=== PATIENT | female | born 1930 | race Caucasian/White ===

== ENCOUNTER → 2018-11-21 | Outpatient (CLI) | payer MEDICARE, OTHER ==
[~2018-11-21] MED LIST: ACET-1882; ALKA; BETA2500; CALC300T34; CYAN100025; IRON45TA6; LIPA1CAP9; MULT-754; OMEG-14; RANI150T35; SIMV40TA3
--- NOTE | 2018-11-21 09:40 | CONS ---
Date/Time of Note Date/Time of Note DATE: 11/21/18 TIME: 09:33 Assessment/Plan Assessment/Plan Hospital Course 88-year-old female presenting with greater than 1 year right knee pain. She does have a history of a right patella fracture that underwent open reduction internal fixation with tension band K wires. However on her history as well as exam and radiographs the majority of her pain and pathology is in the medial compartment. I do not believe the hardware is causing the majority of her symptoms. Therefore removal of hardware would not significantly improve her symptoms. I am recommending at this time since she is failed conservative treatment with analgesics, walker, activity modifications that she think about a total knee replacement. She does want to move forward with surgical options as the pain is too great and she is not able to have a quality of life she wishes. I discussed with her that she does have increased risk of infection given the previous surgery and hardware as well as during surgery the patella fracture may not be completely healed and in that case total knee arthroplasty would not be completed. Given her history of bladder cancer as well as thin body habitus and poor diet I would like her to obtain additional labs before I decide to proceed with surgery. The patient is to obtain CBC with differential ESR CRP Vitamin D 25-hydroxy Total protein Albumin Those labs will be reviewed. If the labs are normal we can proceed with scheduling for surgery. Otherwise she will need to be optimized prior to procedure and surgery. On follow-up benefits and risks will be reviewed and full length scanogram films will be obtained for preop planning. Consultation Date/Type/Reason Admit Date/Time Date of Consultation: Nov 21, 2018 Type of Consult Right knee pain Hx of Present Illness Is a 88-year-old female with multiple medical problems with a chief complaint of right knee pain. The pain began approximately year and a half ago. She sustained a right patella fracture which was subsequently fixed by Dr. Moyer in 2017. The patients pain is in the medial aspect of the right knee denies any significant anterior knee pain or irritation from the hardware. Pain is not radiating to the lower leg. The pain is rated as a 10/10 and is sharp and throbbing. Patient denies complaints of numbness or tingling. The pain is exacerbated by climbing stairs and ambulation. Pain is not relieved by acetaminophen. Patient uses a walker at baseline. History of severe scoliosis as well. Duration: 1.5 years Injury: Right patella fracture Walking tolerance: Less than 1 block Limp: Yes Support: Walker Swelling: Yes Crepitation: Yes Instability: No Stairs: Does not use Physical Therapy: None recently Injections: No NSAIDs: Contraindicated Prior surgery: Tension band right patella fracture Back pain: Yes, scoliosis Hip pain: Occasional right hip pain Risk of AVN : Yes Patient denies fever, chills, shortness of breath, chest pain, nausea/vomiting, constipation, diarrhea. Past Medical History Aortic valve stenosis Peripheral neuropathy GERD History of blood transfusion Hearing loss Macular degeneration Bladder [id number] Osteoporosis Scoliosis Allergies: Coded Allergies: Latex (Verified Allergy, Severe, 04/22/10) Ibuprofen (Verified Allergy, Mild, 07/21/10) Past Surgical History Bilateral total hip arthroplasties by Dr. Brito in [address] Moyer 2016 Hysterectomy Appendectomy Right shoulder surgery Laminectomy Cataract surgery Family History Significant Family History: no pertinent family hx Social History Alcohol Use: none Smoking Status: Former smoker Drug Use: none Exam/Review of Systems Vital Signs Vitals Weight: 100 pounds Height: 5 foot Temperature: 97.9 Heart Rate: 61 Blood Pressure: 148/65 Respiratory Rate: 14 Exam General: Alert, oriented x3. No Acute Distress. Heart: Regular rate and rhythm. Lungs: No respiratory distress. No accessory muscle use. Musculoskeletal: Right Knee This is a well developed thin female who is alert, oriented times three and in no apparent distress. Skin is intact over the right knee as well as the lower extremity with no abras ions, lacerations, or ulcerations. Well-healed anterior midline incision. Tension band and K wire hardware is palpable but is nontender to palpation. Observation of the patient's gait reveals an antalgic gait with Varus thrust. Frontal plane alignment is varus. There is pain on palpation of medial joint line. The patient demonstrates minimal grinding anteriorly with ROM. Range of motion: 5 extension to approximately 130 degrees of flexion. Collateral ligament testing reveals no instability with varus or valgus stress at 0 and 30 degrees of flexion. Negative Clary's and negative posterior drawer. Neurovascularly intact with 5/5 EHL/tibialis anterior/gastroc. Sensation decreased but grossly intact to light touch in a sural, saphenous, deep peroneal, superficial peroneal, medial and lateral plantar nerve distribution. Palpable, symmetric dorsalis pedis and posterior tibial pulses in both lower extremities. Imaging Imaging The patient received a standard set of films today that were personally reviewed. Imaging included a standing bilateral knee AP, PA flexion, merchant views and a dedicated lateral of the affected knee: There is varus alignment of the knee. Postsurgical changes with tension band with K wires of a patella fracture. The fracture is healed. The hardware is intact. There is complete loss of joint space medial compartment(s) and mild degenerative changes in the patellofemoral joint. 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 There is osteophyte formation. There is subchondral sclerosis. There are subchondral cysts. Degenerative changes are most severe in the medial compartment(s) PHYLICIA ULLOA MD Nov 21, 2018 09:40
--- NOTE | 2018-11-21 15:10 | RADRPT ---
PROCEDURE: XR Knees. CLINICAL INDICATION: Bilateral knee pain. TECHNIQUE: Total of eight views. Weightbearing frontal, oblique, and lateral views of the both kne es. Patellar views of both knees. COMPARISON: No prior study is available for comparison. FINDINGS: On the right side, there is a yjiaqu-iy-bvvup wire and 2 vertical pins transfixing a healed transvers e fracture of the patella with satisfactory alignment. There is no other fracture and there is no dis location. On the right side, there are degenerative changes with medial joint compartment narrowing, subarticular sclerosis, mild deformity. There is a right knee joint effusion. There is no fracture or dislocation. There is no lytic or blastic lesion. On the left side, there are mild degenerative changes with small osteophytes noted. There is no fract ure or dislocation. There is no lytic or blastic lesion. 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 Vascular calcifications are present consistent with atheroscler osis. Soft tissues are otherwise normal. IMPRESSION: 1. Old healed fracture of the right patella with hardware noted. 2. Severe degenerative changes of the right knee. 3. Mild degenerative changes of the left knee. RPTAT: QQ .Zac Guzman MD, Date Time Electronically viewed and signed by .Zac Guzman MD, on 11/21/2018 15:10 .R/
== END | disposition home or self-care (01) ==
LOC: HKI 09:19
PROVIDERS: ATTEND Orthopaedic Surgery Adult Reconstructive Orthopaedic Surgery
DX: M25.561 Pain in right knee (principal); I35.0 Nonrheumatic aortic (valve) stenosis; G62.9 Polyneuropathy, unspecified; K21.9 Gastro-esophageal reflux disease without esophagitis; M81.0 Age-related osteoporosis without current pathological fracture; Z85.51 Personal history of malignant neoplasm of bladder; Z90.710 Acquired absence of both cervix and uterus; Z96.643 Presence of artificial hip joint, bilateral; Z87.891 Personal history of nicotine dependence
CPT/HCPCS: 73564; G0463

== ENCOUNTER → 2019-01-13 | Outpatient (CLI) | payer MEDICARE, OTHER ==
--- NOTE | 2019-01-14 09:39 | RADRPT ---
PROCEDURE: Limited x-ray of both lower extremities. CLINICAL INDICATION: Bilateral leg pain. TECHNIQUE: Single frontal view of both lower extremities was obtained from the hips to the lower ca lves. COMPARISON: None. FINDINGS: Surgical clips are present in the pelvis bilaterally. There are bilateral total hip arthroplasties. T here is a right patella open reduction and internal fixation with 2 vertical wires and a cqiwxd-dj-et ght wire. There are degenerative changes of both knee joints. IMPRESSION: 1. Bilateral lower extremity radiographs as described above. RPTAT: QQ .Zac Guzman MD, MD Date Time Electronically viewed and signed by .Zac Guzman MD, on 01/14/2019 09:39 .R/
--- NOTE | 2019-01-14 18:10 | CONS ---
Consult Date/Type/Reason Admit Date/Time Initial Consult Date Date/Time of Note DATE: 01/14/19 TIME: 17:40 Subjective Barbara Angeles is here today with osteoarthritis of the right knee. The patient has been having problems for the last several years. The patient rates the pain 10/10. She has history of open reduction internal fixation of the patella fracture couple years ago. The patient has failed conservative therapy. At last visit high risk patient labs were ordered and all were within acceptable limits. The patient is here for a preoperative visit. Objective Exam General: Alert, oriented x3. No Acute Distress. Heart: Regular rate and rhythm. Lungs: No respiratory distress. No accessory muscle use. Musculoskeletal: Right Knee This is a well developed thin female who is alert, oriented times three and in no apparent distress. Skin is intact over the right knee as well as the lower extremity with no abrasions, lacerations, or ulcerations. Well-healed anterior midline incision. Tension band and K wire hardware is palpable but is nontender to palpation. Observation of the patient's gait reveals an antalgic gait with Varus thrust. Frontal plane alignment is varus. There is pain on palpation of medial joint line. The patient demonstrates minimal grinding anteriorly with ROM. Range of motion: 5 extension to approximately 130 degrees of flexion. Collateral ligament testing reveals no instability with varus or valgus stress at 0 and 30 degrees of flexion. Negative Clary's and negative posterior drawer. Neurovascularly intact with 5/5 EHL/tibialis anterior/gastroc. Sensation decreased but grossly intact to light touch in a sural, saphenous, deep peroneal, superficial peroneal, medial and lateral plantar nerve distribution. Palpable, symmetric dorsalis pedis and posterior tibial pulses in both lower extremities. Results/Medications Home Meds Reported Medications Iron,Carbonyl (Feosol) 45 Mg Tablet 07/21/10 Multivitamins W-Minerals/Lut (Centrum Silver Tablet) 1 Tab Tablet 07/21/10 Beta-Carotene (Beta Carotene) 25,000 Unit Capsule 07/21/10 Cyanocobalamin (Vitamin B-12) 1,000 Mcg Lozenge 07/21/10 Calcium Carbonate (Tums EX) 1 Tab.chew Tab.chew 07/21/10 Fish Oil/[place]-3 Fatty Acids (Fish Oil 1,200 Mg Softgel) 1 Cap Capsule 07/21/10 Aspirin ([place]) 1 Tab Tabef 07/21/10 Acetaminophen (Arthritis Pain Relief) 650 Mg Tablet.sa 07/21/10 Ranitidine Hcl* (Zantac*) 150 Mg Capsule 07/21/10 Amylase/Lipase/Protease (Pancrease Mt 10 Capsule Ec) 1 Cap.ec Capsule. 07/21/10 Simvastatin (Simvastatin) 40 Mg Tablet 07/21/10 Assessment/Plan Hospital Course (Demo Recall) The patient has AVN of the medial femoral condyle and osteoarthritis and of the right knee involving primarily the medial compartment(s) with previous k-wire and tension band ORIF of the patella. The patient has failed conservative treatment. Medical Clearance pending ----- A lengthy discussion ensued, where the patient was told that if and when the symptoms are intolerable, elective total knee replacement should be considered. The operative procedure was explained using diagrams and or three-dimensional models. Discussion wa held specifically about regarding removal of hardware. s if during removal of hardware the fracture is found not to be healed a total knee arthroplasty would not be performed and the fracture would be further stabilized. If the patella fracture is healed but there is not sufficient bone stock to resurface the patella, the patella will be left unresurfaced. The rehabilitation, the potential risks, benefits and alternatives were discussed at length. Specific risks discussed included but were not limited to excessive blood loss and the need for transfusion and therefore the risk of transmissible disease or transfusion reaction, deep infection and the potential need for repetitive debridements, implant removal, long-term antibiotic therapy, possibly requiring deep venous access, extensor mechanism complications, including subluxation or dislocation, disruption of the quadriceps or patellar tendon, fracture of the patella or avulsion of the tibial tuberosity, femoral, tibial or fibular fracture and the need for further surgery for fixation, neurovascular injury with temporary or permanent numbness, tingling, weakness or paralysis, arterial injury requiring surgery including possible amputation, deep venous thrombosis, pulmonary embolism and , persistent pain, weakness, or limp, late aseptic loosening and the need for revision, polyethylene wear-induced osteolysis and related problems, post-operative stiffness requiring closed manipulation, and finally, a wide variety of unanticipated medical problems. The opportunity to ask questions and address any concerns was provided. The patient would like to proceed with scheduling. Face to Face Evaluation for Home Health Care: This is to certify that after date of planned surgery patient will be in need of intermittent nursing home care, physical therapy and/or occupational therapy as patient will be home bound. This patient is under my care and I have authorized the services on this plan of care and will periodically review the plan. Plan: removal of hardware and Right TKA VTE risk stratification: Average VTE prophylaxis: ASA 81 mg twice daily times 6 weeks Diabetes management: No Pain control: Standard Telemetry: Will be determined after surgery MRSA: Pending PHYLICIA ULLOA MD Jan 14, 2019 17:55
== END | disposition home or self-care (01) ==
LOC: HKI 13:36
PROVIDERS: ATTEND Orthopaedic Surgery Adult Reconstructive Orthopaedic Surgery
DX: M17.11 Unilateral primary osteoarthritis, right knee (principal); Z79.82 Long term (current) use of aspirin
CPT/HCPCS: 77073; G0463

== ENCOUNTER 2019-01-21 05:28 | Inpatient (IN) | payer MEDICARE, OTHER ==
[2019-01-17 10:42] VITALS: BMI 19.4
[2019-01-21] VITALS (41 sets, daily range): BP systolic 65–178; BP diastolic 36–73; PULSE 57–136; RESP 9–25; Ht 152.4 cm; Wt 40.5 kg
[~2019-01-21] VITALS: Ht 152.4 cm; Wt 40.5 kg
[2019-01-21] MEDS ORDERED: CEFAZOLIN 2 GM/50 ML (PMX) 50 ML IVPB ONE (06:00)
[2019-01-21] MEDS ORDERED: LACTATED RINGER'S 1,000 ML IV* SCH (06:00)
[2019-01-21] MEDS ORDERED: DEXAMETHASONE 4 MG/ML 1 ML INJ IV ONE (06:00)
[2019-01-21] MEDS ORDERED: LANSOPRAZOLE 30 MG CAP PO ONE (06:00)
[2019-01-21] MEDS ORDERED: ONDANSETRON 4 MG INJ IV ONE (06:00)
[2019-01-21] MEDS ORDERED: ACETAMINOPHEN 1000MG/100ML IV 100 ML IVPB ONE (06:00)
[2019-01-21] MEDS ORDERED: DESFLURANE 15 MIN ONE (07:00)
[2019-01-21] MEDS ORDERED: SIMV40TA3 PO (07:20)
[2019-01-21] MEDS ORDERED: TRANEXAMIC ACID 1GM/100ML(PMX) 200 ML ONE (07:21)
[2019-01-21] MEDS ORDERED: VIT1TABL33 PO (07:21)
[2019-01-21] MEDS ORDERED: ACET-2047 PO (07:22)
[2019-01-21] MEDS ORDERED: ASPI81TA52 PO (07:22)
[2019-01-21] MEDS ORDERED: BETA2500 PO (07:23)
[2019-01-21] MEDS ORDERED: GLUC-134 PO (07:23)
--- NOTE | 2019-01-21 07:29 | HPN ---
Date/Time of Note Date/Time of Note DATE: 01/21/19 TIME: 07:28 Interval H&P Admission Note Pt. seen H&P reviewed: No system changes Patient denies fever, chills, shortness of breath, chest pain, nausea/vomiting, constipation, diarrhea. 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 MUSCULOSKELETAL: Right lower extremity: Skin intact. Well healed midline incision Sensation decreased to light touch in a sural, saphenous, deep peroneal, superficial peroneal, medial and lateral plantar nerve distribution. Motor is intact, patient able to dorsiflex and plantarflex ankle and extend and flex great toe. Dorsalis Pedis pulse +2, Brisk capillary refill. Compartments are soft. Calves non-tender to palpation bilaterally. PHYLICIA ULLOA MD Jan 21, 2019 07:29
[2019-01-21] MEDS ORDERED: ROPIVACAINE 0.2% 60 ML, CLONIDINE 100 MCG, EPINEPHrine 0.3 MG, SOD CHLORIDE 0.9% 50 ML INJ SCH ×4 (07:30)
--- NOTE | 2019-01-21 07:39 | PREAC ---
Date/Time of Note Date/Time of Note DATE: 01/21/19 TIME: 07:38 Anesthesia Eval and Record Evaluation Time Pre-Procedure Interview DATE: 01/21/19 TIME: 07:38 Age 88 Sex female NPO: 8 hrs Preoperative diagnosis right knee osteoarthritis Planned procedure right knee replacement Past Medical History Past Medical History: Includes Cardio: Dyslipidemia, Other (moderate aortic stenosis ) Musculoskeletal: Osteoarthritis Surgery & Anesthesia Issues No known issue Meds Anticoagulation: No Beta Meenu within 24 hr: No Reason Beta Meenu not given: Pt. not on B-Meenu Reported Medications Beta-Carotene (Beta Carotene) 25,000 Unit Capsule, 55290 UNIT PO DAILY, CAP 01/21/19 Glucosamine Hcl/Chondr Lewis A Na (OSTEO BI-FLEX CAPLET) 1 Each Tablet, 1 EACH PO BID, TAB 01/21/19 Aspirin (Low Dose Aspirin) 81 Mg Tablet.dr, 81 MG PO DAILY, #30 TAB 01/21/19 Acetaminophen* (Acetaminophen*) 650 Mg Tablet, 650 MG PO TID PRN for PAIN AND OR ELEVATED TEMP, #30 TAB 01/21/19 Vit A/Vit C/Vit E/Zinc/Copper (PRESERVISION AREDS TABLET) 1 Each Tablet, 2 EACH PO DAILY, TAB 01/21/19 Simvastatin (Simvastatin) 40 Mg Tablet, 40 MG PO QHS, #30 TAB 01/21/19 Discontinued Reported Medications Iron,Carbonyl (Feosol) 45 Mg Tablet 07/21/10 Multivitamins W-Minerals/Lut (Centrum Silver Tablet) 1 Tab Tablet 07/21/10 Beta-Carotene (Beta Carotene) 25,000 Unit Capsule 07/21/10 Cyanocobalamin (Vitamin B-12) 1,000 Mcg Lozenge 07/21/10 Calcium Carbonate (Tums EX) 1 Tab.chew Tab.chew 07/21/10 Fish Oil/[place]-3 Fatty Acids (Fish Oil 1,200 Mg Softgel) 1 Cap Capsule 07/21/10 Aspirin ([place]) 1 Tab Tabef 07/21/10 Acetaminophen (Arthritis Pain Relief) 650 Mg Tablet.sa 07/21/10 Ranitidine Hcl* (Zantac*) 150 Mg Capsule 07/21/10 Amylase/Lipase/Protease (Pancrease Mt 10 Capsule Ec) 1 Cap.ec Capsule. 07/21/10 Simvastatin (Simvastatin) 40 Mg Tablet 07/21/10 Current Medications Lactated Ringer's 1,000 ml @ 125 mls/hr Q8H IV* ; Start 01/21/19 at 06:00; Stop 01/21/19 at 13:59 Ropivacaine/ Clonidine/ Epinephrine/ Sodium Chloride INTRA-OP INJ ; Start 01/21/19 at 07:30; Stop 01/21/19 at 12:30 Miscellaneous Information (*Order Clarification Bulletin) MEDICATION REQUIRES CLARIFICATI... Q8H XX ; Start 01/21/19 at 06:00; Stop 01/21/19 at 19:00 Meds reviewed: Yes Allergies Coded Allergies: latex (Verified Allergy, Severe, 01/21/19) ibuprofen (Verified Allergy, Mild, 01/21/19) Allergies Reviewed: Yes Labs/Studies Labs Reviewed: Reviewed by anesthesiologist Blood Bank Test 01/21/19 06:20 Antibody Screen NEGATIVE Blood Type O POSITIVE test: N/A Pre-procedure Exam Last vitals Vital Signs Date Temp Pulse Resp B/P (MAP) Pulse Ox O2 O2 Flow FiO2 Time Delivery Rate 01/21/19 98.5 57 18 161/70 95 Room Air 07:09 (100) Airway: Adequate mouth opening, Adequate thyromental dist Mallampati: Mallampati IV Teeth: Normal Lung: Normal Heart: Normal ASA Physical Status ASA physical status: 4 Emergency: None Pre-operative Attestations Prior to commencing anesthesia and surgery, the patient was re-evaluated, there was verification of: *The patient's identity *The results of appropriate recent lab work and preoperative vital signs *The above evaluation not changing prior to induction *Anesthetic plan, risk benefits, alternative and complications discussed with patient/family; questions answered; patient/family understands, accepts and wishes to proceed. BRENDEN LEON DO Jan 21, 2019 07:39
[2019-01-21] MEDS ORDERED: ROCURONIUM 50 MG INJ ONE ×2 (07:47→09:31)
[2019-01-21] MEDS ORDERED: MIDAZOLAM 1 MG/ML 2 ML INJ ONE (07:47)
[2019-01-21] MEDS ORDERED: LIDOCAINE 1% (MDV) 20 ML INJ ONE (07:47)
[2019-01-21] MEDS ORDERED: ETOMIDATE 20 MG INJ ONE (07:47)
[2019-01-21] MEDS ORDERED: PHENYLephrine (100 MCG/ML) 5ML SYG ONE ×3 (07:59→12:41)
[2019-01-21] MEDS ORDERED: VASOPRESSIN 20 UNITS INJ ONE (07:59)
[2019-01-21] MEDS ORDERED: CEFAZOLIN 1 GM INJ ONE (08:13)
[2019-01-21] MEDS ORDERED: DEXAMETHASONE 4 MG/ML 5 ML INJ ONE (08:34)
[2019-01-21] MEDS ORDERED: ONDANSETRON 4 MG INJ ONE ×2 (08:34→17:54)
[2019-01-21] MEDS ORDERED: VITA100022 PO (08:40)
[2019-01-21] MEDS ORDERED: OMEG-158 PO (08:40)
[2019-01-21] MEDS ORDERED: FER325 PO (08:41)
[2019-01-21] MEDS ORDERED: ASCO500C7 PO (08:41)
[2019-01-21] MEDS ORDERED: CHOL100062 PO (08:42)
[2019-01-21] MEDS ORDERED: ESOM40CA PO (08:42)
[2019-01-21] MEDS ORDERED: FOLI1TAB5 PO (08:43)
[2019-01-21] MEDS ORDERED: COMBIG5 LEFT EYE (08:45)
[2019-01-21] MEDS ORDERED: PROP10DR2 BOTH EYES (08:45)
[2019-01-21] MEDS ORDERED: FENTAnyl 50 MCG/ML VIAL ONE ×2 (08:47→09:06)
[2019-01-21] MEDS ORDERED: hydrALAzine 20 MG INJ ONE (09:05)
[2019-01-21] MEDS ORDERED: POLYMYXIN/BACITRACIN 1L IRRIG IRR ONE (09:07)
[2019-01-21] MEDS ORDERED: ROPIVACAINE 0.2% 20 ML VIAL ONE (11:47)
[2019-01-21] MEDS ORDERED: SUGAMMADEX SODIUM 200 MG/2 ML VIAL IV ONE (11:58)
[2019-01-21] MEDS ORDERED: BISACODYL 10 MG SUPP PR PRN (12:00)
[2019-01-21] MEDS ORDERED: MAGNESIUM HYDROXIDE 30ML CUP PO PRN (12:00)
[2019-01-21] MEDS ORDERED: DIPHENHYDRAMINE 50 MG INJ IV PRN (12:00)
[2019-01-21] MEDS ORDERED: BETHANECHOL 25 MG TAB PO PRN (12:00)
[2019-01-21] MEDS ORDERED: HYDROmorphONE 1 MG/ML SYG IV PRN (12:00)
[2019-01-21] MEDS ORDERED: NA PHOSPHATE/BIPHOS 133 ML ENEMA PR PRN (12:00)
[2019-01-21] MEDS ORDERED: SENNA/DOCUSATE NA (8.6MG/50MG) TAB PO PRN (12:00)
[2019-01-21] MEDS ORDERED: NALOXONE (0.4 MG/ML) INJ IV PRN (12:00)
[2019-01-21] MEDS ORDERED: oxyCODONE 5 MG TAB PO PRN (12:00)
[2019-01-21] MEDS ORDERED: NACL 0.9% 3 ML SYG IV SCH (12:00)
[2019-01-21] MEDS ORDERED: FLUMAZENIL 0.5 MG INJ ONE (12:23)
--- NOTE | 2019-01-21 12:28 | OPR ---
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 Postoperative Diagnosis As above Operation/Procedure Performed Removal of deep hardware Right total knee arthroplasty Use of intraoperative navigation Use of intraoperative x-ray Surgeon see signature line Portable Irrigation Operator Rayshawn STANLEYNA Anesthesia Type: general Tourniquet Time: 120 Estimated Blood Loss: 50 - 100 ml's Transfusion none Specimen none Grafts/Implants Explants: 2 stainless steel K wires Stainless steel cerclage wire IMPLANTS: Depuy Sigma Femur: size 2.5 PS Tibia: Size 2 Poly insert: size 2 PS, 8 mm thickness Patella: 32 mm Complications none Pt Condition Post Procedure: stable Disposition: PACU Procedure Description PREOP DIAGNOSIS: Right knee AVN ORIF patella fracture POSTOP DIAGNOSIS: Same. SURGICAL PROCEDURE: Removal of deep hardware Right total knee arthroplasty. Use of intraoperative navigation Use of intraoperative x-ray CPT CODE: 17825. [id number] INDICATIONS AND CONSENT: The patient is a 84 year-old woman, with an orthopaedic history consistent with progressively worsening knee pain. She sustained a patella fracture approximately 2 years ago. She underwent open reduction internal fixation by another surgeon. Follow counts per the patient this went well and she went on to healing. However she continued to have significant pain and dysfunction. On x-rays she was found to have healed and well reduced patella fracture with retained hardware using K wires and tension band technique. On x-rays also found that she had significant AVN of the medial femoral condyle with collapse. She also had moderate osteoarthritis in other areas of her knee. They have maximized nonoperative measures, which have included activity modification, medicines, intra-articular injections. On physical exam, they have varus alignment, no previous open surgical scars. They have ROM 0-100, no gross ligamentous instability. No significant venous stasis or edema. Distally neurovascular intact. They were offered a knee replacement with removal of hardware. A lengthy discussion ensued, where the patient was told that if and when the symptoms are intolerable, elective total knee replacement should be considered. The operative procedure was explained using diagrams and or three-dimensional models. The rehabilitation, the potential risks, benefits and alternatives were discussed at length. Specific risks discussed included but were not limited to excessive blood loss and the need for transfusion and therefore the risk of transmissible disease or transfusion reaction, deep infection and the potential need for repetitive debridements, inability to remove all hardware, patella fracture, implant removal, long-term antibiotic therapy, possibly requiring deep venous access, extensor mechanism complications, including subluxation or dislocation, disruption of the quadriceps or patellar tendon, fracture of the patella or avulsion of the tibial tuberosity, femoral, tibial or fibular fracture and the need for further surgery for fixation, neurovascular injury with temporary or permanent numbness, tingling, weakness or paralysis, arterial injury requiring surgery including possible amputation, deep venous thrombosis, pulmonary embolism and , persistent pain, weakness, or limp, late aseptic loosening and the need for revision, polyethylene wear-induced osteolysis and related problems, post-operative stiffness requiring closed manipulation, and finally, a wide variety of unanticipated medical problems. The opportunity to ask questions and address any concerns was provided. The patient elected to proceed with TKA. FINDINGS: Healed patella fracture with good articular reduction. There was a deep groove in the lateral femoral condyle ranging from anterior to posterior from the la teral K wire. There was diffuse and significant hemosiderin in all tissues and in articular cartilage. This was secondary to chronic arthrosis likely from hardware going into the femoral condyle. The patient's soft tissues were of poor quality and very tenuous. No signs of infection SURGERY IN DETAIL: Patient was taken into the Operating Room, placed supine on the operating table. Preoperatively, they were given weight-based dosing of Ancef and if MRSA positive vancomycin was given in addition. Tourniquet was placed to the right proximal thigh. Regional anesthesia was administered by Anesthesia Department. Right lower extremity was prepped and draped in sterile fashion. Surgical pause was performed, correctly identifying the patient's name, medical record number, diagnoses, surgical procedure, and laterality of procedure. The leg was elevated, exsanguinated with an Esmarch, tourniquet was inflated to 250 mmHg, remained inflated for 120 minutes, after which it was deflated. An anterior midline incision approximately 15-20 cm in length was made, centered over the patella ending just medial to the tibial tubercle. Skin and subcutaneous tissue sharply dissected down the Avani's fascia superiorly, which was incised in line with skin incision. The quadriceps tendon, medial patellar retinaculum, patellar tendon were visualized. 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 Planes were carefully dissected to perform full-thickness flaps. Of note the patient had almost no subcutaneous tissue. There are numerous nonabsorbable Ethibond sutures both along the medial and lateral retinaculum. These were removed. The stainless steel cerclage wire was buried and cutting into the dorsal surface of the patella. The 2 points of tensioning were found and the wire was unwound. A medial parapatellar arthrotomy was performed. The proximal medial tibia was subperiosteally exposed for a distance of 4 cm from joint line. The deep infrapatellar bursa was incised. At this time the patella was everted to remove the K wires as they were quite deep. It was noted at this time there was a deep groove extending the entire radius of the lateral femoral condyle from the lateral K wire. Both K wires were removed and the tension band cerclage wire was removed. The patella was everted and the knee was flexed, while protecting the insertion of patellar tendon. A 3/8-inch curved osteotome was used to enter the semimembranosus bursa at the level of the joint line medially. Medial meniscus was excised at the meniscal- synovial junction. The anterior cruciate ligament was excised. The posterior cruciate ligament was excised with electrocautery from the intercondylar region and a posterior retractor was placed, subluxating the tibia anterolateral to the femur. At this time the insertion of the patellar tendon was approximately 10% avulsed from its bony insertion. The remainder of the patellar tendon remained intact and undamaged. At this time it was decided that the patella would not be everted but only subluxated. A hernia was made anterolateral to the lateral meniscus and a right-angle retractor was placed over the anterolateral tibia. A lateral meniscectomy was performed. The inferior lateral geniculate artery was coagulated. The tibia was reduced under the femur. An intramedullary pin was placed for the OrthAlign device. The OrthAlign navigation unit and sensor were calibrated at the back table. The OrthAlign femoral cutting jig was then placed over the central pin, and secured with a medial and lateral pin. The OrthAlign navigation unit and OrthAlign sensor were then attached to the jig. The leg was maneuvered for appropriate capture and calibration. After this was performed, the navigation unit was adjusted for a 0 varus/valgus (neutral mechanical axis) and 2.0-2.5 degree posterior flexion cut. The cutting jig was locked in place. The navigation and sensor unit were then removed. The distal femoral cut was set at 10 mm for the osteotomy . This was then secured with two pins. A distal femoral osteotomy was performed. The OrthAlign femoral jig was then removed. A posterior retractor was placed and an anterolateral retractor was placed on the tibia, subluxating the tibia anterior to the femur. The OrthAlign tibial cutting jig was then applied to the tibia preliminarily with the strap. This was secured with two pins centered over the medial 1/3 of the tibial tubercle. The offset was established proximally at the ACL footprint. This was then matched distally. Registration was then performed, registering the lateral malleolus and the medial malleolus. After this was performed, the malleolar probe was then utilized to help set the appropriate varus/valgus as well as tibial slope. This was then locked into position. The navigation guide and sensor were then removed. The slotted tibial cutting jig was then applied and secured with two pins. A proximal tibia osteotomy was performed. The tibia was then brought to full extension and a 10 mm spacer block was inserted, and felt to be satisfactory extension gap. The knee was flexed again and the tibial alignment guide was then removed. With the knee flexed to 90 degrees a femoral sizing jig was placed on the distal femur and secured, the femur sized to a size 2.5. Due to preoperative varus deformity, this was then set on 3 degrees of empiric external rotation, using the posterior condyles. This was parallel to the epicondylar axis. A size 2.5 4-in-1 femoral cutting block was then secured to the femur with two lock pins and an anterior, posterior condylar cut were performed, followed by an anterior chamfer and a posterior chamfer cut. Cutting block was removed. A 10 mm spacer was then inserted at 90 degrees of flexion and this was symmetric with the extension gap. An intercondylar box osteotomy was performed using the box cutting guide. A trial tibial base plate, size 2 with a 10 cruciate sacrificing polyethylene, and a trial size 2.5 femur were then inserted and the knee was brought to full extension. Extension gap was slightly tight. It was then trialed with an 8 mm poly-and the knee was able to reach full extension and was stable in flexion as well. The patella was everted and the osteochondral junction was exposed. The patella measured 23 mm in thickness. A patellar osteotomy performed leaving 15 mm remnant patella. Three lug holes were drilled for the 32 mm diameter patellar button. The knee then underwent range of motion, soft tissue tension and patellar tracking, everything was symmetric balanced. The patella tracked centrally. The rotation of the tibial component was marked on the tibia. On the tibia, the modular base plate hole was created with the appropriate drills and punches at previously marked rotation. It was decided given the patient's poor bone quality space along the anterior aspect of the tibia a small 30 mm stem would be placed. The tibia was appropriately drilled. Exposed bony surfaces were thoroughly irrigated and dried. Periarticular injection administered. Cement with antibiotics was mixed at the back table. At the appropriate time and consistency cement was placed in the keel and onto the tibial plateau. Cement was finger pressurized. Cement was placed on the backside of the tibial component and along the keel. The tibial component was placed by hand into the keel and was then impacted and extruded cement removed. Cement was applied to exposed bone of the femur, as well as the posterior condylar portion prostheses, and the femoral component was inserted, extruded cement was then removed. The knee was brought to full extension. Cement was applied to the patella, as well as the patellar button, which was clamped into position. Extruded cement was removed. After the cement completely dried, the knee was flexed, the trial polyethylene was removed. Scored cement was removed. A tourniquet was deflated. Hemostasis was obtained. Pulse lavage was used to irrigate and remove any loose debris from posterior knee. A formal size 2, 8 mm polyethylene was inserted, confirmed seated and locked. The knee was reduced, hemostasis obtained. Copious amounts of irrigation was used with pulse lavage to remove and loose debris. The arthrotomy was closed with 1 PDS in a [id number], interrupted fashion, subcutaneous tissues irrigated, closed with 2-0 Vicryl in an inverted, interrupted fashion. The skin was closed with tatum. A sterile dressing was applied. Sponge, needle and instrument counts were correct at the end of the case. DISPOSITION: Patient transferred to PACU in stable condition. The patient will be weight bearing as tolerated on the operative extremity. PT will begin POD #0 if available. Postoperative AP and lateral of the operative knee will be ordered in PACU. Bilateral knee high SCDs will be worn while admitted. ASA 81mg BID will be given for DVT prophylaxis for 6 weeks. Pain will be controlled with medication. The patient will follow up in clinic in approximately 2 weeks. ESTIMATED BLOOD LOSS: 100 mL. CULTURES: None. PATHOLOGY: Bone. IMPLANTS: Depuy Sigma Femur: size 2.5 PS Tibia: Size 2 Poly insert: size 2 PS, 8 mm thickness Patella: 32 mm NAME OF SURGEONS AND ASSISTANTS: Surgeon: MD ARTEMIO Farmer JONATHAN MD Jan 21, 2019 12:21
[2019-01-21] MEDS ORDERED: DILTIAZEM 25 MG INJ ONE (12:29)
[2019-01-21] MEDS ORDERED: DILTIAZEM 25 MG INJ IV ONE (12:30)
[2019-01-21] MEDS ORDERED: PHENYLephrine 10 MG INJ ONE ×2 (12:39→12:49)
[2019-01-21] MEDS ORDERED: PHENYLephrine 20MG IN 250 ML 250 ML IV SCH ×2 (12:40→14:00)
[2019-01-21] MEDS ORDERED: DOCUSATE SODIUM 100 MG CAP PO ONE (13:00)
[2019-01-21] MEDS ORDERED: IODIXANOL LOCM 100 ML BTL ONE (13:11)
[2019-01-21] MEDS ORDERED: SOD CHLORIDE 0.9% 100 ML ONE (13:11)
--- NOTE | 2019-01-21 13:22 | OPPN ---
Date/Time of Note Date/Time of Note DATE: 01/21/19 TIME: 13:09 Event Note Called to PACU by overhead "Code Stroke" alert. Arrived at bedside to find a patient only responsive to painful stimulus, aphasic, and with apparent R hemiparesis. Pt had a history of aortic stenosis, by report from anesthesiologist. VS were BP 65/35, new onset Afib (by report), HR 135, and SaO2 100% on 4L NC. I was asked to assist, by attending anesthesiologist and attending surgeon, to stabilize the situation so that the patient could be safely transported to CT scan for Stroke protocol. Only R forearm 20g PIV and L radial [place] present. 60mcg/min neosyneprhine infusion started through new R IJ 16g USG central venous access obtained by myself. R IJ 16g 1.5" angiocath cannulation of R internal jugular vein. IVP phenylephrine until BP increased to at least 130systolic at which point I ordered 150mg of amiodarone to be given via slow IVP for attempts at afib w/ RVR conversion to SR or, at least, rate control. BP stable, and HR decreased to 90bpm, though still in AFib. Cardioversion discussed with the ICU commercial reporter autotransfusionist, and decision made against, considering the unknown embolic possibilities that might be the cause o f the acute CVA/possible CO presentations. Pt transported to CT with the original attending anesthesiologist and Stroke team, per protocol. Thank you for allowing me to assist in the care of this patient. Niki Valentin MD NIKI VALENTIN MD Jan 21, 2019 13:22
[2019-01-21] MEDS ORDERED: POLYMYXIN/BACITRACIN 1L IRRIG ONE (13:23)
--- NOTE | 2019-01-21 13:29 | CONS ---
Assessment/Plan Assessment/Plan Hospital Course 88 F c/ reported Hx of bladder Ca s/p chemo... and other comorbidities, who presents for elective L knee replacement. Post-operatively, while in PACU, she was noted to have new aphasia and right hemiplegia...for which neurology is consulted. She was at that time found to be in afib w/ RVR...the likely underlying stroke mechanism.. s/p code stroke...iv tpa was declined... Head CT is unrevealing. LDL 39 P: STAT CTA Head to evaluation for thrombus amenable to IR!!! asa/lipitor for secondary stroke prevention for now Permissive HTN to 220/110 for now Echo Lipids, a1c, LFTs, ESR, RPR MRI brain for further characterization when medically able PT/OT/ST when able Will follow Consultation Date/Type/Reason Admit Date/Time Jan 21, 2019 at 05:28 Type of Consult Neurology Reason for Consultation R hemiparesis; stroke Requesting Provider: CHRISTIANA IZQUIERDO Date/Time of Note DATE: 01/21/19 TIME: 13:23 Hx of Present Illness 88 yo F with hx of bladder CA s/p chemotherapy, , peripheral neuropathy, R knee replacement who presents to [facility] electively for a L knee replacement. The pt is currently unable to contribute a hx. A code stroke was called on 01/21/19 ~1245. The pt was noted to have aphasia with R hemiparesis. LKWT was ~ 0800. Determined not to be a candidate for tPA given her recent surgery. Subjective hx not possible: pt non-verbal Exam/Review of Systems Exam Vitals Vital Signs Date Temp Pulse Resp B/P (MAP) Pulse Ox O2 O2 Flow FiO2 Time Delivery Rate 01/21/19 99.9 12:18 01/21/19 57 18 161/70 95 Room Air 07:09 (100) Exam PE: Gen Appearance: No Apparent Distress HEENT: Normocephalic Cardiovascular: Regular rate Lungs: Clear bilaterally Abdomen: Soft Extremities: Dry NE: The patient was alert, though aphasic. Able to track. Unable to follow any commands. Cranial nerve examination was limited by mental status. Pupils were equal and reactive to light. There was no afferent pupillary defect. Funduscopic examination was limited. Face was grossly symmetric, w/ present corneal and cough reflexes. Tone was flaccid on the R. Muscle bulk was normal. I did not see fasciculations. The pt withdrew to noxious stimuli on the L. Coordination and gait testing was limited by mental status. Arm and leg reflexes were within normal limits and symmetric. Silva's sign was absent. Plantar responses were flexor. Results Result Diagram: 01/21/19 1254 Results 24hrs Laboratory Tests Test 01/21/19 12:54 White Blood Count 13.3 H Red Blood Count 3.39 L Hemoglobin 10.8 L Hematocrit 33.5 L Mean Corpuscular Volume 98.8 Mean Corpuscular Hemoglobin 31.9 Mean Corpuscular Hemoglobin Concent 32.2 Red Cell Distribution Width 12.6 Platelet Count 153 Mean Platelet Volume 11.4 H Immature Granulocytes % 0.800 H Neutrophils % 91.9 H Lymphocytes % 6.3 L Monocytes % 0.8 Eosinophils % 0.0 Basophils % 0.2 Nucleated Red Blood Cells % 0.0 Immature Granulocytes # 0.100 H Neutrophils # 12.2 H Lymphocytes # 0.8 Monocytes # 0.1 L Eosinophils # 0.0 Basophils # 0.0 Nucleated Red Blood Cells # 0.0 CBC Results Faxed/Phoned 1 *H Prothrombin Time 14.6 Prothrombin Time Ratio 1.1 INR International Normalized Ratio 1.13 Activated Partial Thromboplast Time 30.3 Medications Medication Current Medications Lactated Ringer's 1,000 ml @ 125 mls/hr Q8H IV* ; Start 01/21/19 at 06:00; Stop 01/21/19 at 13:59 Miscellaneous Information (*Order Clarification Bulletin) MEDICATION REQUIRES CLARIFICATI... Q8H XX ; Start 01/21/19 at 06:00; Stop 01/21/19 at 19:00 Ascorbic Acid (Vitamin C) 1,000 mg DAILY PO ; Start 01/22/19 at 09:00 Brimonidine/ Timolol (Combigan Oph) 1 drop BID LEFT EYE ; Start 01/21/19 at 21:00 Cholecalciferol (Vitamin D) 1,000 unit DAILY PO ; Start 01/22/19 at 09:00 Ferrous Sulfate (Ferrous Sulfate (Ec)) 325 mg DAILY PO ; Start 01/22/19 at 09:00 Pantoprazole (Protonix Tab) 40 mg DAILY@06 PO ; Start 01/22/19 at 06:00 Atorvastatin Calcium (Lipitor) 40 mg HS PO ; Start 01/21/19 at 21:00 Lactated Ringer's 1,000 ml @ 80 mls/hr [id number] IV ; Start 01/21/19 at 11:57 IV Flush (NS 3 ml) 3 ml PER PROTOCOL IV ; Start 01/21/19 at 12:00 Oxycodone HCl (Roxicodone) 15 mg Q4H PRN PO .PAIN; Start 01/21/19 at 12:00 Oxycodone HCl (Roxicodone) 10 mg Q4H PRN PO .PAIN; Start 01/21/19 at 12:00 Oxycodone HCl (Roxicodone) 5 mg Q4H PRN PO .PAIN; Start 01/21/19 at 12:00 Hydromorphone HCl (Dilaudid) 1 mg Q3H PRN IV .BREAKTHROUGH PAIN; Start 01/21/19 at 12:00 Acetaminophen (Tylenol Tab) 1,000 mg Q8 PO ; Start 01/22/19 at 14:00 Ondansetron HCl (Zofran Inj) 4 mg Q4H PRN IV NAUSEA/VOMITING; Start 01/22/19 at 12:00 Cefazolin Sodium/ Dextrose 50 ml @ 100 mls/hr Q8H IVPB ; Start 01/21/19 at 15:00; Stop 01/22/19 at 07:29 Gabapentin (Neurontin) 300 mg QHS PO ; Start 01/21/19 at 21:00 Dexamethasone (Decadron) 10 mg ONCE ONCE IV ; Start 01/22/19 at 07:00; Stop 01/22/19 at 07:01 Pantoprazole (Protonix Tab) 40 mg DAILY@06 PO ; Start 01/23/19 at 06:00 Docusate Sodium (Colace) 200 mg BID PO ; Start 01/22/19 at 09:00; Stop 01/25/19 at 08:59 Simethicone (Mylicon) 80 mg TID PRN PO .GAS; Start 01/21/19 at 12:00 Senna/Docusate Sodium (Senokot-S) 2 tab BID PRN PO .CONSTIPATION; Start 01/21/19 at 12:00 Magnesium Hydroxide (Milk Of Mag) 30 ml HS PRN PO .CONSTIPATION; Start 01/21/19 at 12:00 Bisacodyl (Dulcolax Supp) 10 mg DAILY PRN MN .CONSTIPATION; Start 01/21/19 at 12:00 Sodium Biphosphate/ Sodium Phosphate (Fleet Enema) 133 ml DAILY PRN [place] .CONSTIPATION; Start 01/21/19 at 12:00 Diphenhydramine HCl (Benadryl) 25 mg Q4H PRN IV .ITCHING; Start 01/21/19 at 12:00 Naloxone HCl (Narcan) 0.2 mg Q2M PRN IV .RESP RATE; Start 01/21/19 at 12:00 Bethanechol Chloride (Urecholine) 25 mg URINARY CATH D/C PRN PO UNABLE TO VOID; Start 01/21/19 at 12:00 Aspirin (Halfprin) 81 mg BID PO ; Start 01/22/19 at 09:00 Past Medical History reviewed Home Meds Reported Medications Brimonidine/Timolol* (Combigan*) 5 Ml Drops, 1 DROP LEFT EYE BID, BOTTLE 01/21/19 Propylene Glycol/Peg 400 (SYSTANE GEL EYE DROPS) 10 Ml Drops.gel, 1 DROP BOTH EYES QID, #1 BOTTLE 01/21/19 Folic Acid/Multivits-Min/Lut (Centrum Silver Chewable Tablet) 1 Each Tab.chew, 1 EACH PO DAILY, TAB.CHEW 01/21/19 Cholecalciferol* (Vitamin D3*) 1,000 Unit Tablet, 1000 UNIT PO DAILY, TAB 01/21/19 Esomeprazole Mag Trihydrate (Nexium) 40 Mg Capsule.dr, 40 MG PO DAILY, #30 CAP 01/21/19 Ascorbic Acid* (Vitamin C*) 500 Mg Capsule.sa, 1000 MG PO DAILY, CAP 01/21/19 Ferrous Sulfate* (Ferrous Sulfate*) 325 Mg Tabec, 325 MG PO DAILY, TAB 01/21/19 Elbe-3/Dha/Epa/Fish Oil (FISH OIL 1,000 MG SOFTGEL) 1 Each Capsule, 1 EACH PO DAILY, CAP 01/21/19 Vitamin E Acetate (Vitamin E) 1,000 Unit Capsule, 1000 UNIT PO DAILY, CAP 01/21/19 Beta-Carotene (Beta Carotene) 25,000 Unit Capsule, 80900 UNIT PO DAILY, CAP 01/21/19 Glucosamine Hcl/Chondr Lewis A Na (OSTEO BI-FLEX CAPLET) 1 Each Tablet, 1 EACH PO BID, TAB 01/21/19 Aspirin (Low Dose Aspirin) 81 Mg Tablet., 81 MG PO DAILY, #30 TAB 01/21/19 Acetaminophen* (Acetaminophen*) 650 Mg Tablet, 650 MG PO TID PRN for PAIN AND OR ELEVATED TEMP, #30 TAB 01/21/19 Vit A/Vit C/Vit E/Zinc/Copper (PRESERVISION AREDS TABLET) 1 Each Tablet, 2 EACH PO DAILY, TAB 01/21/19 Simvastatin (Simvastatin) 40 Mg Tablet, 40 MG PO QHS, #30 TAB 01/21/19 Discontinued Reported Medications Iron,Carbonyl (Feosol) 45 Mg Tablet 07/21/10 Multivitamins W-Minerals/Lut (Centrum Silver Tablet) 1 Tab Tablet 07/21/10 Beta-Carotene (Beta Carotene) 25,000 Unit Capsule 07/21/10 Cyanocobalamin (Vitamin B-12) 1,000 Mcg Lozenge 07/21/10 Calcium Carbonate (Tums EX) 1 Tab.chew Tab.chew 07/21/10 Fish Oil/Elbe-3 Fatty Acids (Fish Oil 1,200 Mg Softgel) 1 Cap Capsule 07/21/10 Aspirin ([place]) 1 Tab Tabef 07/21/10 Acetaminophen (Arthritis Pain Relief) 650 Mg Tablet. 07/21/10 Ranitidine Hcl* (Zantac*) 150 Mg Capsule 07/21/10 Amylase/Lipase/Protease (Pancrease Mt 10 Capsule Ec) 1 Cap.ec Capsule. 07/21/10 Simvastatin (Simvastatin) 40 Mg Tablet 07/21/10 Medications Current Medications Lactated Ringer's 1,000 ml @ 125 mls/hr Q8H IV* ; Start 01/21/19 at 06:00; Stop 01/21/19 at 13:59 Miscellaneous Information (*Order Clarification Bulletin) MEDICATION REQUIRES CLARIFICATI... Q8H XX ; Start 01/21/19 at 06:00; Stop 01/21/19 at 19:00 Ascorbic Acid (Vitamin C) 1,000 mg DAILY PO ; Start 01/22/19 at 09:00 Brimonidine/ Timolol (Combigan Oph) 1 drop BID LEFT EYE ; Start 01/21/19 at 21:00 Cholecalciferol (Vitamin D) 1,000 unit DAILY PO ; Start 01/22/19 at 09:00 Ferrous Sulfate (Ferrous Sulfate (Ec)) 325 mg DAILY PO ; Start 01/22/19 at 09:00 Pantoprazole (Protonix Tab) 40 mg DAILY@06 PO ; Start 01/22/19 at 06:00 Atorvastatin Calcium (Lipitor) 40 mg HS PO ; Start 01/21/19 at 21:00 Lactated Ringer's 1,000 ml @ 80 mls/hr [id number] IV ; Start 01/21/19 at 11:57 IV Flush (NS 3 ml) 3 ml PER PROTOCOL IV ; Start 01/21/19 at 12:00 Oxycodone HCl (Roxicodone) 15 mg Q4H PRN PO .PAIN; Start 01/21/19 at 12:00 Oxycodone HCl (Roxicodone) 10 mg Q4H PRN PO .PAIN; Start 01/21/19 at 12:00 Oxycodone HCl (Roxicodone) 5 mg Q4H PRN PO .PAIN; Start 01/21/19 at 12:00 Hydromorphone HCl (Dilaudid) 1 mg Q3H PRN IV .BREAKTHROUGH PAIN; Start 01/21/19 at 12:00 Acetaminophen (Tylenol Tab) 1,000 mg Q8 PO ; Start 01/22/19 at 14:00 Ondansetron HCl (Zofran Inj) 4 mg Q4H PRN IV NAUSEA/VOMITING; Start 01/22/19 at 12:00 Cefazolin Sodium/ Dextrose 50 ml @ 100 mls/hr Q8H IVPB ; Start 01/21/19 at 15:00; Stop 01/22/19 at 07:29 Gabapentin (Neurontin) 300 mg QHS PO ; Start 01/21/19 at 21:00 Dexamethasone (Decadron) 10 mg ONCE ONCE IV ; Start 01/22/19 at 07:00; Stop 01/22/19 at 07:01 Pantoprazole (Protonix Tab) 40 mg DAILY@06 PO ; Start 01/23/19 at 06:00 Docusate Sodium (Colace) 200 mg BID PO ; Start 01/22/19 at 09:00; Stop 01/25/19 at 08:59 Simethicone (Mylicon) 80 mg TID PRN PO .GAS; Start 01/21/19 at 12:00 Senna/Docusate Sodium (Senokot-S) 2 tab BID PRN PO .CONSTIPATION; Start 01/21/19 at 12:00 Magnesium Hydroxide (Milk Of Mag) 30 ml HS PRN PO .CONSTIPATION; Start 01/21/19 at 12:00 Bisacodyl (Dulcolax Supp) 10 mg DAILY PRN [place] .CONSTIPATION; Start 01/21/19 at 12:00 Sodium Biphosphate/ Sodium Phosphate (Fleet Enema) 133 ml DAILY PRN MN .CONSTIPATION; Start 01/21/19 at 12:00 Diphenhydramine HCl (Benadryl) 25 mg Q4H PRN IV .ITCHING; Start 01/21/19 at 12:00 Naloxone HCl (Narcan) 0.2 mg Q2M PRN IV .RESP RATE; Start 01/21/19 at 12:00 Bethanechol Chloride (Urecholine) 25 mg URINARY CATH D/C PRN PO UNABLE TO VOID; Start 01/21/19 at 12:00 Aspirin (Halfprin) 81 mg BID PO ; Start 01/22/19 at 09:00 Allergies: Coded Allergies: latex (Verified Allergy, Severe, 01/21/19) ibuprofen (Verified Allergy, Mild, 01/21/19) Past Surgical History reviewed Social History reviewed Smoking Status: Never smoker CAT MACIAS NP Jan 21, 2019 13:29 JAS CAMERON Jan 21, 2019 14:26
[2019-01-21] MEDS ORDERED: PHENYLephrine 40 MG in DEXTROSE 5% 246 ML IV SCH (14:00)
[2019-01-21] MEDS: [UNRECOGNIZED DRUG - REMARK] XX SCH (14:00)
--- NOTE | 2019-01-21 14:08 | STROKE ---
Date/Time of Note Date/Time of Note DATE: 01/21/19 TIME: 16:59 Patient Information General Patient location: inpatient Arrival Date 01/21/19 Onset Date: Jan 21, 2019 Onset Time: 08:30 Onset Type Went into surgery at 0830. Emerged from anesthesia with aphasia and right sided weakness Age 88 Gender female Weight 40.5 kg Vital Signs Vital Signs Vital Signs Date Temp Pulse Resp B/P (MAP) Pulse Ox O2 O2 Flow FiO2 Time Delivery Rate 01/21/19 84/50 (61) 100 13:02 01/21/19 100 18 13:00 01/21/19 99.9 12:18 01/21/19 Room Air 07:09 Patient History Current Medications Allergies: Coded Allergies: latex (Verified Allergy, Severe, 01/21/19) ibuprofen (Verified Allergy, Mild, 01/21/19) Labs Coagulation Labs: Coagulation Test 01/21/19 12:54 Activated Partial Thromboplast Time 30.3 Sec (23.0-35.0) History & Physical Patient History Notes Pt Hx Reviewed History of Present Illness Aphasic with right sided weakness after surgery. LKN 0830. No afib history, but went into afib post op. Now on pressor. 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 Aphasic with right sided weakness. Cannot get tPA because of surgery. Getting CTA/P to see if there is a clot amenable to catheter based therapy. If no thrombus identified. Next step will be MRI to look for stroke and then secondary prevention. [id number] Diagnostic Labs: [id number] Lipid Proile Hgb A1C CMP CBC w/Diff Coags Urinaysis [id number] Therapy: [id number] Physical Therapy Speech Therapy Occupational Therapy [id number] Misc. Recommendations: [id number] Bedside Swallow Evaluation Pnumatic Compression Devices Stroke Education TIAN GARIBAY MD Jan 21, 2019 14:08
[2019-01-21] MEDS: LACTATED RINGER'S 1,000 ML IV SCH (14:15)
--- NOTE | 2019-01-21 15:10 | CONS ---
Assessment/Plan Assessment/Plan Hospital Course (Demo Recall) Assessment and plan: 88-year-old female status post right total knee replacement, with subsequent A. fib with RVR, hypotension, and significant right-sided weakness all occurring after the surgical procedure earlier today. # Status post right total knee replacement: Again continue current orders as recommended by primary team including IV fluids, PT and OT. Follow-up further orthopedic surgery recommendations. # Right-sided weakness: Again head CT during code stroke was negative for any acute findings. By telemetry neurologist and neurology team evaluated the pt -Continue to monitor, consider neurochecks every 4 hours -Follow-up stat results of CTA head neck. If there are any further abnormalities regarding the carotid vessels or other, patient may need to be transferred to higher level of care facility for consideration of thrombectomy or other # Atrial fibrillation with RVR and hypotension: Again patient did receive amiodarone 150 mg x1 during the code stroke and rapid response. Heart rate is presently in the 110-120 range still A. fib. Patient also required pressor support Gary-Synephrine as she did become hypotensive during the code stroke and rapid response. Presently blood pressure is systolic greater than 100 on this pressor support. -Monitor heart rate for now, follow-up recommendations of cardiology team who is been consulted, continue pressors as needed. -Consider getting 2D echocardiogram -again patient apparently has a prior history of severe aortic stenosis #History bladder cancer: Status post chemo therapy in the past -Monitor for now We will continue to follow along with you. Consultation Date/Type/Reason Admit Date/Time Jan 21, 2019 at 05:28 Date/Time of Note DATE: 01/21/19 TIME: 14:59 Hx of Present Illness 88 female past medical history of severe aortic stenosis, bladder CA s/p chemotherapy, peripheral neuropathy, right knee arthritis and avascular n ecrosis, prior right knee patella fracture who was brought in for elective right total knee replacement for a diagnosis of Right knee AVN and previous ORIF patella fracture. Patient underwent the right total right knee replacement this AM. However, afterwards in recovery pt became hypotensive and went into A. fib with RVR. A rapid response and code stroke was called. The patient was not responding as she responded prior to surgery, not answering questions. Her right upper extremity was significantly weaker than before. Patient was stabilized in PACU by anesthesia, hospitalist, stroke team. Patient was sent to CT scan where initial head CT scan did not show any acute findings, presently is in intensive care unit. Neurology and cardiology teams have also been consulted and patient is presently awaiting stat CTA head neck for further evaluation. Full review of systems cannot be obtained at this time because of the patient's condition. Past Medical History Home Meds Reported Medications Brimonidine/Timolol* (Combigan*) 5 Ml Drops, 1 DROP LEFT EYE BID, BOTTLE 01/21/19 Propylene Glycol/Peg 400 (SYSTANE GEL EYE DROPS) 10 Ml Drops.gel, 1 DROP BOTH EYES QID, #1 BOTTLE 01/21/19 Folic Acid/Multivits-Min/Lut (Centrum Silver Chewable Tablet) 1 Each Tab.chew, 1 EACH PO DAILY, TAB.CHEW 01/21/19 Cholecalciferol* (Vitamin D3*) 1,000 Unit Tablet, 1000 UNIT PO DAILY, TAB 01/21/19 Esomeprazole Mag Trihydrate (Nexium) 40 Mg Capsule.dr, 40 MG PO DAILY, #30 CAP 01/21/19 Ascorbic Acid* (Vitamin C*) 500 Mg Capsule.sa, 1000 MG PO DAILY, CAP 01/21/19 Ferrous Sulfate* (Ferrous Sulfate*) 325 Mg Tabec, 325 MG PO DAILY, TAB 01/21/19 Kerman-3/Dha/Epa/Fish Oil (FISH OIL 1,000 MG SOFTGEL) 1 Each Capsule, 1 EACH PO DAILY, CAP 01/21/19 Vitamin E Acetate (Vitamin E) 1,000 Unit Capsule, 1000 UNIT PO DAILY, CAP 01/21/19 Beta-Carotene (Beta Carotene) 25,000 Unit Capsule, 63793 UNIT PO DAILY, CAP 01/21/19 Glucosamine Hcl/Chondr Lewis A Na (OSTEO BI-FLEX CAPLET) 1 Each Tablet, 1 EACH PO BID, TAB 01/21/19 Aspirin (Low Dose Aspirin) 81 Mg Tablet.dr, 81 MG PO DAILY, #30 TAB 01/21/19 Acetaminophen* (Acetaminophen*) 650 Mg Tablet, 650 MG PO TID PRN for PAIN AND OR ELEVATED TEMP, #30 TAB 01/21/19 Vit A/Vit C/Vit E/Zinc/Copper (PRESERVISION AREDS TABLET) 1 Each Tablet, 2 EACH PO DAILY, TAB 01/21/19 Simvastatin (Simvastatin) 40 Mg Tablet, 40 MG PO QHS, #30 TAB 01/21/19 Discontinued Reported Medications Iron,Carbonyl (Feosol) 45 Mg Tablet 07/21/10 Multivitamins W-Minerals/Lut (Centrum Silver Tablet) 1 Tab Tablet 07/21/10 Beta-Carotene (Beta Carotene) 25,000 Unit Capsule 07/21/10 Cyanocobalamin (Vitamin B-12) 1,000 Mcg Lozenge 07/21/10 Calcium Carbonate (Tums EX) 1 Tab.chew Tab.chew 07/21/10 Fish Oil/Kerman-3 Fatty Acids (Fish Oil 1,200 Mg Softgel) 1 Cap Capsule 07/21/10 Aspirin ([place]) 1 Tab Tabef 07/21/10 Acetaminophen (Arthritis Pain Relief) 650 Mg Tablet.sa 07/21/10 Ranitidine Hcl* (Zantac*) 150 Mg Capsule 07/21/10 Amylase/Lipase/Protease (Pancrease Mt 10 Capsule Ec) 1 Cap.ec Capsule. 07/21/10 Simvastatin (Simvastatin) 40 Mg Tablet 07/21/10 Medications Current Medications Miscellaneous Information (*Order Clarification Bulletin) MEDICATION REQUIRES CLARIFICATI... Q8H XX ; Start 01/21/19 at 06:00; Stop 01/21/19 at 19:00 Ascorbic Acid (Vitamin C) 1,000 mg DAILY PO ; Start 01/22/19 at 09:00 Brimonidine/ Timolol (Combigan Oph) 1 drop BID LEFT EYE ; Start 01/21/19 at 21:00 Cholecalciferol (Vitamin D) 1,000 unit DAILY PO ; Start 01/22/19 at 09:00 Ferrous Sulfate (Ferrous Sulfate (Ec)) 325 mg DAILY PO ; Start 01/22/19 at 09:00 Pantoprazole (Protonix Tab) 40 mg DAILY@06 PO ; Start 01/22/19 at 06:00 Atorvastatin Calcium (Lipitor) 40 mg HS PO ; Start 01/21/19 at 21:00 Lactated Ringer's 1,000 ml @ 80 mls/hr [id number] IV Last administered on 01/21/19at 14:15; Admin Dose 80 MLS/HR; Start 01/21/19 at 11:57 IV Flush (NS 3 ml) 3 ml PER PROTOCOL IV ; Start 01/21/19 at 12:00 Oxycodone HCl (Roxicodone) 15 mg Q4H PRN PO .PAIN; Start 01/21/19 at 12:00 Oxycodone HCl (Roxicodone) 10 mg Q4H PRN PO .PAIN; Start 01/21/19 at 12:00 Oxycodone HCl (Roxicodone) 5 mg Q4H PRN PO .PAIN; Start 01/21/19 at 12:00 Hydromorphone HCl (Dilaudid) 1 mg Q3H PRN IV .BREAKTHROUGH PAIN; Start 01/21/19 at 12:00 Acetaminophen (Tylenol Tab) 1,000 mg Q8 PO ; Start 01/22/19 at 14:00 Ondansetron HCl (Zofran Inj) 4 mg Q4H PRN IV NAUSEA/VOMITING; Start 01/22/19 at 12:00 Cefazolin Sodium/ Dextrose 50 ml @ 100 mls/hr Q8H IVPB ; Start 01/21/19 at 15:00; Stop 01/22/19 at 07:29 Gabapentin (Neurontin) 300 mg QHS PO ; Start 01/21/19 at 21:00 Dexamethasone (Decadron) 10 mg ONCE ONCE IV ; Start 01/22/19 at 07:00; Stop 01/22/19 at 07:01 Docusate Sodium (Colace) 200 mg BID PO ; Start 01/22/19 at 09:00; Stop 01/25/19 at 08:59 Simethicone (Mylicon) 80 mg TID PRN PO .GAS; Start 01/21/19 at 12:00 Senna/Docusate Sodium (Senokot-S) 2 tab BID PRN PO .CONSTIPATION; Start 01/21/19 at 12:00 Magnesium Hydroxide (Milk Of Mag) 30 ml HS PRN PO .CONSTIPATION; Start 01/21/19 at 12:00 Bisacodyl (Dulcolax Supp) 10 mg DAILY PRN [place] .CONSTIPATION; Start 01/21/19 at 12:00 Sodium Biphosphate/ Sodium Phosphate (Fleet Enema) 133 ml DAILY PRN [place] .CONSTIPATION; Start 01/21/19 at 12:00 Diphenhydramine HCl (Benadryl) 25 mg Q4H PRN IV .ITCHING; Start 01/21/19 at 12:00 Naloxone HCl (Narcan) 0.2 mg Q2M PRN IV .RESP RATE; Start 01/21/19 at 12:00 Bethanechol Chloride (Urecholine) 25 mg URINARY CATH D/C PRN PO UNABLE TO VOID; Start 01/21/19 at 12:00 Aspirin (Halfprin) 81 mg BID PO ; Start 01/22/19 at 09:00 Phenylephrine HCl 40 mg/Dextrose 250 ml @ 37.5 mls/hr TITRATE IV Last administered on 01/21/19at 14:19; Admin Dose 60 MLS/HR; Start 01/21/19 at 14:00 Allergies: Coded Allergies: latex (Verified Allergy, Severe, 01/21/19) ibuprofen (Verified Allergy, Mild, 01/21/19) Past Surgical History Past Surgical Hx: other (Patella fracture surgery) Family History Significant Family History: no pertinent family hx Social History Alcohol Use: none Smoking Status: Never smoker Drug Use: none Exam/Review of Systems Exam Vitals Vital Signs Date Temp Pulse Resp B/P (MAP) Pulse Ox O2 O2 Flow FiO2 Time Delivery Rate 01/21/19 136 19 140/53 99 14:45 (82) 01/21/19 Nasal 3.0 14:00 Cannula 01/21/19 98.7 13:45 Exam Gen Appearance: Lying in bed HEENT: Normocephalic NECK: supple Cardiovascular: Tachycardic, irregularly irregular Lungs: Clear to auscultation bilaterally Abdomen: No rebound or guarding, nontender, nondistended, soft Extremities: Decreased range of motion right lower extremity Neuro: alert, but aphasic. Able to track. Unable to follow any commands. Tone was flaccid on the R side.Cranial nerve examination was limited by mental status. Results Result Diagram: 01/21/19 1254 01/21/19 1254 Results 24hrs Laboratory Tests Test 01/21/19 12:54 White Blood Count 13.3 H Red Blood Count 3.39 L Hemoglobin 10.8 L Hematocrit 33.5 L Mean Corpuscular Volume 98.8 Mean Corpuscular Hemoglobin 31.9 Mean Corpuscular Hemoglobin Concent 32.2 Red Cell Distribution Width 12.6 Platelet Count 153 Mean Platelet Volume 11.4 H Immature Granulocytes % 0.800 H Neutrophils % 91.9 H Lymphocytes % 6.3 L Monocytes % 0.8 Eosinophils % 0.0 Basophils % 0.2 Nucleated Red Blood Cells % 0.0 Immature Granulocytes # 0.100 H Neutrophils # 12.2 H Lymphocytes # 0.8 Monocytes # 0.1 L Eosinophils # 0.0 Basophils # 0.0 Nucleated Red Blood Cells # 0.0 CBC Results Faxed/Phoned 1 *H Prothrombin Time 14.6 Prothrombin Time Ratio 1.1 INR International Normalized Ratio 1.13 Activated Partial Thromboplast Time 30.3 Sodium Level 140 Potassium Level 3.4 L Chloride Level 106 Carbon Dioxide Level 25 Anion Gap 9 Blood Urea Nitrogen 14 Creatinine 0.46 Est Glomerular Filtrat Rate mL/min Glucose Level 150 Hemoglobin A1c 5.4 Lactic Acid Level 2.1 *H Calcium Level 7.8 L Creatine Kinase 81 Creatine Kinase Index 3.5 Creatinine Kinase MB (Mass) 2.84 H Troponin I 0.027 Triglycerides Level 70 Cholesterol Level 95 L LDL Cholesterol, Calculated 39 HDL Cholesterol 42 Cholesterol/HDL Ratio 2.2 Medications Medication Current Medications Miscellaneous Information (*Order Clarification Bulletin) MEDICATION REQUIRES CLARIFICATI... Q8H XX ; Start 01/21/19 at 06:00; Stop 01/21/19 at 19:00 Ascorbic Acid (Vitamin C) 1,000 mg DAILY PO ; Start 01/22/19 at 09:00 Brimonidine/ Timolol (Combigan Oph) 1 drop BID LEFT EYE ; Start 01/21/19 at 21:00 Cholecalciferol (Vitamin D) 1,000 unit DAILY PO ; Start 01/22/19 at 09:00 Ferrous Sulfate (Ferrous Sulfate (Ec)) 325 mg DAILY PO ; Start 01/22/19 at 09:00 Pantoprazole (Protonix Tab) 40 mg DAILY@06 PO ; Start 01/22/19 at 06:00 Atorvastatin Calcium (Lipitor) 40 mg HS PO ; Start 01/21/19 at 21:00 Lactated Ringer's 1,000 ml @ 80 mls/hr [id number] IV Last administered on 01/21/19at 14:15; Admin Dose 80 MLS/HR; Start 01/21/19 at 11:57 IV Flush (NS 3 ml) 3 ml PER PROTOCOL IV ; Start 01/21/19 at 12:00 Oxycodone HCl (Roxicodone) 15 mg Q4H PRN PO .PAIN; Start 01/21/19 at 12:00 Oxycodone HCl (Roxicodone) 10 mg Q4H PRN PO .PAIN; Start 01/21/19 at 12:00 Oxycodone HCl (Roxicodone) 5 mg Q4H PRN PO .PAIN; Start 01/21/19 at 12:00 Hydromorphone HCl (Dilaudid) 1 mg Q3H PRN IV .BREAKTHROUGH PAIN; Start 01/21/19 at 12:00 Acetaminophen (Tylenol Tab) 1,000 mg Q8 PO ; Start 01/22/19 at 14:00 Ondansetron HCl (Zofran Inj) 4 mg Q4H PRN IV NAUSEA/VOMITING; Start 01/22/19 at 12:00 Cefazolin Sodium/ Dextrose 50 ml @ 100 mls/hr Q8H IVPB ; Start 01/21/19 at 15:00; Stop 01/22/19 at 07:29 Gabapentin (Neurontin) 300 mg QHS PO ; Start 01/21/19 at 21:00 Dexamethasone (Decadron) 10 mg ONCE ONCE IV ; Start 01/22/19 at 07:00; Stop 01/22/19 at 07:01 Docusate Sodium (Colace) 200 mg BID PO ; Start 01/22/19 at 09:00; Stop 01/25/19 at 08:59 Simethicone (Mylicon) 80 mg TID PRN PO .GAS; Start 01/21/19 at 12:00 Senna/Docusate Sodium (Senokot-S) 2 tab BID PRN PO .CONSTIPATION; Start 01/21/19 at 12:00 Magnesium Hydroxide (Milk Of Mag) 30 ml HS PRN PO .CONSTIPATION; Start 01/21/19 at 12:00 Bisacodyl (Dulcolax Supp) 10 mg DAILY PRN [place] .CONSTIPATION; Start 01/21/19 at 12:00 Sodium Biphosphate/ Sodium Phosphate (Fleet Enema) 133 ml DAILY PRN [place] .CONSTIPATION; Start 01/21/19 at 12:00 Diphenhydramine HCl (Benadryl) 25 mg Q4H PRN IV .ITCHING; Start 01/21/19 at 12:00 Naloxone HCl (Narcan) 0.2 mg Q2M PRN IV .RESP RATE; Start 01/21/19 at 12:00 Bethanechol Chloride (Urecholine) 25 mg URINARY CATH D/C PRN PO UNABLE TO VOID; Start 01/21/19 at 12:00 Aspirin (Halfprin) 81 mg BID PO ; Start 01/22/19 at 09:00 Phenylephrine HCl 40 mg/Dextrose 250 ml @ 37.5 mls/hr TITRATE IV Last administered on 01/21/19at 14:19; Admin Dose 60 MLS/HR; Start 01/21/19 at 14:00 CHRISTIANA IZQUIERDO Jan 21, 2019 15:10
[2019-01-21] MEDS ORDERED: CLOPIDOGREL 75 MG TAB PO ONE (17:00)
[2019-01-21] MEDS: CEFAZOLIN 2 GM/50 ML (PMX) 50 ML IVPB SCH (17:16)
[2019-01-21] MEDS: ONDANSETRON 4 MG INJ IV PRN (17:56)
--- NOTE | 2019-01-21 18:17 | CONS ---
Assessment/Plan Assessment/Plan Hospital Course (Demo Recall) 88 yo who had acute neurologic changes and rapid atrial fibrillation postoperatively. Physical exam consistent with aortic stenosis and recent echo report states moderate with valve area 1.2-1.3 cm2 and peak gradient 44 mmHg. Hospital echo not readable due to technical issues with the [employer] program crashing. Impression: Postop neuro changes, being evaluated by neurology and treated with dual antiplatelet therapy At least moderate aortic stenosis Postop atrial fibrillation, now in NSR Recommendations Will observe rhythm. Rather than dual antiplatelet therapy, would consider oral anticoagulation given presence of afib in the setting of neurologic changes Hold off on rate/rhythm medications for now and observe Will read echo once able to do so. Consultation Date/Type/Reason Admit Date/Time Jan 21, 2019 at 05:28 Date of Consultation: Jan 21, 2019 Type of Consult Cardiology Reason for Consultation atrial fibrillation Requesting Provider: CHRISTIANA IZQUIERDO Date/Time of Note DATE: 01/21/19 TIME: 18:00 Hx of Present Illness 88 yo who presented for elective knee replacement surgery. After surgery, patient noted to have aphasia and right sided weakness associated with rapid atrial fibrillation. She received amiodarone 150 mg iv push and then became hypotensive and started on neosynephrine. Blood pressure has improved and rhythm reverted to NSR. Patient is too somnolent to provide history at present, has c/o nausea. 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 Speech and weakness have resolved, neurology recommendations noted, and MRI performed and read is pending. Echo report accompanying h&p from 12/19/2018 states normal LV systolic function, normal left atrial size, moderate aortic stenosis with valve area 1.2-1.3 cm2 with peak and mean gradients of 44 and 25 mmHg. Subjective hx not possible: pt non-verbal Past Medical History Medical History: high cholesterol, other (mild-moderate aortic stenosis per H&P by Dr. Muñoz) Home Meds Reported Medications Brimonidine/Timolol* (Combigan*) 5 Ml Drops, 1 DROP LEFT EYE BID, BOTTLE 01/21/19 Propylene Glycol/Peg 400 (SYSTANE GEL EYE DROPS) 10 Ml Drops.gel, 1 DROP BOTH EYES QID, #1 BOTTLE 01/21/19 Folic Acid/Multivits-Min/Lut (Centrum Silver Chewable Tablet) 1 Each Tab.chew, 1 EACH PO DAILY, TAB.CHEW 01/21/19 Cholecalciferol* (Vitamin D3*) 1,000 Unit Tablet, 1000 UNIT PO DAILY, TAB 01/21/19 Esomeprazole Mag Trihydrate (Nexium) 40 Mg Capsule.dr, 40 MG PO DAILY, #30 CAP 01/21/19 Ascorbic Acid* (Vitamin C*) 500 Mg Capsule.sa, 1000 MG PO DAILY, CAP 01/21/19 Ferrous Sulfate* (Ferrous Sulfate*) 325 Mg Tabec, 325 MG PO DAILY, TAB 01/21/19 [place]-3/Dha/Epa/Fish Oil (FISH OIL 1,000 MG SOFTGEL) 1 Each Capsule, 1 EACH PO DAILY, CAP 01/21/19 Vitamin E Acetate (Vitamin E) 1,000 Unit Capsule, 1000 UNIT PO DAILY, CAP 01/21/19 Beta-Carotene (Beta Carotene) 25,000 Unit Capsule, 38422 UNIT PO DAILY, CAP 01/21/19 Glucosamine Hcl/Chondr Lewis A Na (OSTEO BI-FLEX CAPLET) 1 Each Tablet, 1 EACH PO BID, TAB 01/21/19 Aspirin (Low Dose Aspirin) 81 Mg Tablet.dr, 81 MG PO DAILY, #30 TAB 01/21/19 Acetaminophen* (Acetaminophen*) 650 Mg Tablet, 650 MG PO TID PRN for PAIN AND OR ELEVATED TEMP, #30 TAB 01/21/19 Vit A/Vit C/Vit E/Zinc/Copper (PRESERVISION AREDS TABLET) 1 Each Tablet, 2 EACH PO DAILY, TAB 01/21/19 Simvastatin (Simvastatin) 40 Mg Tablet, 40 MG PO QHS, #30 TAB 01/21/19 Discontinued Reported Medications Iron,Carbonyl (Feosol) 45 Mg Tablet 07/21/10 Multivitamins W-Minerals/Lut (Centrum Silver Tablet) 1 Tab Tablet 07/21/10 Beta-Carotene (Beta Carotene) 25,000 Unit Capsule 07/21/10 Cyanocobalamin (Vitamin B-12) 1,000 Mcg Lozenge 07/21/10 Calcium Carbonate (Tums EX) 1 Tab.chew Tab.chew 07/21/10 Fish Oil/[place]-3 Fatty Acids (Fish Oil 1,200 Mg Softgel) 1 Cap Capsule 07/21/10 Aspirin ([place]) 1 Tab Tabef 07/21/10 Acetaminophen (Arthritis Pain Relief) 650 Mg Tablet. 07/21/10 Ranitidine Hcl* (Zantac*) 150 Mg Capsule 07/21/10 Amylase/Lipase/Protease (Pancrease Mt 10 Capsule Ec) 1 Cap.ec Capsule. 07/21/10 Simvastatin (Simvastatin) 40 Mg Tablet 07/21/10 Medications Current Medications Miscellaneous Information (*Order Clarification Bulletin) MEDICATION REQUIRES CLARIFICATI... Q8H XX ; Start 01/21/19 at 06:00; Stop 01/21/19 at 19:00 Ascorbic Acid (Vitamin C) 1,000 mg DAILY PO ; Start 01/22/19 at 09:00 Brimonidine/ Timolol (Combigan Oph) 1 drop BID LEFT EYE ; Start 01/21/19 at 21:00 Cholecalciferol (Vitamin D) 1,000 unit DAILY PO ; Start 01/22/19 at 09:00 Ferrous Sulfate (Ferrous Sulfate (Ec)) 325 mg DAILY PO ; Start 01/22/19 at 09:00 Pantoprazole (Protonix Tab) 40 mg DAILY@06 PO ; Start 01/22/19 at 06:00 Atorvastatin Calcium (Lipitor) 40 mg HS PO ; Start 01/21/19 at 21:00 Lactated Ringer's 1,000 ml @ 80 mls/hr [id number] IV Last administered on 01/21/19at 14:15; Admin Dose 80 MLS/HR; Start 01/21/19 at 11:57 IV Flush (NS 3 ml) 3 ml PER PROTOCOL IV ; Start 01/21/19 at 12:00 Oxycodone HCl (Roxicodone) 15 mg Q4H PRN PO .PAIN; Start 01/21/19 at 12:00 Oxycodone HCl (Roxicodone) 10 mg Q4H PRN PO .PAIN; Start 01/21/19 at 12:00 Oxycodone HCl (Roxicodone) 5 mg Q4H PRN PO .PAIN; Start 01/21/19 at 12:00 Hydromorphone HCl (Dilaudid) 1 mg Q3H PRN IV .BREAKTHROUGH PAIN; Start 01/21/19 at 12:00 Acetaminophen (Tylenol Tab) 1,000 mg Q8 PO ; Start 01/22/19 at 14:00 Ondansetron HCl (Zofran Inj) 4 mg Q4H PRN IV NAUSEA/VOMITING Last administered on 01/21/19at 17:56; Admin Dose 4 MG; Start 01/22/19 at 12:00 Cefazolin Sodium/ Dextrose 50 ml @ 100 mls/hr Q8H IVPB Last administered on 01/21/19at 17:16; Admin Dose 100 MLS/HR; Start 01/21/19 at 15:00; Stop 01/22/19 at 07:29 Gabapentin (Neurontin) 300 mg QHS PO ; Start 01/21/19 at 21:00 Dexamethasone (Decadron) 10 mg ONCE ONCE IV ; Start 01/22/19 at 07:00; Stop 01/22/19 at 07:01 Docusate Sodium (Colace) 200 mg BID PO ; Start 01/22/19 at 09:00; Stop 01/25/19 at 08:59 Simethicone (Mylicon) 80 mg TID PRN PO .GAS; Start 01/21/19 at 12:00 Senna/Docusate Sodium (Senokot-S) 2 tab BID PRN PO .CONSTIPATION; Start 01/21/19 at 12:00 Magnesium Hydroxide (Milk Of Mag) 30 ml HS PRN PO .CONSTIPATION; Start 01/21/19 at 12:00 Bisacodyl (Dulcolax Supp) 10 mg DAILY PRN CO .CONSTIPATION; Start 01/21/19 at 12:00 Sodium Biphosphate/ Sodium Phosphate (Fleet Enema) 133 ml DAILY PRN CO .CONSTIPATION; Start 01/21/19 at 12:00 Diphenhydramine HCl (Benadryl) 25 mg Q4H PRN IV .ITCHING; Start 01/21/19 at 12:00 Naloxone HCl (Narcan) 0.2 mg Q2M PRN IV .RESP RATE; Start 01/21/19 at 12:00 Bethanechol Chloride (Urecholine) 25 mg URINARY CATH D/C PRN PO UNABLE TO VOID; Start 01/21/19 at 12:00 Aspirin (Halfprin) 81 mg BID PO ; Start 01/22/19 at 09:00 Phenylephrine HCl 40 mg/Dextrose 250 ml @ 37.5 mls/hr TITRATE IV Last administered on 01/21/19at 14:19; Admin Dose 60 MLS/HR; Start 01/21/19 at 14:00 Clopidogrel Bisulfate (plaVIX) 75 mg DAILY PO ; Start 01/22/19 at 09:00 Allergies: Coded Allergies: latex (Verified Allergy, Severe, 01/21/19) ibuprofen (Verified Allergy, Mild, 01/21/19) Past Surgical History Past Surgical Hx: other (Patella fracture surgery, hysterectomy, carpal tunnel, laminectomy, bilateral breast implants, hip replacements, breast pappiloma resection) Social History Alcohol Use: none Smoking Status: Never smoker Drug Use: none Exam/Review of Systems Vital Signs Vitals Vital Signs Date Temp Pulse Resp B/P (MAP) Pulse Ox O2 O2 Flow FiO2 Time Delivery Rate 01/21/19 78 119/36 95 16:15 (63) 01/21/19 98.1 9 Nasal 3.0 16:00 Cannula Exam Constitutional: well developed, other (somnolent but arousable) Psych: no complaints Head: normocephalic, atraumatic Eyes: nl conjunctiva, EOMI, nl lids ENMT: nl external ears & nose Neck: No jvd, No bruits Respiratory: clear to auscultation Cardiovascular: regular rate and rhythm, murmurs/extra sounds (3/6 systolic murmur at lsb radiating to carotids) Gastrointestinal: soft, nl liver, spleen, non-tender Musculoskeletal: nl extremities to inspection Extremities: normal pulses Skin: nl turgor Labs Result Diagram: 01/21/19 1254 01/21/19 1254 Results 24hrs Laboratory Tests Test 01/21/19 12:17 01/21/19 12:54 01/21/19 15:06 Urine Color STRAW Urine Clarity CLEAR Urine pH 7.0 Urine Specific Organ 1.010 Urine Ketones NEGATIVE Urine Nitrite NEGATIVE Urine Bilirubin NEGATIVE Urine Urobilinogen NEGATIVE Urine Leukocyte Esterase NEGATIVE Urine Hemoglobin NEGATIVE Urine Glucose NEGATIVE Urine Total Protein NEGATIVE White Blood Count 13.3 H Red Blood Count 3.39 L Hemoglobin 10.8 L Hematocrit 33.5 L Mean Corpuscular Volume 98.8 Mean Corpuscular Hemoglobin 31.9 Mean Corpuscular Hemoglobin Concent 32.2 Red Cell Distribution Width 12.6 Platelet Count 153 Mean Platelet Volume 11.4 H Immature Granulocytes % 0.800 H Neutrophils % 91.9 H Lymphocytes % 6.3 L Monocytes % 0.8 Eosinophils % 0.0 Basophils % 0.2 Nucleated Red Blood Cells % 0.0 Immature Granulocytes # 0.100 H Neutrophils # 12.2 H Lymphocytes # 0.8 Monocytes # 0.1 L Eosinophils # 0.0 Basophils # 0.0 Nucleated Red Blood Cells # 0.0 CBC Results Faxed/Phoned 1 *H Prothrombin Time 14.6 Prothrombin Time Ratio 1.1 INR International Normalized Ratio 1.13 Activated Partial Thromboplast Time 30.3 Sodium Level 140 Potassium Level 3.4 L Chloride Level 106 Carbon Dioxide Level 25 Anion Gap 9 Blood Urea Nitrogen 14 Creatinine 0.46 Est Glomerular Filtrat Rate mL/min Glucose Level 150 Hemoglobin A1c 5.4 Lactic Acid Level 2.1 *H Calcium Level 7.8 L Creatine Kinase 81 Creatine Kinase Index 3.5 Creatinine Kinase MB (Mass) 2.84 H Troponin I 0.027 Triglycerides Level 70 Cholesterol Level 95 L LDL Cholesterol, Calculated 39 HDL Cholesterol 42 Cholesterol/HDL Ratio 2.2 Erythrocyte Sedimentation Rate 10 Total Bilirubin 0.3 Direct Bilirubin 0.00 Indirect Bilirubin 0.3 Aspartate Amino Transf (AST/SGOT) 77 H Alanine Aminotransferase (ALT/SGPT) 60 Alkaline Phosphatase 41 L Total Protein 5.2 L Albumin 3.0 L Imaging Imaging pre-op echo 12/19/2018 shows nsr at 63 bpm, LVH by voltage. EKG after surgery today demonstrates afib at rate of 141 bpm, and ST depressions diffusely. At present telemetry demonstrates NSR. Medications Medications Current Medications Miscellaneous Information (*Order Clarification Bulletin) MEDICATION REQUIRES CLARIFICATI... Q8H XX ; Start 01/21/19 at 06:00; Stop 01/21/19 at 19:00 Ascorbic Acid (Vitamin C) 1,000 mg DAILY PO ; Start 01/22/19 at 09:00 Brimonidine/ Timolol (Combigan Oph) 1 drop BID LEFT EYE ; Start 01/21/19 at 21:00 Cholecalciferol (Vitamin D) 1,000 unit DAILY PO ; Start 01/22/19 at 09:00 Ferrous Sulfate (Ferrous Sulfate (Ec)) 325 mg DAILY PO ; Start 01/22/19 at 09:00 Pantoprazole (Protonix Tab) 40 mg DAILY@06 PO ; Start 01/22/19 at 06:00 Atorvastatin Calcium (Lipitor) 40 mg HS PO ; Start 01/21/19 at 21:00 Lactated Ringer's 1,000 ml @ 80 mls/hr [id number] IV Last administered on 01/21/19at 14:15; Admin Dose 80 MLS/HR; Start 01/21/19 at 11:57 IV Flush (NS 3 ml) 3 ml PER PROTOCOL IV ; Start 01/21/19 at 12:00 Oxycodone HCl (Roxicodone) 15 mg Q4H PRN PO .PAIN; Start 01/21/19 at 12:00 Oxycodone HCl (Roxicodone) 10 mg Q4H PRN PO .PAIN; Start 01/21/19 at 12:00 Oxycodone HCl (Roxicodone) 5 mg Q4H PRN PO .PAIN; Start 01/21/19 at 12:00 Hydromorphone HCl (Dilaudid) 1 mg Q3H PRN IV .BREAKTHROUGH PAIN; Start 01/21/19 at 12:00 Acetaminophen (Tylenol Tab) 1,000 mg Q8 PO ; Start 01/22/19 at 14:00 Ondansetron HCl (Zofran Inj) 4 mg Q4H PRN IV NAUSEA/VOMITING Last administered on 01/21/19at 17:56; Admin Dose 4 MG; Start 01/22/19 at 12:00 Cefazolin Sodium/ Dextrose 50 ml @ 100 mls/hr Q8H IVPB Last administered on 01/21/19at 17:16; Admin Dose 100 MLS/HR; Start 01/21/19 at 15:00; Stop 01/22/19 at 07:29 Gabapentin (Neurontin) 300 mg QHS PO ; Start 01/21/19 at 21:00 Dexamethasone (Decadron) 10 mg ONCE ONCE IV ; Start 01/22/19 at 07:00; Stop 01/22/19 at 07:01 Docusate Sodium (Colace) 200 mg BID PO ; Start 01/22/19 at 09:00; Stop 01/25/19 at 08:59 Simethicone (Mylicon) 80 mg TID PRN PO .GAS; Start 01/21/19 at 12:00 Senna/Docusate Sodium (Senokot-S) 2 tab BID PRN PO .CONSTIPATION; Start 01/21/19 at 12:00 Magnesium Hydroxide (Milk Of Mag) 30 ml HS PRN PO .CONSTIPATION; Start 01/21/19 at 12:00 Bisacodyl (Dulcolax Supp) 10 mg DAILY PRN CO .CONSTIPATION; Start 01/21/19 at 12:00 Sodium Biphosphate/ Sodium Phosphate (Fleet Enema) 133 ml DAILY PRN CO .CONSTIPATION; Start 01/21/19 at 12:00 Diphenhydramine HCl (Benadryl) 25 mg Q4H PRN IV .ITCHING; Start 01/21/19 at 12:00 Naloxone HCl (Narcan) 0.2 mg Q2M PRN IV .RESP RATE; Start 01/21/19 at 12:00 Bethanechol Chloride (Urecholine) 25 mg URINARY CATH D/C PRN PO UNABLE TO VOID; Start 01/21/19 at 12:00 Aspirin (Halfprin) 81 mg BID PO ; Start 01/22/19 at 09:00 Phenylephrine HCl 40 mg/Dextrose 250 ml @ 37.5 mls/hr TITRATE IV Last administered on 01/21/19at 14:19; Admin Dose 60 MLS/HR; Start 01/21/19 at 14:00 Clopidogrel Bisulfate (plaVIX) 75 mg DAILY PO ; Start 01/22/19 at 09:00 JAKOB KHAN Jan 21, 2019 18:12
--- NOTE | 2019-01-21 19:46 | RADRPT ---
Echocardiogram Report Patient Name: LIDIA PRINGLEPatient ID: [id number] : 1930 (88y 12m)Study Date: 01/21/2019 2:43:37 PM Gender: FAccession #: [id number] Tech: Boone Pugh [facility] Location: 109 Ref.Physician: CAT MACIAS Height(Cm): BSA: Weight(Kg): Quality: AdequateAccount #: Procedures: Echocardiographic Report: Transthoracic echocardiogram with complete 2D, M-Mode, and doppler examination. Indications: Acute Cerebrovascular Accident. Measurements: 2D/M Mode Doppler Measurement Value Normal Range Measurement Value Normal Range LVIDd 2D 3.0 [ 3.8 - 5.2 ] cm HOLDEN Vmax 1.3 [ 2.0 - 4.0 ] cm2 LVIDs 2D 1.7 [ 2.2 - 3.5 ] cm HOLDEN VTI 1.5 [ 2.0 - 4.0 ] cm2 LVPWd 2D 1.1 [ 0.6 - 0.9 ] cm AV Mean Horacio 2.0 [ 70.0 - 90.0 ] cm/sec IVSd 2D 1.1 [ 0.6 - 0.9 ] cm AV Mean PG 20.0 [ 2.0 - 4.0 ] mmHg IVS/LVPW 2D 1.0 ratio AV Peak Horacio 3.0 [ 100.0 - 170.0 ] cm/sec AoR Diam 2D 2.4 [ 2.3 - 3.1 ] cm AV Peak PG 35.0 [ 2.0 - 9.0 ] mmHg LA/Ao 2D 1 ratio AV VTI 45.5 cm LA Dimen 2D 2.9 [ 2.7 - 3.8 ] cm LVOT Peak Horacio 1.4 [ 70.0 - 110.0 ] cm/sec LVOT Area 2.8 cm2 LVOT Peak PG 7.0 [ 2.0 - 6.0 ] mmHg Lat E` Horacio 0.1 [ 10.0 - 15.0 ] cm/sec TR Peak Horacio 3.0 [ 100.0 - 280.0 ] cm/sec TR Peak PG 37.0 mmHg RVSP 40.0 [ 10.0 - 36.0 ] mmHg RA Pressure 3.0 mmHg Findings: Left Ventricle: Hyperdynamic left ventricular systolic function. Normal left ventricular cavity size. Mild concentric left ventricular hypertrophy. Ejection fraction is visually estimated at 70 %. Right Ventricle: Normal right ventricular size. Normal right ventricular systolic function. Left Atrium: The left atrium is normal in size. Right Atrium: The right atrium is normal in size. Mitral Valve: Mitral valve leaflets appear mildly thickened. Mild mitral annular calcification. Trace mitral regurgitation. Aortic Valve: Moderate aortic stenosis. Aortic valve Max velocity 3.34 m/sec. Max PG 45.00 mmHg. Mean PG 26.00 mmHg. Aortic valve area 1.40 cm2. Aortic cusps appear moderately calcified. Trace aortic valve regurgitation. Tricuspid Valve: Normal appearance of the tricuspid valve. Estimated peak PA systolic pressure 40 mmHg. There is moderate tricuspid regurgitation. Pulmonic Valve: Pulmonic valve not well visualized. Pericardium: Normal pericardium with no significant pericardial effusion. Aorta: Normal aortic root. IVC: Normal size and normal respiratory collapse consistent with normal right atrial pressure. Conclusions: Mild concentric left ventricular hypertrophy with hyperdynamic systolic function. Trace mitral regurgitation. Moderate calcific aortic stenosis. Moderate tricuspid regurgitation and mild pulmonary hypertension. Electronically Signed By: Abby Melendez 2019-01-21 19:46:13 PDT
[2019-01-21] MEDS ORDERED: ONDANSETRON 4 MG INJ IV STA (20:40)
[2019-01-21] MEDS: BRIMONIDINE 0.2%-TIMOLOL 0.5% 5ML OPH LEFT EYE SCH (20:47)
[2019-01-21] MEDS: GABAPENTIN 300 MG CAP PO SCH (20:50)
[2019-01-21] MEDS ORDERED: ATORVASTATIN 40 MG TAB PO SCH (21:00)
[2019-01-21] MEDS ORDERED: POTASSIUM CHLORIDE 50 ML IVPB ONE (21:00)
[2019-01-22] VITALS (34 sets, daily range): BP systolic 118–153; BP diastolic 42–70; PULSE 69–128; RESP 11–25
[2019-01-22] MEDS: CEFAZOLIN 2 GM/50 ML (PMX) 50 ML IVPB SCH ×2 (00:34→06:44)
[2019-01-22] MEDS: LACTATED RINGER'S 1,000 ML IV SCH ×2 (00:36→13:43)
[2019-01-22] MEDS: ONDANSETRON 4 MG INJ IV PRN ×2 (01:23→08:32)
[2019-01-22] MEDS: oxyCODONE 5 MG TAB PO PRN (03:56)
[2019-01-22] MEDS: PANTOPRAZOLE (EC) 40 MG TAB PO SCH (05:26)
[2019-01-22] MEDS ORDERED: DEXAMETHASONE 10 MG/ML 1 ML INJ IV ONE (07:00)
--- NOTE | 2019-01-22 08:04 | PN ---
Date/Time of Note Date/Time of Note DATE: 01/22/19 TIME: 07:56 Assessment/Plan Lines/Catheters IV Catheter Type (from Nrs): A Line Marti in Place (from Nrs): Yes Assessment/Plan Chief Complaint/Hosp Course POD#1 s/p primary right TKA. Patient has had much improvement since yesterday. Stroke workup including MRI of the brain was negative for any ischemic or hemorrhagic event. Cardiology has seen patient. Patient is now on Plavix and aspirin. Will defer decision to transfer patient out of the ICU to the medical and cardiology teams. -Reinforce dressing as necessary. Will change dressing postop day 2 or 3 -Post op H&H stable -PT/OT -Joints pain control protocol -DVT prophylaxis: SCD's, aspirin 81 mg twice daily. Plavix secondary to cardiac event -Weight bearing status: as tolerated -Post-op XR ordered -Abx: 24h vanc/ancef -Diet: ADAT -Marti: Continue for fluid management -Discharge planning consult -Consult for evaluation for acute rehab unit Subjective 24 Hr Interval Summary Patient was transferred to ICU postoperatively secondary to A. fib with RVR and concern for stroke. Stroke workup has so far been negative. Vasopressors have been discontinued since yesterday evening the patient has remained stable for ICU. No acute events overnight Pain is moderately controlled Exam/Review of Systems Vital Signs Vitals Vital Signs Date Temp Pulse Resp B/P (MAP) Pulse Ox O2 O2 Flow FiO2 Time Delivery Rate 01/22/19 72 15 134/58 100 Nasal 2.0 06:00 (83) Cannula 01/22/19 99.3 04:08 Intake and Output 01/21/19 01/21/19 01/22/19 1515:00 23:00 07:00 IntakeIntake Total 2257.5 ml 660 ml 610 ml OutputOutput Total 1400 ml 625 ml 375 ml BalanceBalance 857.5 ml 35 ml 235 ml Exam Free Text/Dictation General: A&Ox3. Follows all commands. Extremities: Moves all 4 extremities to baseline. Right lower extremity: Dressing: Saturated, but intact Sensation intact to light touch to baseline in a sural, saphenous, deep peroneal, superficial peroneal, medial and lateral plantar nerve distribution. Motor is intact, patient able to dorsiflex and plantarflex ankle and extend and flex great toe. Dorsalis Pedis pulse +2, Brisk capillary refill. Compartments are soft. Calves non-tender to palpation bilaterally. Results Result Diagram: 01/22/19 0441 01/22/19 0441 PHYLICIA ULLOA MD Jan 22, 2019 08:04
[2019-01-22] MEDS ORDERED: ONDANSETRON 4 MG INJ ONE (08:25)
[2019-01-22] MEDS: CLOPIDOGREL 75 MG TAB PO SCH (08:32)
[2019-01-22] MEDS: FERROUS SULFATE (EC) 325 MG TAB PO SCH (08:32)
[2019-01-22] MEDS: ACETAMINOPHEN 1000MG/100ML IV 100 ML IVPB SCH ×3 (08:32→23:28)
[2019-01-22] MEDS: ASPIRIN (EC) 81 MG TAB PO SCH ×2 (08:32→21:39)
[2019-01-22] MEDS: BRIMONIDINE 0.2%-TIMOLOL 0.5% 5ML OPH LEFT EYE SCH (08:33)
[2019-01-22] MEDS: CHOLECALCIFEROL 1,000 UNIT TAB PO SCH (08:51)
[2019-01-22] MEDS: DOCUSATE SODIUM 100 MG CAP PO SCH ×2 (08:51→21:37)
[2019-01-22] MEDS: ASCORBIC ACID 500 MG TAB PO SCH (08:51)
[2019-01-22] MEDS ORDERED: ASPIRIN (EC) 81 MG TAB PO SCH (09:00)
--- NOTE | 2019-01-22 09:35 | CONS ---
Assessment/Plan Assessment/Plan Hospital Course (Demo Recall) 88 yo who had acute neurologic changes and rapid atrial fibrillation postoperatively. Echo demonstrates moderate aortic stenosis. She has maintained NSR, and reports to me that she has frequent falls at home. Impression: Postop neuro changes, being evaluated by neurology and treated with dual antiplatelet therapy Moderate aortic stenosis Postop atrial fibrillation, now in NSR Recommendations As she is maintaining NSR, will hold off any rate/rhythm control medications No anticoagulation due to fall risk Replete potassium, and will add a mg level Asked her to follow up with me as an outpatient, and can consider outpatient zio patch to see if she has significant burden of rapid atrial fibrillation that may benefit from rate control medications Consultation Date/Type/Reason Admit Date/Time Jan 21, 2019 at 05:28 Initial Consult Date 01/21/19 Type of Consult Cardiology Requesting Provider: CHRISTIANA IZQUIERDO Date/Time of Note DATE: 01/22/19 TIME: 09:30 24 HR Interval Summary Free Text/Dictation This morning she is much more alert. She denies any chest pain, complains of pain in her hip. She does tell me that at home she does have frequent falls. Exam/Review of Systems Vital Signs Vitals Vital Signs Date Temp Pulse Resp B/P (MAP) Pulse Ox O2 O2 Flow FiO2 Time Delivery Rate 01/22/19 72 15 134/58 100 Nasal 2.0 06:00 (83) Cannula 01/22/19 99.3 04:08 Intake and Output 01/21/19 01/21/19 01/22/19 1515:00 23:00 07:00 IntakeIntake Total 2257.5 ml 660 ml 610 ml OutputOutput Total 1400 ml 625 ml 375 ml BalanceBalance 857.5 ml 35 ml 235 ml Exam Constitutional: alert, oriented, frail Psych: nl mood/affect Head: normocephalic, atraumatic Eyes: nl conjunctiva, EOMI, nl lids, nl sclera ENMT: nl external ears & nose, nl lips & teeth, nl nasal mucosa & septum Neck: supple; No jvd, No bruits Respiratory: clear to auscultation, normal air movement Cardiovascular: regular rate and rhythm, nl pulses, murmurs/extra sounds (3/6 systolic murmur at the left sternal border radiating to the neck) Gastrointestinal: soft, nl liver, spleen, non-tender Musculoskeletal: nl extremities to inspection Extremities: normal pulses; No edema Neurological: nl mental status, nl speech Skin: nl turgor; No rash or lesions Labs Result Diagram: 01/22/19 0441 01/22/19 0441 Results 24hrs Laboratory Tests Test 01/21/19 12:17 01/21/19 12:54 01/21/19 15:06 01/22/19 04:41 Urine Color STRAW Urine Clarity CLEAR Urine pH 7.0 Urine Specific 1.010 [place] Urine Ketones NEGATIVE Urine Nitrite NEGATIVE Urine Bilirubin NEGATIVE Urine Urobilinogen NEGATIVE Urine Leukocyte NEGATIVE Esterase Urine Hemoglobin NEGATIVE Urine Glucose NEGATIVE Urine Total NEGATIVE Protein White Blood Count 13.3 H 9.8 # Red Blood Count 3.39 L 2.56 #L Hemoglobin 10.8 L 8.3 #L Hematocrit 33.5 L 25.4 #L Mean Corpuscular 98.8 99.2 Volume Mean Corpuscular 31.9 32.4 Hemoglobin Mean Corpuscular 32.2 32.7 Hemoglobin Concent Red Cell 12.6 13.1 Distribution Width Platelet Count 153 114 #L Mean Platelet 11.4 H 11.7 H Volume Immature 0.800 H 0.500 H Granulocytes % Neutrophils % 91.9 H 78.8 H Lymphocytes % 6.3 L 9.0 L Monocytes % 0.8 11.6 H Eosinophils % 0.0 0.0 Basophils % 0.2 0.1 Nucleated Red 0.0 0.0 Blood Cells % Immature 0.100 H 0.050 H Granulocytes # Neutrophils # 12.2 H 7.8 H Lymphocytes # 0.8 0.9 Monocytes # 0.1 L 1.1 H Eosinophils # 0.0 0.0 Basophils # 0.0 0.0 Nucleated Red 0.0 0.0 Blood Cells # CBC Results 1 *H Faxed/Phoned Prothrombin Time 14.6 Prothrombin Time 1.1 Ratio INR International 1.13 Normalized Ratio Activated 30.[address] Time Sodium Level 140 141 Potassium Level 3.4 L 3.3 L Chloride Level 106 106 Carbon Dioxide 25 25 Level Anion Gap 9 10 Blood Urea 14 14 Nitrogen Creatinine 0.46 0.50 Est Glomerular Filtrat Rate mL/min Glucose Level 150 148 Hemoglobin A1c 5.4 Lactic Acid Level 2.1 *H Calcium Level 7.8 L 7.4 L Creatine Kinase 81 Creatine Kinase 3.5 Index Creatinine Kinase 2.84 H MB (Mass) Troponin I 0.027 Triglycerides 70 Level Cholesterol Level 95 L LDL Cholesterol, 39 Calculated HDL Cholesterol 42 Cholesterol/HDL 2.2 Ratio Erythrocyte 10 Sedimentation Rate Total Bilirubin 0.3 Direct Bilirubin 0.00 Indirect Bilirubin 0.3 Aspartate Amino 77 H Transf (AST/SGOT) Alanine 60 Aminotransferase ( ALT/SGPT) Alkaline 41 L Phosphatase Total Protein 5.2 L Albumin 3.0 L Test 01/22/19 05:03 Lab Scanned Report REFERENCE LAB Imaging Imaging Echo reviewed, she has moderate , valve area 1.4 cm2, consistent with the outpatient echo from 11/2018 Medications Medications Current Medications Ascorbic Acid (Vitamin C) 1,000 mg DAILY PO ; Start 01/22/19 at 09:00 Brimonidine/ Timolol (Combigan Oph) 1 drop BID LEFT EYE Last administered on 01/22/19at 08:33; Admin Dose 1 DROP; Start 01/21/19 at 21:00 Cholecalciferol (Vitamin D) 1,000 unit DAILY PO ; Start 01/22/19 at 09:00 Ferrous Sulfate (Ferrous Sulfate (Ec)) 325 mg DAILY PO Last administered on 01/22/19at 08:32; Admin Dose 325 MG; Start 01/22/19 at 09:00 Pantoprazole (Protonix Tab) 40 mg DAILY@06 PO ; Start 01/22/19 at 06:00 Atorvastatin Calcium (Lipitor) 40 mg HS PO ; Start 01/21/19 at 21:00 Lactated Ringer's 1,000 ml @ 80 mls/hr [id number] IV Last administered on 01/22/19at 00:36; Admin Dose 80 MLS/HR; Start 01/21/19 at 11:57 IV Flush (NS 3 ml) 3 ml PER PROTOCOL IV ; Start 01/21/19 at 12:00 Oxycodone HCl (Roxicodone) 15 mg Q4H PRN PO .PAIN; Start 01/21/19 at 12:00 Oxycodone HCl (Roxicodone) 10 mg Q4H PRN PO .PAIN; Start 01/21/19 at 12:00 Oxycodone HCl (Roxicodone) 5 mg Q4H PRN PO .PAIN Last administered on 01/22/19at 03:56; Admin Dose 5 MG; Start 01/21/19 at 12:00 Hydromorphone HCl (Dilaudid) 1 mg Q3H PRN IV .BREAKTHROUGH PAIN; Start 01/21/19 at 12:00 Ondansetron HCl (Zofran Inj) 4 mg Q4H PRN IV NAUSEA/VOMITING Last administered on 01/22/19at 08:32; Admin Dose 4 MG; Start 01/22/19 at 12:00 Gabapentin (Neurontin) 300 mg QHS PO ; Start 01/21/19 at 21:00 Docusate Sodium (Colace) 200 mg BID PO ; Start 01/22/19 at 09:00; Stop 01/25/19 at 08:59 Simethicone (Mylicon) 80 mg TID PRN PO .GAS; Start 01/21/19 at 12:00 Senna/Docusate Sodium (Senokot-S) 2 tab BID PRN PO .CONSTIPATION; Start 01/21/19 at 12:00 Magnesium Hydroxide (Milk Of Mag) 30 ml HS PRN PO .CONSTIPATION; Start 01/21/19 at 12:00 Bisacodyl (Dulcolax Supp) 10 mg DAILY PRN [place] .CONSTIPATION; Start 01/21/19 at 1 2:00 Sodium Biphosphate/ Sodium Phosphate (Fleet Enema) 133 ml DAILY PRN [place] .CONSTIPATION; Start 01/21/19 at 12:00 Diphenhydramine HCl (Benadryl) 25 mg Q4H PRN IV .ITCHING; Start 01/21/19 at 12:00 Naloxone HCl (Narcan) 0.2 mg Q2M PRN IV .RESP RATE; Start 01/21/19 at 12:00 Bethanechol Chloride (Urecholine) 25 mg URINARY CATH D/C PRN PO UNABLE TO VOID; Start 01/21/19 at 12:00 Aspirin (Halfprin) 81 mg BID PO Last administered on 01/22/19at 08:32; Admin Dose 81 MG; Start 01/22/19 at 09:00 Phenylephrine HCl 40 mg/Dextrose 250 ml @ 37.5 mls/hr TITRATE IV Last administered on 01/21/19at 14:19; Admin Dose 60 MLS/HR; Start 01/21/19 at 14:00 Clopidogrel Bisulfate (plaVIX) 75 mg DAILY PO Last administered on 01/22/19at 08:32; Admin Dose 75 MG; Start 01/22/19 at 09:00 Acetaminophen 100 ml @ 400 mls/hr Q6H IVPB Last administered on 01/22/19at 08:32; Admin Dose 400 MLS/HR; Start 01/22/19 at 07:30; Stop 01/23/19 at 07:29 JAKOB KHAN Jan 22, 2019 09:35
[2019-01-22] MEDS ORDERED: POTASSIUM CHLORIDE (SR) 20 MEQ TAB PO STA ×2 (09:36→16:31)
[2019-01-22] MEDS ORDERED: TRIMETHOBENZAMIDE 100 MG/ML VIAL IM PRN (10:30)
--- NOTE | 2019-01-22 10:34 | CONS ---
Consult Date/Type/Reason Admit Date/Time Jan 21, 2019 at 05:28 Initial Consult Date 01/21/19 Requesting Provider: CHRISTIANA IZQUIERDO Date/Time of Note DATE: 01/22/19 TIME: 10:21 Subjective Patient again had a negative stroke workup. Overall her right-sided weakness symptoms appear to have resolved now. Has been in normal sinus rhythm since yesterday. Seen by orthopedic surgery team and cardiology teams this morning. Seen by neurology team yesterday. Able to take her Plavix this morning after given Zofran to help control nausea symptoms. Waiting to be seen by speech ther apy team as well. Objective Vitals Vital Signs Date Temp Pulse Resp B/P (MAP) Pulse Ox O2 O2 Flow FiO2 Time Delivery Rate 01/22/19 77 08:00 01/22/19 15 134/58 100 Nasal 2.0 06:00 (83) Cannula 01/22/19 99.3 04:08 Intake and Output 01/21/19 01/21/19 01/22/19 1515:00 23:00 07:00 IntakeIntake Total 2257.5 ml 660 ml 610 ml OutputOutput Total 1400 ml 625 ml 375 ml BalanceBalance 857.5 ml 35 ml 235 ml Exam Gen Appearance: Lying in bed HEENT: Normocephalic NECK: supple Cardiovascular: Tachycardic, irregularly irregular Lungs: Clear to auscultation bilaterally Abdomen: No rebound or guarding, nontender, nondistended, soft Extremities: Decreased range of motion right lower extremity Neuro: More alert, no signs of focal deficits today 2D echo: Conclusions: Mild concentric left ventricular hypertrophy with hyperdynamic systolic function. Trace mitral regurgitation. Moderate calcific aortic stenosis. Moderate tricuspid regurgitation and mild pulmonary hypertension. Results/Medications Result Diagram: 01/22/1944001/22/19440 Results 24 hrs Laboratory Tests Test 01/21/19 12:17 01/21/19 12:54 01/21/19 15:06 01/22/19 04:41 Urine Color STRAW Urine Clarity CLEAR Urine pH 7.0 Urine Specific 1.010 [place] Urine Ketones NEGATIVE Urine Nitrite NEGATIVE Urine Bilirubin NEGATIVE Urine Urobilinogen NEGATIVE Urine Leukocyte NEGATIVE Esterase Urine Hemoglobin NEGATIVE Urine Glucose NEGATIVE Urine Total NEGATIVE Protein White Blood Count 13.3 H 9.8 # Red Blood Count 3.39 L 2.56 #L Hemoglobin 10.8 L 8.3 #L Hematocrit 33.5 L 25.4 #L Mean Corpuscular 98.8 99.2 Volume Mean Corpuscular 31.9 32.4 Hemoglobin Mean Corpuscular 32.2 32.7 Hemoglobin Concent Red Cell 12.6 13.1 Distribution Width Platelet Count 153 114 #L Mean Platelet 11.4 H 11.7 H Volume Immature 0.800 H 0.500 H Granulocytes % Neutrophils % 91.9 H 78.8 H Lymphocytes % 6.3 L 9.0 L Monocytes % 0.8 11.6 H Eosinophils % 0.0 0.0 Basophils % 0.2 0.1 Nucleated Red 0.0 0.0 Blood Cells % Immature 0.100 H 0.050 H Granulocytes # Neutrophils # 12.2 H 7.8 H Lymphocytes # 0.8 0.9 Monocytes # 0.1 L 1.1 H Eosinophils # 0.0 0.0 Basophils # 0.0 0.0 Nucleated Red 0.0 0.0 Blood Cells # CBC Results 1 *H Faxed/Phoned Prothrombin Time 14.6 Prothrombin Time 1.1 Ratio INR International 1.13 Normalized Ratio Activated 30.[address] Time Sodium Level 140 141 Potassium Level 3.4 L 3.3 L Chloride Level 106 106 Carbon Dioxide 25 25 Level Anion Gap 9 10 Blood Urea 14 14 Nitrogen Creatinine 0.46 0.50 Est Glomerular Filtrat Rate mL/min Glucose Level 150 148 Hemoglobin A1c 5.4 Lactic Acid Level 2.1 *H Calcium Level 7.8 L 7.4 L Creatine Kinase 81 Creatine Kinase 3.5 Index Creatinine Kinase 2.84 H MB (Mass) Troponin I 0.027 Triglycerides 70 Level Cholesterol Level 95 L LDL Cholesterol, 39 Calculated HDL Cholesterol 42 Cholesterol/HDL 2.2 Ratio Erythrocyte 10 Sedimentation Rate Total Bilirubin 0.3 Direct Bilirubin 0.00 Indirect Bilirubin 0.3 Aspartate Amino 77 H Transf (AST/SGOT) Alanine 60 Aminotransferase ( ALT/SGPT) Alkaline 41 L Phosphatase Total Protein 5.2 L Albumin 3.0 L Test 01/22/19 05:03 Lab Scanned Report REFERENCE LAB Home Meds Reported Medications Brimonidine/Timolol* (Combigan*) 5 Ml Drops, 1 DROP LEFT EYE BID, BOTTLE 01/21/19 Propylene Glycol/Peg 400 (SYSTANE GEL EYE DROPS) 10 Ml Drops.gel, 1 DROP BOTH EYES QID, #1 BOTTLE 01/21/19 Folic Acid/Multivits-Min/Lut (Centrum Silver Chewable Tablet) 1 Each Tab.chew, 1 EACH PO DAILY, TAB.CHEW 01/21/19 Cholecalciferol* (Vitamin D3*) 1,000 Unit Tablet, 1000 UNIT PO DAILY, TAB 01/21/19 Esomeprazole Mag Trihydrate (Nexium) 40 Mg Capsule.dr, 40 MG PO DAILY, #30 CAP 01/21/19 Ascorbic Acid* (Vitamin C*) 500 Mg Capsule.sa, 1000 MG PO DAILY, CAP 01/21/19 Ferrous Sulfate* (Ferrous Sulfate*) 325 Mg Tabec, 325 MG PO DAILY, TAB 01/21/19 [place]-3/Dha/Epa/Fish Oil (FISH OIL 1,000 MG SOFTGEL) 1 Each Capsule, 1 EACH PO DAILY, CAP 01/21/19 Vitamin E Acetate (Vitamin E) 1,000 Unit Capsule, 1000 UNIT PO DAILY, CAP 01/21/19 Beta-Carotene (Beta Carotene) 25,000 Unit Capsule, 93729 UNIT PO DAILY, CAP 01/21/19 Glucosamine Hcl/Chondr Lewis A Na (OSTEO BI-FLEX CAPLET) 1 Each Tablet, 1 EACH PO BID, TAB 01/21/19 Aspirin (Low Dose Aspirin) 81 Mg Tablet.dr, 81 MG PO DAILY, #30 TAB 01/21/19 Acetaminophen* (Acetaminophen*) 650 Mg Tablet, 650 MG PO TID PRN for PAIN AND OR ELEVATED TEMP, #30 TAB 01/21/19 Vit A/Vit C/Vit E/Zinc/Copper (PRESERVISION AREDS TABLET) 1 Each Tablet, 2 EACH PO DAILY, TAB 01/21/19 Simvastatin (Simvastatin) 40 Mg Tablet, 40 MG PO QHS, #30 TAB 01/21/19 Discontinued Reported Medications Iron,Carbonyl (Feosol) 45 Mg Tablet 07/21/10 Multivitamins W-Minerals/Lut (Centrum Silver Tablet) 1 Tab Tablet 07/21/10 Beta-Carotene (Beta Carotene) 25,000 Unit Capsule 07/21/10 Cyanocobalamin (Vitamin B-12) 1,000 Mcg Lozenge 07/21/10 Calcium Carbonate (Tums EX) 1 Tab.chew Tab.chew 07/21/10 Fish Oil/[place]-3 Fatty Acids (Fish Oil 1,200 Mg Softgel) 1 Cap Capsule 07/21/10 Aspirin ([place]) 1 Tab Tabef 07/21/10 Acetaminophen (Arthritis Pain Relief) 650 Mg Tablet.sa 07/21/10 Ranitidine Hcl* (Zantac*) 150 Mg Capsule 07/21/10 Amylase/Lipase/Protease (Pancrease Mt 10 Capsule Ec) 1 Cap.ec Capsule. 07/21/10 Simvastatin (Simvastatin) 40 Mg Tablet 07/21/10 Medications Current Medications Ascorbic Acid (Vitamin C) 1,000 mg DAILY PO ; Start 01/22/19 at 09:00 Brimonidine/ Timolol (Combigan Oph) 1 drop BID LEFT EYE Last administered on 01/22/19at 08:33; Admin Dose 1 DROP; Start 01/21/19 at 21:00 Cholecalciferol (Vitamin D) 1,000 unit DAILY PO ; Start 01/22/19 at 09:00 Ferrous Sulfate (Ferrous Sulfate (Ec)) 325 mg DAILY PO Last administered on at 08:32; Admin Dose 325 MG; Start 01/22/19 at 09:00 Pantoprazole (Protonix Tab) 40 mg DAILY@06 PO ; Start 01/22/19 at 06:00 Atorvastatin Calcium (Lipitor) 40 mg HS PO ; Start 01/21/19 at 21:00 Lactated Ringer's 1,000 ml @ 80 mls/hr [id number] IV Last administered on 01/22/19at 00:36; Admin Dose 80 MLS/HR; Start 01/21/19 at 11:57 IV Flush (NS 3 ml) 3 ml PER PROTOCOL IV ; Start 01/21/19 at 12:00 Oxycodone HCl (Roxicodone) 15 mg Q4H PRN PO .PAIN; Start 01/21/19 at 12:00 Oxycodone HCl (Roxicodone) 10 mg Q4H PRN PO .PAIN; Start 01/21/19 at 12:00 Oxycodone HCl (Roxicodone) 5 mg Q4H PRN PO .PAIN Last administered on 01/22/19at 03:56; Admin Dose 5 MG; Start 01/21/19 at 12:00 Hydromorphone HCl (Dilaudid) 1 mg Q3H PRN IV .BREAKTHROUGH PAIN; Start 01/21/19 at 12:00 Ondansetron HCl (Zofran Inj) 4 mg Q4H PRN IV NAUSEA/VOMITING Last administered on 01/22/19at 08:32; Admin Dose 4 MG; Start 01/22/19 at 12:00 Gabapentin (Neurontin) 300 mg QHS PO ; Start 01/21/19 at 21:00 Docusate Sodium (Colace) 200 mg BID PO ; Start 01/22/19 at 09:00; Stop 01/25/19 at 08:59 Simethicone (Mylicon) 80 mg TID PRN PO .GAS; Start 01/21/19 at 12:00 Senna/Docusate Sodium (Senokot-S) 2 tab BID PRN PO .CONSTIPATION; Start 01/21/19 at 12:00 Magnesium Hydroxide (Milk Of Mag) 30 ml HS PRN PO .CONSTIPATION; Start 01/21/19 at 12:00 Bisacodyl (Dulcolax Supp) 10 mg DAILY PRN [place] .CONSTIPATION; Start 01/21/19 at 12:00 Sodium Biphosphate/ Sodium Phosphate (Fleet Enema) 133 ml DAILY PRN [place] .CONSTIPATION; Start 01/21/19 at 12:00 Diphenhydramine HCl (Benadryl) 25 mg Q4H PRN IV .ITCHING; Start 01/21/19 at 12:00 Naloxone HCl (Narcan) 0.2 mg Q2M PRN IV .RESP RATE; Start 01/21/19 at 12:00 Bethanechol Chloride (Urecholine) 25 mg URINARY CATH D/C PRN PO UNABLE TO VOID; Start 01/21/19 at 12:00 Aspirin (Halfprin) 81 mg BID PO Last administered on 01/22/19at 08:32; Admin Dose 81 MG; Start 01/22/19 at 09:00 Phenylephrine HCl 40 mg/Dextrose 250 ml @ 37.5 mls/hr TITRATE IV Last administered on 01/21/19at 14:19; Admin Dose 60 MLS/HR; Start 01/21/19 at 14:00 Clopidogrel Bisulfate (plaVIX) 75 mg DAILY PO Last administered on 01/22/19at 08:32; Admin Dose 75 MG; Start 01/22/19 at 09:00 Acetaminophen 100 ml @ 400 mls/hr Q6H IVPB Last administered on 01/22/19at 08:32; Admin Dose 400 MLS/HR; Start 01/22/19 at 07:30; Stop 01/23/19 at 07:29 Assessment/Plan Hospital Course (Demo Recall) Assessment and plan: 88-year-old female status post right total knee replacement, with subsequent A. fib with RVR, hypotension, and significant right-sided weakness all occurring after the right TKR POD # 1. # Status post right total knee replacement: POD # 1. - Again continue current orders as recommended by primary team including diet, fluids, PT and OT. - Follow-up further orthopedic surgery postop recommendations. 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 Neurology and cardiology teams are on the case. - Continue to monitor, continue aspirin and Plavix as recommended by neurology team for the intracranial atherosclerotic disease - Follow further recommendations from neurology and cardiology teams. # Atrial fibrillation with RVR and hypotension: Both have resolved now- patient since yesterday evening has been in normal sinus rhythm. Again, yesterday during the rapid response and code stroke patient did receive amiodarone 150 mg x1 during the code stroke and rapid response with the A. fib and RVR at that time. Patient also required pressor support Gary-Synephrine as she did become hypotensive during the code stroke and rapid response, again this is off now. Blood pressure stable as well since yesterday. -Monitor heart rate for now, per cardiology team since the patient is presently maintaining NSR, they recommend to hold off any rate/rhythm control medications -Replete electrolytes -Per cardiology team no anticoagulation (ie: Eliquis, Xarelto, Coumadin) at this time due to fall risk (apparently the patient had been having frequent falls at home prior to admission) #History bladder cancer: Status post chemo therapy in the past -Monitor for now We will continue to follow along with you. Critical care time spent in patient care today equals 50 minutes. CHRISTIANA IZQUIERDO Jan 22, 2019 10:31
--- NOTE | 2019-01-22 11:38 | CONS ---
Assessment/Plan Assessment/Plan Hospital Course 88 F c/ reported Hx of bladder Ca s/p chemo... and other comorbidities, who presents for elective L knee replacement. Post-operatively, while in PACU, she was noted to have new aphasia and right hemiplegia...for which neurology is consulted. She was at that time found to be in afib w/ RVR... MRI brain was reassuringly without acute ischemia....which is compatible with a diagnosis of TIA.. Superimposed (provoked) seizure/post-ictal paralysis is additionally considered... CTA H/N is notable for intracranial athero. Echo is notable for hyperdynamic LV LDL 39, ESR 10, A1C nl, P: Add EEG to evaluate for epileptiform activity OK to defer AED Tx for now Ativan iv prn prolonged seizure or cluster Await RPR OK to continue asa/plavix combo for 3 months, w/ plavix monotherapy thereafter.. (LDL is at goal) PT/OT/ST as necessary Other medical management per primary Will follow clinically Consultation Date/Type/Reason Admit Date/Time Jan 21, 2019 at 05:28 Type of Consult Neurology Reason for Consultation R hemiparesis; stroke Requesting Provider: CHRISTIANA IZQUIERDO Date/Time of Note DATE: 01/22/19 TIME: 11:38 24 HR Interval Summary Free Text/Dictation Transferred to ICU following code stroke. Pt's sx reportedly have improved. Pt endorses nausea. Denies hx of stroke with R hemiparesis Exam Vital Signs Vitals Vital Signs Date Temp Pulse Resp B/P (MAP) Pulse Ox O2 O2 Flow FiO2 Time Delivery Rate 01/22/19 77 08:00 01/22/19 15 134/58 100 Nasal 2.0 06:00 (83) Cannula 01/22/19 99.3 04:08 Intake and Output 01/21/19 01/21/19 01/22/19 1515:00 23:00 07:00 IntakeIntake Total 2257.5 ml 660 ml 610 ml OutputOutput Total 1400 ml 625 ml 375 ml BalanceBalance 857.5 ml 35 ml 235 ml Exam PE: Gen Appearance: No Apparent Distress HEENT: Normocephalic Cardiovascular: Regular rate Lungs: Clear bilaterally Abdomen: Soft Extremities: Dry NE: The patient was alert and grossly oriented. Language was normal; without aphas ia. Fund of knowledge was adequate. Pupils were equal and reactive to light. There was no afferent pupillary defect. Visual zelaya were normal. Funduscopic examination was limited. Extra-ocular movements were full. Ptosis was absent. There was no nystagmus. Facial sensation was normal. Face was symmetric with normal strength. Hearing was intact. Palate movements were normal. Neck strength was normal. There was normal tongue bulk and speed of movement. Tone was normal. Muscle bulk was diminished. I did not see fasciculations. Arms and legs were mildly weak, though symmetric. Vibration sensation was normal. Temperature and pinprick sensation was normal. Rapid alternating movements were normal. There was no dysmetria. There was no intention tremor. Gait was deferred due to bedrest. Arm and leg reflexes were 2+ and symmetric. Silva's sign was absent. Plantar responses were flexor. CAT MACIAS NP Jan 22, 2019 11:38 JAS CAMERON Jan 22, 2019 13:47
[2019-01-22] MEDS ORDERED: ACETAMINOPHEN 500 MG TAB PO SCH (14:00)
[2019-01-22] MEDS ORDERED: LORAZEPAM 2 MG INJ IV PRN (14:00)
[2019-01-22] MEDS ORDERED: MAGNESIUM SULFATE 3 GM in DEXTROSE 5% 100 ML IVPB ONE (17:00)
[2019-01-22] MEDS: METOPROLOL 25 MG TAB PO SCH ×2 (18:01→21:40)
[2019-01-22] MEDS ORDERED: POTASSIUM CHLORIDE (SR) 20 MEQ TAB PO SCH (20:00)
[2019-01-22] MEDS: AMIODARONE 200 MG TAB PO SCH (21:39)
[2019-01-22] MEDS: GABAPENTIN 300 MG CAP PO SCH (21:40)
[2019-01-23] VITALS (13 sets, daily range): BP systolic 100–142; BP diastolic 57–70; PULSE 61–154; RESP 18–22
[2019-01-23] MEDS: LACTATED RINGER'S 1,000 ML IV SCH ×2 (00:59→16:37)
[2019-01-23] MEDS: BRIMONIDINE 0.2%-TIMOLOL 0.5% 5ML OPH LEFT EYE SCH ×3 (00:59→21:22)
[2019-01-23] MEDS: ACETAMINOPHEN 1000MG/100ML IV 100 ML IVPB SCH (02:53)
[2019-01-23] MEDS: PANTOPRAZOLE (EC) 40 MG TAB PO SCH (05:38)
[2019-01-23] MEDS: METOPROLOL 25 MG TAB PO SCH ×3 (05:39→21:23)
[2019-01-23] MEDS ORDERED: PANTOPRAZOLE (EC) 40 MG TAB PO SCH (06:00)
[2019-01-23] MEDS: oxyCODONE 5 MG TAB PO PRN (08:58)
[2019-01-23] MEDS: FERROUS SULFATE (EC) 325 MG TAB PO SCH (08:59)
[2019-01-23] MEDS: DOCUSATE SODIUM 100 MG CAP PO SCH ×2 (08:59→21:22)
[2019-01-23] MEDS: ASCORBIC ACID 500 MG TAB PO SCH (08:59)
[2019-01-23] MEDS: ASPIRIN (EC) 81 MG TAB PO SCH (08:59)
[2019-01-23] MEDS: AMIODARONE 200 MG TAB PO SCH ×2 (09:00→21:23)
[2019-01-23] MEDS: CLOPIDOGREL 75 MG TAB PO SCH (09:00)
[2019-01-23] MEDS: CHOLECALCIFEROL 1,000 UNIT TAB PO SCH (09:00)
--- NOTE | 2019-01-23 11:18 | CONS ---
Consult Date/Type/Reason Admit Date/Time Jan 21, 2019 at 05:28 Initial Consult Date 01/21/19 Requesting Provider: CHRISTIANA IZQUIERDO Date/Time of Note DATE: 01/23/19 TIME: 11:10 Objective Vitals Vital Signs Date Temp Pulse Resp B/P (MAP) Pulse Ox O2 O2 Flow FiO2 Time Delivery Rate 01/23/19 68 08:25 01/23/19 98.0 22 108/57 96 Room Air 08:01 (74) 01/23/19 2.0 08:00 Intake and Output 01/22/19 01/22/19 01/23/19 1515:00 23:00 07:00 IntakeIntake Total 200 ml 880 ml 400 ml OutputOutput Total 725 ml 225 ml 600 ml BalanceBalance -525 ml 655 ml -200 ml Exam Gen Appearance: Lying in bed HEENT: Normocephalic NECK: supple Cardiovascular: Tachycardic, irregularly irregular Lungs: Clear to auscultation bilaterally Abdomen: No rebound or guarding, nontender, nondistended, soft Extremities: Decreased range of motion right lower extremity Neuro: More alert, no signs of focal deficits today Results/Medications Result Diagram: 01/23/19 0523 01/23/19 0523 Results 24 hrs Laboratory Tests Test 01/22/19 16:42 01/22/19 23:00 01/23/19 02:00 01/23/19 05:23 Troponin I 0.693 *H 0.637 *H Urine Color YELLOW Urine Clarity CLEAR Urine pH 6.0 Urine Specific 1.016 [place] Urine Ketones TRACE A Urine Nitrite NEGATIVE Urine Bilirubin NEGATIVE Urine Urobilinogen NEGATIVE Urine Leukocyte NEGATIVE Esterase Urine Microscopic 29 H RBC Urine Microscopic 4 WBC Urine Mucus FEW A Urine Hemoglobin 2+ H Urine Glucose NEGATIVE Urine Total Protein NEGATIVE White Blood Count 6.8 # Red Blood Count 2.43 L Hemoglobin 7.7 L Hematocrit 24.1 L Mean Corpuscular 99.2 Volume Mean Corpuscular 31.7 Hemoglobin Mean Corpuscular 32.0 Hemoglobin Concent Red Cell 13.0 Distribution Width Platelet Count 97 L Mean Platelet Volume 12.0 H Immature 0.300 Granulocytes % Neutrophils % 71.5 Lymphocytes % 16.4 Monocytes % 11.4 H Eosinophils % 0.3 Basophils % 0.1 Nucleated Red Blood 0.0 Cells % Immature 0.020 Granulocytes # Neutrophils # 4.9 Lymphocytes # 1.1 Monocytes # 0.8 Eosinophils # 0.0 Basophils # 0.0 Nucleated Red Blood 0.0 Cells # Sodium Level 138 Potassium Level 4.6 Chloride Level 107 Carbon Dioxide Level 27 Anion Gap 4 L Blood Urea Nitrogen 13 Creatinine 0.48 Est Glomerular Filtrat Rate mL/min Glucose Level 113 Calcium Level 7.9 L Magnesium Level 2.6 #H Home Meds Reported Medications Brimonidine/Timolol* (Combigan*) 5 Ml Drops, 1 DROP LEFT EYE BID, BOTTLE 01/21/19 Propylene Glycol/Peg 400 (SYSTANE GEL EYE DROPS) 10 Ml Drops.gel, 1 DROP BOTH EYES QID, #1 BOTTLE 01/21/19 Folic Acid/Multivits-Min/Lut (Centrum Silver Chewable Tablet) 1 Each Tab.chew, 1 EACH PO DAILY, TAB.CHEW 01/21/19 Cholecalciferol* (Vitamin D3*) 1,000 Unit Tablet, 1000 UNIT PO DAILY, TAB 01/21/19 Esomeprazole Mag Trihydrate (Nexium) 40 Mg Capsule.dr, 40 MG PO DAILY, #30 CAP 01/21/19 Ascorbic Acid* (Vitamin C*) 500 Mg Capsule.sa, 1000 MG PO DAILY, CAP 01/21/19 Ferrous Sulfate* (Ferrous Sulfate*) 325 Mg Tabec, 325 MG PO DAILY, TAB 01/21/19 [place]-3/Dha/Epa/Fish Oil (FISH OIL 1,000 MG SOFTGEL) 1 Each Capsule, 1 EACH PO DAILY, CAP 01/21/19 Vitamin E Acetate (Vitamin E) 1,000 Unit Capsule, 1000 UNIT PO DAILY, CAP 01/21/19 Beta-Carotene (Beta Carotene) 25,000 Unit Capsule, 05497 UNIT PO DAILY, CAP 01/21/19 Glucosamine Hcl/Chondr Lewis A Na (OSTEO BI-FLEX CAPLET) 1 Each Tablet, 1 EACH PO BID, TAB 01/21/19 Aspirin (Low Dose Aspirin) 81 Mg Tablet.dr, 81 MG PO DAILY, #30 TAB 01/21/19 Acetaminophen* (Acetaminophen*) 650 Mg Tablet, 650 MG PO TID PRN for PAIN AND OR ELEVATED TEMP, #30 TAB 01/21/19 Vit A/Vit C/Vit E/Zinc/Copper (PRESERVISION AREDS TABLET) 1 Each Tablet, 2 EACH PO DAILY, TAB 01/21/19 Simvastatin (Simvastatin) 40 Mg Tablet, 40 MG PO QHS, #30 TAB 01/21/19 Discontinued Reported Medications Iron,Carbonyl (Feosol) 45 Mg Tablet 07/21/10 Multivitamins W-Minerals/Lut (Centrum Silver Tablet) 1 Tab Tablet 07/21/10 Beta-Carotene (Beta Carotene) 25,000 Unit Capsule 07/21/10 Cyanocobalamin (Vitamin B-12) 1,000 Mcg Lozenge 07/21/10 Calcium Carbonate (Tums EX) 1 Tab.chew Tab.chew 07/21/10 Fish Oil/[place]-3 Fatty Acids (Fish Oil 1,200 Mg Softgel) 1 Cap Capsule 07/21/10 Aspirin ([place]) 1 Tab Tabef 07/21/10 Acetaminophen (Arthritis Pain Relief) 650 Mg Tablet.sa 07/21/10 Ranitidine Hcl* (Zantac*) 150 Mg Capsule 07/21/10 Amylase/Lipase/Protease (Pancrease Mt 10 Capsule Ec) 1 Cap.ec Capsule. 07/21/10 Simvastatin (Simvastatin) 40 Mg Tablet 07/21/10 Medications Current Medications Ascorbic Acid (Vitamin C) 1,000 mg DAILY PO Last administered on 01/23/19 08:59; Admin Dose 1,000 MG; Start 01/22/19 at 09:00 Brimonidine/ Timolol (Combigan Oph) 1 drop BID LEFT EYE Last administered on 01/23/19 09:01; Admin Dose 1 DROP; Start 01/21/19 at 21:00 Cholecalciferol (Vitamin D) 1,000 unit DAILY PO Last administered on 01/23/19 09:00; Admin Dose 1,000 UNIT; Start 01/22/19 at 09:00 Ferrous Sulfate (Ferrous Sulfate (Ec)) 325 mg DAILY PO Last administered on 01/23/19 08:59; Admin Dose 325 MG; Start 01/22/19 at 09:00 Pantoprazole (Protonix Tab) 40 mg DAILY@06 PO Last administered on 01/23/19 05:38; Admin Dose 40 MG; Start 01/22/19 at 06:00 Lactated Ringer's 1,000 ml @ 80 mls/hr [id number] IV Last administered on 01/23/19 00:59; Admin Dose 80 MLS/HR; Start 01/21/19 at 11:57 IV Flush (NS 3 ml) 3 ml PER PROTOCOL IV ; Start 01/21/19 at 12:00 Oxycodone HCl (Roxicodone) 15 mg Q4H PRN PO .PAIN; Start 01/21/19 at 12:00 Oxycodone HCl (Roxicodone) 10 mg Q4H PRN PO .PAIN Last administered on 01/23/19 08:58; Admin Dose 10 MG; Start 01/21/19 at 12:00 Oxycodone HCl (Roxicodone) 5 mg Q4H PRN PO .PAIN Last administered on 01/22/19 03:56; Admin Dose 5 MG; Start 01/21/19 at 12:00 Hydromorphone HCl (Dilaudid) 1 mg Q3H PRN IV .BREAKTHROUGH PAIN Last administered on 01/22/19 13:44; Admin Dose 1 MG; Start 01/21/19 at 12:00 Ondansetron HCl (Zofran Inj) 4 mg Q4H PRN IV NAUSEA/VOMITING Last administered on 01/22/19 08:32; Admin Dose 4 MG; Start 01/22/19 at 12:00 Gabapentin (Neurontin) 300 mg QHS PO Last administered on 01/22/19at 21:40; Admin Dose 300 MG; Start 01/21/19 at 21:00 Docusate Sodium (Colace) 200 mg BID PO Last administered on 01/23/19 08:59; Admin Dose 200 MG; Start 01/22/19 at 09:00; Stop 01/25/19 at 08:59 Simethicone (Mylicon) 80 mg TID PRN PO .GAS; Start 01/21/19 at 12:00 Senna/Docusate Sodium (Senokot-S) 2 tab BID PRN PO .CONSTIPATION; Start 01/21/19 at 12:00 Magnesium Hydroxide (Milk Of Mag) 30 ml HS PRN PO .CONSTIPATION; Start 01/21/19 at 12:00 Bisacodyl (Dulcolax Supp) 10 mg DAILY PRN [place] .CONSTIPATION; Start 01/21/19 at 12:00 Sodium Biphosphate/ Sodium Phosphate (Fleet Enema) 133 ml DAILY PRN [place] .CONSTIPATION; Start 01/21/19 at 12:00 Diphenhydramine HCl (Benadryl) 25 mg Q4H PRN IV .ITCHING; Start 01/21/19 at 12:00 Naloxone HCl (Narcan) 0.2 mg Q2M PRN IV .RESP RATE; Start 01/21/19 at 12:00 Bethanechol Chloride (Urecholine) 25 mg URINARY CATH D/C PRN PO UNABLE TO VOID; Start 01/21/19 at 12:00 Aspirin (Halfprin) 81 mg BID PO Last administered on 01/23/19at 08:59; Admin Dose 81 MG; Start 01/22/19 at 09:00 Phenylephrine HCl 40 mg/Dextrose 250 ml @ 37.5 mls/hr TITRATE IV Last administered on 01/21/19at 14:19; Admin Dose 60 MLS/HR; Start 01/21/19 at 14:00 Clopidogrel Bisulfate (plaVIX) 75 mg DAILY PO Last administered on 01/23/19at 09:00; Admin Dose 75 MG; Start 01/22/19 at 09:00 Trimethobenzamide HCl (Tigan) 200 mg Q6H PRN IM NAUSEA AND/OR VOMITING Last administered on 01/22/19at 13:43; Admin Dose 200 MG; Start 01/22/19 at 10:30 Lorazepam (Ativan) 1 mg Q2H PRN IV seizure; Start 01/22/19 at 14:00 Metoprolol Tartrate (Lopressor) 25 mg Q8 PO Last administered on 01/23/19at 05:39; Admin Dose 25 MG; Start 01/22/19 at 17:00 Amiodarone HCl (Cordarone) 200 mg BID PO Last administered on 01/23/19at 09:00; Admin Dose 200 MG; Start 01/22/19 at 21:00 Assessment/Plan Hospital Course (Demo Recall) Assessment and plan: 88-year-old female status post right total knee replacement, with subsequent A. fib with RVR, hypotension, and significant right-sided weakness all occurring after the right TKR POD # 2. # Status post right total knee replacement: POD # 2. - Again continue current orders as recommended by primary team including diet, fluids, PT and OT. - Follow-up further orthopedic surgery postop recommendations. #Elevated troponins: Possible demand ischemia versus non-ST elevation NC. Patient denies chest pain. Cardiology team on the case -Continue to monitor heart rate and troponin levels for now -For now continue p.o. metoprolol p.o. 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 Neurology and cardiology teams are on the case. - Continue to monitor, continue aspirin and Plavix as recommended by neurology team for the intracranial atherosclerotic disease - Follow up further recommendations from neurology and cardiology teams. # Atrial fibrillation with RVR and hypotension: Both have resolved now - patient presently in normal sinus rhythm. Again, during the rapid response and code stroke patient did receive amiodarone 150 mg x1 during the code stroke and rapid response with the A. fib and RVR at that time. Patient also required pressor support Gary-Synephrine as she did become hypotensive during the code stroke and rapid response, again this is off now. Blood pressure stable. -Monitor heart rate for now, per cardiology team since the patient is presently maintaining NSR, they recommend to hold off any rate/rhythm control me dications -Replete electrolytes -Per cardiology team no anticoagulation (ie: Eliquis, Xarelto, Coumadin) at this time due to fall risk (apparently the patient had been having frequent falls at home prior to admission) #History bladder cancer: Status post chemo therapy in the past. -Monitor for now We will continue to follow along with you. CHRISTIANA IZQUIERDO Jan 23, 2019 11:18
[2019-01-23] MEDS ORDERED: SOD CHLORIDE 0.9% 250 ML IV* ONE (12:47)
--- NOTE | 2019-01-23 17:27 | CONS ---
Assessment/Plan Assessment/Plan Hospital Course (Demo Recall) Coverage for Dr. Melendez Status post knee surgery Paroxysmal atrial fibrillation with rapid ventricular rates, improved Preserved ejection fraction Aortic stenosis Acute blood loss anemia -Heart rate trend overall improved. On review of telemetry, patient with frequent PACs. Maintain potassium above 4.0 and magnesium above 2.0. -Troponins initially elevated but trending down. Likely secondary to rapid ventricular rates and mike-and postoperative period. She denies any symptoms of chest pain or shortness of breath. -Continue beta-nhan as heart rate and blood pressure permits -Patient with worsening anemia, plan for blood transfusion Consultation Date/Type/Reason Admit Date/Time Jan 21, 2019 at 05:28 Initial Consult Date 01/21/19 Type of Consult Cardiology Requesting Provider: CHRISTIANA IZQUIERDO Date/Time of Note DATE: 01/23/19 TIME: 17:22 24 HR Interval Summary Free Text/Dictation Denies chest pain, palpitations, shortness of breath. Asking for food Exam/Review of Systems Vital Signs Vitals Vital Signs Date Temp Pulse Resp B/P (MAP) Pulse Ox O2 O2 Flow FiO2 Time Delivery Rate 01/23/19 98.5 81 21 100/63 96 16:24 (75) 01/23/19 Room Air 12:30 01/23/19 2.0 08:00 Intake and Output 01/22/19 01/22/19 01/23/19 1414:59 22:59 06:59 IntakeIntake Total 200 ml 880 ml 400 ml OutputOutput Total 725 ml 225 ml 600 ml BalanceBalance -525 ml 655 ml -200 ml Exam Constitutional: alert, oriented, frail (No apparent distress) Head: normocephalic Respiratory: other (Coarse breath sounds bilaterally, no wheezing) Cardiovascular: regular rate and rhythm (Frequent irregularities) Gastrointestinal: soft, non-tender, bowel sounds Extremities: edema (Trace) Labs Result Diagram: 01/23/19 1133 01/23/19 0523 Results 24hrs Laboratory Tests Test 01/22/19 23:00 01/23/19 02:00 01/23/19 05:23 01/23/19 11:33 Troponin I 0.637 *H 0.420 *H Urine Color YELLOW Urine Clarity CLEAR Urine pH 6.0 Urine Specific 1.016 [place] Urine Ketones TRACE A Urine Nitrite NEGATIVE Urine Bilirubin NEGATIVE Urine Urobilinogen NEGATIVE Urine Leukocyte NEGATIVE Esterase Urine Microscopic 29 H RBC Urine Microscopic 4 WBC Urine Mucus FEW A Urine Hemoglobin 2+ H Urine Glucose NEGATIVE Urine Total Protein NEGATIVE White Blood Count 6.8 # Red Blood Count 2.43 L Hemoglobin 7.7 L 6.9 *L Hematocrit 24.1 L 21.5 L Mean Corpuscular 99.2 Volume Mean Corpuscular 31.7 Hemoglobin Mean Corpuscular 32.0 Hemoglobin Concent Red Cell 13.0 Distribution Width Platelet Count 97 L Mean Platelet Volume 12.0 H Immature 0.300 Granulocytes % Neutrophils % 71.5 Lymphocytes % 16.4 Monocytes % 11.4 H Eosinophils % 0.3 Basophils % 0.1 Nucleated Red Blood 0.0 Cells % Immature 0.020 Granulocytes # Neutrophils # 4.9 Lymphocytes # 1.1 Monocytes # 0.8 Eosinophils # 0.0 Basophils # 0.0 Nucleated Red Blood 0.0 Cells # Sodium Level 138 Potassium Level 4.6 Chloride Level 107 Carbon Dioxide Level 27 Anion Gap 4 L Blood Urea Nitrogen 13 Creatinine 0.48 Est Glomerular Filtrat Rate mL/min Glucose Level 113 Calcium Level 7.9 L Magnesium Level 2.6 #H Medications Medications Current Medications Ascorbic Acid (Vitamin C) 1,000 mg DAILY PO Last administered on 01/23/19 08:59; Admin Dose 1,000 MG; Start 01/22/19 at 09:00 Brimonidine/ Timolol (Combigan Oph) 1 drop BID LEFT EYE Last administered on 01/23/19 09:01; Admin Dose 1 DROP; Start 01/21/19 at 21:00 Cholecalciferol (Vitamin D) 1,000 unit DAILY PO Last administered on 01/23/19 09:00; Admin Dose 1,000 UNIT; Start 01/22/19 at 09:00 Ferrous Sulfate (Ferrous Sulfate (Ec)) 325 mg DAILY PO Last administered on 01/23/19 08:59; Admin Dose 325 MG; Start 01/22/19 at 09:00 Pantoprazole (Protonix Tab) 40 mg DAILY@06 PO Last administered on 01/23/19 05:38; Admin Dose 40 MG; Start 01/22/19 at 06:00 Lactated Ringer's 1,000 ml @ 75 mls/hr [id number] IV Last administered on 01/23/19 16:37; Admin Dose 75 MLS/HR; Start 01/21/19 at 11:57 IV Flush (NS 3 ml) 3 ml PER PROTOCOL IV ; Start 01/21/19 at 12:00 Oxycodone HCl (Roxicodone) 15 mg Q4H PRN PO .PAIN; Start 01/21/19 at 12:00 Oxycodone HCl (Roxicodone) 10 mg Q4H PRN PO .PAIN Last administered on 01/23/19 08:58; Admin Dose 10 MG; Start 01/21/19 at 12:00 Oxycodone HCl (Roxicodone) 5 mg Q4H PRN PO .PAIN Last administered on 01/22/19 03:56; Admin Dose 5 MG; Start 01/21/19 at 12:00 Hydromorphone HCl (Dilaudid) 1 mg Q3H PRN IV .BREAKTHROUGH PAIN Last administered on 01/22/19 13:44; Admin Dose 1 MG; Start 01/21/19 at 12:00 Ondansetron HCl (Zofran Inj) 4 mg Q4H PRN IV NAUSEA/VOMITING Last administered on 01/22/19 08:32; Admin Dose 4 MG; Start 01/22/19 at 12:00 Gabapentin (Neurontin) 300 mg QHS PO Last administered on 01/22/19 21:40; Admi n Dose 300 MG; Start 01/21/19 at 21:00 Docusate Sodium (Colace) 200 mg BID PO Last administered on 01/23/19 08:59; Admin Dose 200 MG; Start 01/22/19 at 09:00; Stop 01/25/19 at 08:59 Simethicone (Mylicon) 80 mg TID PRN PO .GAS; Start 01/21/19 at 12:00 Senna/Docusate Sodium (Senokot-S) 2 tab BID PRN PO .CONSTIPATION; Start 01/21/19 at 12:00 Magnesium Hydroxide (Milk Of Mag) 30 ml HS PRN PO .CONSTIPATION; Start 01/21/19 at 12:00 Bisacodyl (Dulcolax Supp) 10 mg DAILY PRN [place] .CONSTIPATION; Start 01/21/19 at 12:00 Sodium Biphosphate/ Sodium Phosphate (Fleet Enema) 133 ml DAILY PRN [place] .CONSTIP ATION; Start 01/21/19 at 12:00 Diphenhydramine HCl (Benadryl) 25 mg Q4H PRN IV .ITCHING; Start 01/21/19 at 12:00 Naloxone HCl (Narcan) 0.2 mg Q2M PRN IV .RESP RATE; Start 01/21/19 at 12:00 Bethanechol Chloride (Urecholine) 25 mg URINARY CATH D/C PRN PO UNABLE TO VOID; Start 01/21/19 at 12:00 Aspirin (Halfprin) 81 mg BID PO Last administered on 01/23/19 08:59; Admin Dose 81 MG; Start 01/22/19 at 09:00; Status Hold Phenylephrine HCl 40 mg/Dextrose 250 ml @ 37.5 mls/hr TITRATE IV Last adminis tered on 01/21/19 14:19; Admin Dose 60 MLS/HR; Start 01/21/19 at 14:00 Clopidogrel Bisulfate (plaVIX) 75 mg DAILY PO Last administered on 01/23/19 09:00; Admin Dose 75 MG; Start 01/22/19 at 09:00; Status Hold Trimethobenzamide HCl (Tigan) 200 mg Q6H PRN IM NAUSEA AND/OR VOMITING Last administered on 01/22/19 13:43; Admin Dose 200 MG; Start 01/22/19 at 10:30 Lorazepam (Ativan) 1 mg Q2H PRN IV seizure; Start 01/22/19 at 14:00 Metoprolol Tartrate (Lopressor) 25 mg Q8 PO Last administered on 01/23/19 16:36; Admin Dose 25 MG; Start 01/22/19 at 17:00 Amiodarone HCl (Cordarone) 200 mg BID PO Last administered on 01/23/19 09:00; Admin Dose 200 MG; Start 01/22/19 at 21:00 Chester Navas DO Jan 23, 2019 17:27
--- NOTE | 2019-01-23 17:35 | CONS ---
Assessment/Plan Assessment/Plan Hospital Course 88 F c/ reported Hx of bladder Ca s/p chemo... and other comorbidities, who presents for elective L knee replacement. Post-operatively, while in PACU, she was noted to have new aphasia and right hemiplegia...for which neurology is consulted. She was at that time found to be in afib w/ RVR... MRI brain was reassuringly without acute ischemia....which is compatible with a diagnosis of TIA.. Superimposed (provoked) seizure/post-ictal paralysis is additionally considered... CTA H/N is notable for intracranial athero. Echo is notable for hyperdynamic LV LDL 39, ESR 10, A1C nl, RPR neg P: Await EEG to evaluate for epileptiform activity OK to defer AED Tx for now Ativan iv prn prolonged seizure or cluster OK to continue asa/plavix combo for 3 months, w/ plavix monotherapy thereafter.. (LDL is at goal) PT/OT/ST as necessary Other medical management per primary Will follow clinically Consultation Date/Type/Reason Admit Date/Time Jan 21, 2019 at 05:28 Type of Consult Neurology Reason for Consultation R hemiparesis; stroke Requesting Provider: CHRISTIANA IZQUIERDO Date/Time of Note DATE: 01/23/19 TIME: 17:33 24 HR Interval Summary Free Text/Dictation Continues acute care. Exam Vital Signs Vitals Vital Signs Date Temp Pulse Resp B/P (MAP) Pulse Ox O2 O2 Flow FiO2 Time Delivery Rate 01/23/19 98.5 81 21 100/63 96 16:24 (75) 01/23/19 Room Air 12:30 01/23/19 2.0 08:00 Intake and Output 01/22/19 01/22/19 01/23/19 1515:00 23:00 07:00 IntakeIntake Total 200 ml 880 ml 400 ml OutputOutput Total 725 ml 225 ml 600 ml BalanceBalance -525 ml 655 ml -200 ml Exam PE: Gen Appearance: No Apparent Distress HEENT: Normocephalic Cardiovascular: Regular rate Lungs: Clear bilaterally Abdomen: Soft Extremities: Dry NE: The patient was alert and grossly oriented. Language was normal. Fund of knowledge was adequate. Pupils were equal and reactive to light. There was no afferent pupillary defect. Visual zelaya were normal. Funduscopic examination was limited. Extra-ocular movements were full. Ptosis was absent. There was no nystagmus. Facial sensation was normal. Face was symmetric with normal strength. Hearing was intact. Palate movements were normal. Neck strength was normal. There was normal tongue bulk and speed of movement. Tone was normal. Muscle bulk was diminished. I did not see fasciculations. Arms and legs were antigravity. Vibration sensation was normal. Temperature and pinprick sensation was normal. Rapid alternating movements were normal. There was no dysmetria. There was no intention tremor. Gait was deferred due to bedrest. Arm and leg reflexes were 2+ and symmetric. Silva's sign was absent. Plantar responses were flexor. CAT MACIAS NP Jan 23, 2019 17:35
--- NOTE | 2019-01-23 21:19 | PN ---
Date/Time of Note Date/Time of Note DATE: 01/23/19 TIME: 21:16 Assessment/Plan Lines/Catheters IV Catheter Type (from Nrsg): Central Line Marti in Place (from Nrsg): Yes Assessment/Plan Chief Complaint/Hosp Course POD#2 s/p primary right TKA. Patient feels she is at baseline in regards to her mentation. Her hemoglobin is significantly lower today. Secondary to aortic stenosis medicine team recommended transfusion. -Change dressing today -Post op H&H will continue to be monitored. -1 unit PRBC transfused -PT/OT -Joints pain control protocol -DVT prophylaxis: SCD's, aspirin 81 mg twice daily. Plavix secondary to cardiac event -Weight bearing status: as tolerated -Post-op XR ordered -Abx: 24h vanc/ancef -Diet: Regular -Marti: Continue for fluid management -Discharge planning consult -Consult for evaluation for acute rehab unit Subjective 24 Hr Interval Summary Patient doing well No acute events overnight Pain is moderately well controlled Exam/Review of Systems Vital Signs Vitals Vital Signs Date Temp Pulse Resp B/P (MAP) Pulse Ox O2 O2 Flow FiO2 Time Delivery Rate 01/23/19 99.2 80 18 142/65 90 20:00 (90) 01/23/19 Room Air 12:30 01/23/19 2.0 08:00 Intake and Output 01/22/19 01/22/19 01/23/19 1414:59 22:59 06:59 IntakeIntake Total 200 ml 880 ml 400 ml OutputOutput Total 725 ml 225 ml 600 ml BalanceBalance -525 ml 655 ml -200 ml Exam Free Text/Dictation Right lower extremity: Dressing: Saturated but dry, and intact, no erythema. Incision is clean, dry, intact. Sensation intact to light touch in a sural, saphenous, deep peroneal, superficial peroneal, medial and lateral plantar nerve distribution. Motor is intact, patient able to dorsiflex and plantarflex ankle and extend and flex great toe. Dorsalis Pedis pulse +2, Brisk capillary refill. Compartments are soft. Calves non-tender to palpation bilaterally. Results Result Diagram: 01/23/19 1133 01/23/19 0523 PHYLICIA ULLOA MD Jan 23, 2019 21:18
[2019-01-23] MEDS: GABAPENTIN 300 MG CAP PO SCH (21:22)
[2019-01-23] MEDS ORDERED: ACETAMINOPHEN 325 MG TAB PO PRN (22:30)
[2019-01-24] VITALS (10 sets, daily range): BP systolic 121–135; BP diastolic 57–70; PULSE 55–171; RESP 16–19
[2019-01-24] MEDS: LACTATED RINGER'S 1,000 ML IV SCH (03:21)
[2019-01-24] MEDS: PANTOPRAZOLE (EC) 40 MG TAB PO SCH (08:03)
[2019-01-24] MEDS ORDERED: DOXYCYCLINE 100 MG in SOD CHLORIDE 0.9% 250 ML IVPB SCH (09:00)
[2019-01-24] MEDS: FERROUS SULFATE (EC) 325 MG TAB PO SCH (09:14)
[2019-01-24] MEDS: CHOLECALCIFEROL 1,000 UNIT TAB PO SCH (09:15)
[2019-01-24] MEDS: BRIMONIDINE 0.2%-TIMOLOL 0.5% 5ML OPH LEFT EYE SCH ×2 (09:15→20:46)
[2019-01-24] MEDS: ASCORBIC ACID 500 MG TAB PO SCH (09:15)
[2019-01-24] MEDS: DOCUSATE SODIUM 100 MG CAP PO SCH ×2 (09:15→20:47)
[2019-01-24] MEDS: METOPROLOL 25 MG TAB PO SCH ×2 (09:15→20:48)
[2019-01-24] MEDS: AMIODARONE 200 MG TAB PO SCH ×2 (09:15→20:48)
--- NOTE | 2019-01-24 10:23 | CONS ---
Consult Date/Type/Reason Admit Date/Time Jan 21, 2019 at 05:28 Initial Consult Date 01/21/19 Requesting Provider: CHRISTIANA IZQUIERDO Date/Time of Note DATE: 01/24/19 TIME: 10:20 Subjective Patient had PRBC transfusion performed yesterday. Worked with PT earlier, complains of less weakness symptoms. Per telemetry monitoring, patient did appear to have a couple of episodes of A. fib with RVR lasting 1-2 minutes last night, but for the most part is been in normal sinus rhythm including now. Objective Vitals Vital Signs Date Temp Pulse Resp B/P (MAP) Pulse Ox O2 O2 Flow FiO2 Time Delivery Rate 01/24/19 98.6 79 19 133/70 97 08:12 (91) 01/23/19 Nasal 2.0 21:20 Cannula Intake and Output 01/23/19 01/23/19 01/24/19 1515:00 23:00 07:00 IntakeIntake Total 1620 ml 300 ml OutputOutput Total 300 ml BalanceBalance 1620 ml 0 ml Exam Gen Appearance: Lying in bed, no acute distress HEENT: Normocephalic NECK: supple Cardiovascular: S1 S2, presently RRR Lungs: Clear to auscultation bilaterally Abdomen: No rebound or guarding, nontender, nondistended, soft Extremities: Slightly decreased range of motion right lower extremity, no lower extremity edema bilaterally Neuro: More alert, no focal deficits Results/Medications Result Diagram: 01/24/19 0507 01/24/19 0507 Results 24 hrs Laboratory Tests Test 01/23/19 11:33 01/23/19 17:08 01/23/19 23:11 01/24/19 05:07 Hemoglobin 6.9 *L 9.2 #L 9.4 L Hematocrit 21.5 L 28.9 #L 28.8 L Troponin I 0.420 *H 0.401 *H 0.349 *H White Blood Count 8.5 # Red Blood Count 2.97 #L Mean Corpuscular 97.0 Volume Mean Corpuscular 31.6 Hemoglobin Mean Corpuscular 32.6 Hemoglobin Concen t Red Cell 13.8 Distribution Width Platelet Count 95 L Mean Platelet 12.0 H Volume Immature 0.700 H Granulocytes % Neutrophils % 77.1 H Lymphocytes % 12.7 L Monocytes % 8.6 Eosinophils % 0.8 Basophils % 0.1 Nucleated Red 0.0 Blood Cells % Immature 0.060 H Granulocytes # Neutrophils # 6.5 Lymphocytes # 1.1 Monocytes # 0.7 Eosinophils # 0.1 Basophils # 0.0 Nucleated Red 0.0 Blood Cells # Sodium Level 139 Potassium Level 4.3 Chloride Level 107 Carbon Dioxide 29 Level Anion Gap 3 L Blood Urea 11 Nitrogen Creatinine 0.52 Est Glomerular Filtrat Rate mL/min Glucose Level 116 Calcium Level 8.3 L Test 01/24/19 05:19 Lab Scanned BLOOD TRANSFUSIO Report N Home Meds Reported Medications Brimonidine/Timolol* (Combigan*) 5 Ml Drops, 1 DROP LEFT EYE BID, BOTTLE 01/21/19 Propylene Glycol/Peg 400 (SYSTANE GEL EYE DROPS) 10 Ml Drops.gel, 1 DROP BOTH EYES QID, #1 BOTTLE 01/21/19 Folic Acid/Multivits-Min/Lut (Centrum Silver Chewable Tablet) 1 Each Tab.chew, 1 EACH PO DAILY, TAB.CHEW 01/21/19 Cholecalciferol* (Vitamin D3*) 1,000 Unit Tablet, 1000 UNIT PO DAILY, TAB 01/21/19 Esomeprazole Mag Trihydrate (Nexium) 40 Mg Capsule.dr, 40 MG PO DAILY, #30 CAP 01/21/19 Ascorbic Acid* (Vitamin C*) 500 Mg Capsule.sa, 1000 MG PO DAILY, CAP 01/21/19 Ferrous Sulfate* (Ferrous Sulfate*) 325 Mg Tabec, 325 MG PO DAILY, TAB 01/21/19 [place]-3/Dha/Epa/Fish Oil (FISH OIL 1,000 MG SOFTGEL) 1 Each Capsule, 1 EACH PO DAILY, CAP 01/21/19 Vitamin E Acetate (Vitamin E) 1,000 Unit Capsule, 1000 UNIT PO DAILY, CAP 01/21/19 Beta-Carotene (Beta Carotene) 25,000 Unit Capsule, 54317 UNIT PO DAILY, CAP 01/21/19 Glucosamine Hcl/Chondr Lewis A Na (OSTEO BI-FLEX CAPLET) 1 Each Tablet, 1 EACH PO BID, TAB 01/21/19 Aspirin (Low Dose Aspirin) 81 Mg Tablet.dr, 81 MG PO DAILY, #30 TAB 01/21/19 Acetaminophen* (Acetaminophen*) 650 Mg Tablet, 650 MG PO TID PRN for PAIN AND OR ELEVATED TEMP, #30 TAB 01/21/19 Vit A/Vit C/Vit E/Zinc/Copper (PRESERVISION AREDS TABLET) 1 Each Tablet, 2 EACH PO DAILY, TAB 01/21/19 Simvastatin (Simvastatin) 40 Mg Tablet, 40 MG PO QHS, #30 TAB 01/21/19 Discontinued Reported Medications Iron,Carbonyl (Feosol) 45 Mg Tablet 07/21/10 Multivitamins W-Minerals/Lut (Centrum Silver Tablet) 1 Tab Tablet 07/21/10 Beta-Carotene (Beta Carotene) 25,000 Unit Capsule 07/21/10 Cyanocobalamin (Vitamin B-12) 1,000 Mcg Lozenge 07/21/10 Calcium Carbonate (Tums EX) 1 Tab.chew Tab.chew 07/21/10 Fish Oil/[place]-3 Fatty Acids (Fish Oil 1,200 Mg Softgel) 1 Cap Capsule 07/21/10 Aspirin ([place]) 1 Tab Tabef 07/21/10 Acetaminophen (Arthritis Pain Relief) 650 Mg Tablet.sa 07/21/10 Ranitidine Hcl* (Zantac*) 150 Mg Capsule 07/21/10 Amylase/Lipase/Protease (Pancrease Mt 10 Capsule Ec) 1 Cap.ec Capsule. 07/21/10 Simvastatin (Simvastatin) 40 Mg Tablet 07/21/10 Medications Current Medications Ascorbic Acid (Vitamin C) 1,000 mg DAILY PO Last administered on 01/24/19 09:15; Admin Dose 1,000 MG; Start 01/22/19 at 09:00 Brimonidine/ Timolol (Combigan Oph) 1 drop BID LEFT EYE Last administered on 01/24/19 09:15; Admin Dose 1 DROP; Start 01/21/19 at 21:00 Cholecalciferol (Vitamin D) 1,000 unit DAILY PO Last administered on 01/24/19 09:15; Admin Dose 1,000 UNIT; Start 01/22/19 at 09:00 Ferrous Sulfate (Ferrous Sulfate (Ec)) 325 mg DAILY PO Last administered on 01/24/19 09:14; Admin Dose 325 MG; Start 01/22/19 at 09:00 Pantoprazole (Protonix Tab) 40 mg DAILY@06 PO Last administered on 01/24/19 08:03; Admin Dose 40 MG; Start 01/22/19 at 06:00 Lactated Ringer's 1,000 ml @ 75 mls/hr [id number] IV Last administered on 01/23/19 16:37; Admin Dose 75 MLS/HR; Start 01/21/19 at 11:57 IV Flush (NS 3 ml) 3 ml PER PROTOCOL IV ; Start 01/21/19 at 12:00 Oxycodone HCl (Roxicodone) 15 mg Q4H PRN PO .PAIN; Start 01/21/19 at 12:00 Oxycodone HCl (Roxicodone) 10 mg Q4H PRN PO .PAIN Last administered on 01/23/19 08:58; Admin Dose 10 MG; Start 01/21/19 at 12:00 Oxycodone HCl (Roxicodone) 5 mg Q4H PRN PO .PAIN Last administered on 01/22/19 03:56; Admin Dose 5 MG; Start 01/21/19 at 12:00 Hydromorphone HCl (Dilaudid) 1 mg Q3H PRN IV .BREAKTHROUGH PAIN Last admi nistered on 01/22/19 13:44; Admin Dose 1 MG; Start 01/21/19 at 12:00 Ondansetron HCl (Zofran Inj) 4 mg Q4H PRN IV NAUSEA/VOMITING Last administered on 01/22/19 08:32; Admin Dose 4 MG; Start 01/22/19 at 12:00 Gabapentin (Neurontin) 300 mg QHS PO Last administered on 01/23/19 21:22; Admin Dose 300 MG; Start 01/21/19 at 21:00 Docusate Sodium (Colace) 200 mg BID PO Last administered on 01/24/19 09:15; Admin Dose 200 MG; Start 01/22/19 at 09:00; Stop 01/25/19 at 08:59 Simethicone (Mylicon) 80 mg TID PRN PO .GAS; Start 01/21/19 at 12:00 Senna/Docusate Sodium (Senokot-S) 2 tab BID PRN PO .CONSTIPATION; Start 01/21/19 at 12:00 Magnesium Hydroxide (Milk Of Mag) 30 ml HS PRN PO .CONSTIPATION; Start 01/21/19 at 12:00 Bisacodyl (Dulcolax Supp) 10 mg DAILY PRN [place] .CONSTIPATION; Start 01/21/19 at 12:00 Sodium Biphosphate/ Sodium Phosphate (Fleet Enema) 133 ml DAILY PRN [place] .CONSTIPATION; Start 01/21/19 at 12:00 Diphenhydramine HCl (Benadryl) 25 mg Q4H PRN IV .ITCHING; Start 01/21/19 at 1 2:00 Naloxone HCl (Narcan) 0.2 mg Q2M PRN IV .RESP RATE; Start 01/21/19 at 12:00 Bethanechol Chloride (Urecholine) 25 mg URINARY CATH D/C PRN PO UNABLE TO VOID; Start 01/21/19 at 12:00 Aspirin (Halfprin) 81 mg BID PO Last administered on 01/23/19at 08:59; Admin Dose 81 MG; Start 01/22/19 at 09:00; Status Hold Phenylephrine HCl 40 mg/Dextrose 250 ml @ 37.5 mls/hr TITRATE IV Last administered on 01/21/19at 14:19; Admin Dose 60 MLS/HR; Start 01/21/19 at 14:00 Clopidogrel Bisulfate (plaVIX) 75 mg DAILY PO Last administered on 01/23/19at 09:00; Admin Dose 75 MG; Start 01/22/19 at 09:00; Status Hold Trimethobenzamide HCl (Tigan) 200 mg Q6H PRN IM NAUSEA AND/OR VOMITING Last administered on 01/22/19at 13:43; Admin Dose 200 MG; Start 01/22/19 at 10:30 Lorazepam (Ativan) 1 mg Q2H PRN IV seizure; Start 01/22/19 at 14:00 Amiodarone HCl (Cordarone) 200 mg BID PO Last administered on 01/24/19at 09:15; Admin Dose 200 MG; Start 01/22/19 at 21:00 Metoprolol Tartrate (Lopressor) 25 mg BID PO Last administered on 01/24/19 09:15; Admin Dose 25 MG; Start 01/23/19 at 21:00 Acetaminophen (Tylenol Tab) 650 mg Q6H PRN PO MILD PAIN(1-3)OR ELEVATED TEMP Last administered on 01/23/19at 23:54; Admin Dose 650 MG; Start 01/23/19 at 22:30 Doxycycline Hyclate 100 mg/ Sodium Chloride 250 ml @ 250 mls/hr Q12 IVPB ; Start 01/24/19 at 09:00 Assessment/Plan Hospital Course (Demo Recall) Assessment and plan: 88-year-old female status post right total knee replacement, with subsequent A. fib with RVR, hypotension, and significant right-sided weakness all occurring after the right TKR POD # 3. # Status post right total knee replacement: POD # 3. - Again continue current orders as recommended by primary team including diet, fluids, PT and OT. - Follow-up further orthopedic surgery postop recommendations. # anemia-improved after PRBC transfusion, hemoglobin stable today. No signs of any upper or lower GI bleeding. No signs of any bleeding from the surgical s ite. Stool occult test ordered yesterday, but still pending -Monitor CBC, consider restarting aspirin and Plavix as this was held yesterday secondary to the anemia. -Follow-up results of occult test. #Elevated troponins: Trending now, per cardiology team likely secondary to rapid ventricular rates and mike-and postoperative period. Patient denies chest pain. 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 Neurology and cardiology teams are on the case. Possible TIA? - Continue to monitor, held aspirin and Plavix yesterday because of patient's anemia, consider restarting that today as patient not showing any signs of any upper or lower GI bleeding. As recommended by neurology team for the intracran ial atherosclerotic disease - Follow up further recommendations from neurology and cardiology teams. # Atrial fibrillation with RVR and hypotension: Both have resolved now -although again per monitoring patient appears to have 1-2 minutes of A. fib with RVR last night on 2 separate episodes, asymptomatic. Patient presently in normal sinus rhythm. Again, during the rapid response and code stroke patient did receive amiodarone 150 mg x1 during the code stroke and rapid response with the A. fib and RVR at that time. Patient also required pressor support Gary-Synephrine as she did become hypotensive during the code stroke and rapid response, again this is off now. Blood pressure stable. -Monitor heart rate for now, follow-up cardiology recommendations -Continue p.o. metoprolol and amiodarone as recommended by cardiology team for now, replete electrolytes as needed -Per cardiology team no anticoagulation (ie: Eliquis, Xarelto, Coumadin) at this time due to fall risk (apparently the patient had been having frequent falls at home prior to admission) #History bladder cancer: Status post chemo therapy in the past. -Monitor for now We will continue to follow along with you. CHRISTIANA IZQUIERDO Jan 24, 2019 10:23
[2019-01-24] MEDS: DOXYCYCLINE 100 MG in SOD CHLORIDE 0.9% 250 ML IVPB SCH ×2 (11:07→21:44)
--- NOTE | 2019-01-24 11:28 | CONS ---
Assessment/Plan Assessment/Plan Hospital Course (Demo Recall) Coverage for Dr. Melendez Status post knee surgery Paroxysmal atrial fibrillation with rapid ventricular rates, improved Preserved ejection fraction Aortic stenosis Acute blood loss anemia status post blood transfusion -Heart rate trend overall improved. On review of telemetry, brief atrial fibrillation last night, currently in sinus rhythm. -Maintain potassium above 4.0 and magnesium above 2.0. -Troponins initially elevated but trending down. Likely secondary to rapid ventricular rates and mike-and postoperative period. She denies any symptoms of chest pain or shortness of breath. -Continue beta-nhan as heart rate and blood pressure permits -If patient with recurrent episodes of atrial fibrillation, and if no contraindication, would consider initiation of anticoagulation Consultation Date/Type/Reason Admit Date/Time Jan 21, 2019 at 05:28 Initial Consult Date 01/21/19 Type of Consult Cardiology Requesting Provider: CHRISTIANA IZQUIERDO Date/Time of Note DATE: 01/24/19 TIME: 11:26 24 HR Interval Summary Free Text/Dictation Feeling better today. Denies palpitations, shortness of breath or chest pain Exam/Review of Systems Vital Signs Vitals Vital Signs Date Temp Pulse Resp B/P (MAP) Pulse Ox O2 O2 Flow FiO2 Time Delivery Rate 01/24/19 98.6 79 19 133/70 97 08:12 (91) 01/23/19 Nasal 2.0 21:20 Cannula Intake and Output 01/23/19 01/23/19 01/24/19 1515:00 23:00 07:00 IntakeIntake Total 1620 ml 300 ml OutputOutput Total 300 ml BalanceBalance 1620 ml 0 ml Exam Constitutional: alert, oriented (No apparent distress) Head: normocephalic Respiratory: other (Coarse breath sounds bilaterally, no wheezing) Cardiovascular: regular rate and rhythm (S1-S2 heard) Gastrointestinal: soft, non-tender, bowel sounds Extremities: edema Labs Result Diagram: 01/24/19 1011 01/24/19 0507 Results 24hrs Laboratory Tests Test 01/23/19 11:33 01/23/19 17:08 01/23/19 23:11 01/24/19 05:07 Hemoglobin 6.9 *L 9.2 #L 9.4 L Hematocrit 21.5 L 28.9 #L 28.8 L Troponin I 0.420 *H 0.401 *H 0.349 *H White Blood Count 8.5 # Red Blood Count 2.97 #L Mean Corpuscular 97.0 Volume Mean Corpuscular 31.6 Hemoglobin Mean Corpuscular 32.6 Hemoglobin Concen t Red Cell 13.8 Distribution Width Platelet Count 95 L Mean Platelet 12.0 H Volume Immature 0.700 H Granulocytes % Neutrophils % 77.1 H Lymphocytes % 12.7 L Monocytes % 8.6 Eosinophils % 0.8 Basophils % 0.1 Nucleated Red 0.0 Blood Cells % Immature 0.060 H Granulocytes # Neutrophils # 6.5 Lymphocytes # 1.1 Monocytes # 0.7 Eosinophils # 0.1 Basophils # 0.0 Nucleated Red 0.0 Blood Cells # Sodium Level 139 Potassium Level 4.3 Chloride Level 107 Carbon Dioxide 29 Level Anion Gap 3 L Blood Urea 11 Nitrogen Creatinine 0.52 Est Glomerular Filtrat Rate mL/min Glucose Level 116 Calcium Level 8.3 L Test 01/24/19 05:19 01/24/19 10:11 Lab Scanned BLOOD TRANSFUSIO Report N Hemoglobin 9.6 L Hematocrit 29.5 L Medications Medications Current Medications Ascorbic Acid (Vitamin C) 1,000 mg DAILY PO Last administered on 01/24/19 09:15; Admin Dose 1,000 MG; Start 01/22/19 at 09:00 Brimonidine/ Timolol (Combigan Oph) 1 drop BID LEFT EYE Last administered on 01/24/19 09:15; Admin Dose 1 DROP; Start 01/21/19 at 21:00 Cholecalciferol (Vitamin D) 1,000 unit DAILY PO Last administered on 01/24/19at 09:15; Admin Dose 1,000 UNIT; Start 01/22/19 at 09:00 Ferrous Sulfate (Ferrous Sulfate (Ec)) 325 mg DAILY PO Last administered on 01/24/19at 09:14; Admin Dose 325 MG; Start 01/22/19 at 09:00 Pantoprazole (Protonix Tab) 40 mg DAILY@06 PO Last administered on 01/24/19at 0 8:03; Admin Dose 40 MG; Start 01/22/19 at 06:00 IV Flush (NS 3 ml) 3 ml PER PROTOCOL IV ; Start 01/21/19 at 12:00 Oxycodone HCl (Roxicodone) 15 mg Q4H PRN PO .PAIN; Start 01/21/19 at 12:00 Oxycodone HCl (Roxicodone) 10 mg Q4H PRN PO .PAIN Last administered on 01/23/19 08:58; Admin Dose 10 MG; Start 01/21/19 at 12:00 Oxycodone HCl (Roxicodone) 5 mg Q4H PRN PO .PAIN Last administered on 01/22/19 03:56; Admin Dose 5 MG; Start 01/21/19 at 12:00 Hydromorphone HCl (Dilaudid) 1 mg Q3H PRN IV .BREAKTHROUGH PAIN Last administered on 01/22/19 13:44; Admin Dose 1 MG; Start 01/21/19 at 12:00 Ondansetron HCl (Zofran Inj) 4 mg Q4H PRN IV NAUSEA/VOMITING Last administered on 01/22/19 08:32; Admin Dose 4 MG; Start 01/22/19 at 12:00 Gabapentin (Neurontin) 300 mg QHS PO Last administered on 01/23/19 21:22; Admin Dose 300 MG; Start 01/21/19 at 21:00 Docusate Sodium (Colace) 200 mg BID PO Last administered on 01/24/19 09:15; Admin Dose 200 MG; Start 01/22/19 at 09:00; Stop 01/25/19 at 08:59 Simethicone (Mylicon) 80 mg TID PRN PO .GAS; Start 01/21/19 at 12:00 Senna/Docusate Sodium (Senokot-S) 2 tab BID PRN PO .CONSTIPATION; Start 01/21/19 at 12:00 Magnesium Hydroxide (Milk Of Mag) 30 ml HS PRN PO .CONSTIPATION; Start 01/21/19 at 12:00 Bisacodyl (Dulcolax Supp) 10 mg DAILY PRN [place] .CONSTIPATION; Start 01/21/19 at 12:00 Sodium Biphosphate/ Sodium Phosphate (Fleet Enema) 133 ml DAILY PRN [place] .CONSTIPATION; Start 01/21/19 at 12:00 Diphenhydramine HCl (Benadryl) 25 mg Q4H PRN IV .ITCHING; Start 01/21/19 at 12:00 Naloxone HCl (Narcan) 0.2 mg Q2M PRN IV .RESP RATE; Start 01/21/19 at 12:00 Bethanechol Chloride (Urecholine) 25 mg URINARY CATH D/C PRN PO UNABLE TO VOID; Start 01/21/19 at 12:00 Phenylephrine HCl 40 mg/Dextrose 250 ml @ 37.5 mls/hr TITRATE IV Last administered on 01/21/19at 14:19; Admin Dose 60 MLS/HR; Start 01/21/19 at 14:00 Trimethobenzamide HCl (Tigan) 200 mg Q6H PRN IM NAUSEA AND/OR VOMITING Last administered on 01/22/19at 13:43; Admin Dose 200 MG; Start 01/22/19 at 10:30 Lorazepam (Ativan) 1 mg Q2H PRN IV seizure; Start 01/22/19 at 14:00 Amiodarone HCl (Cordarone) 200 mg BID PO Last administered on 01/24/19at 09:15; Admin Dose 200 MG; Start 01/22/19 at 21:00 Metoprolol Tartrate (Lopressor) 25 mg BID PO Last administered on 01/24/19at 09:15; Admin Dose 25 MG; Start 01/23/19 at 21:00 Acetaminophen (Tylenol Tab) 650 mg Q6H PRN PO MILD PAIN(1-3)OR ELEVATED TEMP Last administered on 01/23/19at 23:54; Admin Dose 650 MG; Start 01/23/19 at 22:30 Doxycycline Hyclate 100 mg/ Sodium Chloride 250 ml @ 250 mls/hr Q12 IVPB ; Start 01/24/19 at 09:00 Aspirin (Halfprin) 81 mg BID PO ; Start 01/24/19 at 11:30 Clopidogrel Bisulfate (plaVIX) 75 mg DAILY PO ; Start 01/25/19 at 09:00 Chester Navas DO Jan 24, 2019 11:28
--- NOTE | 2019-01-24 12:04 | CONS ---
Assessment/Plan Assessment/Plan Hospital Course 88 F c/ reported Hx of bladder Ca s/p chemo... and other comorbidities, who presents for elective L knee replacement. Post-operatively, while in PACU, she was noted to have new aphasia and right hemiplegia...for which neurology is consulted. She was at that time found to be in afib w/ RVR... MRI brain was reassuringly without acute ischemia....which is compatible with a diagnosis of TIA.. Superimposed (provoked) seizure/post-ictal paralysis is additionally considered... CTA H/N is notable for intracranial athero. Echo is notable for hyperdynamic LV LDL 39, ESR 10, A1C nl, RPR neg P: Await EEG to evaluate for epileptiform activity OK to defer AED Tx for now Ativan iv prn prolonged seizure or cluster OK to continue asa/plavix combo for 3 months, w/ plavix monotherapy thereafter.. (LDL is at goal) PT/OT/ST as necessary Other medical management per primary Will follow clinically Consultation Date/Type/Reason Admit Date/Time Jan 21, 2019 at 05:28 Type of Consult Neurology Reason for Consultation R hemiparesis; stroke Requesting Provider: CHRISTIANA IZQUIERDO Date/Time of Note DATE: 01/24/19 TIME: 12:04 24 HR Interval Summary Free Text/Dictation Continues acute care. Exam Vital Signs Vitals Vital Signs Date Temp Pulse Resp B/P (MAP) Pulse Ox O2 O2 Flow FiO2 Time Delivery Rate 01/24/19 98.7 83 17 130/69 98 12:00 (89) 01/23/19 Nasal 2.0 21:20 Cannula Intake and Output 01/23/19 01/23/19 01/24/19 1515:00 23:00 07:00 IntakeIntake Total 1620 ml 300 ml OutputOutput Total 300 ml BalanceBalance 1620 ml 0 ml Exam PE: Gen Appearance: No Apparent Distress HEENT: Normocephalic Cardiovascular: Regular rate Lungs: Clear bilaterally Abdomen: Soft Extremities: Dry NE: The patient was alert and oriented. Language was normal. Fund of knowledge was adequate. Pupils were equal and reactive to light. There was no afferent pupillary defect. Visual zelaya were normal. Funduscopic examination was limited. Extra-ocular movements were full. Ptosis was absent. There was no nystagmus. Facial sensation was normal. Face was symmetric with normal strength. Hearing was intact. Palate movements were normal. Neck strength was normal. There was normal tongue bulk and speed of movement. Tone was normal. Muscle bulk was diminished. I did not see fasciculations. Arms and legs were antigravity, symmetrically. Vibration sensation was normal. Temperature and pinprick sensation was normal. Rapid alternating movements were normal. There was no dysmetria. There was no intention tremor. Gait was deferred due to bedrest. Arm and leg reflexes were 2+ and symmetric. Silva's sign was absent. Plantar responses were flexor. CAT MACIAS NP Jan 24, 2019 12:04 JAS CAMERON Jan 25, 2019 06:42
[2019-01-24] MEDS: ASPIRIN (EC) 81 MG TAB PO SCH ×2 (12:07→20:46)
[2019-01-24] MEDS: GABAPENTIN 300 MG CAP PO SCH (20:46)
[2019-01-25] VITALS (13 sets, daily range): BP systolic 141–173; BP diastolic 63–77; PULSE 39–88; RESP 16–18
[2019-01-25] MEDS: PANTOPRAZOLE (EC) 40 MG TAB PO SCH (06:27)
--- NOTE | 2019-01-25 06:50 | EEG ---
EEG NOTE Report Details DATE OF TEST: 01/22/19 HISTORY: The patient is a 88-year-old F who presents with transient R hemiparesis and aphasia. This EEG is requested to evaluate for an epileptic disorder. SEDATION: None. CONDITIONS OF RECORDING: This EEG was recorded digitally on the [employer] TNC machine, using the International 10-20 System of electrodes plus anterior temporals and [place]. STATES SAMPLED: Wakefulness and drowsiness. FINDINGS: During wakefulness, there is a 7 Hz posterior dominant rhythm, which attenuates normally with eye opening. There is a normal [id number] frequency-amplitude gradient. The remainder of the awake background is notable for admixed theta and delta activity. Photic stimulation does not elicit any definite driving responses or epileptiform discharges. Hyperventilation was not performed. The patient became drowsy but did not pass into sleep. No asymmetries, focal abnormalities or epileptiform discharges were seen. IMPRESSION: Abnormal electroencephalogram due to: mild diffuse slowing. COMMENT: The slowing of the background indicates mild, diffuse cortical dysfunction of nonspecific etiology. JAS CAMERON Jan 25, 2019 06:50
[2019-01-25] MEDS ORDERED: POTASSIUM CHLORIDE (SR) 20 MEQ TAB PO STA (08:22)
--- NOTE | 2019-01-25 08:39 | CONS ---
Assessment/Plan Assessment/Plan Hospital Course 88 F c/ reported Hx of bladder Ca s/p chemo... and other comorbidities, who presents for elective L knee replacement. Post-operatively, while in PACU, she was noted to have new aphasia and right hemiplegia...for which neurology is consulted. She was at that time found to be in afib w/ RVR... MRI brain was reassuringly without acute ischemia....which is compatible with a diagnosis of TIA.. Superimposed (provoked) seizure/post-ictal paralysis is less likely. EEG is without epileptiform activity. CTA H/N is notable for intracranial athero. Echo is notable for hyperdynamic LV LDL 39, ESR 10, A1C nl, RPR neg P: OK to continue asa/plavix combo for 3 months, w/ plavix monotherapy thereafter.. (LDL is at goal) PT/OT/ST as necessary Other medical management per primary Will follow clinically Consultation Date/Type/Reason Admit Date/Time Jan 21, 2019 at 05:28 Type of Consult Neurology Reason for Consultation R hemiparesis; stroke Requesting Provider: CHRISTIANA IZQUIERDO Date/Time of Note DATE: 01/25/19 TIME: 08:38 24 HR Interval Summary Free Text/Dictation Continues acute care. S/p EEG. Exam Vital Signs Vitals Vital Signs Date Temp Pulse Resp B/P (MAP) Pulse Ox O2 O2 Flow FiO2 Time Delivery Rate 01/25/19 88 08:16 01/25/19 97.7 16 163/68 90 07:54 (99) 01/23/19 Nasal 2.0 21:20 Cannula Intake and Output 01/24/19 01/24/19 01/25/19 1515:00 23:00 07:00 IntakeIntake Total 250 ml 800 ml 600 ml BalanceBalance 250 ml 800 ml 600 ml Exam PE: Gen Appearance: No Apparent Distress HEENT: Normocephalic Cardiovascular: Regular rate Lungs: Clear bilaterally Abdomen: Soft Extremities: Dry NE: The patient was alert and oriented. Language was normal. Fund of knowledge was adequate. Pupils were equal and reactive to light. There was no afferent pupillary defect. Visual zelaya were normal. Funduscopic examination was limited. Extra-ocular movements were full. Ptosis was absent. There was no nystagmus. Facial sensation was normal. Face was symmetric with normal strength. Hearing was intact. Palate movements were normal. Neck strength was normal. There was normal tongue bulk and speed of movement. Tone was normal. Muscle bulk was diminished. I did not see fasciculations. Arms and legs were antigravity, symmetrically. Vibration sensation was normal. Temperature and pinprick sensation was normal. Rapid alternating movements were normal. There was no dysmetria. There was no intention tremor. Gait was deferred due to bedrest. Arm and leg reflexes were 2+ and symmetric. Silva's sign was absent. Plantar responses were flexor. CAT MACIAS NP Jan 25, 2019 08:39
[2019-01-25] MEDS: ASPIRIN (EC) 81 MG TAB PO SCH (08:40)
[2019-01-25] MEDS: ASCORBIC ACID 500 MG TAB PO SCH (08:41)
[2019-01-25] MEDS: METOPROLOL 25 MG TAB PO SCH (08:42)
[2019-01-25] MEDS: CHOLECALCIFEROL 1,000 UNIT TAB PO SCH (08:42)
[2019-01-25] MEDS: FERROUS SULFATE (EC) 325 MG TAB PO SCH (08:42)
[2019-01-25] MEDS: BRIMONIDINE 0.2%-TIMOLOL 0.5% 5ML OPH LEFT EYE SCH ×2 (08:43→20:27)
[2019-01-25] MEDS: AMIODARONE 200 MG TAB PO SCH ×2 (08:43→20:27)
[2019-01-25] MEDS ORDERED: CLOPIDOGREL 75 MG TAB PO SCH (09:00)
[2019-01-25] MEDS: DOXYCYCLINE 100 MG in SOD CHLORIDE 0.9% 250 ML IVPB SCH ×2 (09:07→20:28)
[2019-01-25] MEDS: oxyCODONE 5 MG TAB PO PRN (12:40)
--- NOTE | 2019-01-25 12:42 | CONS ---
Consult Date/Type/Reason Admit Date/Time Jan 21, 2019 at 05:28 Initial Consult Date 01/21/19 Requesting Provider: CHRISTIANA IZQUIERDO Date/Time of Note DATE: 01/25/19 TIME: 12:37 Objective Vitals Vital Signs Date Temp Pulse Resp B/P (MAP) Pulse Ox O2 O2 Flow FiO2 Time Delivery Rate 01/25/19 69 12:03 01/25/19 98.6 16 146/63 95 11:20 (90) 01/23/19 Nasal 2.0 21:20 Cannula Intake and Output 01/24/19 01/24/19 01/25/19 1414:59 22:59 06:59 IntakeIntake Total 250 ml 800 ml 600 ml BalanceBalance 250 ml 800 ml 600 ml Exam Gen Appearance: Lying in bed, no acute distress HEENT: Normocephalic NECK: supple Cardiovascular: S1 S2, presently RRR Lungs: Clear to auscultation bilaterally Abdomen: No rebound or guarding, nontender, nondistended, soft Extremities: Slightly decreased range of motion right lower extremity, no lower extremity edema bilaterally Neuro: More alert, no focal deficits EEG : IMPRESSION: Abnormal electroencephalogram due to: mild diffuse slowing. COMMENT: The slowing of the background indicates mild, diffuse cortical dysfunction of nonspecific etiology. Results/Medications Result Diagram: 01/25/1952001/25/19520 Results 24 hrs Laboratory Tests Test 01/25/19 05:21 White Blood Count 8.5 Red Blood Count 2.89 L Hemoglobin 9.1 L Hematocrit 27.6 L Mean Corpuscular Volume 95.5 Mean Corpuscular Hemoglobin 31.5 Mean Corpuscular Hemoglobin Concent 33.0 Red Cell Distribution Width 13.3 Platelet Count 91 L Mean Platelet Volume 12.6 H Immature Granulocytes % 0.400 Neutrophils % 78.1 H Lymphocytes % 11.2 L Monocytes % 8.5 Eosinophils % 1.6 Basophils % 0.2 Nucleated Red Blood Cells % 0.0 Immature Granulocytes # 0.030 Neutrophils # 6.6 Lymphocytes # 1.0 Monocytes # 0.7 Eosinophils # 0.1 Basophils # 0.0 Nucleated Red Blood Cells # 0.0 Sodium Level 139 Potassium Level 3.2 L Chloride Level 104 Carbon Dioxide Level 30 Anion Gap 5 Blood Urea Nitrogen 10 Creatinine 0.37 L Est Glomerular Filtrat Rate mL/min Glucose Level 113 Calcium Level 8.1 L Home Meds Reported Medications Brimonidine/Timolol* (Combigan*) 5 Ml Drops, 1 DROP LEFT EYE BID, BOTTLE 01/21/19 Propylene Glycol/Peg 400 (SYSTANE GEL EYE DROPS) 10 Ml Drops.gel, 1 DROP BOTH EYES QID, #1 BOTTLE 01/21/19 Folic Acid/Multivits-Min/Lut (Centrum Silver Chewable Tablet) 1 Each Tab.chew, 1 EACH PO DAILY, TAB.CHEW 01/21/19 Cholecalciferol* (Vitamin D3*) 1,000 Unit Tablet, 1000 UNIT PO DAILY, TAB 01/21/19 Esomeprazole Mag Trihydrate (Nexium) 40 Mg Capsule.dr, 40 MG PO DAILY, #30 CAP 01/21/19 Ascorbic Acid* (Vitamin C*) 500 Mg Capsule.sa, 1000 MG PO DAILY, CAP 01/21/19 Ferrous Sulfate* (Ferrous Sulfate*) 325 Mg Tabec, 325 MG PO DAILY, TAB 01/21/19 [place]-3/Dha/Epa/Fish Oil (FISH OIL 1,000 MG SOFTGEL) 1 Each Capsule, 1 EACH PO DAILY, CAP 01/21/19 Vitamin E Acetate (Vitamin E) 1,000 Unit Capsule, 1000 UNIT PO DAILY, CAP 01/21/19 Beta-Carotene (Beta Carotene) 25,000 Unit Capsule, 97802 UNIT PO DAILY, CAP 01/21/19 Glucosamine Hcl/Chondr Lewis A Na (OSTEO BI-FLEX CAPLET) 1 Each Tablet, 1 EACH PO BID, TAB 01/21/19 Aspirin (Low Dose Aspirin) 81 Mg Tablet.dr, 81 MG PO DAILY, #30 TAB 01/21/19 Acetaminophen* (Acetaminophen*) 650 Mg Tablet, 650 MG PO TID PRN for PAIN AND OR ELEVATED TEMP, #30 TAB 01/21/19 Vit A/Vit C/Vit E/Zinc/Copper (PRESERVISION AREDS TABLET) 1 Each Tablet, 2 EACH PO DAILY, TAB 01/21/19 Simvastatin (Simvastatin) 40 Mg Tablet, 40 MG PO QHS, #30 TAB 01/21/19 Discontinued Reported Medications Iron,Carbonyl (Feosol) 45 Mg Tablet 07/21/10 Multivitamins W-Minerals/Lut (Centrum Silver Tablet) 1 Tab Tablet 07/21/10 Beta-Carotene (Beta Carotene) 25,000 Unit Capsule 9/23/10 Cyanocobalamin (Vitamin B-12) 1,000 Mcg Lozenge 07/21/10 Calcium Carbonate (Tums EX) 1 Tab.chew Tab.chew 07/21/10 Fish Oil/[place]-3 Fatty Acids (Fish Oil 1,200 Mg Softgel) 1 Cap Capsule 07/21/10 Aspirin ([place]) 1 Tab Tabef 07/21/10 Acetaminophen (Arthritis Pain Relief) 650 Mg Tablet.sa 07/21/10 Ranitidine Hcl* (Zantac*) 150 Mg Capsule 07/21/10 Amylase/Lipase/Protease (Pancrease Mt 10 Capsule Ec) 1 Cap.ec Capsule. 07/21/10 Simvastatin (Simvastatin) 40 Mg Tablet 07/21/10 Medications Current Medications Ascorbic Acid (Vitamin C) 1,000 mg DAILY PO Last administered on 01/25/19 08:41; Admin Dose 1,000 MG; Start 01/22/19 at 09:00 Brimonidine/ Timolol (Combigan Oph) 1 drop BID LEFT EYE Last administered on 08:43; Admin Dose 1 DROP; Start 01/21/19 at 21:00 Cholecalciferol (Vitamin D) 1,000 unit DAILY PO Last administered on 01/25/19 08:42; Admin Dose 1,000 UNIT; Start 01/22/19 at 09:00 Ferrous Sulfate (Ferrous Sulfate (Ec)) 325 mg DAILY PO Last administered on 01/25/19 08:42; Admin Dose 325 MG; Start 01/22/19 at 09:00 Pantoprazole (Protonix Tab) 40 mg DAILY@06 PO Last administered on 01/25/19 06:27; Admin Dose 40 MG; Start 01/22/19 at 06:00 IV Flush (NS 3 ml) 3 ml PER PROTOCOL IV ; Start 01/21/19 at 12:00 Oxycodone HCl (Roxicodone) 15 mg Q4H PRN PO .PAIN; Start 01/21/19 at 12:00 Oxycodone HCl (Roxicodone) 10 mg Q4H PRN PO .PAIN Last administered on 01/23/19 08:58; Admin Dose 10 MG; Start 01/21/19 at 12:00 Oxycodone HCl (Roxicodone) 5 mg Q4H PRN PO .PAIN Last administered on 01/22/19 03:56; Admin Dose 5 MG; Start 01/21/19 at 12:00 Hydromorphone HCl (Dilaudid) 1 mg Q3H PRN IV .BREAKTHROUGH PAIN Last administered on 01/22/19 13:44; Admin Dose 1 MG; Start 01/21/19 at 12:00 Ondansetron HCl (Zofran Inj) 4 mg Q4H PRN IV NAUSEA/VOMITING Last administered on 01/22/19 08:32; Admin Dose 4 MG; Start 01/22/19 at 12:00 Gabapentin (Neurontin) 300 mg QHS PO Last administered on 01/24/19 20:46; Admin Dose 300 MG; Start 01/21/19 at 21:00 Simethicone (Mylicon) 80 mg TID PRN PO .GAS; Start 01/21/19 at 12:00 Senna/Docusate Sodium (Senokot-S) 2 tab BID PRN PO .CONSTIPATION; Start 01/21/19 at 12:00 Magnesium Hydroxide (Milk Of Mag) 30 ml HS PRN PO .CONSTIPATION; Start 01/21/19 at 12:00 Bisacodyl (Dulcolax Supp) 10 mg DAILY PRN IN .CONSTIPATION; Start 01/21/19 at 12:00 Sodium Biphosphate/ Sodium Phosphate (Fleet Enema) 133 ml DAILY PRN IN .CONSTIPATION; Start 01/21/19 at 12:00 Diphenhydramine HCl (Benadryl) 25 mg Q4H PRN IV .ITCHING; Start 01/21/19 at 12:00 Naloxone HCl (Narcan) 0.2 mg Q2M PRN IV .RESP RATE; Start 01/21/19 at 12:00 Bethanechol Chloride (Urecholine) 25 mg URINARY CATH D/C PRN PO UNABLE TO VOID; Start 01/21/19 at 12:00 Phenylephrine HCl 40 mg/Dextrose 250 ml @ 37.5 mls/hr TITRATE IV Last administered on 01/21/19 14:19; Admin Dose 60 MLS/HR; Start 01/21/19 at 14:00 Trimethobenzamide HCl (Tigan) 200 mg Q6H PRN IM NAUSEA AND/OR VOMITING Last administered on 01/22/19 13:43; Admin Dose 200 MG; Start 01/22/19 at 10:30 Lorazepam (Ativan) 1 mg Q2H PRN IV seizure; Start 01/22/19 at 14:00 Amiodarone HCl (Cordarone) 200 mg BID PO Last administered on 01/25/19 08:43; Admin Dose 200 MG; Start 01/22/19 at 21:00 Metoprolol Tartrate (Lopressor) 25 mg BID PO Last administered on 01/25/19 08:42; Admin Dose 25 MG; Start 01/23/19 at 21:00 Acetaminophen (Tylenol Tab) 650 mg Q6H PRN PO MILD PAIN(1-3)OR ELEVATED TEMP Last administered on 01/23/19 23:54; Admin Dose 650 MG; Start 01/23/19 at 22:30 Doxycycline Hyclate 100 mg/ Sodium Chloride 250 ml @ 250 mls/hr Q12 IVPB Last administered on 01/25/19 09:07; Admin Dose 250 MLS/HR; Start 01/24/19 at 09:00; Stop 01/26/19 at 10:00 Aspirin (Halfprin) 81 mg BID PO Last administered on 01/25/19 08:40; Admin Dose 81 MG; Start 01/24/19 at 11:30 Clopidogrel Bisulfate (plaVIX) 75 mg DAILY PO Last administered on 01/25/19 08:42; Admin Dose 75 MG; Start 01/25/19 at 09:00 Assessment/Plan Hospital Course (Demo Recall) Assessment and plan: 88-year-old female status post right total knee replacement, with subsequent A. fib with RVR, hypotension, and significant right-sided weakness all occurring after the right TKR POD # 4. # Status post right total knee replacement: POD # 4. - Again continue current orders as recommended by primary team including diet, fluids, PT and OT. - Follow-up further orthopedic surgery postop recommendations. # anemia-improved after PRBC transfusion, hemoglobin stable today again. No signs of any upper or lower GI bleeding. No signs of any bleeding from the surgical site. Stool occult test ordered yesterday, but still pending -Monitor CBC, consider restarting aspirin and Plavix as this was held yesterday secondary to the anemia. -Follow-up results of occult test. #Elevated troponins: Trending now, per cardiology team likely secondary to rapid ventricular rates and mike-and postoperative period. Patient denies chest pain. 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 Neurology and cardiology teams are on the case. Possible TIA? - Continue to monitor, and for now aspirin Plavix for possible TIA and carotid atherosclerosis. - Follow up further recommendations from neurology and cardiology teams. # Atrial fibrillation with RVR and hypotension: -Hypotension resolved, the A. fib with RVR occurred again last night for approximately 30 minutes, but patient asymptomatic. Patient presently in normal sinus rhythm. Again, during the rapid response and code stroke patient did receive amiodarone 150 mg x1 during the code stroke and rapid response with the A. fib and RVR at that time. Patient also required pressor support Gary-Synephrine as she did become hypotensive during the code stroke and rapid response, again this has been off now for the last few days. Blood pressure stable. -Monitor heart rate for now, follow-up cardiology recommendations -Continue p.o. metoprolol and amiodarone as recommended by cardiology team for now, replete electrolytes as needed -Per cardiology team, patient continues to have A. fib with RVR, and if no contraindication, would consider initiation of anticoagulation #History bladder cancer: Status post chemo therapy in the past. -Monitor for now We will continue to follow along with you. CHRISTIANA IZQUIERDO Jan 25, 2019 12:42
--- NOTE | 2019-01-25 13:07 | PN ---
Date/Time of Note Date/Time of Note DATE: 01/25/19 TIME: 13:04 Assessment/Plan Lines/Catheters IV Catheter Type (from Nrsg): Central Line Marti in Place (from Nrsg): No Assessment/Plan Chief Complaint/Hosp Course POD#4 s/p primary right TKA. Patient feels she is at baseline in regards to her mentation. Secondary to continued episodes of A. fib with RVR medicine is going to reevaluate along with cardiology neurology appropriate anticoagulation. Risk first benefits will need to be weighed given her recent surgery as well. On chest x-ray she was also found to have a lower lobe infiltrate which is currently being treated with a 3-day course of antibiotics. -Change dressing tomorrow -Post op H&H will continue to be monitored. Stable -PT/OT -Joints pain control protocol -DVT prophylaxis: SCD's, aspirin 81 mg twice daily. Plavix secondary to cardiac event -Weight bearing status: as tolerated -Diet: Regular -Discharge planning consult -Consult for evaluation for acute rehab unit. If she is not accepted to acute rehab she will likely need a SNF. Subjective 24 Hr Interval Summary Patient doing well Patient went into A. fib with RVR for 30 minutes last night. No other acute events Pain is moderately controlled. She has declined all pain medication except for Tylenol. Exam/Review of Systems Vital Signs Vitals Vital Signs Date Temp Pulse Resp B/P (MAP) Pulse Ox O2 O2 Flow FiO2 Time Delivery Rate 01/25/19 69 12:03 01/25/19 98.6 16 146/63 95 11:20 (90) 01/23/19 Nasal 2.0 21:20 Cannula Intake and Output 01/24/19 01/24/19 01/25/19 1515:00 23:00 07:00 IntakeIntake Total 250 ml 800 ml 600 ml BalanceBalance 250 ml 800 ml 600 ml Exam Free Text/Dictation Right lower extremity: Dressing: Shadowing, dry, and intact, no erythema 3+ effusion Sensation intact to light touch in a sural, saphenous, deep peroneal, superficial peroneal, medial and lateral plantar nerve distribution. Motor is intact, patient able to dorsiflex and plantarflex ankle and extend and flex great toe. Dorsalis Pedis pulse +2, Brisk capillary refill. Compartments are soft. Calves non-tender to palpation bilaterally. Results Result Diagram: 01/25/19 0521 01/25/19 0521 PHYLICIA ULLOA MD Jan 25, 2019 13:07
--- NOTE | 2019-01-25 17:03 | CONS ---
Consult Date/Type/Reason Admit Date/Time Jan 21, 2019 at 05:28 Initial Consult Date 01/21/19 Requesting Provider: CHRISTIANA IZQUIERDO Date/Time of Note DATE: 01/25/19 TIME: 16:50 Subjective Cardiology follow-up progress note Subjective: Case discussed with staff and telemetry was reviewed. Patient had another episode of atrial fibrillation rapid ventricular response last night. She denies any palpitation to me denies any chest pain to me. Discussed with Dr. Ospina He denies any bleeding to me Objective: General: Thin female in no acute distress HEENT: NC/AT. pupils are equal. round. NECK: NO JVD. no stridor. CV: RRR. systolic ejection murmur murmur, radiating to carotids; no gallop or rubs. PULM: no wheezing or rhonchi. GI: SOFT, NT, ND, no rebound or guarding Extremity: trace B/L LE edema. no clubbing. neuro: awake and alert, OX3. Psych: calm and pleasant rectal: deferred Objective Vitals Vital Signs Date Temp Pulse Resp B/P (MAP) Pulse Ox O2 O2 Flow FiO2 Time Delivery Rate 01/25/19 71 16:18 01/25/19 98.3 16 143/66 92 15:45 (91) 01/23/19 Nasal 2.0 21:20 Cannula Intake and Output 01/24/19 01/24/19 01/25/19 1515:00 23:00 07:00 IntakeIntake Total 250 ml 800 ml 600 ml BalanceBalance 250 ml 800 ml 600 ml Results/Medications Result Diagram: 01/25/1952001/25/19 0521 Results 24 hrs Laboratory Tests Test 01/25/19 05:21 White Blood Count 8.5 Red Blood Count 2.89 L Hemoglobin 9.1 L Hematocrit 27.6 L Mean Corpuscular Volume 95.5 Mean Corpuscular Hemoglobin 31.5 Mean Corpuscular Hemoglobin Concent 33.0 Red Cell Distribution Width 13.3 Platelet Count 91 L Mean Platelet Volume 12.6 H Immature Granulocytes % 0.400 Neutrophils % 78.1 H Lymphocytes % 11.2 L Monocytes % 8.5 Eosinophils % 1.6 Basophils % 0.2 Nucleated Red Blood Cells % 0.0 Immature Granulocytes # 0.030 Neutrophils # 6.6 Lymphocytes # 1.0 Monocytes # 0.7 Eosinophils # 0.1 Basophils # 0.0 Nucleated Red Blood Cells # 0.0 Sodium Level 139 Potassium Level 3.2 L Chloride Level 104 Carbon Dioxide Level 30 Anion Gap 5 Blood Urea Nitrogen 10 Creatinine 0.37 L Est Glomerular Filtrat Rate mL/min Glucose Level 113 Calcium Level 8.1 L Home Meds Reported Medications Brimonidine/Timolol* (Combigan*) 5 Ml Drops, 1 DROP LEFT EYE BID, BOTTLE 01/21/19 Propylene Glycol/Peg 400 (SYSTANE GEL EYE DROPS) 10 Ml Drops.gel, 1 DROP BOTH EYES QID, #1 BOTTLE 01/21/19 Folic Acid/Multivits-Min/Lut (Centrum Silver Chewable Tablet) 1 Each Tab.chew, 1 EACH PO DAILY, TAB.CHEW 01/21/19 Cholecalciferol* (Vitamin D3*) 1,000 Unit Tablet, 1000 UNIT PO DAILY, TAB 01/21/19 Esomeprazole Mag Trihydrate (Nexium) 40 Mg Capsule.dr, 40 MG PO DAILY, #30 CAP 01/21/19 Ascorbic Acid* (Vitamin C*) 500 Mg Capsule.sa, 1000 MG PO DAILY, CAP 01/21/19 Ferrous Sulfate* (Ferrous Sulfate*) 325 Mg Tabec, 325 MG PO DAILY, TAB 01/21/19 [place]-3/Dha/Epa/Fish Oil (FISH OIL 1,000 MG SOFTGEL) 1 Each Capsule, 1 EACH PO DAILY, CAP 01/21/19 Vitamin E Acetate (Vitamin E) 1,000 Unit Capsule, 1000 UNIT PO DAILY, CAP 01/21/19 Beta-Carotene (Beta Carotene) 25,000 Unit Capsule, 59001 UNIT PO DAILY, CAP 01/21/19 Glucosamine Hcl/Chondr Lewis A Na (OSTEO BI-FLEX CAPLET) 1 Each Tablet, 1 EACH PO BID, TAB 01/21/19 Aspirin (Low Dose Aspirin) 81 Mg Tablet.dr, 81 MG PO DAILY, #30 TAB 01/21/19 Acetaminophen* (Acetaminophen*) 650 Mg Tablet, 650 MG PO TID PRN for PAIN AND OR ELEVATED TEMP, #30 TAB 01/21/19 Vit A/Vit C/Vit E/Zinc/Copper (PRESERVISION AREDS TABLET) 1 Each Tablet, 2 EACH PO DAILY, TAB 01/21/19 Simvastatin (Simvastatin) 40 Mg Tablet, 40 MG PO QHS, #30 TAB 01/21/19 Discontinued Reported Medications Iron,Carbonyl (Feosol) 45 Mg Tablet 07/21/10 Multivitamins W-Minerals/Lut (Centrum Silver Tablet) 1 Tab Tablet 07/21/10 Beta-Carotene (Beta Carotene) 25,000 Unit Capsule 07/21/10 Cyanocobalamin (Vitamin B-12) 1,000 Mcg Lozenge 07/21/10 Calcium Carbonate (Tums EX) 1 Tab.chew Tab.chew 07/21/10 Fish Oil/[place]-3 Fatty Acids (Fish Oil 1,200 Mg Softgel) 1 Cap Capsule 07/21/10 Aspirin ([place]) 1 Tab Tabef 07/21/10 Acetaminophen (Arthritis Pain Relief) 650 Mg Tablet.sa 07/21/10 Ranitidine Hcl* (Zantac*) 150 Mg Capsule 07/21/10 Amylase/Lipase/Protease (Pancrease Mt 10 Capsule Ec) 1 Cap.ec Capsule. 07/21/10 Simvastatin (Simvastatin) 40 Mg Tablet 07/21/10 Medications Current Medications Ascorbic Acid (Vitamin C) 1,000 mg DAILY PO Last administered on 01/25/19 08:41; Admin Dose 1,000 MG; Start 01/22/19 at 09:00 Brimonidine/ Timolol (Combigan Oph) 1 drop BID LEFT EYE Last administered on 01/25/19 08:43; Admin Dose 1 DROP; Start 01/21/19 at 21:00 Cholecalciferol (Vitamin D) 1,000 unit DAILY PO Last administered on 01/25/19 08:42; Admin Dose 1,000 UNIT; Start 01/22/19 at 09:00 Ferrous Sulfate (Ferrous Sulfate (Ec)) 325 mg DAILY PO Last administered on 01/25/19 08:42; Admin Dose 325 MG; Start 01/22/19 at 09:00 Pantoprazole (Protonix Tab) 40 mg DAILY@06 PO Last administered on 01/25/19 06:27; Admin Dose 40 MG; Start 01/22/19 at 06:00 IV Flush (NS 3 ml) 3 ml PER PROTOCOL IV ; Start 01/21/19 at 12:00 Oxycodone HCl (Roxicodone) 15 mg Q4H PRN PO .PAIN; Start 01/21/19 at 12:00 Oxycodone HCl (Roxicodone) 10 mg Q4H PRN PO .PAIN Last administered on 01/25/19 12:40; Admin Dose 10 MG; Start 01/21/19 at 12:00 Oxycodone HCl (Roxicodone) 5 mg Q4H PRN PO .PAIN Last administered on 01/22/19 03:56; Admin Dose 5 MG; Start 01/21/19 at 12:00 Hydromorphone HCl (Dilaudid) 1 mg Q3H PRN IV .BREAKTHROUGH PAIN Last administered on 01/22/19 13:44; Admin Dose 1 MG; Start 01/21/19 at 12:00 Ondansetron HCl (Zofran Inj) 4 mg Q4H PRN IV NAUSEA/VOMITING Last administered on 01/22/19 08:32; Admin Dose 4 MG; Start 01/22/19 at 12:00 Gabapentin (Neurontin) 300 mg QHS PO Last administered on 01/24/19at 20:46; Admin Dose 300 MG; Start 01/21/19 at 21:00 Simethicone (Mylicon) 80 mg TID PRN PO .GAS; Start 01/21/19 at 12:00 Senna/Docusate Sodium (Senokot-S) 2 tab BID PRN PO .CONSTIPATION; Start 01/21/19 at 12:00 Magnesium Hydroxide (Milk Of Mag) 30 ml HS PRN PO .CONSTIPATION; Start 01/21/19 at 12:00 Bisacodyl (Dulcolax Supp) [address] .CONSTIPATION; Start 01/21/19 at 12:00 Sodium Biphosphate/ Sodium Phosphate (Fleet Enema) [address] .CONSTIPATION; Start 01/21/19 at 12:00 Diphenhydramine HCl (Benadryl) 25 mg Q4H PRN IV .ITCHING; Start 01/21/19 at 12:00 Naloxone HCl (Narcan) 0.2 mg Q2M PRN IV .RESP RATE; Start 01/21/19 at 12:00 Bethanechol Chloride (Urecholine) 25 mg URINARY CATH D/C PRN PO UNABLE TO VOID; Start 01/21/19 at 12:00 Trimethobenzamide HCl (Tigan) 200 mg Q6H PRN IM NAUSEA AND/OR VOMITING Last administered on 01/22/19 13:43; Admin Dose 200 MG; Start 01/22/19 at 10:30 Lorazepam (Ativan) 1 mg Q2H PRN IV seizure; Start 01/22/19 at 14:00 Amiodarone HCl (Cordarone) 200 mg BID PO Last administered on 01/25/19 08:43; Admin Dose 200 MG; Start 01/22/19 at 21:00 Metoprolol Tartrate (Lopressor) 25 mg BID PO Last administered on 01/25/19 08:42; Admin Dose 25 MG; Start 01/23/19 at 21:00 Acetaminophen (Tylenol Tab) 650 mg Q6H PRN PO MILD PAIN(1-3)OR ELEVATED TEMP Last administered on 01/23/19 23:54; Admin Dose 650 MG; Start 01/23/19 at 22:30 Doxycycline Hyclate 100 mg/ Sodium Chloride 250 ml @ 250 mls/hr Q12 IVPB Last administered on 01/25/19 09:07; Admin Dose 250 MLS/HR; Start 01/24/19 at 09:00; Stop 01/26/19 at 10:00 Aspirin (Halfprin) 81 mg BID PO Last administered on 01/25/19 08:40; Admin Dose 81 MG; Start 01/24/19 at 11:30 Clopidogrel Bisulfate (plaVIX) 75 mg DAILY PO Last administered on 01/25/19 08:42; Admin Dose 75 MG; Start 01/25/19 at 09:00 Assessment/Plan Hospital Course (Demo Recall) Status post knee surgery Paroxysmal atrial fibrillation with rapid ventricular rates, with Preserved ejection fraction Aortic stenosis: moderate Acute blood loss anemia status post blood transfusion Recommendations; Increase metoprolol We will change aspirin Plavix to Eliquis given her recurrent atrial fibrillation. Fall precaution discussed with the patient. cont amiodarone po post op care tele monitoring Thank you NILESH SPARKS,NILESH KELLEY Jan 25, 2019 17:01
--- NOTE | 2019-01-25 18:17 | RADRPT ---
Vent Rate: 141 bpm RR Interval: 0 msec ME Interval: 0 msec QRS Duration: 78 msec QT Interval: 326 msec QTC Interval: 499 msec P-R-T [place]: 0 - -48 - 135 degrees Atrial fibrillation with rapid ventricular response Left anterior fascicular block Marked ST abnormality, possible inferior subendocardial injury Abnormal ECG Electronically Signed By: Antonio Mandujano
[2019-01-25] MEDS: APIXABAN 5 MG TABLET PO SCH (20:27)
[2019-01-25] MEDS: METOPROLOL 50 MG TAB PO SCH (20:28)
[2019-01-25] MEDS: GABAPENTIN 300 MG CAP PO SCH (20:28)
[2019-01-26] VITALS (9 sets, daily range): BP systolic 130–168; BP diastolic 61–75; PULSE 64–157; RESP 16
[2019-01-26] MEDS: PANTOPRAZOLE (EC) 40 MG TAB PO SCH (06:49)
[2019-01-26] MEDS: METOPROLOL 50 MG TAB PO SCH (08:38)
[2019-01-26] MEDS: AMIODARONE 200 MG TAB PO SCH (08:38)
[2019-01-26] MEDS: FERROUS SULFATE (EC) 325 MG TAB PO SCH (08:39)
[2019-01-26] MEDS: APIXABAN 5 MG TABLET PO SCH (08:39)
[2019-01-26] MEDS: ASCORBIC ACID 500 MG TAB PO SCH (08:39)
[2019-01-26] MEDS: CHOLECALCIFEROL 1,000 UNIT TAB PO SCH (08:40)
[2019-01-26] MEDS: DOXYCYCLINE 100 MG in SOD CHLORIDE 0.9% 250 ML IVPB SCH (08:40)
[2019-01-26] MEDS: BRIMONIDINE 0.2%-TIMOLOL 0.5% 5ML OPH LEFT EYE SCH (08:41)
[2019-01-26] MEDS ORDERED: POTASSIUM CHLORIDE (SR) 20 MEQ TAB PO STA (08:55)
--- NOTE | 2019-01-26 09:03 | PN ---
Date/Time of Note Date/Time of Note DATE: 01/26/19 TIME: 09:00 Assessment/Plan Lines/Catheters IV Catheter Type (from Nrsg): Saline Lock Marti in Place (from Nrsg): No Assessment/Plan Chief Complaint/Hosp Course POD#5 s/p primary right TKA. Patient feels she is at baseline in regards to her mentation. Secondary to continued episodes of A. fib with RVR medicine is going to reevaluate along with cardiology neurology appropriate anticoagulation. Per cardiology's last note he would like to start Eliquis. Balancing risks verse benefits from an orthopedic standpoint if Eliquis is needed it would be best to DC ASA and plavix. On chest x-ray she was also found to have a lower lobe infiltrate which is currently being treated with a 3-day course of antibiotics. -Change dressing tomorrow -Post op H&H will continue to be monitored. Stable -PT/OT -Joints pain control protocol -DVT prophylaxis: SCD's, aspirin 81 mg twice daily. Plavix secondary to cardiac event -Weight bearing status: as tolerated -Diet: Regular -Discharge planning consult -Consult for evaluation for acute rehab unit. If she is not accepted to acute rehab she will likely need a SNF. Subjective 24 Hr Interval Summary Patient doing well No acute events overnight Pain is well controlled Exam/Review of Systems Vital Signs Vitals Vital Signs Date Temp Pulse Resp B/P (MAP) Pulse Ox O2 O2 Flow FiO2 Time Delivery Rate 01/26/19 75 08:35 01/26/19 98.8 16 168/75 96 07:34 (106) 01/23/19 Nasal 2.0 21:20 Cannula Intake and Output 01/25/19 01/25/19 01/26/19 1515:00 23:00 07:00 IntakeIntake Total 1200 ml BalanceBalance 1200 ml Exam Free Text/Dictation Right lower extremity: Incision: Clean, dry, and intact, no erythema Sensation intact to light touch in a sural, saphenous, deep peroneal, stewart perficial peroneal, medial and lateral plantar nerve distribution. Motor is intact, patient able to dorsiflex and plantarflex ankle and extend and flex great toe. Dorsalis Pedis pulse +2, Brisk capillary refill. Compartments are soft. Calves non-tender to palpation bilaterally. Results Result Diagram: 01/26/19 0500 01/26/19 0500 PHYLICIA ULLOA MD Jan 26, 2019 09:03
--- NOTE | 2019-01-26 09:49 | CONS ---
Assessment/Plan Assessment/Plan Hospital Course 88 F c/ reported Hx of bladder Ca s/p chemo... and other comorbidities, who presents for elective L knee replacement. Post-operatively, while in PACU, she was noted to have new aphasia and right hemiplegia...for which neurology is consulted. She was at that time found to be in afib w/ RVR... MRI brain was reassuringly without acute ischemia....which is compatible with a diagnosis of TIA.. Superimposed (provoked) seizure/post-ictal paralysis is less likely. EEG is without epileptiform activity. CTA H/N is notable for intracranial athero. Echo is notable for hyperdynamic LV LDL 39, ESR 10, A1C nl, RPR neg P: OK to continue eliquis as scheduled given recent afib c/ rvr PT/OT/ST as necessary Other medical management per primary Will follow clinically Consultation Date/Type/Reason Admit Date/Time Jan 21, 2019 at 05:28 Type of Consult Neurology Reason for Consultation R hemiparesis; stroke Requesting Provider: CHRISTIANA IZQUIERDO Date/Time of Note DATE: 01/26/19 TIME: 09:47 24 HR Interval Summary Free Text/Dictation Continues acute care. Pt reported had several episodes of afib c/ rvr over the past few days. Pt denies sx at this time. Exam Vital Signs Vitals Vital Signs Date Temp Pulse Resp B/P (MAP) Pulse Ox O2 O2 Flow FiO2 Time Delivery Rate 01/26/19 92 08:36 01/26/19 98.8 16 168/75 96 07:34 (106) 01/23/19 Nasal 2.0 21:20 Cannula Intake and Output 01/25/19 01/25/19 01/26/19 1515:00 23:00 07:00 IntakeIntake Total 1200 ml BalanceBalance 1200 ml Exam PE: Gen Appearance: No Apparent Distress HEENT: Normocephalic Cardiovascular: Regular rate Lungs: Clear bilaterally Abdomen: Soft Extremities: Dry NE: The patient was alert and oriented. Language was normal. Fund of knowledge was adequate. Pupils were equal and reactive to light. There was no afferent pupillary defect. Visual zelaya were normal. Funduscopic examination was limited. Extra-ocular movements were full. Ptosis was absent. There was no nystagmus. Facial sensation was normal. Face was symmetric with normal strength. Hearing was intact. Palate movements were normal. Neck strength was normal. There was normal tongue bulk and speed of movement. Tone was normal. Muscle bulk was diminished. I did not see fasciculations. Arms and legs were antigravity, symmetrically. Vibration sensation was normal. Temperature and pinprick sensation was normal. Rapid alternating movements were normal. There was no dysmetria. There was no intention tremor. Gait was deferred due to bedrest. Arm and leg reflexes were 2+ and symmetric. Silva's sign was absent. Plantar responses were flexor. CAT MACIAS NP Jan 26, 2019 09:49
[2019-01-26] MEDS: oxyCODONE 5 MG TAB PO PRN (10:34)
--- NOTE | 2019-01-26 11:23 | CONS ---
Consult Date/Type/Reason Admit Date/Time Jan 21, 2019 at 05:28 Initial Consult Date 01/21/19 Requesting Provider: CHRISTIANA IZQUIERDO Date/Time of Note DATE: 01/26/19 TIME: 11:23 Subjective Patient seen by Ortho team this morning and had dressing change. He did have A. fib noted last night, not rapid. Presently normal sinus rhythm. Worked with PT yesterday as well. Objective Vitals Vital Signs Date Temp Pulse Resp B/P (MAP) Pulse Ox O2 O2 Flow FiO2 Time Delivery Rate 01/26/19 92 08:36 01/26/19 98.8 16 168/75 96 07:34 (106) 01/23/19 Nasal 2.0 21:20 Cannula Intake and Output 01/25/19 01/25/19 01/26/19 1414:59 22:59 06:59 IntakeIntake Total 1200 ml BalanceBalance 1200 ml Exam Gen Appearance: Lying in bed, no acute distress HEENT: Normocephalic NECK: supple Cardiovascular: S1 S2, presently RRR Lungs: Clear to auscultation bilaterally Abdomen: No rebound or guarding, nontender, nondistended, soft Extremities: Slightly decreased range of motion right lower extremity, no lower extremity edema bilaterally Neuro: More alert, no focal deficits Results/Medications Result Diagram: 01/26/19 0500 01/26/19 0500 Results 24 hrs Laboratory Tests Test 01/26/19 05:00 White Blood Count 8.7 Red Blood Count 2.91 L Hemoglobin 9.1 L Hematocrit 27.7 L Mean Corpuscular Volume 95.2 Mean Corpuscular Hemoglobin 31.3 Mean Corpuscular Hemoglobin Concent 32.9 Red Cell Distribution Width 12.9 Platelet Count 183 # Mean Platelet Volume 11.1 H Immature Granulocytes % 0.600 H Neutrophils % 74.1 Lymphocytes % 12.2 L Monocytes % 10.8 Eosinophils % 2.2 Basophils % 0.1 Nucleated Red Blood Cells % 0.0 Immature Granulocytes # 0.050 H Neutrophils # 6.4 Lymphocytes # 1.1 Monocytes # 0.9 Eosinophils # 0.2 Basophils # 0.0 Nucleated Red Blood Cells # 0.0 Sodium Level 136 Potassium Level 3.1 L Chloride Level 101 Carbon Dioxide Level 28 Anion Gap 7 Blood Urea Nitrogen 12 Creatinine 0.45 Est Glomerular Filtrat Rate mL/min Glucose Level 116 Calcium Level 8.2 L Home Meds Reported Medications Brimonidine/Timolol* (Combigan*) 5 Ml Drops, 1 DROP LEFT EYE BID, BOTTLE 01/21/19 Propylene Glycol/Peg 400 (SYSTANE GEL EYE DROPS) 10 Ml Drops.gel, 1 DROP BOTH EYES QID, #1 BOTTLE 01/21/19 Folic Acid/Multivits-Min/Lut (Centrum Silver Chewable Tablet) 1 Each Tab.chew, 1 EACH PO DAILY, TAB.CHEW 01/21/19 Cholecalciferol* (Vitamin D3*) 1,000 Unit Tablet, 1000 UNIT PO DAILY, TAB 01/21/19 Esomeprazole Mag Trihydrate (Nexium) 40 Mg Capsule.dr, 40 MG PO DAILY, #30 CAP 01/21/19 Ascorbic Acid* (Vitamin C*) 500 Mg Capsule.sa, 1000 MG PO DAILY, CAP 01/21/19 Ferrous Sulfate* (Ferrous Sulfate*) 325 Mg Tabec, 325 MG PO DAILY, TAB 01/21/19 [place]-3/Dha/Epa/Fish Oil (FISH OIL 1,000 MG SOFTGEL) 1 Each Capsule, 1 EACH PO DAILY, CAP 01/21/19 Vitamin E Acetate (Vitamin E) 1,000 Unit Capsule, 1000 UNIT PO DAILY, CAP 01/21/19 Beta-Carotene (Beta Carotene) 25,000 Unit Capsule, 91948 UNIT PO DAILY, CAP 01/21/19 Glucosamine Hcl/Chondr Lewis A Na (OSTEO BI-FLEX CAPLET) 1 Each Tablet, 1 EACH PO BID, TAB 01/21/19 Aspirin (Low Dose Aspirin) 81 Mg Tablet.dr, 81 MG PO DAILY, #30 TAB 01/21/19 Acetaminophen* (Acetaminophen*) 650 Mg Tablet, 650 MG PO TID PRN for PAIN AND OR ELEVATED TEMP, #30 TAB 01/21/19 Vit A/Vit C/Vit E/Zinc/Copper (PRESERVISION AREDS TABLET) 1 Each Tablet, 2 EACH PO DAILY, TAB 01/21/19 Simvastatin (Simvastatin) 40 Mg Tablet, 40 MG PO QHS, #30 TAB 01/21/19 Discontinued Reported Medications Iron,Carbonyl (Feosol) 45 Mg Tablet 07/21/10 Multivitamins W-Minerals/Lut (Centrum Silver Tablet) 1 Tab Tablet 07/21/10 Beta-Carotene (Beta Carotene) 25,000 Unit Capsule 07/21/10 Cyanocobalamin (Vitamin B-12) 1,000 Mcg Lozenge 07/21/10 Calcium Carbonate (Tums EX) 1 Tab.chew Tab.chew 07/21/10 Fish Oil/[place]-3 Fatty Acids (Fish Oil 1,200 Mg Softgel) 1 Cap Capsule 07/21/10 Aspirin ([place]) 1 Tab Tabef 07/21/10 Acetaminophen (Arthritis Pain Relief) 650 Mg Tablet.sa 07/21/10 Ranitidine Hcl* (Zantac*) 150 Mg Capsule 07/21/10 Amylase/Lipase/Protease (Pancrease Mt 10 Capsule Ec) 1 Cap.ec Capsule. 07/21/10 Simvastatin (Simvastatin) 40 Mg Tablet 07/21/10 Medications Current Medications Ascorbic Acid (Vitamin C) 1,000 mg DAILY PO Last administered on 01/26/19 08:39; Admin Dose 1,000 MG; Start 01/22/19 at 09:00 Brimonidine/ Timolol (Combigan Oph) 1 drop BID LEFT EYE Last administered on 08:41; Admin Dose 1 DROP; Start 01/21/19 at 21:00 Cholecalciferol (Vitamin D) 1,000 unit DAILY PO Last administered on 01/26/19 08:40; Admin Dose 1,000 UNIT; Start 01/22/19 at 09:00 Ferrous Sulfate (Ferrous Sulfate (Ec)) 325 mg DAILY PO Last administered on 01/26/19 08:39; Admin Dose 325 MG; Start 01/22/19 at 09:00 Pantoprazole (Protonix Tab) 40 mg DAILY@06 PO Last administered on 01/26/19 06:49; Admin Dose 40 MG; Start 01/22/19 at 06:00 IV Flush (NS 3 ml) 3 ml PER PROTOCOL IV ; Start 01/21/19 at 12:00 Oxycodone HCl (Roxicodone) 15 mg Q4H PRN PO .PAIN; Start 01/21/19 at 12:00 Oxycodone HCl (Roxicodone) 10 mg Q4H PRN PO .PAIN Last administered on 01/25/19at 12:40; Admin Dose 10 MG; Start 01/21/19 at 12:00 Oxycodone HCl (Roxicodone) 5 mg Q4H PRN PO .PAIN Last administered on 01/26/19 10:34; Admin Dose 5 MG; Start 01/21/19 at 12:00 Hydromorphone HCl (Dilaudid) 1 mg Q3H PRN IV .BREAKTHROUGH PAIN Last administered on 01/22/19at 13:44; Admin Dose 1 MG; Start 01/21/19 at 12:00 Ondansetron HCl (Zofran Inj) 4 mg Q4H PRN IV NAUSEA/VOMITING Last administered on 01/22/19 08:32; Admin Dose 4 MG; Start 01/22/19 at 12:00 Gabapentin (Neurontin) 300 mg QHS PO Last administered on 01/25/19 20:28; Admin Dose 300 MG; Start 01/21/19 at 21:00 Simethicone (Mylicon) 80 mg TID PRN PO .GAS; Start 01/21/19 at 12:00 Senna/Docusate Sodium (Senokot-S) 2 tab BID PRN PO .CONSTIPATION; Start 01/21/19 at 12:00 Magnesium Hydroxide (Milk Of Mag) 30 ml HS PRN PO .CONSTIPATION; Start 01/21/19 at 12:00 Bisacodyl (Dulcolax Supp) 10 mg DAILY PRN SC .CONSTIPATION; Start 01/21/19 at 12:00 Sodium Biphosphate/ Sodium Phosphate (Fleet Enema) 133 ml DAILY PRN SC .CONSTIPATION; Start 01/21/19 at 12:00 Diphenhydramine HCl (Benadryl) 25 mg Q4H PRN IV .ITCHING; Start 01/21/19 at 12:00 Naloxone HCl (Narcan) 0.2 mg Q2M PRN IV .RESP RATE; Start 01/21/19 at 12:00 Bethanechol Chloride (Urecholine) 25 mg URINARY CATH D/C PRN PO UNABLE TO VOID; Start 01/21/19 at 12:00 Trimethobenzamide HCl (Tigan) 200 mg Q6H PRN IM NAUSEA AND/OR VOMITING Last administered on 01/22/19at 13:43; Admin Dose 200 MG; Start 01/22/19 at 10:30 Lorazepam (Ativan) 1 mg Q2H PRN IV seizure; Start 01/22/19 at 14:00 Amiodarone HCl (Cordarone) 200 mg BID PO Last administered on 01/26/19 08:38; Admin Dose 200 MG; Start 01/22/19 at 21:00 Acetaminophen (Tylenol Tab) 650 mg Q6H PRN PO MILD PAIN(1-3)OR ELEVATED TEMP Last administered on 01/23/19 23:54; Admin Dose 650 MG; Start 01/23/19 at 22:30 Metoprolol Tartrate (Lopressor) 50 mg BID PO Last administered on 01/26/19 08:38; Admin Dose 50 MG; Start 01/25/19 at 21:00 Apixaban (Eliquis) 2.5 mg BID PO Last administered on 01/26/19 08:39; Admin Dose 2.5 MG; Start 01/25/19 at 21:00 Assessment/Plan Hospital Course (Demo Recall) Assessment and plan: 88-year-old female status post right total knee replacement, with subsequent A. fib with RVR, hypotension, and significant right-sided weakness all occurring after the right TKR POD # 5. # Status post right total knee replacement: POD # 4. - Again continue current orders as recommended by primary team including diet, fluids, PT and OT. - Follow-up further orthopedic surgery postop recommendations. # anemia-improved after PRBC transfusion, hemoglobin stable today again. No signs of any upper or lower GI bleeding. No signs of any bleeding from the surgical site. Stool occult test ordered yesterday, but still pending -Monitor CBC, consider restarting aspirin and Plavix as this was held yesterday secondary to the anemia. -Follow-up results of occult test. #Elevated troponins: Trending now, per cardiology team likely secondary to rapid ventricular rates and mike-and postoperative period. Patient denies chest pain. 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 Neurology and cardiology teams are on the case. Possible TIA? - Continue to monitor, on Eliquis now twice daily - Follow up further recommendations from neurology and cardiology teams. # Atrial fibrillation with RVR and hypotension: Patient with sporadic episodes of A. fib with RVR in the last few days, but asymptomatic. Patient presently in normal sinus rhythm. Again, during the rapid response and code stroke patient did receive amiodarone 150 mg x1 during the code stroke and rapid response with the A. fib and RVR at that time. Patient also required pressor support Gary- Synephrine as she did become hypotensive during the code stroke and rapid response, again this has been off now for the last few days. Blood pressure stable. -Monitor heart rate for now, follow-up cardiology recommendations -Continue p.o. metoprolol and amiodarone as recommended by cardiology team for now, replete electrolytes as needed -Per cardiology team, Eliquis 2.5 mg p.o. twice daily (started yesterday) #History bladder cancer: Status post chemo therapy in the past. -Monitor for now We will continue to follow along with you. Awaiting possible discharge to acute rehab facility in the next 24 hours most likely. CHRISTIANA IZQUIERDO Jan 26, 2019 11:23
--- NOTE | 2019-01-27 08:33 | DS ---
Date/Time of Note Date/Time of Note DATE: 01/27/19 TIME: 08:30 Discharge Summary Admission/Discharge Info Admit Date/Time Jan 21, 2019 at 05:28 Discharge Date/Time Jan 26, 2019 at 16:25 Patient Condition: Fair Hospital Course POD#5 s/p primary right TKA. Patient had a postoperative complication of A. fib with RVR and mental status changes. At that time in PACU workup for stroke and cardiac event was initiated. Workup for stroke was negative. This is felt to be secondary to her aortic stenosis resulting in A. fib with RVR. She was found to have plaques in her carotid arteries as well. Patient now feels she is at baseline in regards to her mentation. Per cardiology neurology the patient should be on Eliquis. Aspirin and Plavix were discontinued. Patient was also found to have a pulmonary infiltrate which was treated with antibiotics by medicine. She is accepted to acute rehab which will be very beneficial for her. At the time of discharge her pain was well controlled, she is tolerating diet, she was medically stable. She will follow-up in clinic in 2 weeks. From an orthopedic standpoint she will need DVT prophylaxis for 6 weeks from surgery. Eliquis per cardiology. Home Meds Reported Medications Brimonidine/Timolol* (Combigan*) 5 Ml Drops, 1 DROP LEFT EYE BID, BOTTLE 01/21/19 Propylene Glycol/Peg 400 (SYSTANE GEL EYE DROPS) 10 Ml Drops.gel, 1 DROP BOTH EYES QID, #1 BOTTLE 01/21/19 Folic Acid/Multivits-Min/Lut (Centrum Silver Chewable Tablet) 1 Each Tab.chew, 1 EACH PO DAILY, TAB.CHEW 01/21/19 Cholecalciferol* (Vitamin D3*) 1,000 Unit Tablet, 1000 UNIT PO DAILY, TAB 01/21/19 Esomeprazole Mag Trihydrate (Nexium) 40 Mg Capsule.dr, 40 MG PO DAILY, #30 CAP 01/21/19 Ascorbic Acid* (Vitamin C*) 500 Mg Capsule.sa, 1000 MG PO DAILY, CAP 01/21/19 Ferrous Sulfate* (Ferrous Sulfate*) 325 Mg Tabec, 325 MG PO DAILY, TAB 01/21/19 [place]-3/Dha/Epa/Fish Oil (FISH OIL 1,000 MG SOFTGEL) 1 Each Capsule, 1 EACH PO DAILY, CAP 01/21/19 Vitamin E Acetate (Vitamin E) 1,000 Unit Capsule, 1000 UNIT PO DAILY, CAP 01/21/19 Beta-Carotene (Beta Carotene) 25,000 Unit Capsule, 46567 UNIT PO DAILY, CAP 01/21/19 Glucosamine Hcl/Chondr [place] A Na (OSTEO BI-FLEX CAPLET) 1 Each Tablet, 1 EACH PO BID, TAB 01/21/19 Aspirin (Low Dose Aspirin) 81 Mg Tablet., 81 MG PO DAILY, #30 TAB 01/21/19 Acetaminophen* (Acetaminophen*) 650 Mg Tablet, 650 MG PO TID PRN for PAIN AND OR ELEVATED TEMP, #30 TAB 01/21/19 Vit A/Vit C/Vit E/Zinc/Copper (PRESERVISION AREDS TABLET) 1 Each Tablet, 2 EACH PO DAILY, TAB 01/21/19 Simvastatin (Simvastatin) 40 Mg Tablet, 40 MG PO QHS, #30 TAB 01/21/19 Discontinued Reported Medications Iron,Carbonyl (Feosol) 45 Mg Tablet 07/21/10 Multivitamins W-Minerals/Lut (Centrum Silver Tablet) 1 Tab Tablet 07/21/10 Beta-Carotene (Beta Carotene) 25,000 Unit Capsule 07/21/10 Cyanocobalamin (Vitamin B-12) 1,000 Mcg Lozenge 07/21/10 Calcium Carbonate (Tums EX) 1 Tab.chew Tab.chew 07/21/10 Fish Oil/[place]-3 Fatty Acids (Fish Oil 1,200 Mg Softgel) 1 Cap Capsule 07/21/10 Aspirin ([place]) 1 Tab Tabef 07/21/10 Acetaminophen (Arthritis Pain Relief) 650 Mg Tablet.sa 07/21/10 Ranitidine Hcl* (Zantac*) 150 Mg Capsule 07/21/10 Amylase/Lipase/Protease (Pancrease Mt 10 Capsule Ec) 1 Cap.ec Capsule. 07/21/10 Simvastatin (Simvastatin) 40 Mg Tablet 07/21/10 Primary Care Provider Not On Staff Doctor PHYLICIA ULLOA MD Jan 27, 2019 08:33
== END 2019-01-26 16:25 | DRG 470 ==
LOC: REC 05:28 → ICU 13:36 → 6WM 01-22 19:38
PROVIDERS: ADMIT Orthopaedic Surgery Adult Reconstructive Orthopaedic Surgery; ATTEND Orthopaedic Surgery Adult Reconstructive Orthopaedic Surgery
PROC: 0QPD04Z Removal of Internal Fixation Device from Right Patella, Open Approach (ICD-10-PCS; 2019-01-21)
PROC: 05HN33Z Insertion of Infusion Device into Left Internal Jugular Vein, Percutaneous Approach (ICD-10-PCS; 2019-01-21)
PROC: 0SRC0J9 Replacement of Right Knee Joint with Synthetic Substitute, Cemented, Open Approach (ICD-10-PCS; principal; 2019-01-21 07:30)
PROC: XR2G021 Monitoring of Right Knee Joint using Intraoperative Knee Replacement Sensor, Open Approach, New Technology Group 1 (ICD-10-PCS; 2019-01-21 07:30)
PROC: 30233N1 Transfusion of Nonautologous Red Blood Cells into Peripheral Vein, Percutaneous Approach (ICD-10-PCS; 2019-01-23)
DX: M87.851 Other osteonecrosis, right femur (principal); D62 Acute posthemorrhagic anemia; G81.91 Hemiplegia, unspecified affecting right dominant side; I97.191 Other postprocedural cardiac functional disturbances following other surgery; I48.91 Unspecified atrial fibrillation; I95.9 Hypotension, unspecified; R13.0 Aphagia; E78.5 Hyperlipidemia, unspecified; G62.9 Polyneuropathy, unspecified; I35.0 Nonrheumatic aortic (valve) stenosis; I65.23 Occlusion and stenosis of bilateral carotid arteries; M17.11 Unilateral primary osteoarthritis, right knee; M81.0 Age-related osteoporosis without current pathological fracture; M70.41 Prepatellar bursitis, right knee; Y93.9 Activity, unspecified; Y83.8 Other surgical procedures as the cause of abnormal reaction of the patient, or of later complication, without mention of misadventure at the time of the procedure; Z96.643 Presence of artificial hip joint, bilateral; Z91.81 History of falling; Z85.51 Personal history of malignant neoplasm of bladder; Z92.21 Personal history of antineoplastic chemotherapy; Z79.82 Long term (current) use of aspirin
CPT/HCPCS: 36430; 70450; 70496; 70498; 70551; 71045; 73560; 73562; 80048; 80061; 80076; 81001; 81003; 82550; 82553; 83036; 83605; 83735; 84484; 85014; 85018; 85025; 85610; 85651; 85730; 86592; 86850; 86900; 86901; 86920; 87081; 87086; 88304; 88311; 93005; 93306; 95819; 97110; 97162; 97165; 97530; 97535; C1713; J0131; J0171; J0360; J0690; J0735; J1100; J1170; J2250; J2370; J2405; J2795; J3010; J3475; J3480; J7040; J7050; J7120; P9016; Q9967

== ENCOUNTER 2019-01-26 15:45 | Inpatient (IN) | payer MEDICARE, OTHER ==
[~2019-01-26] VITALS: Ht 152.4 cm; Wt 40.5 kg
[~2019-01-26 15:45] MED LIST changes: -ACET-1882; +ACET-2047 PO; -ALKA; +ASCO500C7 PO; +ASPI81TA52 PO; -BETA2500; +BETA2500 PO; -CALC300T34; +CHOL100062 PO; +COMBIG5 LEFT EYE; -CYAN100025; +ESOM40CA PO; +FER325 PO; +FOLI1TAB5 PO; +GLUC-134 PO; -IRON45TA6; -LIPA1CAP9; -MULT-754; -OMEG-14; +OMEG-158 PO; +PROP10DR2 BOTH EYES; -RANI150T35; -SIMV40TA3; +SIMV40TA3 PO; +VIT1TABL33 PO; +VITA100022 PO
[2019-01-26] MEDS ORDERED: PENDING SANTYL ORDER FOR WOUND CARE XX PRN (17:30)
[2019-01-26 18:33] VITALS: BP 158/69; PULSE 92; RESP 18
[2019-01-26 20:00] VITALS: BP 149/66; PULSE 73; RESP 18
[2019-01-26] MEDS ORDERED: oxyCODONE 5 MG TAB PO PRN ×3 (20:30)
[2019-01-26] MEDS ORDERED: NA PHOSPHATE/BIPHOS 133 ML ENEMA PR PRN (20:30)
[2019-01-26] MEDS ORDERED: BISACODYL 10 MG SUPP PR PRN (20:30)
[2019-01-26] MEDS ORDERED: LORAZEPAM 2 MG INJ IV PRN (20:30)
[2019-01-26] MEDS ORDERED: TRIMETHOBENZAMIDE 100 MG/ML VIAL IM PRN (20:30)
[2019-01-26] MEDS ORDERED: DIPHENHYDRAMINE 50 MG INJ IV PRN (20:30)
[2019-01-26] MEDS ORDERED: NALOXONE (0.4 MG/ML) INJ IV PRN (20:30)
[2019-01-26] MEDS ORDERED: SENNA/DOCUSATE NA (8.6MG/50MG) TAB PO PRN (20:30)
[2019-01-26] MEDS ORDERED: HYDROmorphONE 1 MG/ML SYG IV PRN (20:30)
[2019-01-26] MEDS ORDERED: ONDANSETRON 4 MG INJ IV PRN (20:30)
[2019-01-26] MEDS ORDERED: GABAPENTIN 300 MG CAP PO SCH (21:00)
[2019-01-26] MEDS: BRIMONIDINE 0.2%-TIMOLOL 0.5% 5ML OPH LEFT EYE SCH (21:37)
[2019-01-26] MEDS: APIXABAN 5 MG TABLET PO SCH (21:38)
[2019-01-26] MEDS: METOPROLOL 50 MG TAB PO SCH (21:38)
[2019-01-26] MEDS: AMIODARONE 200 MG TAB PO SCH (21:39)
[2019-01-27 02:00] VITALS: BP 153/72; PULSE 72; RESP 18
[2019-01-27] MEDS: PANTOPRAZOLE (EC) 40 MG TAB PO SCH (06:10)
[2019-01-27 07:00] VITALS: BP 119/58; PULSE 70; RESP 18
[2019-01-27] MEDS: FERROUS SULFATE (EC) 325 MG TAB PO SCH (09:50)
[2019-01-27] MEDS: CHOLECALCIFEROL 1,000 UNIT TAB PO SCH (09:50)
[2019-01-27] MEDS: AMIODARONE 200 MG TAB PO SCH ×2 (09:51→21:31)
[2019-01-27] MEDS: METOPROLOL 50 MG TAB PO SCH ×2 (09:51→21:29)
[2019-01-27] MEDS: ASCORBIC ACID 500 MG TAB PO SCH (09:51)
[2019-01-27] MEDS: APIXABAN 5 MG TABLET PO SCH ×2 (09:51→21:30)
[2019-01-27] MEDS: BRIMONIDINE 0.2%-TIMOLOL 0.5% 5ML OPH LEFT EYE SCH ×2 (09:54→21:28)
--- NOTE | 2019-01-27 12:54 | CONS ---
DATE OF ADMISSION: 01/26/2019 DATE OF CONSULTATION: 01/27/2019 INDICATION FOR CONSULTATION: Medical management. HISTORY OF PRESENTING COMPLAINT: An 88-year-old frail elderly female who was referred to the acute r ehabilitation unit on the inpatient side after she had been originally admitted for an elective right total knee replacement for a diagnosis of right knee AVN, severe degenerative arthritis and previous ORIF patella fracture. Postoperatively, the patient became hypotensive, went into atrial fibrillati on with rapid ventricular response as well as some right-sided weakness. She underwent a code stroke in the postoperative unit, and she was sent to the intensive care unit. She was found to have eleva vivian troponins and went into atrial fibrillation with rapid ventricular response. She was stabilized and monitored in house. She also received 1 unit of packed red cells, and then she was transferred t o the acute rehabilitation unit. The patient also had a remote history of bladder cancer and had und ergone chemotherapy previously. At this time, she is doing fairly well here at the rehabilitation it. Her only complaint is significant lethargy. Per her words, she "can't seem to stay awake." Oth er than that, there has been no fever, no chest pain, no abdominal pain, no dysuria, no further passi ng out episode, no more extremity weakness. PAST MEDICAL HISTORY: 1. Atrial fibrillation, now on Eliquis therapy, paroxysmal. 2. History of bladder cancer, status post chemo. 3. Emphysema. 4. History of NSTEMI versus demand ischemia. 5. Chronic severe osteoarthritis and AVN, right knee, status post right total knee replacement. 6. Chronic anemia, status post transfusion of 1 unit recently. 7. Generalized debility. ALLERGIES: SHE IS ALLERGIC TO IBUPROFEN AND LATEX. HOME MEDICATIONS: Reviewed and reconciled. REVIEW OF SYSTEMS: A 12-point review of systems was done. Pertinent findings are as per HPI. FAMILY HISTORY: Noncontributory. PHYSICAL EXAMINATION VITAL SIGNS: Temperature 98.4, pulse 64, respirations 16, blood pressure is 130/61, saturation 97% o n room air. GENERAL: Frail, very pleasant lady. She does look somewhat lethargic. She is falling asleep quite easy. HEENT: Head is normocephalic. Pupils equal and reactive. Mucous membranes are moist. Posterior ph arynx clear of erythema and exudate. NECK: Supple, without JVD. She does have a right-sided internal jugular venous catheter in place. CHEST: Diminished breath sounds, without wheezes or crackles. CARDIOVASCULAR: Irregularly irregular heart sounds, without murmurs. ABDOMEN: Flat, soft, nondistended. Normoactive bowel sounds. EXTREMITIES: Negative for edema. SKIN: With diffuse ecchymosis intermittently. Looks old. No acute findings. PSYCHIATRIC: The patient is frail, calm, cooperative with exam. LABORATORY VALUES: Today's hematology: Hemoglobin stable at 9.1, as it was yesterday. Normocytic n ormochromic indices. Platelet count is normal. White count is normal. Chemistry: Potassium was 3. 1 on the . A repeat was not done today. We will have to see what it is. Her coag profile the l ast time was only 26, was unremarkable. Urinalysis: Last urinalysis was 01/23/2019, had trace keton es, 29 red cells, 4 white cells, few mucus, not overtly concerning for a urinary tract infection. Cu ltures from that day have been negative as have been blood cultures. she does have a BMP from today t hat shows normalization of potassium levels, and her hemoglobin today is 9.6. She also had a urinaly sis from yesterday that was basically normal. IMAGING: Last chest x-ray we have was from 01/21/2019 and it shows a left lower lobe pneumonia, smal l pleural effusion, and some bronchiectasis. At this time, the patient is not on antibiotic therapy. ASSESSMENT: An 88-year-old female who is status post right total knee arthroplasty for severe degene rative arthritis, right knee, avascular necrosis, as well as a previous open reduction and internal f ixation in the right patella, who had a mary postoperative course complicated by atrial fibrillation with rapid ventricular response, hypertension and right-sided weakness/transient ischemic attack. P anabel list as summarized below: 1. Generalized debility. 2. Status post right total knee arthroplasty. 3. Paroxysmal atrial fibrillation with good rate control. 4. Eliquis therapy. 5. History of bladder cancer, status post chemotherapy. 6. Status post transient ischemic attack. 7. Status post nwn-FR-[id number] elevation myocardial infarction, likely related to atrial fibrillation . 8. Chronic emphysema. 9. Chronic atherosclerosis and 50% carotid stenosis on the left side. 10. Right internal jugular catheter in place. PLAN: The plan at this time basically is to continue rehabilitation. I will review her medications to see if I fix things so that she is not as lethargic or sleepy. Continue current supportive care. Her chest x-ray had shown some concern for pneumonia on the . Will repeat a chest x-ray at this time, and further interventions will depend on her clinical course. Dictated By: MARK MENDOZA MD BA/NTS Conf#: [id number] DID#: [id number] CC: NYA VALENTE MD;*EndCC*
[2019-01-27 14:00] VITALS: BP 127/63; PULSE 70; RESP 18
--- NOTE | 2019-01-27 14:35 | CONS ---
DATE OF ADMISSION: 01/26/2019 DATE OF CONSULTATION: 01/27/2019 TYPE OF CONSULTATION: Rehabilitation post-admission physician evaluation. REHABILITATION IMPAIRMENT CATEGORY: Other neurologic disorder, possible postoperative TIA and encephalopathy. ACTIVE COMORBIDITIES: 1. Status post right total knee arthroplasty. 2. Atrial fibrillation. 3. Aortic stenosis. 4. Carotid artery stenosis. 5. Impairments in self-care and mobility and mild cognition. HISTORY OF PRESENT ILLNESS: The patient is a very pleasant 88-year-old female who was admitted for severe right knee pain despite conservative measures. The patient underwent a right total knee arthroplasty with postoperative course complicated by atrial fibrillation with rapid ventricular response in addition to altered mental status, some brief aphasia and right-sided weakness. The patient did receive full neurologic workup including a head CT which was negative for bleed and MRI which revealed mild to moderate microvascular ischemic changes. The patient's cognitive status did improve. The patient noted to have significant impairments in self-care and mobility as compared to baseline, and has been cleared to transfer to the rehabilitation unit for comprehensive interdisciplinary rehab care. FUNCTIONAL HISTORY: Prior to recent events, she was independent in self-care tasks and mobility. Currently, patient requires maximal assist for self-care and mobility tasks. I have reviewed the preadmission screen and patient's current functional status is consistent with the preadmission screen. FAMILY AND SOCIAL HISTORY: The patient reportedly lives at home and hopes to return there upon discharge. PAST MEDICAL HISTORY: 1. Osteoarthritis. 2. Hypercholesterolemia. 3. Recently diagnosed atrial fibrillation. CURRENT MEDICATIONS: 1. Ferrous sulfate 325 p.o. daily. 2. Fish oil 1 capsule p.o. daily. 3. Simvastatin 40 mg p.o. at bedtime. 4. Aspirin 81 mg p.o. daily. 5. Combigan eye drops. 6. Systane eyedrops. 7. Nexium q. daily. 8. Vitamin C 500 mg p.o. daily. 9. Folic acid q. day. ALLERGIES: 1. IBUPROFEN. 2. LATEX. PHYSICAL EXAMINATION: VITAL SIGNS: She is currently afebrile with stable vital signs. HEENT: Extraocular motions are intact. Oropharynx clear. NECK: Supple. LUNGS: Clear anteriorly. CARDIAC: S1, S2. ABDOMEN: Soft, nontender, positive bowel sounds. NEUROLOGIC: She is awake and alert. She is oriented to person and hospital and month. She will follow simple 1-step commands. She demonstrates antigravity strength in bilateral upper extremity and the lower extremity. Dorsiflexion and plantar flexion intact on the right. PLAN: The patient has been admitted for comprehensive interdisciplinary acute rehab and is anticipated to tolerate 3 hours of daily therapy in divided doses for at least 5/7 days a week. The treatment plan will include: 1. Physical therapy to focus on bed mobility, transfers, and household ambulation with the goal of having the patient reach a standby assist level. 2. Occupational therapy to focus on hygiene, grooming, dressing, bathing, and toileting activities with goal of having patient reach a standby assist level. 3. Rehabilitation nursing for carryover of therapeutic interventions, the goal of continent of bowel and bladder, and the goal of pain adequately managed on oral medications. 4. Neuropsychology for full cognitive evaluation with goal of bseline cognition. ESTIMATED LENGTH OF STAY: 14 days. DISPOSITION GOAL: Home. REHABILITATION BARRIER: Pain. INTERVENTION FOR BARRIER: Interdisciplinary approach. I acknowledge that I performed a full physical examination on this patient within 24 hours of admission to the rehabilitation unit. I believe the patient is a good candidate for comprehensive interdisciplinary rehab care and is anticipated to make reasonable goals in a reasonable period of time as outlined above. Dictated By: NYA VALENTE MD LY/NTS Conf#: [id number] DID#: [id number] CC: NYA VALENTE MD;*EndCC* MTDD
[2019-01-27 20:00] VITALS: BP 120/56; PULSE 74; RESP 18
[2019-01-27] MEDS: DOCUSATE SODIUM 100 MG CAP PO SCH (21:00)
[2019-01-27] MEDS: GABAPENTIN 100 MG CAP PO SCH (21:30)
[2019-01-28 02:31] VITALS: BP 142/65; PULSE 63; RESP 18
[2019-01-28] MEDS: PANTOPRAZOLE (EC) 40 MG TAB PO SCH (06:17)
[2019-01-28 07:30] VITALS: BP 116/50; PULSE 64; RESP 18
[2019-01-28] MEDS: METOPROLOL 50 MG TAB PO SCH ×2 (09:00→22:15)
[2019-01-28] MEDS: BRIMONIDINE 0.2%-TIMOLOL 0.5% 5ML OPH LEFT EYE SCH ×2 (09:08→22:15)
[2019-01-28] MEDS: APIXABAN 5 MG TABLET PO SCH ×2 (09:09→22:14)
[2019-01-28] MEDS: DOCUSATE SODIUM 100 MG CAP PO SCH ×2 (09:09→22:14)
[2019-01-28] MEDS: AMIODARONE 200 MG TAB PO SCH ×2 (09:09→22:14)
[2019-01-28] MEDS: GABAPENTIN 100 MG CAP PO SCH ×2 (09:10→22:14)
[2019-01-28] MEDS: FERROUS SULFATE (EC) 325 MG TAB PO SCH (09:10)
[2019-01-28] MEDS: CHOLECALCIFEROL 1,000 UNIT TAB PO SCH (09:11)
[2019-01-28] MEDS: ASCORBIC ACID 500 MG TAB PO SCH (09:11)
[2019-01-28 14:00] VITALS: BP 111/55; PULSE 68; RESP 20
--- NOTE | 2019-01-28 14:17 | PN ---
Date/Time of Note Date/Time of Note DATE: 01/28/19 TIME: 14:16 Subjective Up for exercise this morning Objective Vital Signs Date Temp Pulse Resp B/P (MAP) Pulse Ox O2 O2 Flow FiO2 Time Delivery Rate 01/28/19 99.0 64 18 116/50 93 Room Air 07:30 (72) Intake and Output 01/27/19 01/27/19 01/28/19 1515:00 23:00 07:00 IntakeIntake Total 800 ml 240 ml OutputOutput Total 400 ml BalanceBalance 400 ml 240 ml Exam pulm-cta max transfer mod bed mobility Results/Medications Result Diagram: 01/27/19 0636 01/27/19 0636 Medications Current Medications Miscellaneous Information (Pending [facility] Order For Wound Care) This patient cheng... PRN PRN XX WOUND CARE; Start 01/26/19 at 17:30 Ascorbic Acid (Vitamin C) 1,000 mg DAILY PO Last administered on 01/28/19 09:11; Admin Dose 1,000 MG; Start 01/27/19 at 09:00 Brimonidine/ Timolol (Combigan Oph) 1 drop BID LEFT EYE Last administered on 01/28/19 09:08; Admin Dose 1 DROP; Start 01/26/19 at 21:00 Cholecalciferol (Vitamin D) 1,000 unit DAILY PO Last administered on 01/28/19 09:11; Admin Dose 1,000 UNIT; Start 01/27/19 at 09:00 Ferrous Sulfate (Ferrous Sulfate (Ec)) 325 mg DAILY PO Last administered on 01/28/19 09:10; Admin Dose 325 MG; Start 01/27/19 at 09:00 Pantoprazole (Protonix Tab) 40 mg DAILY@06 PO Last administered on 01/28/19 06:17; Admin Dose 40 MG; Start 01/27/19 at 06:00 Oxycodone HCl (Roxicodone) 10 mg Q4H PRN PO .PAIN Last administered on 01/27/19 08:17; Admin Dose 10 MG; Start 01/26/19 at 20:30 Oxycodone HCl (Roxicodone) 5 mg Q4H PRN PO .PAIN Last administered on 01/28/19 10:26; Admin Dose 5 MG; Start 01/26/19 at 20:30 Ondansetron HCl (Zofran Inj) 4 mg Q4H PRN IV NAUSEA/VOMITING; Start 01/26/19 at 20:30 Simethicone (Mylicon) 80 mg TID PRN PO .GAS; Start 01/26/19 at 20:30 Senna/Docusate Sodium (Senokot-S) 2 tab BID PRN PO .CONSTIPATION; Start 01/26/19 at 20:30 Magnesium Hydroxide (Milk Of Mag) 30 ml HS PRN PO .CONSTIPATION; Start 01/26/19 at 20:30 Bisacodyl (Dulcolax Supp) 10 mg DAILY PRN [place] .CONSTIPATION; Start 01/26/19 at 20:30 Sodium Biphosphate/ Sodium Phosphate (Fleet Enema) 133 ml DAILY PRN [place] .CONSTIPATION; Start 01/26/19 at 20:30 Naloxone HCl (Narcan) 0.2 mg Q2M PRN IV .RESP RATE; Start 01/26/19 at 20:30 Trimethobenzamide HCl (Tigan) 200 mg Q6H PRN IM NAUSEA AND/OR VOMITING; Start 01/26/19 at 20:30 Amiodarone HCl (Cordarone) 200 mg BID PO Last administered on 01/28/19 09:09; Admin Dose 200 MG; Start 01/26/19 at 21:00 Acetaminophen (Tylenol Tab) 650 mg Q6H PRN PO MILD PAIN(1-3)OR ELEVATED TEMP; Start 01/26/19 at 20:30 Metoprolol Tartrate (Lopressor) 50 mg BID PO Last administered on 01/27/19at 21:29; Admin Dose 50 MG; Start 01/26/19 at 21:00 Apixaban (Eliquis) 2.5 mg BID PO Last administered on 01/28/19 09:09; Admin Dose 2.5 MG; Start 01/26/19 at 21:00 Gabapentin (Neurontin) 100 mg BID PO Last administered on 01/28/19 09:10; Admin Dose 100 MG; Start 01/27/19 at 21:00 Docusate Sodium (Colace) 100 mg BID PO Last administered on 01/28/19 09:09; Admin Dose 100 MG; Start 01/27/19 at 21:00 Assessment/Plan Additional Assessment/Plan Rehab- Other neurologic disorder, possible postoperative TIA and encephalopathy;Status post right total knee arthroplasty Tolerating rehab activities. Atrial fibrillation. Aortic stenosis. Carotid artery stenosis. NYA VALENTE MD Jan 28, 2019 14:17
[2019-01-28] MEDS: MAGNESIUM HYDROXIDE 30ML CUP PO PRN (16:17)
--- NOTE | 2019-01-28 18:05 | PN ---
Date/Time of Note Date/Time of Note DATE: 01/28/19 TIME: 18:00 Assessment/Plan VTE Prophylaxis Risk score (from Ns)>0 risk: 8 SCD applied (from Ns): Yes Pharmacological prophylaxis: apixaban Lines/Catheters IV Catheter Type [facility]from [facility] [place] [facility] Urinary Cath still in place: No Assessment/Plan Hospital Course S: feels a bit better today O: GENERAL: Frail, very pleasant lady. more alert HEENT: Head is normocephalic. Pupils equal and reactive. Mucous membranes are moist. Posterior pharynx clear of erythema and exudate. NECK: Supple, without JVD. She does have a right-sided internal jugular venous catheter in place. CHEST: Diminished breath sounds, without wheezes or crackles. CARDIOVASCULAR: Irregularly irregular heart sounds, without murmurs. ABDOMEN: Flat, soft, nondistended. Normoactive bowel sounds. EXTREMITIES: Negative for edema. SKIN: With diffuse ecchymosis intermittently. findings look old. PSYCHIATRIC: The patient is frail, calm, cooperative with exam. assessment and plan: An 88-year-old female who is status post right total knee arthroplasty for severe degenerative arthritis, right knee, avascular necrosis, as well as a previous open reduction and internal fixation in the right patella, who had a mary postoperative course complicated by atrial fibrillation with rapid ventricular response, hypertension and right-sided weakness/transient ischemic attack. Problem list as summarized below: 1. Generalized debility. 2. Status post right total knee arthroplasty. 3. Paroxysmal atrial fibrillation with good rate control. 4. Eliquis therapy. 5. History of bladder cancer, status post chemotherapy. 6. Status post transient ischemic attack. 7. Status post aqo-[id number]-[id number] elevation myocardial infarction, likely related to atrial fibrillation. 8. Chronic emphysema. 9. Chronic atherosclerosis and 50% carotid stenosis on the left side. 10. Right internal jugular catheter in place. PLAN: The plan at this time basically is to continue rehabilitation. will add gentle lasix for short course of diuresis, add incentive spirometer , continue supportive care Result Diagram: 01/27/19 0636 01/27/19 0636 Exam/Review of Systems Exam Vitals Vital Signs Date Temp Pulse Resp B/P (MAP) Pulse Ox O2 O2 Flow FiO2 Time Delivery Rate 01/28/19 97.1 68 20 111/55 93 Room Air 14:00 (73) Intake and Output 01/27/19 01/27/19 01/28/19 1515:00 23:00 07:00 IntakeIntake Total 800 ml 240 ml OutputOutput Total 400 ml BalanceBalance 400 ml 240 ml Imaging Imaging PROCEDURE: XR Chest. CLINICAL INDICATION: Dyspnea. TECHNIQUE: XR CHEST AP PORTABLE COMPARISON: 01/07/2019 FINDINGS: There is interval development of small bilateral pleural effusions with atelectasis. The lungs are hyperinflated. The cardiomediastinal silhouette is unremarkable there is no evidence of pneumothorax. Aortic atherosclerosis. Osseous structures grossly intact. IMPRESSION: 1. Interval development of small bilateral pleural effusions atelectasis. 2. Hyperinflation. 3. Aortic atherosclerosis. RPTAT: JJ .Reagan Dugan MD, MD Date Time Electronically viewed and signed by .Reagan Dugan MD, on 01/27/2019 16:20 .A/ CC: MARK MENDOZA [phone] Medications Medication Current Medications Miscellaneous Information (Pending [facility] Order For Wound Care) This patient cheng... PRN PRN XX WOUND CARE; Start 01/26/19 at 17:30 Ascorbic Acid (Vitamin C) 1,000 mg DAILY PO Last administered on 01/28/19at 09:11; Admin Dose 1,000 MG; Start 01/27/19 at 09:00 Brimonidine/ Timolol (Combigan Oph) 1 drop BID LEFT EYE Last administered on 01/28/19at 09:08; Admin Dose 1 DROP; Start 01/26/19 at 21:00 Cholecalciferol (Vitamin D) 1,000 unit DAILY PO Last administered on 01/28/19at 09:11; Admin Dose 1,000 UNIT; Start 01/27/19 at 09:00 Ferrous Sulfate (Ferrous Sulfate (Ec)) 325 mg DAILY PO Last administered on 01/28/19at 09:10; Admin Dose 325 MG; Start 01/27/19 at 09:00 Pantoprazole (Protonix Tab) 40 mg DAILY@06 PO Last administered on 01/28/19 06:17; Admin Dose 40 MG; Start 01/27/19 at 06:00 Oxycodone HCl (Roxicodone) 10 mg Q4H PRN PO .PAIN Last administered on 01/27/19 08:17; Admin Dose 10 MG; Start 01/26/19 at 20:30 Oxycodone HCl (Roxicodone) 5 mg Q4H PRN PO .PAIN Last administered on 01/28/19 10:26; Admin Dose 5 MG; Start 01/26/19 at 20:30 Ondansetron HCl (Zofran Inj) 4 mg Q4H PRN IV NAUSEA/VOMITING; Start 01/26/19 at 20:30 Simethicone (Mylicon) 80 mg TID PRN PO .GAS; Start 01/26/19 at 20:30 Senna/Docusate Sodium (Senokot-S) 2 tab BID PRN PO .CONSTIPATION Last administered on 01/28/19 14:43; Admin Dose 2 TAB; Start 01/26/19 at 20:30 Magnesium Hydroxide (Milk Of Mag) 30 ml HS PRN PO .CONSTIPATION Last administered on 01/28/19 16:17; Admin Dose 30 ML; Start 01/26/19 at 20:30 Bisacodyl (Dulcolax Supp) 10 mg DAILY PRN [place] .CONSTIPATION; Start 01/26/19 at 20:30 Sodium Biphosphate/ Sodium Phosphate (Fleet Enema) 133 ml DAILY PRN [place] .CONS TIPATION; Start 01/26/19 at 20:30 Naloxone HCl (Narcan) 0.2 mg Q2M PRN IV .RESP RATE; Start 01/26/19 at 20:30 Trimethobenzamide HCl (Tigan) 200 mg Q6H PRN IM NAUSEA AND/OR VOMITING; Start 01/26/19 at 20:30 Amiodarone HCl (Cordarone) 200 mg BID PO Last administered on 01/28/19 09:09; Admin Dose 200 MG; Start 01/26/19 at 21:00 Acetaminophen (Tylenol Tab) 650 mg Q6H PRN PO MILD PAIN(1-3)OR ELEVATED TEMP; Start 01/26/19 at 20:30 Metoprolol Tartrate (Lopressor) 50 mg BID PO Last administered on 01/27/19at 21:29; Admin Dose 50 MG; Start 01/26/19 at 21:00 Apixaban (Eliquis) 2.5 mg BID PO Last administered on 01/28/19 09:09; Admin Dose 2.5 MG; Start 01/26/19 at 21:00 Gabapentin (Neurontin) 100 mg BID PO Last administered on 01/28/19 09:10; Admin Dose 100 MG; Start 01/27/19 at 21:00 Docusate Sodium (Colace) 100 mg BID PO Last administered on 01/28/19 09:09; Admin Dose 100 MG; Start 01/27/19 at 21:00 MARK MENDOZA Jan 28, 2019 18:05
[2019-01-28] MEDS: FUROSEMIDE 20 MG INJ IV SCH (18:26)
[2019-01-28 20:00] VITALS: BP 138/68; PULSE 72; RESP 18
[2019-01-28] MEDS: ACETAMINOPHEN 325 MG TAB PO PRN (22:25)
[2019-01-29 02:00] VITALS: BP 140/63; PULSE 55; RESP 18
[2019-01-29] MEDS: PANTOPRAZOLE (EC) 40 MG TAB PO SCH (06:56)
[2019-01-29 07:30] VITALS: BP 112/5; PULSE 66; RESP 18
[2019-01-29] MEDS: BRIMONIDINE 0.2%-TIMOLOL 0.5% 5ML OPH LEFT EYE SCH ×2 (09:21→21:27)
[2019-01-29] MEDS: DOCUSATE SODIUM 100 MG CAP PO SCH ×2 (09:21→21:27)
[2019-01-29] MEDS: FUROSEMIDE 20 MG INJ IV SCH (09:21)
[2019-01-29] MEDS: APIXABAN 5 MG TABLET PO SCH ×2 (09:22→21:28)
[2019-01-29] MEDS: AMIODARONE 200 MG TAB PO SCH ×2 (09:22→21:28)
[2019-01-29] MEDS: CHOLECALCIFEROL 1,000 UNIT TAB PO SCH (09:23)
[2019-01-29] MEDS: GABAPENTIN 100 MG CAP PO SCH ×2 (09:23→21:29)
[2019-01-29] MEDS: ASCORBIC ACID 500 MG TAB PO SCH (09:23)
[2019-01-29] MEDS: FERROUS SULFATE (EC) 325 MG TAB PO SCH (09:23)
[2019-01-29] MEDS: METOPROLOL 50 MG TAB PO SCH ×2 (09:24→21:29)
[2019-01-29] MEDS: ACETAMINOPHEN 325 MG TAB PO PRN (10:31)
--- NOTE | 2019-01-29 13:06 | PN ---
Date/Time of Note Date/Time of Note DATE: 01/29/19 TIME: 13:04 Subjective Patietn c/o right lateral wrist/thumb pain Objective Vital Signs Date Temp Pulse Resp B/P (MAP) Pulse Ox O2 O2 Flow FiO2 Time Delivery Rate 01/29/19 98.0 66 18 112/5 (40) 97 Room Air 07:30 Intake and Output 01/28/19 01/28/19 01/29/19 1515:00 23:00 07:00 IntakeIntake Total 740 ml BalanceBalance 740 ml Exam pulm-cta sl ttp lateral wrist max transfer Results/Medications Result Diagram: 01/29/19 0600 01/29/19 0600 Results 24 hrs Laboratory Tests Test 01/28/19 19:00 01/29/19 06:00 Stool Occult Blood NEGATIVE White Blood Count 9.4 Red Blood Count 2.88 L Hemoglobin 8.9 L Hematocrit 27.3 L Mean Corpuscular Volume 94.8 Mean Corpuscular Hemoglobin 30.9 Mean Corpuscular Hemoglobin Concent 32.6 Red Cell Distribution Width 13.1 Platelet Count 250 Mean Platelet Volume 10.4 Immature Granulocytes % 1.000 H Neutrophils % 70.9 Lymphocytes % 14.2 L Monocytes % 11.8 H Eosinophils % 1.9 Basophils % 0.2 Nucleated Red Blood Cells % 0.0 Immature Granulocytes # 0.090 H Neutrophils # 6.7 Lymphocytes # 1.3 Monocytes # 1.1 H Eosinophils # 0.2 Basophils # 0.0 Nucleated Red Blood Cells # 0.0 Sodium Level 135 Potassium Level 3.6 Chloride Level 96 L Carbon Dioxide Level 31 Anion Gap 8 Blood Urea Nitrogen 18 Creatinine 0.56 Est Glomerular Filtrat Rate mL/min Glucose Level 115 Calcium Level 8.4 Magnesium Level 1.8 Medications Current Medications Miscellaneous Information (Pending [facility] Order For Wound Care) This patient cheng... PRN PRN XX WOUND CARE; Start 01/26/19 at 17:30 Ascorbic Acid (Vitamin C) 1,000 mg DAILY PO Last administered on 01/29/19at 09:23; Admin Dose 1,000 MG; Start 01/27/19 at 09:00 Brimonidine/ Timolol (Combigan Oph) 1 drop BID LEFT EYE Last administered on 01/29/19at 09:21; Admin Dose 1 DROP; Start 01/26/19 at 21:00 Cholecalciferol (Vitamin D) 1,000 unit DAILY PO Last administered on 01/29/19 09:23; Admin Dose 1,000 UNIT; Start 01/27/19 at 09:00 Ferrous Sulfate (Ferrous Sulfate (Ec)) 325 mg DAILY PO Last administered on 01/29/19 09:23; Admin Dose 325 MG; Start 01/27/19 at 09:00 Pantoprazole (Protonix Tab) 40 mg DAILY@06 PO Last administered on 01/29/19 06:56; Admin Dose 40 MG; Start 01/27/19 at 06:00 Oxycodone HCl (Roxicodone) 10 mg Q4H PRN PO .PAIN Last administered on 01/27/19 08:17; Admin Dose 10 MG; Start 01/26/19 at 20:30 Oxycodone HCl (Roxicodone) 5 mg Q4H PRN PO .PAIN Last administered on 01/28/19 10:26; Admin Dose 5 MG; Start 01/26/19 at 20:30 Ondansetron HCl (Zofran Inj) 4 mg Q4H PRN IV NAUSEA/VOMITING; Start 01/26/19 at 20:30 Simethicone (Mylicon) 80 mg TID PRN PO .GAS; Start 01/26/19 at 20:30 Senna/Docusate Sodium (Senokot-S) 2 tab BID PRN PO .CONSTIPATION Last administered on 01/28/19 14:43; Admin Dose 2 TAB; Start 01/26/19 at 20:30 Magnesium Hydroxide (Milk Of Mag) 30 ml HS PRN PO .CONSTIPATION Last administered on 01/28/19 16:17; Admin Dose 30 ML; Start 01/26/19 at 20:30 Bisacodyl (Dulcolax Supp) 10 mg DAILY PRN [place] .CONSTIPATION; Start 01/26/19 at 20:30 Sodium Biphosphate/ Sodium Phosphate (Fleet Enema) 133 ml DAILY PRN [place] .CONSTIPATION; Start 01/26/19 at 20:30 Naloxone HCl (Narcan) 0.2 mg Q2M PRN IV .RESP RATE; Start 01/26/19 at 20:30 Trimethobenzamide HCl (Tigan) 200 mg Q6H PRN IM NAUSEA AND/OR VOMITING; Start 01/26/19 at 20:30 Amiodarone HCl (Cordarone) 200 mg BID PO Last administered on 01/29/19 09:22; Admin Dose 200 MG; Start 01/26/19 at 21:00 Acetaminophen (Tylenol Tab) 650 mg Q6H PRN PO MILD PAIN(1-3)OR ELEVATED TEMP L ast administered on 01/29/19 10:31; Admin Dose 650 MG; Start 01/26/19 at 20:30 Metoprolol Tartrate (Lopressor) 50 mg BID PO Last administered on 01/29/19 09:24; Admin Dose 50 MG; Start 01/26/19 at 21:00 Apixaban (Eliquis) 2.5 mg BID PO Last administered on 01/29/19 09:22; Admin Dose 2.5 MG; Start 01/26/19 at 21:00 Gabapentin (Neurontin) 100 mg BID PO Last administered on 01/29/19 09:23; Admin Dose 100 MG; Start 01/27/19 at 21:00 Docusate Sodium (Colace) 100 mg BID PO Last administered on 01/29/19 09:21; Admin Dose 100 MG; Start 01/27/19 at 21:00 Patient Own Medication 1 ea DAILY PO ; Start 01/30/19 at 09:00; Status UNV Assessment/Plan Additional Assessment/Plan Rehab- Other neurologic disorder, possible postoperative TIA and encephalopathy;Status post right total knee arthroplasty Tolerating rehab activities. Will check R wrist xray Atrial fibrillation. Aortic stenosis. Carotid artery stenosis. NYA VALENTE MD Jan 29, 2019 13:06
[2019-01-29 14:00] VITALS: BP 109/53; PULSE 55; RESP 18
--- NOTE | 2019-01-29 14:52 | PN ---
Date/Time of Note Date/Time of Note DATE: 01/29/19 TIME: 14:51 Assessment/Plan VTE Prophylaxis Risk score (from Ns)>0 risk: 7 SCD applied (from Ns): Yes Pharmacological prophylaxis: apixaban Lines/Catheters IV [facility]ter [facility]from [facility] Saline Lock Urinary Cath still in place: No Assessment/Plan Hospital Course SUBJECTIVE: No acute distress OBJECTIVE: Vital signs-see below PHYSICAL EXAM: Constitutional: Frail looking elderly female, not in any apparent distress.Psych: nl mood/affect, no complaints Head: atraumatic, normocephalic Eyes: nl conjunctiva, nl sclera ENMT: mucosa pink and moist, nl external ears & nose Neck: non-tender, supple Respiratory: diminished bibasilar. normal air movement Cardiovascular: nl pulses, regular rate and rhythm Gastrointestinal: non-tender, soft, bowel sounds active in all 4 quadrants. Musculoskeletal/extremities: nl extremities to inspection, motor strength equal bilaterally, no focal deficit. Normal pulses,no cyanosis, no edema. Neurological: Alert oriented 3,nl speech, nl strength Skin: +ecchymosis. nl turgor ASSESSMENT/PLAN:assessment and plan: 88-year-old female status post right total knee arthroplasty for severe degenerative arthritis, right knee, avascular necrosis, as well as a previous open reduction and internal fixation in the right patella, who had a mary postoperative course complicated by atrial fibril lation with rapid ventricular response, hypertension and right-sided weakness/transient ischemic attack. 1. Osteoarthritis, Status post right total knee arthroplasty. -PT/Rehab -Patient on Eliquis already, no further prophylaxis indicated. 2. Paroxysmal atrial fibrillation -rate controlled -cont.amiodarone,BB,ATC Eliquis 3. History of bladder cancer - status post chemotherapy. 4. Status post transient ischemic attack. -monitor 5. Status post qnq-[id number] elevation myocardial infarction, likely related to atrial fibrillation. -no acute chest syndromes 6. Chronic emphysema. -monitor 7. Chronic anemia. -Stable H&H. Continue to monitor. DVT prophylaxis: Eliquis. Patient was seen in collaboration with. Result Diagram: 01/29/19 0600 01/29/19 0600 Results 24hrs Laboratory Tests Test 01/28/19 19:00 01/29/19 06:00 Stool Occult Blood NEGATIVE White Blood Count 9.4 Red Blood Count 2.88 L Hemoglobin 8.9 L Hematocrit 27.3 L Mean Corpuscular Volume 94.8 Mean Corpuscular Hemoglobin 30.9 Mean Corpuscular Hemoglobin Concent 32.6 Red Cell Distribution Width 13.1 Platelet Count 250 Mean Platelet Volume 10.4 Immature Granulocytes % 1.000 H Neutrophils % 70.9 Lymphocytes % 14.2 L Monocytes % 11.8 H Eosinophils % 1.9 Basophils % 0.2 Nucleated Red Blood Cells % 0.0 Immature Granulocytes # 0.090 H Neutrophils # 6.7 Lymphocytes # 1.3 Monocytes # 1.1 H Eosinophils # 0.2 Basophils # 0.0 Nucleated Red Blood Cells # 0.0 Sodium Level 135 Potassium Level 3.6 Chloride Level 96 L Carbon Dioxide Level 31 Anion Gap 8 Blood Urea Nitrogen 18 Creatinine 0.56 Est Glomerular Filtrat Rate mL/min Glucose Level 115 Calcium Level 8.4 Magnesium Level 1.8 Exam/Review of Systems Exam Vitals Vital Signs Date Temp Pulse Resp B/P (MAP) Pulse Ox O2 O2 Flow FiO2 Time Delivery Rate 01/29/19 98.0 66 18 112/5 (40) 97 Room Air 07:30 Intake and Output 01/28/19 01/28/19 01/29/19 1515:00 23:00 07:00 IntakeIntake Total 740 ml BalanceBalance 740 ml Results Results 24hrs Laboratory Tests Test 01/28/19 19:00 01/29/19 06:00 Stool Occult Blood NEGATIVE White Blood Count 9.4 Red Blood Count 2.88 L Hemoglobin 8.9 L Hematocrit 27.3 L Mean Corpuscular Volume 94.8 Mean Corpuscular Hemoglobin 30.9 Mean Corpuscular Hemoglobin Concent 32.6 Red Cell Distribution Width 13.1 Platelet Count 250 Mean Platelet Volume 10.4 Immature Granulocytes % 1.000 H Neutrophils % 70.9 Lymphocytes % 14.2 L Monocytes % 11.8 H Eosinophils % 1.9 Basophils % 0.2 Nucleated Red Blood Cells % 0.0 Immature Granulocytes # 0.090 H Neutrophils # 6.7 Lymphocytes # 1.3 Monocytes # 1.1 H Eosinophils # 0.2 Basophils # 0.0 Nucleated Red Blood Cells # 0.0 Sodium Level 135 Potassium Level 3.6 Chloride Level 96 L Carbon Dioxide Level 31 Anion Gap 8 Blood Urea Nitrogen 18 Creatinine 0.56 Est Glomerular Filtrat Rate mL/min Glucose Level 115 Calcium Level 8.4 Magnesium Level 1.8 Medications Medication Current Medications Miscellaneous Information (Pending [facility] Order For Wound Care) This patient cheng... PRN PRN XX WOUND CARE; Start 01/26/19 at 17:30 Ascorbic Acid (Vitamin C) 1,000 mg DAILY PO Last administered on 01/29/19 09:23; Admin Dose 1,000 MG; Start 01/27/19 at 09:00 Brimonidine/ Timolol (Combigan Oph) 1 drop BID LEFT EYE Last administered on 01/29/19 09:21; Admin Dose 1 DROP; Start 01/26/19 at 21:00 Cholecalciferol (Vitamin D) 1,000 unit DAILY PO Last administered on 01/29/19 09:23; Admin Dose 1,000 UNIT; Start 01/27/19 at 09:00 Ferrous Sulfate (Ferrous Sulfate (Ec)) 325 mg DAILY PO Last administered on 01/29/19 09:23; Admin Dose 325 MG; Start 01/27/19 at 09:00 Pantoprazole (Protonix Tab) 40 mg DAILY@06 PO Last administered on 01/29/19 06:56; Admin Dose 40 MG; Start 01/27/19 at 06:00 Oxycodone HCl (Roxicodone) 10 mg Q4H PRN PO .PAIN Last administered on 01/27/19 08:17; Admin Dose 10 MG; Start 01/26/19 at 20:30 Oxycodone HCl (Roxicodone) 5 mg Q4H PRN PO .PAIN Last administered on 01/28/19 10:26; Admin Dose 5 MG; Start 01/26/19 at 20:30 Ondansetron HCl (Zofran Inj) 4 mg Q4H PRN IV NAUSEA/VOMITING; Start 01/26/19 at 20:30 Simethicone (Mylicon) 80 mg TID PRN PO .GAS; Start 01/26/19 at 20:30 Senna/Docusate Sodium (Senokot-S) 2 tab BID PRN PO .CONSTIPATION Last administered on 01/28/19 14:43; Admin Dose 2 TAB; Start 01/26/19 at 20:30 Magnesium Hydroxide (Milk Of Mag) 30 ml HS PRN PO .CONSTIPATION Last administered on 01/28/19 16:17; Admin Dose 30 ML; Start 01/26/19 at 20:30 Bisacodyl (Dulcolax Supp) 10 mg DAILY PRN [place] .CONSTIPATION; Start 01/26/19 at 20:30 Sodium Biphosphate/ Sodium Phosphate (Fleet Enema) 133 ml DAILY PRN [place] .CONSTIPATION; Start 01/26/19 at 20:30 Naloxone HCl (Narcan) 0.2 mg Q2M PRN IV .RESP RATE; Start 01/26/19 at 20:30 Trimethobenzamide HCl (Tigan) 200 mg Q6H PRN IM NAUSEA AND/OR VOMITING; Start 01/26/19 at 20:30 Amiodarone HCl (Cordarone) 200 mg BID PO Last administered on 01/29/19 09:22; Admin Dose 200 MG; Start 01/26/19 at 21:00 Acetaminophen (Tylenol Tab) 650 mg Q6H PRN PO MILD PAIN(1-3)OR ELEVATED TEMP Last administered on 01/29/19 10:31; Admin Dose 650 MG; Start 01/26/19 at 20:30 Metoprolol Tartrate (Lopressor) 50 mg BID PO Last administered on 01/29/19 09:24; Admin Dose 50 MG; Start 01/26/19 at 21:00 Apixaban (Eliquis) 2.5 mg BID PO Last administered on 01/29/19 09:22; Admin Dose 2.5 MG; Start 01/26/19 at 21:00 Gabapentin (Neurontin) 100 mg BID PO Last administered on 01/29/19 09:23; Admin Dose 100 MG; Start 01/27/19 at 21:00 Docusate Sodium (Colace) 100 mg BID PO Last administered on 01/29/19 09:21; Admin Dose 100 MG; Start 01/27/19 at 21:00 Patient Own Medication 1 ea DAILY PO ; Start 01/30/19 at 09:00; Status EDEL ABEL NP Jan 29, 2019 14:52
[2019-01-29 19:56] VITALS: BP 118/67; PULSE 67; RESP 18
--- NOTE | 2019-01-29 23:18 | CONS ---
DATE OF ADMISSION: 01/26/2019 DATE OF CONSULTATION: 01/29/2019 TYPE OF CONSULTATION: Psychological. REFERRING PHYSICIAN: Nya Hernandez MD CONSULTING PSYCHOLOGIST: Raven Ewing, PhD REASON FOR CONSULTATION: This consultation was requested by Dr. Carlos Hernandez in order to evaluate t he cognitive and emotional functioning of this patient related to her present medical condition. HISTORY OF PRESENT ILLNESS: The patient is an 88-year-old female. The patient was admitted for joce re right knee pain. The patient underwent a total knee arthroplasty. The patient's postoperative co urse was complicated by atrial fibrillation with rapid ventricular response in addition to altered me ntal status. The patient was eventually cleared medically and sent to the acute rehabilitation unit for acute multidisciplinary rehabilitation. Prior to these incidents occurring, the patient was able to be independent in self-care tasks and mobility. FAMILY AND SOCIAL HISTORY: The patient lives in a mobile home in [place] with her cat. The patie nt does want to return there after discharge. The patient has no family according to her and does no t have any caretaking. MEDICATIONS: The patient is currently not on any psychotropic medications. SUBSTANCE USE: The patient denies any use of alcohol or drugs. The patient reports that she does no t smoke. MENTAL STATUS EXAMINATION: APPEARANCE: The patient was seen in bed. The patient appears to be of average height and weight. T he patient wears glasses and is right-handed. BEHAVIOR: The patient was cooperative during the consultation. The patient did attempt to answer al l questions presented to her by the interviewer. The patient was very tired and had just taken some pain medication. The patient reports that she was in pain and that her pain level was 6 or 7. MOOD AND AFFECT: The patient's mood appears to be slightly depressed. Affect does appear to be slig htly anxious. The patient does state that she is depressed because she thinks that she is not gettin g better fast enough. PERCEPTION: The patient reports no hallucinations or delusions. The patient was alert to person, pl shanna, situation and time. MEMORY AND COGNITION: The patient's memory and cognition were basically fairly intact for her age. The patient was able to name the hospital. The patient was able to name the month and the year. The patient was able to say who the classification inspector is and who the governor of the [facility] is. She could not remember who the mayor of the [facility] is. The patient was able to spel l "world" backwards. The patient was able to do 1 serial 7 subtraction from 100, but then could not go any further. Overall, given her present medical condition and age, her cognitions appear to be ad equate. INTELLIGENCE: Intelligence appears to fall in the average range. INSIGHT: Fair. JUDGMENT: Fair. THOUGHT CONTENT: The patient is concerned about her present medical condition. The patient does wan t to get better and return home after discharge. The patient is concerned about how well she will be able to take care of herself. DISCUSSION: The patient can likely benefit from some cognitive/behavioral psychotherapy while she is on the unit. Psychotherapy would focus on her underlying level of depression as well as coping skil ls of trying to develop ways to help herself. 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 Thank you very much, Dr. Carlos Hernandez, for referring this individual. Please do not hesitate to hardik duke if you have additional questions. Dictated By: RAVEN EWING PHD RK/ADAMS Conf#: [id number] DID#: [id number] CC: ERICA WHITESIDE MD; NYA HERNANDEZ MD;*End*
[2019-01-30 02:00] VITALS: BP 127/71; PULSE 70; RESP 18
[2019-01-30] MEDS: PANTOPRAZOLE (EC) 40 MG TAB PO SCH (06:59)
[2019-01-30 07:00] VITALS: BP 123/58; PULSE 63; RESP 18
[2019-01-30] MEDS: BRIMONIDINE 0.2%-TIMOLOL 0.5% 5ML OPH LEFT EYE SCH ×2 (09:43→21:14)
[2019-01-30] MEDS: PRESERVISION AREDS 2 FORMULA PO SCH (09:44)
[2019-01-30] MEDS: DOCUSATE SODIUM 100 MG CAP PO SCH ×2 (09:44→21:14)
[2019-01-30] MEDS: FERROUS SULFATE (EC) 325 MG TAB PO SCH (09:45)
[2019-01-30] MEDS: CHOLECALCIFEROL 1,000 UNIT TAB PO SCH (09:45)
[2019-01-30] MEDS: ASCORBIC ACID 500 MG TAB PO SCH (09:45)
[2019-01-30] MEDS: APIXABAN 5 MG TABLET PO SCH ×2 (09:45→21:15)
[2019-01-30] MEDS: GABAPENTIN 100 MG CAP PO SCH ×2 (09:45→21:16)
[2019-01-30] MEDS: AMIODARONE 200 MG TAB PO SCH ×2 (09:46→21:15)
[2019-01-30] MEDS: METOPROLOL 50 MG TAB PO SCH ×2 (09:46→21:19)
[2019-01-30] MEDS: ACETAMINOPHEN 325 MG TAB PO PRN (10:02)
--- NOTE | 2019-01-30 12:22 | PN ---
Date/Time of Note Date/Time of Note DATE: 01/30/19 TIME: 12:21 Assessment/Plan VTE Prophylaxis Risk score (from Ns)>0 risk: 9 SCD applied (from Ns): Yes Pharmacological prophylaxis: apixaban Lines/Catheters IV C[facility]ter [facility] (from [facility] Saline Lock Urinary Cath still in place: No Assessment/Plan Hospital Course SUBJECTIVE: No acute distress OBJECTIVE: Vital signs-see below PHYSICAL EXAM: Constitutional: Frail looking elderly female, not in any apparent distress.Psych: nl mood/affect, no complaints Head: atraumatic, normocephalic Eyes: nl conjunctiva, nl sclera ENMT: mucosa pink and moist, nl external ears & nose Neck: non-tender, supple Respiratory: diminished bibasilar. normal air movement Cardiovascular: nl pulses, regular rate and rhythm Gastrointestinal: non-tender, soft, bowel sounds active in all 4 quadrants. Musculoskeletal/extremities: nl extremities to inspection, motor strength equal bilaterally, no focal deficit. Normal pulses,no cyanosis, no edema. Neurological: Alert oriented 3,nl speech, nl strength Skin: +ecchymosis. nl turgor ASSESSMENT/PLAN:assessment and plan: 88-year-old female status post right total knee arthroplasty for severe degenerative arthritis, right knee, avascular necrosis, as well as a previous open reduction and internal fixation in the right patella, who had a mary postoperative course complicated by atrial fibril lation with rapid ventricular response, hypertension and right-sided weakness/transient ischemic attack. 1. Osteoarthritis, Status post right total knee arthroplasty. -PT/Rehab -Patient on Eliquis already, no further prophylaxis indicated. 2. Paroxysmal atrial fibrillation -rate controlled -cont.amiodarone,BB,ATC Eliquis 3. History of bladder cancer - status post chemotherapy. 4. Status post transient ischemic attack. -monitor 5. Status post [id number] elevation myocardial infarction, likely related to atrial fibrillation. -no acute chest syndromes 6. Chronic emphysema. -monitor 7. Chronic anemia. -Stable H&H. Continue to monitor. 8.Asymptomatic bacteriuria. Urine CS noted-no treatment needed as pt doesnot have any symptoms DVT prophylaxis: Eliquis. Patient was seen in collaboration with . Result Diagram: 01/30/19 0610 01/30/19 0610 Results 24hrs Laboratory Tests Test 01/30/19 06:10 White Blood Count 9.9 Red Blood Count 2.81 L Hemoglobin 8.7 L Hematocrit 26.9 L Mean Corpuscular Volume 95.7 Mean Corpuscular Hemoglobin 31.0 Mean Corpuscular Hemoglobin Concent 32.3 Red Cell Distribution Width 13.1 Platelet Count 282 Mean Platelet Volume 10.2 Immature Granulocytes % 1.100 H Neutrophils % 72.3 Lymphocytes % 13.8 L Monocytes % 10.7 Eosinophils % 1.8 Basophils % 0.3 Nucleated Red Blood Cells % 0.0 Immature Granulocytes # 0.110 H Neutrophils # 7.1 Lymphocytes # 1.4 Monocytes # 1.1 H Eosinophils # 0.2 Basophils # 0.0 Nucleated Red Blood Cells # 0.0 Sodium Level 137 Potassium Level 3.9 Chloride Level 101 Carbon Dioxide Level 33 H Anion Gap 3 L Blood Urea Nitrogen 18 Creatinine 0.53 Est Glomerular Filtrat Rate mL/min Glucose Level 111 Calcium Level 8.4 Exam/Review of Systems Exam Vitals Vital Signs Date Temp Pulse Resp B/P (MAP) Pulse Ox O2 O2 Flow FiO2 Time Delivery Rate 01/30/19 98.2 63 18 123/58 94 Room Air 07:00 (79) Intake and Output 01/29/19 01/29/19 01/30/19 1414:59 22:59 06:59 IntakeIntake Total 820 ml 750 ml BalanceBalance 820 ml 750 ml Results Results 24hrs Laboratory Tests Test 01/30/19 06:10 White Blood Count 9.9 Red Blood Count 2.81 L Hemoglobin 8.7 L Hematocrit 26.9 L Mean Corpuscular Volume 95.7 Mean Corpuscular Hemoglobin 31.0 Mean Corpuscular Hemoglobin Concent 32.3 Red Cell Distribution Width 13.1 Platelet Count 282 Mean Platelet Volume 10.2 Immature Granulocytes % 1.100 H Neutrophils % 72.3 Lymphocytes % 13.8 L Monocytes % 10.7 Eosinophils % 1.8 Basophils % 0.3 Nucleated Red Blood Cells % 0.0 Immature Granulocytes # 0.110 H Neutrophils # 7.1 Lymphocytes # 1.4 Monocytes # 1.1 H Eosinophils # 0.2 Basophils # 0.0 Nucleated Red Blood Cells # 0.0 Sodium Level 137 Potassium Level 3.9 Chloride Level 101 Carbon Dioxide Level 33 H Anion Gap 3 L Blood Urea Nitrogen 18 Creatinine 0.53 Est Glomerular Filtrat Rate mL/min Glucose Level 111 Calcium Level 8.4 Medications Medication Current Medications Miscellaneous Information (Pending [facility] Order For Wound Care) This patient cheng... PRN PRN XX WOUND CARE; Start 01/26/19 at 17:30 Ascorbic Acid (Vitamin C) 1,000 mg DAILY PO Last administered on 01/30/19 09:45; Admin Dose 1,000 MG; Start 01/27/19 at 09:00 Brimonidine/ Timolol (Combigan Oph) 1 drop BID LEFT EYE Last administered on 01/30/19 09:43; Admin Dose 1 DROP; Start 01/26/19 at 21:00 Cholecalciferol (Vitamin D) 1,000 unit DAILY PO Last administered on 01/30/19 09:45; Admin Dose 1,000 UNIT; Start 01/27/19 at 09:00 Ferrous Sulfate (Ferrous Sulfate (Ec)) 325 mg DAILY PO Last administered on 01/30/19 09:45; Admin Dose 325 MG; Start 01/27/19 at 09:00 Pantoprazole (Protonix Tab) 40 mg DAILY@06 PO Last administered on 01/30/19 06:59; Admin Dose 40 MG; Start 01/27/19 at 06:00 Ondansetron HCl (Zofran Inj) 4 mg Q4H PRN IV NAUSEA/VOMITING; Start 01/26/19 at 20:30 Simethicone (Mylicon) 80 mg TID PRN PO .GAS; Start 01/26/19 at 20:30 Senna/Docusate Sodium (Senokot-S) 2 tab BID PRN PO .CONSTIPATION Last administered on 01/28/19 14:43; Admin Dose 2 TAB; Start 01/26/19 at 20:30 Magnesium Hydroxide (Milk Of Mag) 30 ml HS PRN PO .CONSTIPATION Last administered on 01/28/19 16:17; Admin Dose 30 ML; Start 01/26/19 at 20:30 Bisacodyl (Dulcolax Supp) 10 mg DAILY PRN [place] .CONSTIPATION; Start 01/26/19 at 20:30 Sodium Biphosphate/ Sodium Phosphate (Fleet Enema) 133 ml DAILY PRN [place] .CONSTI PATION; Start 01/26/19 at 20:30 Naloxone HCl (Narcan) 0.2 mg Q2M PRN IV .RESP RATE; Start 01/26/19 at 20:30 Trimethobenzamide HCl (Tigan) 200 mg Q6H PRN IM NAUSEA AND/OR VOMITING; Start 01/26/19 at 20:30 Amiodarone HCl (Cordarone) 200 mg BID PO Last administered on 01/30/19 09:46; Admin Dose 200 MG; Start 01/26/19 at 21:00 Acetaminophen (Tylenol Tab) 650 mg Q6H PRN PO MILD PAIN(1-3)OR ELEVATED TEMP Last administered on 01/30/19 10:02; Admin Dose 650 MG; Start 01/26/19 at 20:30 Metoprolol Tartrate (Lopressor) 50 mg BID PO Last administered on 01/30/19 09:46; Admin Dose 50 MG; Start 01/26/19 at 21:00 Apixaban (Eliquis) 2.5 mg BID PO Last administered on 01/30/19 09:45; Admin Dose 2.5 MG; Start 01/26/19 at 21:00 Docusate Sodium (Colace) 100 mg BID PO Last administered on 01/30/19 09:44; Admin Dose 100 MG; Start 01/27/19 at 21:00 Patient Own Medication 1 ea DAILY PO Last administered on 01/30/19 09:44; Admin Dose 1 EA; Start 01/30/19 at 09:00 Gabapentin (Neurontin) 100 mg HS PO ; Start 01/30/19 at 21:00 Acetaminophen/ Hydrocodone Bitart ([place] (5/325)) 1 tab Q4H PRN PO MODERATE PAIN LEVEL 4-6; Start 01/30/19 at 11:00 Acetaminophen/ Hydrocodone Bitart ([place] (5/325)) 2 tab Q4H PRN PO SEVERE PAIN LEVEL 7-10; Start 01/30/19 at 11:00 EDEL MILLER NP Jan 30, 2019 12:22
[2019-01-30 14:00] VITALS: BP 139/61; PULSE 51; RESP 18
[2019-01-30] MEDS: HYDROCODONE/APAP (5/325) TAB PO PRN (14:12)
--- NOTE | 2019-01-30 14:16 | PN ---
Date/Time of Note Date/Time of Note DATE: 01/30/19 TIME: 14:14 Objective Vital Signs Date Temp Pulse Resp B/P (MAP) Pulse Ox O2 O2 Flow FiO2 Time Delivery Rate 01/30/19 98.2 63 18 123/58 94 Room Air 07:00 (79) Intake and Output 01/29/19 01/29/19 01/30/19 1515:00 23:00 07:00 IntakeIntake Total 820 ml 750 ml BalanceBalance 820 ml 750 ml Exam INTERDISCIPLINARY TEAM CONFERENCE Physical Exam: Pulm- Abd- BOWEL- Cont BLADDER-Cont SKIN- intact OT- DRESSING- BATHING- TOILETING- PT- BED MOBILITY- TRANSFERS- AMBULATION- SPEECH- COGNITION- Dysphagia- A/P- Interdisciplinary team conference held today. Please see interdisciplinary sheet. Working toward candie on with post discharge follow up of physical therapy, occupational therapy. INTERDISCIPLINARY TEAM CONFERENCE Physical Exam: LEFT WRIST WITH DECREASED PAIN BOWEL- Cont BLADDER-Cont SKIN- intact OT- DRESSING- min/max BATHING-min/max TOILETING-max PT- BED MOBILITY- mod TRANSFERS- max AMBULATION-max 2 feet WHEELCHAIR MOBILITY- MIN 35 FEET SPEECH- COGNITION- Dysphagia- A/P- Interdisciplinary team conference held today. Please see interdisciplinary sheet. Working toward dJhoncJohn on 02/11 with post discharge follow up of physical therapy, occupational therapy, and caregiver Results/Medications Result Diagram: 01/30/19 0610 01/30/19 0610 Results 24 hrs Laboratory Tests Test 01/30/19 06:10 White Blood Count 9.9 Red Blood Count 2.81 L Hemoglobin 8.7 L Hematocrit 26.9 L Mean Corpuscular Volume 95.7 Mean Corpuscular Hemoglobin 31.0 Mean Corpuscular Hemoglobin Concent 32.3 Red Cell Distribution Width 13.1 Platelet Count 282 Mean Platelet Volume 10.2 Immature Granulocytes % 1.100 H Neutrophils % 72.3 Lymphocytes % 13.8 L Monocytes % 10.7 Eosinophils % 1.8 Basophils % 0.3 Nucleated Red Blood Cells % 0.0 Immature Granulocytes # 0.110 H Neutrophils # 7.1 Lymphocytes # 1.4 Monocytes # 1.1 H Eosinophils # 0.2 Basophils # 0.0 Nucleated Red Blood Cells # 0.0 Sodium Level 137 Potassium Level 3.9 Chloride Level 101 Carbon Dioxide Level 33 H Anion Gap 3 L Blood Urea Nitrogen 18 Creatinine 0.53 Est Glomerular Filtrat Rate mL/min Glucose Level 111 Calcium Level 8.4 Medications Current Medications Miscellaneous Information (Pending [facility] Order For Wound Care) This patient cheng... PRN PRN XX WOUND CARE; Start 01/26/19 at 17:30 Ascorbic Acid (Vitamin C) 1,000 mg DAILY PO Last administered on 01/30/19 09:45; Admin Dose 1,000 MG; Start 01/27/19 at 09:00 Brimonidine/ Timolol (Combigan Oph) 1 drop BID LEFT EYE Last administered on 01/30/19 09:43; Admin Dose 1 DROP; Start 01/26/19 at 21:00 Cholecalciferol (Vitamin D) 1,000 unit DAILY PO Last administered on 01/30/19 09:45; Admin Dose 1,000 UNIT; Start 01/27/19 at 09:00 Ferrous Sulfate (Ferrous Sulfate (Ec)) 325 mg DAILY PO Last administered on 01/30/19 09:45; Admin Dose 325 MG; Start 01/27/19 at 09:00 Pantoprazole (Protonix Tab) 40 mg DAILY@06 PO Last administered on 01/30/19 06:59; Admin Dose 40 MG; Start 01/27/19 at 06:00 Ondansetron HCl (Zofran Inj) 4 mg Q4H PRN IV NAUSEA/VOMITING; Start 01/26/19 at 20:30 Simethicone (Mylicon) 80 mg TID PRN PO .GAS; Start 01/26/19 at 20:30 Senna/Docusate Sodium (Senokot-S) 2 tab BID PRN PO .CONSTIPATION Last a dministered on 01/28/19 14:43; Admin Dose 2 TAB; Start 01/26/19 at 20:30 Magnesium Hydroxide (Milk Of Mag) 30 ml HS PRN PO .CONSTIPATION Last administered on 01/28/19 16:17; Admin Dose 30 ML; Start 01/26/19 at 20:30 Bisacodyl (Dulcolax Supp) 10 mg DAILY PRN [place] .CONSTIPATION; Start 01/26/19 at 20:30 Sodium Biphosphate/ Sodium Phosphate (Fleet Enema) 133 ml DAILY PRN [place] .CONSTIPATION; Start 01/26/19 at 20:30 Naloxone HCl (Narcan) 0.2 mg Q2M PRN IV .RESP RATE; Start 01/26/19 at 20:30 Trimethobenzamide HCl (Tigan) 200 mg Q6H PRN IM NAUSEA AND/OR VOMITING; Start 01/26/19 at 20:30 Amiodarone HCl (Cordarone) 200 mg BID PO Last administered on 01/30/19 09:46; Admin Dose 200 MG; Start 01/26/19 at 21:00 Acetaminophen (Tylenol Tab) 650 mg Q6H PRN PO MILD PAIN(1-3)OR ELEVATED TEMP Last administered on 01/30/19 10:02; Admin Dose 650 MG; Start 01/26/19 at 20:30 Metoprolol Tartrate (Lopressor) 50 mg BID PO Last administered on 01/30/19 09:46; Admin Dose 50 MG; Start 01/26/19 at 21:00 Apixaban (Eliquis) 2.5 mg BID PO Last administered on 01/30/19 09:45; Admin Dose 2.5 MG; Start 01/26/19 at 21:00 Docusate Sodium (Colace) 100 mg BID PO Last administered on 01/30/19 09:44; Admin Dose 100 MG; Start 01/27/19 at 21:00 Patient Own Medication 1 ea DAILY PO Last administered on 01/30/19 09:44; Admin Dose 1 EA; Start 01/30/19 at 09:00 Gabapentin (Neurontin) 100 mg HS PO ; Start 01/30/19 at 21:00 Acetaminophen/ Hydrocodone Bitart ([place] (5/325)) 1 tab Q4H PRN PO MODERATE PAIN LEVEL 4-6 Last administered on 01/30/19 14:12; Admin Dose 1 TAB; Start 01/30/19 at 11:00 Acetaminophen/ Hydrocodone Bitart ([place] (5/325)) 2 tab Q4H PRN PO SEVERE PAIN LEVEL 7-10; Start 01/30/19 at 11:00 NYA VALENTE MD Jan 30, 2019 14:16
[2019-01-30 20:24] VITALS: BP 137/65; PULSE 58; RESP 18
[2019-01-31 02:00] VITALS: BP 122/61; PULSE 65; RESP 18
[2019-01-31] MEDS: PANTOPRAZOLE (EC) 40 MG TAB PO SCH (06:09)
[2019-01-31] MEDS: HYDROCODONE/APAP (5/325) TAB PO PRN (06:10)
[2019-01-31 07:30] VITALS: BP 125/60; PULSE 56; RESP 18
[2019-01-31] MEDS: CHOLECALCIFEROL 1,000 UNIT TAB PO SCH (10:20)
[2019-01-31] MEDS: FERROUS SULFATE (EC) 325 MG TAB PO SCH (10:21)
[2019-01-31] MEDS: APIXABAN 5 MG TABLET PO SCH ×2 (10:21→20:43)
[2019-01-31] MEDS: ASCORBIC ACID 500 MG TAB PO SCH (10:21)
[2019-01-31] MEDS: DOCUSATE SODIUM 100 MG CAP PO SCH ×2 (10:21→20:42)
[2019-01-31] MEDS: AMIODARONE 200 MG TAB PO SCH ×2 (10:22→20:43)
[2019-01-31] MEDS: BRIMONIDINE 0.2%-TIMOLOL 0.5% 5ML OPH LEFT EYE SCH ×2 (10:22→20:44)
[2019-01-31] MEDS: PRESERVISION AREDS 2 FORMULA PO SCH (10:22)
[2019-01-31] MEDS: METOPROLOL 50 MG TAB PO SCH ×2 (10:22→20:43)
--- NOTE | 2019-01-31 12:36 | PN ---
Date/Time of Note Date/Time of Note DATE: 01/31/19 TIME: 12:35 Subjective No new complaints Objective Vital Signs Date Temp Pulse Resp B/P (MAP) Pulse Ox O2 O2 Flow FiO2 Time Delivery Rate 01/31/19 98.0 56 18 125/60 94 Room Air 07:30 (81) Intake and Output 01/30/19 01/30/19 01/31/19 1515:00 23:00 07:00 IntakeIntake Total 1200 ml 550 ml OutputOutput Total 600 ml BalanceBalance 600 ml 550 ml Exam pulm-cta abd-soft mod assist Results/Medications Result Diagram: 01/30/19 0610 01/30/19 0610 Medications Current Medications Miscellaneous Information (Pending [facility] Order For Wound Care) This patient cheng... PRN PRN XX WOUND CARE; Start 01/26/19 at 17:30 Ascorbic Acid (Vitamin C) 1,000 mg DAILY PO Last administered on 01/31/19 10:21; Admin Dose 1,000 MG; Start 01/27/19 at 09:00 Brimonidine/ Timolol (Combigan Oph) 1 drop BID LEFT EYE Last administered on 01/31/19 10:22; Admin Dose 1 DROP; Start 01/26/19 at 21:00 Cholecalciferol (Vitamin D) 1,000 unit DAILY PO Last administered on 01/31/19 10:20; Admin Dose 1,000 UNIT; Start 01/27/19 at 09:00 Ferrous Sulfate (Ferrous Sulfate (Ec)) 325 mg DAILY PO Last administered on 01/31/19 10:21; Admin Dose 325 MG; Start 01/27/19 at 09:00 Pantoprazole (Protonix Tab) 40 mg DAILY@06 PO Last administered on 01/31/19 06:09; Admin Dose 40 MG; Start 01/27/19 at 06:00 Ondansetron HCl (Zofran Inj) 4 mg Q4H PRN IV NAUSEA/VOMITING; Start 01/26/19 at 20:30 Simethicone (Mylicon) 80 mg TID PRN PO .GAS; Start 01/26/19 at 20:30 Senna/Docusate Sodium (Senokot-S) 2 tab BID PRN PO .CONSTIPATION Last administered on 01/28/19at 14:43; Admin Dose 2 TAB; Start 01/26/19 at 20:30 Magnesium Hydroxide (Milk Of Mag) 30 ml HS PRN PO .CONSTIPATION Last administered on 01/28/19 16:17; Admin Dose 30 ML; Start 01/26/19 at 20:30 Bisacodyl (Dulcolax Supp) 10 mg DAILY PRN [place] .CONSTIPATION; Start 01/26/19 at 20:30 Sodium Biphosphate/ Sodium Phosphate (Fleet Enema) 133 ml DAILY PRN [place] .CONSTIPATION; Start 01/26/19 at 20:30 Naloxone HCl (Narcan) 0.2 mg Q2M PRN IV .RESP RATE; Start 01/26/19 at 20:30 Trimethobenzamide HCl (Tigan) 200 mg Q6H PRN IM NAUSEA AND/OR VOMITING; Start 01/26/19 at 20:30 Amiodarone HCl (Cordarone) 200 mg BID PO Last administered on 01/31/19 10:22; Admin Dose 200 MG; Start 01/26/19 at 21:00 Acetaminophen (Tylenol Tab) 650 mg Q6H PRN PO MILD PAIN(1-3)OR ELEVATED TEMP Last administered on 01/30/19 10:02; Admin Dose 650 MG; Start 01/26/19 at 20:30 Metoprolol Tartrate (Lopressor) 50 mg BID PO Last administered on 01/31/19 10:22; Admin Dose 50 MG; Start 01/26/19 at 21:00 Apixaban (Eliquis) 2.5 mg BID PO Last administered on 01/31/19 10:21; Admin Dose 2.5 MG; Start 01/26/19 at 21:00 Docusate Sodium (Colace) 100 mg BID PO Last administered on 01/31/19 10:21; Admin Dose 100 MG; Start 01/27/19 at 21:00 Patient Own Medication 1 ea DAILY PO Last administered on 01/31/19 10:22; Admin Dose 1 EA; Start 01/30/19 at 09:00 Gabapentin (Neurontin) 100 mg HS PO Last administered on 01/30/19 21:16; Admin Dose 100 MG; Start 01/30/19 at 21:00 Acetaminophen/ Hydrocodone Bitart ([place] (5/325)) 1 tab Q4H PRN PO MODERATE PAIN LEVEL 4-6 Last administered on 01/31/19at 06:10; Admin Dose 1 TAB; Start 01/30/19 at 11:00 Acetaminophen/ Hydrocodone Bitart ([place] (5/325)) 2 tab Q4H PRN PO SEVERE PAIN LEVEL 7-10; Start 01/30/19 at 11:00 Assessment/Plan Additional Assessment/Plan Rehab- Other neurologic disorder, possible postoperative TIA and encephalopathy;Status post right total knee arthroplasty Tolerating rehab activities, feeling better Atrial fibrillation. Aortic stenosis. Carotid artery stenosis. NYA VALENTE MD Jan 31, 2019 12:36
[2019-01-31 14:00] VITALS: BP 134/64; PULSE 55; RESP 18
--- NOTE | 2019-01-31 14:59 | PN ---
Date/Time of Note Date/Time of Note DATE: 01/31/19 TIME: 14:58 Assessment/Plan VTE Prophylaxis Risk score (from Ns)>0 risk: 7 SCD applied (from Ns): Yes Pharmacological prophylaxis: apixaban Lines/Catheters IV [facility]from [facility] Saline Lock Urinary Cath still in place: No Assessment/Plan Hospital Course SUBJECTIVE: No acute distress OBJECTIVE: Vital signs-see below PHYSICAL EXAM: Constitutional: Frail looking elderly female, not in any apparent distress.Psych: nl mood/affect, no complaints Head: atraumatic, normocephalic Eyes: nl conjunctiva, nl sclera ENMT: mucosa pink and moist, nl external ears & nose Neck: non-tender, supple Respiratory: diminished bibasilar. normal air movement Cardiovascular: nl pulses, regular rate and rhythm Gastrointestinal: non-tender, soft, bowel sounds active in all 4 quadrants. Musculoskeletal/extremities: nl extremities to inspection, motor strength equal bilaterally, no focal deficit. Normal pulses,no cyanosis, no edema. Neurological: Alert oriented 3,nl speech, nl strength Skin: +ecchymosis. nl turgor ASSESSMENT/PLAN:assessment and plan: 88-year-old female status post right total knee arthroplasty for severe degenerative arthritis, right knee, avascular necrosis, as well as a previous open reduction and internal fixation in the right patella, who had a mary postoperative course complicated by atrial fibril lation with rapid ventricular response, hypertension and right-sided weakness/transient ischemic attack. 1. Osteoarthritis, Status post right total knee arthroplasty. -PT/Rehab -Patient on Eliquis already, no further prophylaxis indicated. 2. Paroxysmal atrial fibrillation -rate controlled -cont.amiodarone,BB,ATC Eliquis 3. History of bladder cancer - status post chemotherapy. 4. Status post transient ischemic attack. -monitor 5. Status post gaw-RI-atnezhl elevation myocardial infarction, likely related to atrial fibrillation. -no acute chest syndromes 6. Chronic emphysema. -monitor 7. Chronic anemia. -Stable H&H. Continue to monitor. DVT prophylaxis: Eliquis. Patient was seen in collaboration with . Result Diagram: 01/30/19 0610 01/30/19 0610 Exam/Review of Systems Exam Vitals Vital Signs Date Temp Pulse Resp B/P (MAP) Pulse Ox O2 O2 Flow FiO2 Time Delivery Rate 01/31/19 98.0 56 18 125/60 94 Room Air 07:30 (81) Intake and Output 01/30/19 01/30/19 01/31/19 1515:00 23:00 07:00 IntakeIntake Total 1200 ml 550 ml OutputOutput Total 600 ml BalanceBalance 600 ml 550 ml Medications Medication Current Medications Miscellaneous Information ([facility]) This patient cheng... PRN PRN XX WOUND CARE; Start 01/26/19 at 17:30 Ascorbic Acid (Vitamin C) 1,000 mg DAILY PO Last administered on 01/31/19 10:21; Admin Dose 1,000 MG; Start 01/27/19 at 09:00 Brimonidine/ Timolol (Combigan Oph) 1 drop BID LEFT EYE Last administered on 01/31/19 10:22; Admin Dose 1 DROP; Start 01/26/19 at 21:00 Cholecalciferol (Vitamin D) 1,000 unit DAILY PO Last administered on 01/31/19 10:20; Admin Dose 1,000 UNIT; Start 01/27/19 at 09:00 Ferrous Sulfate (Ferrous Sulfate (Ec)) 325 mg DAILY PO Last administered on 01/31/19 10:21; Admin Dose 325 MG; Start 01/27/19 at 09:00 Pantoprazole (Protonix Tab) 40 mg DAILY@06 PO Last administered on 01/31/19 06:09; Admin Dose 40 MG; Start 01/27/19 at 06:00 Ondansetron HCl (Zofran Inj) 4 mg Q4H PRN IV NAUSEA/VOMITING; Start 01/26/19 at 20:30 Simethicone (Mylicon) 80 mg TID PRN PO .GAS; Start 01/26/19 at 20:30 Senna/Docusate Sodium (Senokot-S) 2 tab BID PRN PO .CONSTIPATION Last administered on 01/28/19 14:43; Admin Dose 2 TAB; Start 01/26/19 at 20:30 Magnesium Hydroxide (Milk Of Mag) 30 ml HS PRN PO .CONSTIPATION Last administered on 01/28/19 16:17; Admin Dose 30 ML; Start 01/26/19 at 20:30 Bisacodyl (Dulcolax Supp) 10 mg DAILY PRN [place] .CONSTIPATION; Start 01/26/19 at 20:30 Sodium Biphosphate/ Sodium Phosphate (Fleet Enema) 133 ml DAILY PRN [place] .CONSTIPATION; Start 01/26/19 at 20:30 Naloxone HCl (Narcan) 0.2 mg Q2M PRN IV .RESP RATE; Start 01/26/19 at 20:30 Trimethobenzamide HCl (Tigan) 200 mg Q6H PRN IM NAUSEA AND/OR VOMITING; Start 01/26/19 at 20:30 Amiodarone HCl (Cordarone) 200 mg BID PO Last administered on 01/31/19 10:22; Admin Dose 200 MG; Start 01/26/19 at 21:00 Acetaminophen (Tylenol Tab) 650 mg Q6H PRN PO MILD PAIN(1-3)OR ELEVATED TEMP Last administered on 01/30/19 10:02; Admin Dose 650 MG; Start 01/26/19 at 20:30 Metoprolol Tartrate (Lopressor) 50 mg BID PO Last administered on 01/31/19 10:22; Admin Dose 50 MG; Start 01/26/19 at 21:00 Apixaban (Eliquis) 2.5 mg BID PO Last administered on 01/31/19 10:21; Admin Dose 2.5 MG; Start 01/26/19 at 21:00 Docusate Sodium (Colace) 100 mg BID PO Last administered on 01/31/19 10:21; Admin Dose 100 MG; Start 01/27/19 at 21:00 Patient Own Medication 1 ea DAILY PO Last administered on 01/31/19 10:22; Admin Dose 1 EA; Start 01/30/19 at 09:00 Gabapentin (Neurontin) 100 mg HS PO Last administered on 01/30/19 21:16; Admin Dose 100 MG; Start 01/30/19 at 21:00 Acetaminophen/ Hydrocodone Bitart ([place] (5/325)) 1 tab Q4H PRN PO MODERATE PAIN LEVEL 4-6 Last administered on 01/31/19 06:10; Admin Dose 1 TAB; Start 01/30/19 at 11:00 Acetaminophen/ Hydrocodone Bitart ([place] (5/325)) 2 tab Q4H PRN PO SEVERE PAIN LEVEL 7-10; Start 01/30/19 at 11:00 EDEL MILLER NP Jan 31, 2019 14:59
[2019-01-31 20:12] VITALS: BP 133/67; PULSE 63; RESP 18
[2019-01-31] MEDS: GABAPENTIN 100 MG CAP PO SCH (20:42)
[2019-02-01] MEDS: HYDROCODONE/APAP (5/325) TAB PO PRN ×2 (01:09→08:54)
[2019-02-01 02:00] VITALS: BP 125/62; PULSE 61; RESP 18
[2019-02-01] MEDS: PANTOPRAZOLE (EC) 40 MG TAB PO SCH (06:18)
[2019-02-01 07:00] VITALS: BP 117/58; PULSE 77; RESP 16
[2019-02-01] MEDS: PRESERVISION AREDS 2 FORMULA PO SCH (08:50)
[2019-02-01] MEDS: BRIMONIDINE 0.2%-TIMOLOL 0.5% 5ML OPH LEFT EYE SCH ×2 (08:52→21:24)
[2019-02-01] MEDS: ASCORBIC ACID 500 MG TAB PO SCH (08:53)
[2019-02-01] MEDS: DOCUSATE SODIUM 100 MG CAP PO SCH ×2 (08:53→21:24)
[2019-02-01] MEDS: AMIODARONE 200 MG TAB PO SCH ×2 (08:53→21:25)
[2019-02-01] MEDS: FERROUS SULFATE (EC) 325 MG TAB PO SCH (08:53)
[2019-02-01] MEDS: CHOLECALCIFEROL 1,000 UNIT TAB PO SCH (08:53)
[2019-02-01] MEDS: APIXABAN 5 MG TABLET PO SCH ×2 (08:54→21:26)
[2019-02-01] MEDS: METOPROLOL 50 MG TAB PO SCH ×2 (08:54→21:00)
--- NOTE | 2019-02-01 09:57 | PN ---
Date/Time of Note Date/Time of Note DATE: 02/01/19 TIME: 09:53 Subjective AWAKE ALERT C/O L HAND PAIN Objective Vital Signs Date Temp Pulse Resp B/P (MAP) Pulse Ox O2 O2 Flow FiO2 Time Delivery Rate 02/01/19 98.2 61 18 125/62 96 Room Air 02:00 (83) Intake and Output 01/31/19 01/31/19 02/01/19 1515:00 23:00 07:00 IntakeIntake Total 200 ml 620 ml 1000 ml BalanceBalance 200 ml 620 ml 1000 ml Exam AWAKE ALERT LUNGS CTA COR RRR L HAND DEGEN CHANGES 1ST MCP, LT INTACT - TINELS AT WRIST CLOF XT AND GAIT MOD A Results/Medications Result Diagram: 01/30/19 0610 01/30/19 0610 Medications Current Medications Miscellaneous Information (Pending [facility] Order For Wound Care) This patient cheng... PRN PRN XX WOUND CARE; Start 01/26/19 at 17:30 Ascorbic Acid (Vitamin C) 1,000 mg DAILY PO Last administered on 02/01/19at 08:53; Admin Dose 1,000 MG; Start 01/27/19 at 09:00 Brimonidine/ Timolol (Combigan Oph) 1 drop BID LEFT EYE Last administered on 02/01/19at 08:52; Admin Dose 1 DROP; Start 01/26/19 at 21:00 Cholecalciferol (Vitamin D) 1,000 unit DAILY PO Last administered on 02/01/19at 08:53; Admin Dose 1,000 UNIT; Start 01/27/19 at 09:00 Ferrous Sulfate (Ferrous Sulfate (Ec)) 325 mg DAILY PO Last administered on 02/01/19at 08:53; Admin Dose 325 MG; Start 01/27/19 at 09:00 Pantoprazole (Protonix Tab) 40 mg DAILY@06 PO Last administered on 02/01/19at 06:18; Admin Dose 40 MG; Start 01/27/19 at 06:00 Ondansetron HCl (Zofran Inj) 4 mg Q4H PRN IV NAUSEA/VOMITING; Start 01/26/19 at 20:30 Simethicone (Mylicon) 80 mg TID PRN PO .GAS; Start 01/26/19 at 20:30 Senna/Docusate Sodium (Senokot-S) 2 tab BID PRN PO .CONSTIPATION Last administered on 01/28/19 14:43; Admin Dose 2 TAB; Start 01/26/19 at 20:30 Magnesium Hydroxide (Milk Of Mag) 30 ml HS PRN PO .CONSTIPATION Last administered on 01/28/19 16:17; Admin Dose 30 ML; Start 01/26/19 at 20:30 Bisacodyl (Dulcolax Supp) 10 mg DAILY PRN [place] .CONSTIPATION; Start 01/26/19 at 20:30 Sodium Biphosphate/ Sodium Phosphate (Fleet Enema) 133 ml DAILY PRN [place] .CONSTIPATION; Start 01/26/19 at 20:30 Naloxone HCl (Narcan) 0.2 mg Q2M PRN IV .RESP RATE; Start 01/26/19 at 20:30 Trimethobenzamide HCl (Tigan) 200 mg Q6H PRN IM NAUSEA AND/OR VOMITING; Start 01/26/19 at 20:30 Amiodarone HCl (Cordarone) 200 mg BID PO Last administered on 02/01/19 08:53; Admin Dose 200 MG; Start 01/26/19 at 21:00 Acetaminophen (Tylenol Tab) 650 mg Q6H PRN PO MILD PAIN(1-3)OR ELEVATED TEMP Last administered on 01/30/19 10:02; Admin Dose 650 MG; Start 01/26/19 at 20:30 Metoprolol Tartrate (Lopressor) 50 mg BID PO Last administered on 02/01/19 08:54; Admin Dose 50 MG; Start 01/26/19 at 21:00 Apixaban (Eliquis) 2.5 mg BID PO Last administered on 02/01/19 08:54; Admin Dos e 2.5 MG; Start 01/26/19 at 21:00 Docusate Sodium (Colace) 100 mg BID PO Last administered on 02/01/19 08:53; Admin Dose 100 MG; Start 01/27/19 at 21:00 Patient Own Medication 1 ea DAILY PO Last administered on 02/01/19 08:50; Admin Dose 1 EA; Start 01/30/19 at 09:00 Gabapentin (Neurontin) 100 mg HS PO Last administered on 01/31/19 20:42; Admin Dose 100 MG; Start 01/30/19 at 21:00 Acetaminophen/ Hydrocodone Bitart ([place] (5/325)) 1 tab Q4H PRN PO MODERATE PAIN LEVEL 4-6 Last administered on 02/01/19at 01:09; Admin Dose 1 TAB; Start 01/30/19 at 11:00 Acetaminophen/ Hydrocodone Bitart ([place] (5/325)) 2 tab Q4H PRN PO SEVERE PAIN LEVEL 7-10 Last administered on 02/01/19at 08:54; Admin Dose 2 TAB; Start 01/30/19 at 11:00 Assessment/Plan Additional Assessment/Plan Rehab- Other neurologic disorder, possible postoperative TIA and encephalopathy;Status post right total knee arthroplasty Tolerating rehab activities, feeling better Atrial fibrillation.CARDIAC PRECAUTIONS TRACK HR AND BPS WITH OOB Aortic stenosis. Carotid artery stenosis. SEVERE OA L HAND TRIAL FOREARM TROUGH NO BENEFIT YAZMIN VALENTE MD Feb 01, 2019 09:57
--- NOTE | 2019-02-01 10:27 | PN ---
Date/Time of Note Date/Time of Note DATE: 02/01/19 TIME: 10:25 Assessment/Plan VTE Prophylaxis Risk score (from Ns)>0 risk: 7 [facility] No SCD contraindicated: low risk/ambulating Pharmacological prophylaxis: heparin Lines/Catheters [facility] Saline Lock Urinary Cath still in place: No Assessment/Plan Problems: (1) History of arthroplasty of right knee Onset Date: ~ 01/21/2019 Status: Acute Comment: Progressing with therapy with acute rehabilitation protocol and doing well. (2) Paroxysmal atrial fibrillation Status: Acute Comment: New diagnosis, on medications including Eliquis (3) Postoperative anemia Status: Acute Comment: Noted. Check iron levels (4) Moderate calcific aortic stenosis Status: Chronic Comment: Noted. Caution with medications (5) Left ventricular hypertrophy Status: Chronic Comment: Noted. (6) Pure hypercholesterolemia Status: Chronic Comment: Continue statin therapy Result Diagram: 01/30/19 0610 01/30/19 0610 Subjective 24 Hr Interval Summary Free Text/Dictation Patient reports she is doing okay and plans to be discharged on Sunday. Constitutional: no complaints Respiratory: no complaints Cardiovascular: no complaints Gastrointestinal: no complaints Genitourinary: no complaints Exam/Review of Systems Exam Vitals Vital Signs Date Temp Pulse Resp B/P (MAP) Pulse Ox O2 O2 Flow FiO2 Time Delivery Rate 02/01/19 98.0 77 16 117/58 96 Room Air 07:00 (77) Intake and Output 01/31/19 01/31/19 02/01/19 1515:00 23:00 07:00 IntakeIntake Total 200 ml 620 ml 1000 ml BalanceBalance 200 ml 620 ml 1000 ml Constitutional: alert, oriented Neck: supple, non-tender, other (Murmur radiates up into both carotids) Respiratory: clear to auscultation, normal air movement Cardiovascular: regular rate and rhythm, nl pulses, murmurs/extra sounds (Crescendo decrescendo holosystolic murmur) Gastrointestinal: soft, nl liver, spleen, non-tender Medications Medication Current Medications Miscellaneous Information (Pending [facility] Order For Wound Care) This patient cheng... PRN PRN XX WOUND CARE; Start 01/26/19 at 17:30 Ascorbic Acid (Vitamin C) 1,000 mg DAILY PO Last administered on 02/01/19 08:53; Admin Dose 1,000 MG; Start 01/27/19 at 09:00 Brimonidine/ Timolol (Combigan Oph) 1 drop BID LEFT EYE Last administered on 02/01/19 08:52; Admin Dose 1 DROP; Start 01/26/19 at 21:00 Cholecalciferol (Vitamin D) 1,000 unit DAILY PO Last administered on 02/01/19 08:53; Admin Dose 1,000 UNIT; Start 01/27/19 at 09:00 Ferrous Sulfate (Ferrous Sulfate (Ec)) 325 mg DAILY PO Last administered on 02/01/19 08:53; Admin Dose 325 MG; Start 01/27/19 at 09:00 Pantoprazole (Protonix Tab) 40 mg DAILY@06 PO Last administered on 02/01/19 06:18; Admin Dose 40 MG; Start 01/27/19 at 06:00 Ondansetron HCl (Zofran Inj) 4 mg Q4H PRN IV NAUSEA/VOMITING; Start 01/26/19 at 20:30 Simethicone (Mylicon) 80 mg TID PRN PO .GAS; Start 01/26/19 at 20:30 Senna/Docusate Sodium (Senokot-S) 2 tab BID PRN PO .CONSTIPATION Last administered on 01/28/19 14:43; Admin Dose 2 TAB; Start 01/26/19 at 20:30 Magnesium Hydroxide (Milk Of Mag) 30 ml HS PRN PO .CONSTIPATION Last administered on 01/28/19 16:17; Admin Dose 30 ML; Start 01/26/19 at 20:30 Bisacodyl (Dulcolax Supp) 10 mg DAILY PRN [place] .CONSTIPATION; Start 01/26/19 at 20:30 Sodium Biphosphate/ Sodium Phosphate (Fleet Enema) 133 ml DAILY PRN [place] .C ONSTIPATION; Start 01/26/19 at 20:30 Naloxone HCl (Narcan) 0.2 mg Q2M PRN IV .RESP RATE; Start 01/26/19 at 20:30 Trimethobenzamide HCl (Tigan) 200 mg Q6H PRN IM NAUSEA AND/OR VOMITING; Start 01/26/19 at 20:30 Amiodarone HCl (Cordarone) 200 mg BID PO Last administered on 02/01/19 08:53; Admin Dose 200 MG; Start 01/26/19 at 21:00 Acetaminophen (Tylenol Tab) 650 mg Q6H PRN PO MILD PAIN(1-3)OR ELEVATED TEMP Last administered on 01/30/19 10:02; Admin Dose 650 MG; Start 01/26/19 at 20:30 Metoprolol Tartrate (Lopressor) 50 mg BID PO Last administered on 02/01/19 08:54; Admin Dose 50 MG; Start 01/26/19 at 21:00 Apixaban (Eliquis) 2.5 mg BID PO Last administered on 02/01/19 08:54; Admin Dose 2.5 MG; Start 01/26/19 at 21:00 Docusate Sodium (Colace) 100 mg BID PO Last administered on 02/01/19 08:53; Admin Dose 100 MG; Start 01/27/19 at 21:00 Patient Own Medication 1 ea DAILY PO Last administered on 02/01/19 08:50; Admin Dose 1 EA; Start 01/30/19 at 09:00 Gabapentin (Neurontin) 100 mg HS PO Last administered on 01/31/19 20:42; Admin Dose 100 MG; Start 01/30/19 at 21:00 Acetaminophen/ Hydrocodone Bitart ([place] (5/325)) 1 tab Q4H PRN PO MODERATE PAIN LEVEL 4-6 Last administered on 02/01/19 01:09; Admin Dose 1 TAB; Start 01/30/19 at 11:00 Acetaminophen/ Hydrocodone Bitart ([place] (5/325)) 2 tab Q4H PRN PO SEVERE PAIN LEVEL 7-10 Last administered on 02/01/19 08:54; Admin Dose 2 TAB; Start 01/30/19 at 11:00 SARAH ALLEN MD Feb 01, 2019 10:27
[2019-02-01 14:00] VITALS: BP 127/58; PULSE 62; RESP 18
[2019-02-01 20:29] VITALS: BP 117/56; PULSE 59; RESP 18
[2019-02-01] MEDS: GABAPENTIN 100 MG CAP PO SCH (21:27)
[2019-02-02 02:55] VITALS: BP 124/58; PULSE 60; RESP 17
[2019-02-02] MEDS: PANTOPRAZOLE (EC) 40 MG TAB PO SCH (06:09)
[2019-02-02 07:00] VITALS: BP 128/58; PULSE 85; RESP 16
--- NOTE | 2019-02-02 08:07 | PN ---
Date/Time of Note Date/Time of Note DATE: 02/02/19 TIME: 08:06 Subjective AWAKE ALERT, MILD L HAND AND FOREARM PAIN Objective Vital Signs Date Temp Pulse Resp B/P (MAP) Pulse Ox O2 O2 Flow FiO2 Time Delivery Rate 02/02/19 97.9 60 17 124/58 94 Room Air 02:55 (80) Intake and Output 02/01/19 02/01/19 02/02/19 1515:00 23:00 07:00 IntakeIntake Total 250 ml 780 ml OutputOutput Total 300 ml BalanceBalance 250 ml 780 ml -300 ml Exam LUNGS CTA COR RRR L HAND OA CHANGES CLOF XT AND GAIT MODA Results/Medications Result Diagram: 01/30/1960901/30/19609 Results 24 hrs Laboratory Tests Test 02/01/19 11:47 Iron Level 42 Total Iron Binding Capacity 263 Percent Iron Saturation 16 L Medications Current Medications Miscellaneous Information (Pending [facility] Order For Wound Care) This patient cheng... PRN PRN XX WOUND CARE; Start 01/26/19 at 17:30 Ascorbic Acid (Vitamin C) 1,000 mg DAILY PO Last administered on 02/01/19 08:53; Admin Dose 1,000 MG; Start 01/27/19 at 09:00 Brimonidine/ Timolol (Combigan Oph) 1 drop BID LEFT EYE Last administered on 02/01/19at 21:24; Admin Dose 1 DROP; Start 01/26/19 at 21:00 Cholecalciferol (Vitamin D) 1,000 unit DAILY PO Last administered on 02/01/19 08:53; Admin Dose 1,000 UNIT; Start 01/27/19 at 09:00 Ferrous Sulfate (Ferrous Sulfate (Ec)) 325 mg DAILY PO Last administered on 02/01/19 08:53; Admin Dose 325 MG; Start 01/27/19 at 09:00 Pantoprazole (Protonix Tab) 40 mg DAILY@06 PO Last administered on 02/02/19at 06:09; Admin Dose 40 MG; Start 01/27/19 at 06:00 Ondansetron HCl (Zofran Inj) 4 mg Q4H PRN IV NAUSEA/VOMITING; Start 01/26/19 at 20:30 Simethicone (Mylicon) 80 mg TID PRN PO .GAS; Start 01/26/19 at 20:30 Senna/Docusate Sodium (Senokot-S) 2 tab BID PRN PO .CONSTIPATION Last administered on 01/28/19 14:43; Admin Dose 2 TAB; Start 01/26/19 at 20:30 Magnesium Hydroxide (Milk Of Mag) 30 ml HS PRN PO .CONSTIPATION Last administered on 01/28/19 16:17; Admin Dose 30 ML; Start 01/26/19 at 20:30 Bisacodyl (Dulcolax Supp) 10 mg DAILY PRN [place] .CONSTIPATION; Start 01/26/19 at 20:30 Sodium Biphosphate/ Sodium Phosphate (Fleet Enema) 133 ml DAILY PRN [place] .CONSTIPATION; Start 01/26/19 at 20:30 Naloxone HCl (Narcan) 0.2 mg Q2M PRN IV .RESP RATE; Start 01/26/19 at 20:30 Trimethobenzamide HCl (Tigan) 200 mg Q6H PRN IM NAUSEA AND/OR VOMITING; Start 01/26/19 at 20:30 Amiodarone HCl (Cordarone) 200 mg BID PO Last administered on 02/01/19 21:25; Admin Dose 200 MG; Start 01/26/19 at 21:00 Acetaminophen (Tylenol Tab) 650 mg Q6H PRN PO MILD PAIN(1-3)OR ELEVATED TEMP Last administered on 01/30/19 10:02; Admin Dose 650 MG; Start 01/26/19 at 20:30 Metoprolol Tartrate (Lopressor) 50 mg BID PO Last administered on 02/01/19 08:54; Admin Dose 50 MG; Start 01/26/19 at 21:00 Apixaban (Eliquis) 2.5 mg BID PO Last administered on 02/01/19 21:26; Admin Dose 2.5 MG; Start 01/26/19 at 21:00 Docusate Sodium (Colace) 100 mg BID PO Last administered on 02/01/19 21:24; Admin Dose 100 MG; Start 01/27/19 at 21:00 Patient Own Medication 1 ea DAILY PO Last administered on 02/01/19 08:50; Admin Dose 1 EA; Start 01/30/19 at 09:00 Gabapentin (Neurontin) 100 mg HS PO Last administered on 02/01/19 21:27; Admin Dose 100 MG; Start 01/30/19 at 21:00 Acetaminophen/ Hydrocodone Bitart ([place] (5/325)) 1 tab Q4H PRN PO MODERATE PAIN LEVEL 4-6 Last administered on 02/01/19at 01:09; Admin Dose 1 TAB; Start 01/30/19 at 11:00 Acetaminophen/ Hydrocodone Bitart ([place] (5/325)) 2 tab Q4H PRN PO SEVERE PAIN LEVEL 7-10 Last administered on 02/01/19at 08:54; Admin Dose 2 TAB; Start 01/30/19 at 11:00 Assessment/Plan Additional Assessment/Plan Rehab- Other neurologic disorder, possible postoperative TIA and encephalopathy;Status post right total knee arthroplasty Tolerating rehab activities, feeling better Atrial fibrillation.CARDIAC PRECAUTIONS TRACK HR AND BPS WITH OOB Aortic stenosis. Carotid artery stenosis. SEVERE OA L HAND TRIAL FOREARM TROUGH NO BENEFIT YAZMIN VALENTE MD Feb 02, 2019 08:07
[2019-02-02] MEDS: FERROUS SULFATE (EC) 325 MG TAB PO SCH (08:47)
[2019-02-02] MEDS: APIXABAN 5 MG TABLET PO SCH ×2 (08:48→21:33)
[2019-02-02] MEDS: PRESERVISION AREDS 2 FORMULA PO SCH (08:48)
[2019-02-02] MEDS: METOPROLOL 50 MG TAB PO SCH ×2 (08:48→21:32)
[2019-02-02] MEDS: CHOLECALCIFEROL 1,000 UNIT TAB PO SCH (08:48)
[2019-02-02] MEDS: AMIODARONE 200 MG TAB PO SCH ×2 (08:48→21:33)
[2019-02-02] MEDS: DOCUSATE SODIUM 100 MG CAP PO SCH ×2 (08:48→21:33)
[2019-02-02] MEDS: ASCORBIC ACID 500 MG TAB PO SCH (08:48)
[2019-02-02] MEDS: BRIMONIDINE 0.2%-TIMOLOL 0.5% 5ML OPH LEFT EYE SCH ×2 (09:36→21:33)
[2019-02-02] MEDS: HYDROCODONE/APAP (5/325) TAB PO PRN ×2 (11:39→21:42)
--- NOTE | 2019-02-02 12:37 | PN ---
Date/Time of Note Date/Time of Note DATE: 02/02/19 TIME: 12:35 Assessment/Plan VTE Prophylaxis Risk score (from Ns)>0 risk: 7 SCD applied (from [facility] [place]): No SCD contraindicated: low risk/ambulating Pharmacological prophylaxis: heparin Lines/Catheters IV Catheter Type (from [place]): Saline Lock Urinary Cath still in place: No Assessment/Plan Problems: (1) History of arthroplasty of right knee Onset Date: ~ 01/21/2019 Status: Acute Comment: Resting with a protocol from the acute rehabilitation unit (2) Enterococcus UTI Status: Acute Comment: Patient without allergies, will give 1 week of oral ampicillin (3) Postoperative anemia Status: Acute Comment: Stable and receiving oral iron replacement therapy. Time limits put on medical therapy (4) Paroxysmal atrial fibrillation Status: Acute Comment: Noted and on anticoagulant therapy (5) Left ventricular hypertrophy Status: Chronic Comment: Noted. (6) Pure hypercholesterolemia Status: Chronic Comment: On statin therapy (7) Moderate calcific aortic stenosis Status: Chronic Comment: Stable and compensated (8) Bladder cancer Status: Chronic Comment: Noted. Qualifiers: Bladder location: unspecified site Qualified Codes: C67.9 - Malignant neoplasm of bladder, unspecified (9) Glaucoma Status: Chronic Comment: Noted and on treatment. Qualifiers: Glaucoma type: unspecified Laterality: bilateral Qualified Codes: H40.9 - Unspecified glaucoma Result Diagram: 01/30/19 0610 01/30/19 0610 Subjective 24 Hr Interval Summary Free Text/Dictation Patient reports she is progressing well Constitutional: no complaints Respiratory: no complaints Cardiovascular: no complaints Gastrointestinal: no complaints Genitourinary: dysuria Exam/Review of Systems Exam Vitals Vital Signs Date Temp Pulse Resp B/P (MAP) Pulse Ox O2 O2 Flow FiO2 Time Delivery Rate 02/02/19 98.5 85 16 128/58 98 Room Air 07:00 (81) Intake and Output 02/01/19 02/01/19 02/02/19 1515:00 23:00 07:00 IntakeIntake Total 250 ml 780 ml OutputOutput Total 300 ml BalanceBalance 250 ml 780 ml -300 ml Constitutional: alert, oriented Respiratory: clear to auscultation, normal air movement Cardiovascular: regular rate and rhythm, nl pulses Gastrointestinal: soft, nl liver, spleen, non-tender Medications Medication Current Medications Miscellaneous Information ([facility] This patient cheng... PRN PRN XX WOUND CARE; Start 01/26/19 at 17:30 Ascorbic Acid (Vitamin C) 1,000 mg DAILY PO Last administered on 02/02/19 08:48; Admin Dose 1,000 MG; Start 01/27/19 at 09:00; Stop 02/26/19 at 08:59 Brimonidine/ Timolol (Combigan Oph) 1 drop BID LEFT EYE Last administered on 02/02/19 09:36; Admin Dose 1 DROP; Start 01/26/19 at 21:00 Cholecalciferol (Vitamin D) 1,000 unit DAILY PO Last administered on 02/02/19 08:48; Admin Dose 1,000 UNIT; Start 01/27/19 at 09:00 Ferrous Sulfate (Ferrous Sulfate (Ec)) 325 mg DAILY PO Last administered on 02/02/19 08:47; Admin Dose 325 MG; Start 01/27/19 at 09:00; Stop 02/26/19 at 08:59 Pantoprazole (Protonix Tab) 40 mg DAILY@06 PO Last administered on 02/02/19 06:09; Admin Dose 40 MG; Start 01/27/19 at 06:00 Ondansetron HCl (Zofran Inj) 4 mg Q4H PRN IV NAUSEA/VOMITING; Start 01/26/19 at 20:30 Simethicone (Mylicon) 80 mg TID PRN PO .GAS; Start 01/26/19 at 20:30 Senna/Docusate Sodium (Senokot-S) 2 tab BID PRN PO .CONSTIPATION Last administered on 01/28/19at 14:43; Admin Dose 2 TAB; Start 01/26/19 at 20:30 Magnesium Hydroxide (Milk Of Mag) 30 ml HS PRN PO .CONSTIPATION Last administered on 01/28/19 16:17; Admin Dose 30 ML; Start 01/26/19 at 20:30 Bisacodyl (Dulcolax Supp) 10 mg DAILY PRN [place] .CONSTIPATION; Start 01/26/19 at 20:30 Sodium Biphosphate/ Sodium Phosphate (Fleet Enema) 133 ml DAILY PRN [place] .CONSTIPATION; Start 01/26/19 at 20:30 Naloxone HCl (Narcan) 0.2 mg Q2M PRN IV .RESP RATE; Start 01/26/19 at 20:30 Trimethobenzamide HCl (Tigan) 200 mg Q6H PRN IM NAUSEA AND/OR VOMITING; Start 01/26/19 at 20:30 Amiodarone HCl (Cordarone) 200 mg BID PO Last administered on 02/02/19 08:48; Admin Dose 200 MG; Start 01/26/19 at 21:00 Acetaminophen (Tylenol Tab) 650 mg Q6H PRN PO MILD PAIN(1-3)OR ELEVATED TEMP Last administered on 01/30/19 10:02; Admin Dose 650 MG; Start 01/26/19 at 20:30 Metoprolol Tartrate (Lopressor) 50 mg BID PO Last administered on 02/02/19 08:48; Admin Dose 50 MG; Start 01/26/19 at 21:00 Apixaban (Eliquis) 2.5 mg BID PO Last administered on 02/02/19 08:48; Admin Dose 2.5 MG; Start 01/26/19 at 21:00 Docusate Sodium (Colace) 100 mg BID PO Last administered on 02/02/19 08:48; Admin Dose 100 MG; Start 01/27/19 at 21:00 Patient Own Medication 1 ea DAILY PO Last administered on 02/02/19 08:48; Admin Dose 1 EA; Start 01/30/19 at 09:00 Gabapentin (Neurontin) 100 mg HS PO Last administered on 02/01/19 21:27; Admin Dose 100 MG; Start 01/30/19 at 21:00 Acetaminophen/ Hydrocodone Bitart ([place] (5/325)) 1 tab Q4H PRN PO MODERATE PAIN LEVEL 4-6 Last administered on 02/02/19 11:39; Admin Dose 1 TAB; Start 01/30/19 at 11:00 Acetaminophen/ Hydrocodone Bitart ([place] (5/325)) 2 tab Q4H PRN PO SEVERE PAIN LEVEL 7-10 Last administered on 02/01/19 08:54; Admin Dose 2 TAB; Start 01/30/19 at 11:00 Amoxicillin (Amoxicillin) 500 mg Q8 PO ; Start 02/02/19 at 14:00; Stop 02/09/19 at 13:59 SARAH ALLEN MD Feb 02, 2019 12:37
[2019-02-02] MEDS: AMOXICILLIN 500 MG CAP PO SCH ×2 (13:35→21:33)
[2019-02-02 14:00] VITALS: BP 103/50; PULSE 50; RESP 16
[2019-02-02 20:00] VITALS: BP 121/58; PULSE 58; RESP 18
[2019-02-02] MEDS: GABAPENTIN 100 MG CAP PO SCH (21:33)
[2019-02-03 02:00] VITALS: BP 132/63; PULSE 54; RESP 18
[2019-02-03] MEDS: PANTOPRAZOLE (EC) 40 MG TAB PO SCH (06:23)
[2019-02-03] MEDS: AMOXICILLIN 500 MG CAP PO SCH ×3 (06:23→21:08)
[2019-02-03] MEDS: ACETAMINOPHEN 325 MG TAB PO PRN (06:24)
[2019-02-03 07:00] VITALS: BP 116/58; PULSE 61; RESP 18
[2019-02-03] MEDS: BRIMONIDINE 0.2%-TIMOLOL 0.5% 5ML OPH LEFT EYE SCH ×2 (09:08→20:25)
[2019-02-03] MEDS: CHOLECALCIFEROL 1,000 UNIT TAB PO SCH (09:09)
[2019-02-03] MEDS: FERROUS SULFATE (EC) 325 MG TAB PO SCH (09:09)
[2019-02-03] MEDS: METOPROLOL 50 MG TAB PO SCH ×2 (09:09→20:26)
[2019-02-03] MEDS: DOCUSATE SODIUM 100 MG CAP PO SCH ×2 (09:09→20:39)
[2019-02-03] MEDS: AMIODARONE 200 MG TAB PO SCH ×2 (09:10→20:25)
[2019-02-03] MEDS: ASCORBIC ACID 500 MG TAB PO SCH (09:10)
[2019-02-03] MEDS: APIXABAN 5 MG TABLET PO SCH ×2 (09:11→20:26)
[2019-02-03] MEDS: PRESERVISION AREDS 2 FORMULA PO SCH (09:11)
[2019-02-03] MEDS: HYDROCODONE/APAP (5/325) TAB PO PRN (13:38)
[2019-02-03 14:00] VITALS: BP 120/60; PULSE 60; RESP 18
--- NOTE | 2019-02-03 14:39 | PN ---
Date/Time of Note Date/Time of Note DATE: 02/03/19 TIME: 14:39 Assessment/Plan VTE Prophylaxis Risk score (from Ns)>0 risk: 6 SCD applied (from Ns): No SCD contraindicated: other Pharmacological prophylaxis: apixaban Lines/Catheters [facility] Saline Lock Urinary Cath still in place: No Assessment/Plan Hospital Course SUBJECTIVE: No acute distress OBJECTIVE: Vital signs-see below PHYSICAL EXAM: Constitutional: Elderly female, not in any apparent distress. Psych: nl mood/affect, no complaints Head: atraumatic, normocephalic Eyes: nl conjunctiva, nl sclera ENMT: mucosa pink and moist, nl external ears & nose Neck: non-tender, supple Respiratory: diminished bibasilar. normal air movement Cardiovascular: nl pulses, regular rate and rhythm Gastrointestinal: non-tender, soft, bowel sounds active in all 4 quadrants. Musculoskeletal/extremities: nl extremities to inspection, motor strength equal bilaterally, no focal deficit. Normal pulses,no cyanosis, no edema. Neurological: Alert oriented 3,nl speech, nl strength Skin: +ecchymosis. nl turgor ASSESSMENT/PLAN:assessment and plan: 88-year-old female status post right total knee arthroplasty for severe degenerative arthritis, right knee, avascular necrosis, as well as a previous open reduction and internal fixation in the right patella, who had a mary postoperative course complicated by atrial fibrillation with rapid ventricular response, hypertension and right-sided weakness/transient ischemic attack. 1. Osteoarthritis, Status post right total knee arthroplasty. -PT/Rehab -Patient on Eliquis already, no further prophylaxis indicated. 2. Paroxysmal atrial fibrillation -rate controlled -cont.amiodarone,BB,ATC Eliquis 3. History of bladder cancer - status post chemotherapy. 4. Status post transient ischemic attack. -monitor 5. Status post [id number] elevation myocardial infarction, likely related to atrial fibrillation. -no acute chest syndromes 6. Chronic emphysema. -monitor 7. Chronic anemia. -Stable H&H. Continue to monitor. DVT prophylaxis: Eliquis. Patient was seen in collaboration with . Result Diagram: 01/30/19 0610 01/30/19 0610 Exam/Review of Systems Exam Vitals Vital Signs Date Temp Pulse Resp B/P (MAP) Pulse Ox O2 O2 Flow FiO2 Time Delivery Rate 02/03/19 98.5 61 18 116/58 97 Room Air 07:00 (77) Intake and Output 02/02/19 02/02/19 02/03/19 1515:00 23:00 07:00 IntakeIntake Total 750 ml 240 ml OutputOutput Total 200 ml BalanceBalance 550 ml 240 ml Medications Medication Current Medications Miscellaneous Information [facility] This patient cheng... PRN PRN XX WOUND CARE; Start 01/26/19 at 17:30 Ascorbic Acid (Vitamin C) 1,000 mg DAILY PO Last administered on 02/03/19 09:10; Admin Dose 1,000 MG; Start 01/27/19 at 09:00; Stop 02/26/19 at 08:59 Brimonidine/ Timolol (Combigan Oph) 1 drop BID LEFT EYE Last administered on 02/03/19 09:08; Admin Dose 1 DROP; Start 01/26/19 at 21:00 Cholecalciferol (Vitamin D) 1,000 unit DAILY PO Last administered on 02/03/19 09:09; Admin Dose 1,000 UNIT; Start 01/27/19 at 09:00 Ferrous Sulfate (Ferrous Sulfate (Ec)) 325 mg DAILY PO Last administered on 02/03/19 09:09; Admin Dose 325 MG; Start 01/27/19 at 09:00; Stop 02/26/19 at 08:59 Pantoprazole (Protonix Tab) 40 mg DAILY@06 PO Last administered on 02/03/19 06:23; Admin Dose 40 MG; Start 01/27/19 at 06:00 Ondansetron HCl (Zofran Inj) 4 mg Q4H PRN IV NAUSEA/VOMITING; Start 01/26/19 at 20:30 Simethicone (Mylicon) 80 mg TID PRN PO .GAS; Start 01/26/19 at 20:30 Senna/Docusate Sodium (Senokot-S) 2 tab BID PRN PO .CONSTIPATION Last administered on 01/28/19 14:43; Admin Dose 2 TAB; Start 01/26/19 at 20:30 Magnesium Hydroxide (Milk Of Mag) 30 ml HS PRN PO .CONSTIPATION Last administered on 01/28/19 16:17; Admin Dose 30 ML; Start 01/26/19 at 20:30 Bisacodyl (Dulcolax Supp) [address] .CONSTIPATION; Start 01/26/19 at 20:30 Sodium Biphosphate/ Sodium Phosphate (Fleet Enema) [address] .CONSTIPATION; Start 01/26/19 at 20:30 Naloxone HCl (Narcan) 0.2 mg Q2M PRN IV .RESP RATE; Start 01/26/19 at 20:30 Trimethobenzamide HCl (Tigan) 200 mg Q6H PRN IM NAUSEA AND/OR VOMITING; Start 01/26/19 at 20:30 Amiodarone HCl (Cordarone) 200 mg BID PO Last administered on 02/03/19 09:10; Admin Dose 200 MG; Start 01/26/19 at 21:00 Acetaminophen (Tylenol Tab) 650 mg Q6H PRN PO MILD PAIN(1-3)OR ELEVATED TEMP Last administered on 02/03/19 06:24; Admin Dose 650 MG; Start 01/26/19 at 20:30 Metoprolol Tartrate (Lopressor) 50 mg BID PO Last administered on 02/03/19 09:09; Admin Dose 50 MG; Start 01/26/19 at 21:00 Apixaban (Eliquis) 2.5 mg BID PO Last administered on 02/03/19 09:11; Admin Dose 2.5 MG; Start 01/26/19 at 21:00 Docusate Sodium (Colace) 100 mg BID PO Last administered on 02/03/19 09:09; Admin Dose 100 MG; Start 01/27/19 at 21:00 Patient Own Medication 1 ea DAILY PO Last administered on 02/03/19 09:11; Admin Dose 1 EA; Start 01/30/19 at 09:00 Gabapentin (Neurontin) 100 mg HS PO Last administered on 02/02/19 21:33; Admin Dose 100 MG; Start 01/30/19 at 21:00 Acetaminophen/ Hydrocodone Bitart ([place] (5/325)) 1 tab Q4H PRN PO MODERATE PAIN LEVEL 4-6 Last administered on 02/03/19 13:38; Admin Dose 1 TAB; Start 01/30/19 at 11:00 Acetaminophen/ Hydrocodone Bitart ([place] (5/325)) 2 tab Q4H PRN PO SEVERE PAIN LEVEL 7-10 Last administered on 02/01/19at 08:54; Admin Dose 2 TAB; Start 01/30/19 at 11:00 Amoxicillin (Amoxicillin) 500 mg Q8 PO Last administered on 02/03/19at 13:37; Admin Dose 500 MG; Start 02/02/19 at 14:00; Stop 02/09/19 at 13:59 EDEL MILLER NP Feb 03, 2019 14:39
[2019-02-03] MEDS: GABAPENTIN 100 MG CAP PO SCH (20:25)
[2019-02-03 20:33] VITALS: BP 128/59; PULSE 60; RESP 18
[2019-02-04 02:00] VITALS: BP 132/67; PULSE 58; RESP 18
[2019-02-04] MEDS: PANTOPRAZOLE (EC) 40 MG TAB PO SCH (05:48)
[2019-02-04] MEDS: AMOXICILLIN 500 MG CAP PO SCH ×3 (05:48→20:13)
[2019-02-04 07:30] VITALS: BP 131/60; PULSE 59; RESP 18
[2019-02-04] MEDS: CHOLECALCIFEROL 1,000 UNIT TAB PO SCH (08:44)
[2019-02-04] MEDS: ASCORBIC ACID 500 MG TAB PO SCH (08:44)
[2019-02-04] MEDS: HYDROCODONE/APAP (5/325) TAB PO PRN (08:45)
[2019-02-04] MEDS: PRESERVISION AREDS 2 FORMULA PO SCH (08:46)
[2019-02-04] MEDS: AMIODARONE 200 MG TAB PO SCH ×2 (08:46→20:12)
[2019-02-04] MEDS: BRIMONIDINE 0.2%-TIMOLOL 0.5% 5ML OPH LEFT EYE SCH ×2 (08:46→20:11)
[2019-02-04] MEDS: METOPROLOL 50 MG TAB PO SCH ×2 (08:46→20:13)
[2019-02-04] MEDS: FERROUS SULFATE (EC) 325 MG TAB PO SCH (08:47)
[2019-02-04] MEDS: DOCUSATE SODIUM 100 MG CAP PO SCH ×2 (08:47→20:12)
[2019-02-04] MEDS: APIXABAN 5 MG TABLET PO SCH ×2 (08:47→20:12)
[2019-02-04 14:00] VITALS: BP 114/58; PULSE 52; RESP 18
--- NOTE | 2019-02-04 14:03 | PN ---
Date/Time of Note Date/Time of Note DATE: 02/04/19 TIME: 14:03 Objective Vital Signs Date Temp Pulse Resp B/P (MAP) Pulse Ox O2 O2 Flow FiO2 Time Delivery Rate 02/04/19 98.3 59 18 131/60 95 Room Air 07:30 (83) Intake and Output 02/03/19 02/03/19 02/04/19 1515:00 23:00 07:00 IntakeIntake Total 800 ml 300 ml OutputOutput Total 600 ml 250 ml BalanceBalance 200 ml 50 ml Exam INTERDISCIPLINARY TEAM CONFERENCE Physical Exam: Pulm-cta Abd-soft BOWEL- Cont BLADDER-Cont SKIN- improving OT- DRESSING-cga/min BATHING-cga/min TOILETING-cga/min PT- BED MOBILITY-sba TRANSFERS-cga AMBULATION-cga 50 feet A/P- Interdisciplinary team conference held today. Please see interdisciplinary sheet. Working toward d.c. on 02/13 with post discharge follow up of physical therapy, occupational therapy. Results/Medications Medications Current Medications Miscellaneous Information (Pending [facility] Order For Wound Care) This patient cheng... PRN PRN XX WOUND CARE; Start 01/26/19 at 17:30 Ascorbic Acid (Vitamin C) 1,000 mg DAILY PO Last administered on 02/04/19at 08:44; Admin Dose 1,000 MG; Start 01/27/19 at 09:00; Stop 02/26/19 at 08:59 Brimonidine/ Timolol (Combigan Oph) 1 drop BID LEFT EYE Last administered on 02/04/19at 08:46; Admin Dose 1 DROP; Start 01/26/19 at 21:00 Cholecalciferol (Vitamin D) 1,000 unit DAILY PO Last administered on 02/04/19at 08:44; Admin Dose 1,000 UNIT; Start 01/27/19 at 09:00 Ferrous Sulfate (Ferrous Sulfate (Ec)) 325 mg DAILY PO Last administered on 02/04/19at 08:47; Admin Dose 325 MG; Start 01/27/19 at 09:00; Stop 02/26/19 at 08:59 Pantoprazole (Protonix Tab) 40 mg DAILY@06 PO Last administered on 02/04/19at 05:48; Admin Dose 40 MG; Start 01/27/19 at 06:00 Ondansetron HCl (Zofran Inj) 4 mg Q4H PRN IV NAUSEA/VOMITING; Start 01/26/19 at 20:30 Simethicone (Mylicon) 80 mg TID PRN PO .GAS; Start 01/26/19 at 20:30 Senna/Docusate Sodium (Senokot-S) 2 tab BID PRN PO .CONSTIPATION Last administered on 01/28/19 14:43; Admin Dose 2 TAB; Start 01/26/19 at 20:30 Magnesium Hydroxide (Milk Of Mag) 30 ml HS PRN PO .CONSTIPATION Last administered on 01/28/19 16:17; Admin Dose 30 ML; Start 01/26/19 at 20:30 Bisacodyl (Dulcolax Supp) 10 mg DAILY PRN [place] .CONSTIPATION; Start 01/26/19 at 20:30 Sodium Biphosphate/ Sodium Phosphate (Fleet Enema) 133 ml DAILY PRN [place] .CONSTIPATION; Start 01/26/19 at 20:30 Naloxone HCl (Narcan) 0.2 mg Q2M PRN IV .RESP RATE; Start 01/26/19 at 20:30 Trimethobenzamide HCl (Tigan) 200 mg Q6H PRN IM NAUSEA AND/OR VOMITING; Start 01/26/19 at 20:30 Amiodarone HCl (Cordarone) 200 mg BID PO Last administered on 02/04/19 08:46; Admin Dose 200 MG; Start 01/26/19 at 21:00 Acetaminophen (Tylenol Tab) 650 mg Q6H PRN PO MILD PAIN(1-3)OR ELEVATED TEMP Last administered on 02/03/19 06:24; Admin Dose 650 MG; Start 01/26/19 at 20:30 Metoprolol Tartrate (Lopressor) 50 mg BID PO Last administered on 02/04/19 08:46; Admin Dose 50 MG; Start 01/26/19 at 21:00 Apixaban (Eliquis) 2.5 mg BID PO Last administered on 02/04/19 08:47; Admin Dose 2.5 MG; Start 01/26/19 at 21:00 Docusate Sodium (Colace) 100 mg BID PO Last administered on 02/04/19 08:47; Admin Dose 100 MG; Start 01/27/19 at 21:00 Patient Own Medication 1 ea DAILY PO Last administered on 02/04/19 08:46; Admin Dose 1 EA; Start 01/30/19 at 09:00 Gabapentin (Neurontin) 100 mg HS PO Last administered on 02/03/19at 20:25; Admin Dose 100 MG; Start 01/30/19 at 21:00 Acetaminophen/ Hydrocodone Bitart ([place] (5/325)) 1 tab Q4H PRN PO MODERATE PAIN LEVEL 4-6 Last administered on 02/04/19 08:45; Admin Dose 1 TAB; Start 01/30/19 at 11:00 Acetaminophen/ Hydrocodone Bitart ([place] (5/325)) 2 tab Q4H PRN PO SEVERE PAIN LEVEL 7-10 Last administered on 02/01/19 08:54; Admin Dose 2 TAB; Start 01/30/19 at 11:00 Amoxicillin (Amoxicillin) 500 mg Q8 PO Last administered on 02/04/19at 05:48; Admin Dose 500 MG; Start 02/02/19 at 14:00; Stop 02/09/19 at 13:59 Betamethasone/ Clotrimazole (Lotrisone Cr) 1 applic BID TOP ; Start 02/04/19 at 21:00 NYA VALENTE MD Feb 04, 2019 14:03
--- NOTE | 2019-02-04 14:10 | PN ---
Date/Time of Note Date/Time of Note DATE: 02/04/19 TIME: 14:09 Assessment/Plan VTE Prophylaxis Risk score (from Ns)>0 risk: 6 [place] [facility] [place]CD contraindicated: other Pharmacological prophylaxis: apixaban Lines/Catheters [facility]from [facility] Saline Lock Urinary Cath still in place: No Assessment/Plan Hospital Course SUBJECTIVE: No acute distress OBJECTIVE: Vital signs-see below PHYSICAL EXAM: Constitutional: Elderly female, not in any apparent distress. Psych: nl mood/affect, no complaints Head: atraumatic, normocephalic Eyes: nl conjunctiva, nl sclera ENMT: mucosa pink and moist, nl external ears & nose Neck: non-tender, supple Respiratory: diminished bibasilar. normal air movement Cardiovascular: nl pulses, regular rate and rhythm Gastrointestinal: non-tender, soft, bowel sounds active in all 4 quadrants. Musculoskeletal/extremities: nl extremities to inspection, motor strength equal bilaterally, no focal deficit. Normal pulses,no cyanosis, no edema. Neurological: Alert oriented 3,nl speech, nl strength Skin: +ecchymosis. nl turgor ASSESSMENT/PLAN:assessment and plan: 88-year-old female status post right total knee arthroplasty for severe degenerative arthritis, right knee, avascular necrosis, as well as a previous open reduction and internal fixation in the right patella, who had a mary postoperative course complicated by atrial fibrillation with rapid ventricular response, hypertension and right-sided weakness/transient ischemic attack. 1. Osteoarthritis, Status post right total knee arthroplasty. -PT/Rehab -Patient on Eliquis already, no further prophylaxis indicated. 2. Paroxysmal atrial fibrillation -rate controlled -cont.amiodarone,BB,ATC Eliquis 3. History of bladder cancer - status post chemotherapy. 4. Status post transient ischemic attack. -monitor 5. Status post [id number] elevation myocardial infarction, likely related to atrial fibrillation. -no acute chest syndromes 6. Chronic emphysema. -monitor 7. Chronic anemia. -Stable H&H. Continue to monitor. DVT prophylaxis: Eliquis. Patient was seen in collaboration with . Exam/Review of Systems Exam Vitals Vital Signs Date Temp Pulse Resp B/P (MAP) Pulse Ox O2 O2 Flow FiO2 Time Delivery Rate 02/04/19 98.3 59 18 131/60 95 Room Air 07:30 (83) Intake and Output 02/03/19 02/03/19 02/04/19 1515:00 23:00 07:00 IntakeIntake Total 800 ml 300 ml OutputOutput Total 600 ml 250 ml BalanceBalance 200 ml 50 ml Medications Medication Current Medications Miscellaneous Information (Pending [facility] Order For Wound Care) This patient cheng... PRN PRN XX WOUND CARE; Start 01/26/19 at 17:30 Ascorbic Acid (Vitamin C) 1,000 mg DAILY PO Last administered on 02/04/19 08:44; Admin Dose 1,000 MG; Start 01/27/19 at 09:00; Stop 02/26/19 at 08:59 Brimonidine/ Timolol (Combigan Oph) 1 drop BID LEFT EYE Last administered on 02/04/19 08:46; Admin Dose 1 DROP; Start 01/26/19 at 21:00 Cholecalciferol (Vitamin D) 1,000 unit DAILY PO Last administered on 02/04/19 08:44; Admin Dose 1,000 UNIT; Start 01/27/19 at 09:00 Ferrous Sulfate (Ferrous Sulfate (Ec)) 325 mg DAILY PO Last administered on 02/04/19 08:47; Admin Dose 325 MG; Start 01/27/19 at 09:00; Stop 02/26/19 at 08:59 Pantoprazole (Protonix Tab) 40 mg DAILY@06 PO Last administered on 02/04/19 05:48; Admin Dose 40 MG; Start 01/27/19 at 06:00 Ondansetron HCl (Zofran Inj) 4 mg Q4H PRN IV NAUSEA/VOMITING; Start 01/26/19 at 20:30 Simethicone (Mylicon) 80 mg TID PRN PO .GAS; Start 01/26/19 at 20:30 Senna/Docusate Sodium (Senokot-S) 2 tab BID PRN PO .CONSTIPATION Last administered on 01/28/19 14:43; Admin Dose 2 TAB; Start 01/26/19 at 20:30 Magnesium Hydroxide (Milk Of Mag) 30 ml HS PRN PO .CONSTIPATION Last administered on 01/28/19 16:17; Admin Dose 30 ML; Start 01/26/19 at 20:30 Bisacodyl (Dulcolax Supp) 10 mg DAILY PRN [place] .CONSTIPATION; Start 01/26/19 at 20:30 Sodium Biphosphate/ Sodium Phosphate (Fleet Enema) 133 ml DAILY PRN [place] .CONSTIPATION; Start 01/26/19 at 20:30 Naloxone HCl (Narcan) 0.2 mg Q2M PRN IV .RESP RATE; Start 01/26/19 at 20:30 Trimethobenzamide HCl (Tigan) 200 mg Q6H PRN IM NAUSEA AND/OR VOMITING; Start 01/26/19 at 20:30 Amiodarone HCl (Cordarone) 200 mg BID PO Last administered on 02/04/19 08:46; Admin Dose 200 MG; Start 01/26/19 at 21:00 Acetaminophen (Tylenol Tab) 650 mg Q6H PRN PO MILD PAIN(1-3)OR ELEVATED TEMP Last administered on 02/03/19 06:24; Admin Dose 650 MG; Start 01/26/19 at 20:30 Metoprolol Tartrate (Lopressor) 50 mg BID PO Last administered on 02/04/19 08:46; Admin Dose 50 MG; Start 01/26/19 at 21:00 Apixaban (Eliquis) 2.5 mg BID PO Last administered on 02/04/19 08:47; Admin Dose 2.5 MG; Start 01/26/19 at 21:00 Docusate Sodium (Colace) 100 mg BID PO Last administered on 02/04/19 08:47; Admin Dose 100 MG; Start 01/27/19 at 21:00 Patient Own Medication 1 ea DAILY PO Last administered on 02/04/19 08:46; Admin Dose 1 EA; Start 01/30/19 at 09:00 Gabapentin (Neurontin) 100 mg HS PO Last administered on 02/03/19 20:25; Admin Dose 100 MG; Start 01/30/19 at 21:00 Acetaminophen/ Hydrocodone Bitart ([place] (5/325)) 1 tab Q4H PRN PO MODERATE JERRY N LEVEL 4-6 Last administered on 02/04/19 08:45; Admin Dose 1 TAB; Start 01/30/19 at 11:00 Acetaminophen/ Hydrocodone Bitart ([place] (5/325)) 2 tab Q4H PRN PO SEVERE PAIN LEVEL 7-10 Last administered on 4/6/19at 08:54; Admin Dose 2 TAB; Start 01/30/19 at 11:00 Amoxicillin (Amoxicillin) 500 mg Q8 PO Last administered on 02/04/19at 05:48; Admin Dose 500 MG; Start 02/02/19 at 14:00; Stop 02/09/19 at 13:59 Betamethasone/ Clotrimazole (Lotrisone Cr) 1 applic BID TOP ; Start 02/04/19 at 21:00 EDEL MILLER NP Feb 04, 2019 14:10
[2019-02-04 20:00] VITALS: BP 122/59; PULSE 61; RESP 18
[2019-02-04] MEDS: GABAPENTIN 100 MG CAP PO SCH (20:12)
[2019-02-04] MEDS: BETAMETHASONE/CLOTRIMAZOLE 15 GM CR TOP SCH (22:59)
[2019-02-05] MEDS: BETAMETHASONE/CLOTRIMAZOLE 15 GM CR TOP SCH ×3 (01:21→20:58)
[2019-02-05 02:36] VITALS: BP 137/67; PULSE 58; RESP 18
[2019-02-05] MEDS: PANTOPRAZOLE (EC) 40 MG TAB PO SCH (05:49)
[2019-02-05] MEDS: AMOXICILLIN 500 MG CAP PO SCH ×3 (05:49→20:59)
[2019-02-05 07:30] VITALS: BP 141/66; PULSE 58; RESP 18
[2019-02-05] MEDS: BRIMONIDINE 0.2%-TIMOLOL 0.5% 5ML OPH LEFT EYE SCH ×2 (09:16→20:58)
[2019-02-05] MEDS: PRESERVISION AREDS 2 FORMULA PO SCH (09:18)
[2019-02-05] MEDS: CHOLECALCIFEROL 1,000 UNIT TAB PO SCH (09:18)
[2019-02-05] MEDS: APIXABAN 5 MG TABLET PO SCH ×2 (09:18→21:00)
[2019-02-05] MEDS: HYDROCODONE/APAP (5/325) TAB PO PRN ×2 (09:19→23:49)
[2019-02-05] MEDS: FERROUS SULFATE (EC) 325 MG TAB PO SCH (09:19)
[2019-02-05] MEDS: ASCORBIC ACID 500 MG TAB PO SCH (09:19)
[2019-02-05] MEDS: AMIODARONE 200 MG TAB PO SCH ×2 (09:19→21:00)
[2019-02-05] MEDS: METOPROLOL 50 MG TAB PO SCH ×2 (09:20→20:59)
[2019-02-05] MEDS: DOCUSATE SODIUM 100 MG CAP PO SCH ×2 (09:21→20:59)
--- NOTE | 2019-02-05 12:38 | PN ---
Date/Time of Note Date/Time of Note DATE: 02/05/19 TIME: 12:37 Assessment/Plan VTE Prophylaxis Risk score (from Ns)>0 risk: 6 SCD applied (from Ns): No SCD contraindicated: other Pharmacological prophylaxis: apixaban Lines/Catheters IV [facility]from [facility] Saline Lock Urinary Cath still in place: No Assessment/Plan Hospital Course SUBJECTIVE: No acute distress OBJECTIVE: Vital signs-see below PHYSICAL EXAM: Constitutional: Elderly female, not in any apparent distress. Psych: nl mood/affect, no complaints Head: atraumatic, normocephalic Eyes: nl conjunctiva, nl sclera ENMT: mucosa pink and moist, nl external ears & nose Neck: non-tender, supple Respiratory: diminished bibasilar. normal air movement Cardiovascular: nl pulses, regular rate and rhythm Gastrointestinal: non-tender, soft, bowel sounds active in all 4 quadrants. Musculoskeletal/extremities: nl extremities to inspection, motor strength equal bilaterally, no focal deficit. Normal pulses,no cyanosis, no edema. Neurological: Alert oriented 3,nl speech, nl strength Skin: +ecchymosis. nl turgor ASSESSMENT/PLAN:assessment and plan: 88-year-old female status post right total knee arthroplasty for severe degenerative arthritis, right knee, avascular necrosis, as well as a previous open reduction and internal fixation in the right patella, who had a mary postoperative course complicated by atrial fibrillation with rapid ventricular response, hypertension and right-sided weakness/transient ischemic attack. 1. Osteoarthritis, Status post right total knee arthroplasty. -PT/Rehab -Patient on Eliquis already, no further prophylaxis indicated. 2. Paroxysmal atrial fibrillation -rate controlled -cont.amiodarone,BB,ATC Eliquis 3. History of bladder cancer - status post chemotherapy. 4. Status post transient ischemic attack. -monitor 5. Status post svj-FY-bqaxihp elevation myocardial infarction, likely related to atrial fibrillation. -no acute chest syndromes 6. Chronic emphysema. -monitor 7. Chronic anemia. -Stable H&H. Continue to monitor. DVT prophylaxis: Eliquis. Patient was seen in collaboration with . Exam/Review of Systems Exam Vitals Vital Signs Date Temp Pulse Resp B/P (MAP) Pulse Ox O2 O2 Flow FiO2 Time Delivery Rate 02/05/19 98.5 58 18 141/66 94 Room Air 07:30 (91) Intake and Output 02/04/19 02/04/19 02/05/19 1515:00 23:00 07:00 IntakeIntake Total 1760 ml OutputOutput Total 250 ml BalanceBalance 1510 ml Medications Medication Current Medications Miscellaneous Information ([facility] This patient cheng... PRN PRN XX WOUND CARE; Start 01/26/19 at 17:30 Ascorbic Acid (Vitamin C) 1,000 mg DAILY PO Last administered on 02/05/19at 09:19; Admin Dose 1,000 MG; Start 01/27/19 at 09:00; Stop 02/26/19 at 08:59 Brimonidine/ Timolol (Combigan Oph) 1 drop BID LEFT EYE Last administered on 02/05/19 09:16; Admin Dose 1 DROP; Start 01/26/19 at 21:00 Cholecalciferol (Vitamin D) 1,000 unit DAILY PO Last administered on 02/05/19 09:18; Admin Dose 1,000 UNIT; Start 01/27/19 at 09:00 Ferrous Sulfate (Ferrous Sulfate (Ec)) 325 mg DAILY PO Last administered on 02/05/19 09:19; Admin Dose 325 MG; Start 01/27/19 at 09:00; Stop 02/26/19 at 08:59 Pantoprazole (Protonix Tab) 40 mg DAILY@06 PO Last administered on 02/05/19 05:49; Admin Dose 40 MG; Start 01/27/19 at 06:00 Ondansetron HCl (Zofran Inj) 4 mg Q4H PRN IV NAUSEA/VOMITING; Start 01/26/19 at 20:30 Simethicone (Mylicon) 80 mg TID PRN PO .GAS; Start 01/26/19 at 20:30 Senna/Docusate Sodium (Senokot-S) 2 tab BID PRN PO .CONSTIPATION Last adminis tered on 01/28/19at 14:43; Admin Dose 2 TAB; Start 01/26/19 at 20:30 Magnesium Hydroxide (Milk Of Mag) 30 ml HS PRN PO .CONSTIPATION Last administered on 01/28/19 16:17; Admin Dose 30 ML; Start 01/26/19 at 20:30 Bisacodyl (Dulcolax Supp) 10 mg DAILY PRN [place] .CONSTIPATION; Start 01/26/19 at 20:30 Sodium Biphosphate/ Sodium Phosphate (Fleet Enema) 133 ml DAILY PRN [place] .CONSTIPATION; Start 01/26/19 at 20:30 Naloxone HCl (Narcan) 0.2 mg Q2M PRN IV .RESP RATE; Start 01/26/19 at 20:30 Trimethobenzamide HCl (Tigan) 200 mg Q6H PRN IM NAUSEA AND/OR VOMITING; Start 01/26/19 at 20:30 Amiodarone HCl (Cordarone) 200 mg BID PO Last administered on 02/05/19 09:19; Admin Dose 200 MG; Start 01/26/19 at 21:00 Acetaminophen (Tylenol Tab) 650 mg Q6H PRN PO MILD PAIN(1-3)OR ELEVATED TEMP Last administered on 02/03/19 06:24; Admin Dose 650 MG; Start 01/26/19 at 20:30 Metoprolol Tartrate (Lopressor) 50 mg BID PO Last administered on 02/05/19 09:20; Admin Dose 50 MG; Start 01/26/19 at 21:00 Apixaban (Eliquis) 2.5 mg BID PO Last administered on 02/05/19 09:18; Admin Dose 2.5 MG; Start 01/26/19 at 21:00 Docusate Sodium (Colace) 100 mg BID PO Last administered on 02/05/19 09:21; Admin Dose 100 MG; Start 01/27/19 at 21:00 Patient Own Medication 1 ea DAILY PO Last administered on 02/05/19 09:18; Admin Dose 1 EA; Start 01/30/19 at 09:00 Gabapentin (Neurontin) 100 mg HS PO Last administered on 02/04/19 20:12; Admin Dose 100 MG; Start 01/30/19 at 21:00 Acetaminophen/ Hydrocodone Bitart ([place] (5/325)) 1 tab Q4H PRN PO MODERATE PAIN LEVEL 4-6 Last administered on 02/05/19 09:19; Admin Dose 1 TAB; Start 01/30/19 at 11:00 Acetaminophen/ Hydrocodone Bitart ([place] (5/325)) 2 tab Q4H PRN PO SEVERE PAIN LEVEL 7-10 Last administered on 4/6/19at 08:54; Admin Dose 2 TAB; Start 01/30/19 at 11:00 Amoxicillin (Amoxicillin) 500 mg Q8 PO Last administered on 02/05/19at 05:49; Admin Dose 500 MG; Start 02/02/19 at 14:00; Stop 02/09/19 at 13:59 Betamethasone/ Clotrimazole (Lotrisone Cr) 1 applic BID TOP Last administered on 02/05/19at 09:21; Admin Dose 1 APPLIC; Start 02/04/19 at 21:00 Docosanol (Abreva) 1 applic 5 TIMES DAILY TOP ; Start 02/05/19 at 12:30 EDEL MILLER NP Feb 05, 2019 12:37
--- NOTE | 2019-02-05 13:52 | PN ---
Date/Time of Note Date/Time of Note DATE: 02/05/19 TIME: 13:52 Subjective Overall feeling better Objective Vital Signs Date Temp Pulse Resp B/P (MAP) Pulse Ox O2 O2 Flow FiO2 Time Delivery Rate 02/05/19 98.5 58 18 141/66 94 Room Air 07:30 (91) Intake and Output 02/04/19 02/04/19 02/05/19 1414:59 22:59 06:59 IntakeIntake Total 1760 ml OutputOutput Total 250 ml BalanceBalance 1510 ml Exam pulm-cta abd-soft cga ambulation 50 feet Results/Medications Medications Current Medications Miscellaneous Information (Pending [facility] Order For Wound Care) This patient cheng... PRN PRN XX WOUND CARE; Start 01/26/19 at 17:30 Ascorbic Acid (Vitamin C) 1,000 mg DAILY PO Last administered on 02/05/19at 09:19; Admin Dose 1,000 MG; Start 01/27/19 at 09:00; Stop 02/26/19 at 08:59 Brimonidine/ Timolol (Combigan Oph) 1 drop BID LEFT EYE Last administered on 02/05/19at 09:16; Admin Dose 1 DROP; Start 01/26/19 at 21:00 Cholecalciferol (Vitamin D) 1,000 unit DAILY PO Last administered on 02/05/19at 09:18; Admin Dose 1,000 UNIT; Start 01/27/19 at 09:00 Ferrous Sulfate (Ferrous Sulfate (Ec)) 325 mg DAILY PO Last administered on 02/05/19at 09:19; Admin Dose 325 MG; Start 01/27/19 at 09:00; Stop 02/26/19 at 08:59 Pantoprazole (Protonix Tab) 40 mg DAILY@06 PO Last administered on 02/05/19at 05:49; Admin Dose 40 MG; Start 01/27/19 at 06:00 Ondansetron HCl (Zofran Inj) 4 mg Q4H PRN IV NAUSEA/VOMITING; Start 01/26/19 at 20:30 Simethicone (Mylicon) 80 mg TID PRN PO .GAS; Start 01/26/19 at 20:30 Senna/Docusate Sodium (Senokot-S) 2 tab BID PRN PO .CONSTIPATION Last administered on 01/28/19at 14:43; Admin Dose 2 TAB; Start 01/26/19 at 20:30 Magnesium Hydroxide (Milk Of Mag) 30 ml HS PRN PO .CONSTIPATION Last administered on 01/28/19 16:17; Admin Dose 30 ML; Start 01/26/19 at 20:30 Bisacodyl (Dulcolax Supp) 10 mg DAILY PRN [place] .CONSTIPATION; Start 01/26/19 at 20:30 Sodium Biphosphate/ Sodium Phosphate (Fleet Enema) 133 ml DAILY PRN [place] .CONSTIPATION; Start 01/26/19 at 20:30 Naloxone HCl (Narcan) 0.2 mg Q2M PRN IV .RESP RATE; Start 01/26/19 at 20:30 Trimethobenzamide HCl (Tigan) 200 mg Q6H PRN IM NAUSEA AND/OR VOMITING; Start 01/26/19 at 20:30 Amiodarone HCl (Cordarone) 200 mg BID PO Last administered on 02/05/19 09:19; Admin Dose 200 MG; Start 01/26/19 at 21:00 Acetaminophen (Tylenol Tab) 650 mg Q6H PRN PO MILD PAIN(1-3)OR ELEVATED TEMP Last administered on 02/03/19 06:24; Admin Dose 650 MG; Start 01/26/19 at 20:30 Metoprolol Tartrate (Lopressor) 50 mg BID PO Last administered on 02/05/19 09:20; Admin Dose 50 MG; Start 01/26/19 at 21:00 Apixaban (Eliquis) 2.5 mg BID PO Last administered on 02/05/19 09:18; Admin Dose 2.5 MG; Start 01/26/19 at 21:00 Docusate Sodium (Colace) 100 mg BID PO Last administered on 02/05/19 09:21; Admin Dose 100 MG; Start 01/27/19 at 21:00 Patient Own Medication 1 ea DAILY PO Last administered on 02/05/19 09:18; Admin Dose 1 EA; Start 01/30/19 at 09:00 Gabapentin (Neurontin) 100 mg HS PO Last administered on 02/04/19 20:12; Admin Dose 100 MG; Start 01/30/19 at 21:00 Acetaminophen/ Hydrocodone Bitart ([place] (5/325)) 1 tab Q4H PRN PO MODERATE PAIN LEVEL 4-6 Last administered on 02/05/19at 09:19; Admin Dose 1 TAB; Start 01/30/19 at 11:00 Acetaminophen/ Hydrocodone Bitart ([place] (5/325)) 2 tab Q4H PRN PO SEVERE PAIN LEVEL 7-10 Last administered on 02/01/19at 08:54; Admin Dose 2 TAB; Start 01/30/19 at 11:00 Amoxicillin (Amoxicillin) 500 mg Q8 PO Last administered on 02/05/19at 05:49; Admin Dose 500 MG; Start 02/02/19 at 14:00; Stop 02/09/19 at 13:59 Betamethasone/ Clotrimazole (Lotrisone Cr) 1 applic BID TOP Last administered on 02/05/19at 09:21; Admin Dose 1 APPLIC; Start 02/04/19 at 21:00 Docosanol (Abreva) 1 applic 5 TIMES DAILY TOP ; Start 02/05/19 at 12:30 Assessment/Plan Additional Assessment/Plan Rehab- Other neurologic disorder, possible postoperative TIA and encephalopathy;Status post right total knee arthroplasty Good progress, continue rehab Atrial fibrillation. Aortic stenosis. Carotid artery stenosis. NYA VALENTE MD Feb 05, 2019 13:52
[2019-02-05] MEDS: DOCOSANOL 2 GM CREAM TOP SCH ×4 (13:53→21:00)
[2019-02-05 14:00] VITALS: BP 116/56; PULSE 52; RESP 18
[2019-02-05 19:54] VITALS: BP 117/56; PULSE 58; RESP 16
[2019-02-05] MEDS: GABAPENTIN 100 MG CAP PO SCH (20:58)
[2019-02-06 02:00] VITALS: BP 124/65; PULSE 56; RESP 18
[2019-02-06] MEDS: PANTOPRAZOLE (EC) 40 MG TAB PO SCH (06:09)
[2019-02-06] MEDS: AMOXICILLIN 500 MG CAP PO SCH ×3 (06:09→21:11)
[2019-02-06 07:00] VITALS: BP 127/59; PULSE 62; RESP 18
--- NOTE | 2019-02-06 07:10 | PN ---
DATE: 02/05/2019 PSYCHOLOGY -- INDIVIDUAL SESSION -- [id number] This is a followup on a patient who was seen last week. The patient was seen up in her wheelchair. The patient had been making a very good progress. The patient's mood was better. Last week felt that she was not going to get better and now she sees that she is able to make some progress. I worked with the patient to try to help continue to encourage her to work on her mood and decrease her level of anxiety. The patient was receptive and did work on her emotional issues. Dictated By: RAVEN DUMONT PHD MADINA/ADAMS Conf#: [id number] DID#: [id number] MTDD
[2019-02-06] MEDS: BRIMONIDINE 0.2%-TIMOLOL 0.5% 5ML OPH LEFT EYE SCH ×2 (08:55→21:01)
[2019-02-06] MEDS: PRESERVISION AREDS 2 FORMULA PO SCH (08:55)
[2019-02-06] MEDS: ASCORBIC ACID 500 MG TAB PO SCH (08:57)
[2019-02-06] MEDS: AMIODARONE 200 MG TAB PO SCH ×2 (08:57→21:02)
[2019-02-06] MEDS: FERROUS SULFATE (EC) 325 MG TAB PO SCH (08:57)
[2019-02-06] MEDS: CHOLECALCIFEROL 1,000 UNIT TAB PO SCH (08:57)
[2019-02-06] MEDS: APIXABAN 5 MG TABLET PO SCH ×2 (08:58→21:01)
[2019-02-06] MEDS: HYDROCODONE/APAP (5/325) TAB PO PRN (09:00)
[2019-02-06] MEDS: DOCOSANOL 2 GM CREAM TOP SCH ×5 (09:00→21:08)
[2019-02-06] MEDS: METOPROLOL 50 MG TAB PO SCH ×2 (09:00→21:02)
[2019-02-06] MEDS: DOCUSATE SODIUM 100 MG CAP PO SCH ×2 (09:00→21:00)
[2019-02-06] MEDS: BETAMETHASONE/CLOTRIMAZOLE 15 GM CR TOP SCH ×2 (09:16→21:09)
--- NOTE | 2019-02-06 10:51 | PN ---
Date/Time of Note Date/Time of Note DATE: 02/06/19 TIME: 10:51 Subjective Patient feeling better Objective Vital Signs Date Temp Pulse Resp B/P (MAP) Pulse Ox O2 O2 Flow FiO2 Time Delivery Rate 02/06/19 98.2 62 18 127/59 95 Room Air 07:00 (81) Intake and Output 02/05/19 02/05/19 02/06/19 1515:00 23:00 07:00 IntakeIntake Total 1400 ml 300 ml BalanceBalance 1400 ml 300 ml Exam pulm-cta cga 60 feet Results/Medications Medications Current Medications Miscellaneous Information (Pending [facility] Order For Wound Care) This patient cheng... PRN PRN XX WOUND CARE; Start 01/26/19 at 17:30 Ascorbic Acid (Vitamin C) 1,000 mg DAILY PO Last administered on 02/06/19at 08:57; Admin Dose 1,000 MG; Start 01/27/19 at 09:00; Stop 02/26/19 at 08:59 Brimonidine/ Timolol (Combigan Oph) 1 drop BID LEFT EYE Last administered on 02/06/19at 08:55; Admin Dose 1 DROP; Start 01/26/19 at 21:00 Cholecalciferol (Vitamin D) 1,000 unit DAILY PO Last administered on 02/06/19at 08:57; Admin Dose 1,000 UNIT; Start 01/27/19 at 09:00 Ferrous Sulfate (Ferrous Sulfate (Ec)) 325 mg DAILY PO Last administered on 02/06/19at 08:57; Admin Dose 325 MG; Start 01/27/19 at 09:00; Stop 02/26/19 at 08:59 Pantoprazole (Protonix Tab) 40 mg DAILY@06 PO Last administered on 02/06/19at 06:09; Admin Dose 40 MG; Start 01/27/19 at 06:00 Ondansetron HCl (Zofran Inj) 4 mg Q4H PRN IV NAUSEA/VOMITING; Start 01/26/19 at 20:30 Simethicone (Mylicon) 80 mg TID PRN PO .GAS; Start 01/26/19 at 20:30 Senna/Docusate Sodium (Senokot-S) 2 tab BID PRN PO .CONSTIPATION Last administered on 01/28/19at 14:43; Admin Dose 2 TAB; Start 01/26/19 at 20:30 Magnesium Hydroxide (Milk Of Mag) 30 ml HS PRN PO .CONSTIPATION Last administered on 01/28/19 16:17; Admin Dose 30 ML; Start 01/26/19 at 20:30 Bisacodyl (Dulcolax Supp) 10 mg DAILY PRN [place] .CONSTIPATION; Start 01/26/19 at 20:30 Sodium Biphosphate/ Sodium Phosphate (Fleet Enema) 133 ml DAILY PRN [place] .CONSTIPATION; Start 01/26/19 at 20:30 Naloxone HCl (Narcan) 0.2 mg Q2M PRN IV .RESP RATE; Start 01/26/19 at 20:30 Trimethobenzamide HCl (Tigan) 200 mg Q6H PRN IM NAUSEA AND/OR VOMITING; Start 01/26/19 at 20:30 Amiodarone HCl (Cordarone) 200 mg BID PO Last administered on 02/06/19 08:57; Admin Dose 200 MG; Start 01/26/19 at 21:00 Acetaminophen (Tylenol Tab) 650 mg Q6H PRN PO MILD PAIN(1-3)OR ELEVATED TEMP Last administered on 02/03/19 06:24; Admin Dose 650 MG; Start 01/26/19 at 20:30 Metoprolol Tartrate (Lopressor) 50 mg BID PO Last administered on 02/05/19 09:20; Admin Dose 50 MG; Start 01/26/19 at 21:00 Apixaban (Eliquis) 2.5 mg BID PO Last administered on 02/06/19 08:58; Admin Dose 2.5 MG; Start 01/26/19 at 21:00 Docusate Sodium (Colace) 100 mg BID PO Last administered on 02/05/19 20:59; Admin Dose 100 MG; Start 01/27/19 at 21:00 Patient Own Medication 1 ea DAILY PO Last administered on 02/06/19 08:55; Admin Dose 1 EA; Start 01/30/19 at 09:00 Gabapentin (Neurontin) 100 mg HS PO Last administered on 02/05/19 20:58; Admin Dose 100 MG; Start 01/30/19 at 21:00 Acetaminophen/ Hydrocodone Bitart ([place] (5/325)) 1 tab Q4H PRN PO MODERATE PAIN LEVEL 4-6 Last administered on 4/10/19at 23:49; Admin Dose 1 TAB; Start 01/30/19 at 11:00 Acetaminophen/ Hydrocodone Bitart ([place] (5/325)) 2 tab Q4H PRN PO SEVERE PAIN LEVEL 7-10 Last administered on 02/06/19at 09:00; Admin Dose 2 TAB; Start 01/30/19 at 11:00 Amoxicillin (Amoxicillin) 500 mg Q8 PO Last administered on 02/06/19at 06:09; Admin Dose 500 MG; Start 02/02/19 at 14:00; Stop 02/09/19 at 13:59 Betamethasone/ Clotrimazole (Lotrisone Cr) 1 applic BID TOP Last administered on 02/06/19at 09:16; Admin Dose 1 APPLIC; Start 02/04/19 at 21:00 Docosanol (Abreva) 1 applic 5 TIMES DAILY TOP Last administered on 02/05/19at 17:37; Admin Dose 1 APPLIC; Start 02/05/19 at 12:30 Assessment/Plan Additional Assessment/Plan Rehab- Other neurologic disorder, possible postoperative TIA and en cephalopathy;Status post right total knee arthroplasty Continue rehab activities Atrial fibrillation. Aortic stenosis. Carotid artery stenosis. NYA VALENTE MD Feb 06, 2019 10:51
--- NOTE | 2019-02-06 13:02 | PN ---
Date/Time of Note Date/Time of Note DATE: 02/06/19 TIME: 13:02 Assessment/Plan VTE Prophylaxis Risk score (from Ns)>0 risk: 6 SCD applied (from Ns): Yes Pharmacological prophylaxis: apixaban Lines/Catheters [facility]from [facility] Saline Lock Urinary Cath still in place: No Assessment/Plan Hospital Course SUBJECTIVE: No acute distress OBJECTIVE: Vital signs-see below PHYSICAL EXAM: Constitutional: Elderly female, not in any apparent distress. Psych: nl mood/affect, no complaints Head: atraumatic, normocephalic Eyes: nl conjunctiva, nl sclera ENMT: mucosa pink and moist, nl external ears & nose Neck: non-tender, supple Respiratory: diminished bibasilar. normal air movement Cardiovascular: nl pulses, regular rate and rhythm Gastrointestinal: non-tender, soft, bowel sounds active in all 4 quadrants. Musculoskeletal/extremities: nl extremities to inspection, motor strength equal bilaterally, no focal deficit. Normal pulses,no cyanosis, no edema. Neurological: Alert oriented 3,nl speech, nl strength Skin: +ecchymosis. nl turgor ASSESSMENT/PLAN:assessment and plan: 88-year-old female status post right total knee arthroplasty for severe degenerative arthritis, right knee, avascular necrosis, as well as a previous open reduction and internal fixation in the right patella, who had a mary postoperative course complicated by atrial fibrillation with rapid ventricular response, hypertension and right-sided weakness/transient ischemic attack. 1. Osteoarthritis, Status post right total knee arthroplasty. -PT/Rehab -Patient on Eliquis already, no further prophylaxis indicated. 2. Paroxysmal atrial fibrillation -rate controlled -cont.amiodarone,BB,ATC Eliquis 3. History of bladder cancer - status post chemotherapy. 4. Status post transient ischemic attack. -monitor 5. Status post laj-BD-osnrdcr elevation myocardial infarction, likely related to atrial fibrillation. -no acute chest syndromes 6. Chronic emphysema. -monitor 7. Chronic anemia. -Stable H&H. Continue to monitor. DVT prophylaxis: Eliquis. Patient was seen in collaboration with . Exam/Review of Systems Exam Vitals Vital Signs Date Temp Pulse Resp B/P (MAP) Pulse Ox O2 O2 Flow FiO2 Time Delivery Rate 02/06/19 98.2 62 18 127/59 95 Room Air 07:00 (81) Intake and Output 4/10/19 4/10/19 4/11/19 1414:59 22:59 06:59 IntakeIntake Total 1400 ml 300 ml BalanceBalance 1400 ml 300 ml Medications Medication Current Medications Miscellaneous Information [facility] This patient cheng... PRN PRN XX WOUND CARE; Start 01/26/19 at 17:30 Ascorbic Acid (Vitamin C) 1,000 mg DAILY PO Last administered on 02/06/19at 08:57; Admin Dose 1,000 MG; Start 01/27/19 at 09:00; Stop 02/26/19 at 08:59 Brimonidine/ Timolol (Combigan Oph) 1 drop BID LEFT EYE Last administered on 02/06/19at 08:55; Admin Dose 1 DROP; Start 01/26/19 at 21:00 Cholecalciferol (Vitamin D) 1,000 unit DAILY PO Last administered on 02/06/19at 08:57; Admin Dose 1,000 UNIT; Start 01/27/19 at 09:00 Ferrous Sulfate (Ferrous Sulfate (Ec)) 325 mg DAILY PO Last administered on 02/06/19 08:57; Admin Dose 325 MG; Start 01/27/19 at 09:00; Stop 02/26/19 at 08:59 Pantoprazole (Protonix Tab) 40 mg DAILY@06 PO Last administered on 02/06/19at 06:09; Admin Dose 40 MG; Start 01/27/19 at 06:00 Ondansetron HCl (Zofran Inj) 4 mg Q4H PRN IV NAUSEA/VOMITING; Start 01/26/19 at 20:30 Simethicone (Mylicon) 80 mg TID PRN PO .GAS; Start 01/26/19 at 20:30 Senna/Docusate Sodium (Senokot-S) 2 tab BID PRN PO .CONSTIPATION Last administered on 01/28/19 14:43; Admin Dose 2 TAB; Start 01/26/19 at 20:30 Magnesium Hydroxide (Milk Of Mag) 30 ml HS PRN PO .CONSTIPATION Last administered on 01/28/19 16:17; Admin Dose 30 ML; Start 01/26/19 at 20:30 Bisacodyl (Dulcolax Supp) 10 mg DAILY PRN [place] .CONSTIPATION; Start 01/26/19 at 20:30 Sodium Biphosphate/ Sodium Phosphate (Fleet Enema) 133 ml DAILY PRN [place] .CONSTIPATION; Start 01/26/19 at 20:30 Naloxone HCl (Narcan) 0.2 mg Q2M PRN IV .RESP RATE; Start 01/26/19 at 20:30 Trimethobenzamide HCl (Tigan) 200 mg Q6H PRN IM NAUSEA AND/OR VOMITING; Start 01/26/19 at 20:30 Amiodarone HCl (Cordarone) 200 mg BID PO Last administered on 02/06/19 08:57; Admin Dose 200 MG; Start 01/26/19 at 21:00 Acetaminophen (Tylenol Tab) 650 mg Q6H PRN PO MILD PAIN(1-3)OR ELEVATED TEMP Last administered on 02/03/19 06:24; Admin Dose 650 MG; Start 01/26/19 at 20:30 Metoprolol Tartrate (Lopressor) 50 mg BID PO Last administered on 02/05/19 09:20; Admin Dose 50 MG; Start 01/26/19 at 21:00 Apixaban (Eliquis) 2.5 mg BID PO Last administered on 02/06/19 08:58; Admin Dose 2.5 MG; Start 01/26/19 at 21:00 Docusate Sodium (Colace) 100 mg BID PO Last administered on 02/05/19 20:59; Admin Dose 100 MG; Start 01/27/19 at 21:00 Patient Own Medication 1 ea DAILY PO Last administered on 02/06/19 08:55; Admin Dose 1 EA; Start 01/30/19 at 09:00 Gabapentin (Neurontin) 100 mg HS PO Last administered on 02/05/19 20:58; Admin Dose 100 MG; Start 01/30/19 at 21:00 Acetaminophen/ Hydrocodone Bitart ([place] (5/325)) 1 tab Q4H PRN PO MODERATE PAIN LEVEL 4-6 Last administered on 02/05/19 23:49; Admin Dose 1 TAB; Start 01/30/19 at 11:00 Acetaminophen/ Hydrocodone Bitart ([place] (5/325)) 2 tab Q4H PRN PO SEVERE PAIN LEVEL 7-10 Last administered on 02/06/19 09:00; Admin Dose 2 TAB; Start 01/30/19 at 11:00 Amoxicillin (Amoxicillin) 500 mg Q8 PO Last administered on 02/06/19at 06:09; Admin Dose 500 MG; Start 02/02/19 at 14:00; Stop 02/09/19 at 13:59 Betamethasone/ Clotrimazole (Lotrisone Cr) 1 applic BID TOP Last administered on 02/06/19at 09:16; Admin Dose 1 APPLIC; Start 02/04/19 at 21:00 Docosanol (Abreva) 1 applic 5 TIMES DAILY TOP Last administered on 02/05/19at 17:37; Admin Dose 1 APPLIC; Start 02/05/19 at 12:30 EDEL MILLER NP Feb 06, 2019 13:02
[2019-02-06 14:00] VITALS: BP 138/64; PULSE 64; RESP 18
[2019-02-06 20:42] VITALS: BP 137/60; PULSE 64; RESP 18
[2019-02-06] MEDS: GABAPENTIN 100 MG CAP PO SCH (21:01)
[2019-02-07 02:59] VITALS: BP 165/70; PULSE 63; RESP 18
[2019-02-07] MEDS: PANTOPRAZOLE (EC) 40 MG TAB PO SCH (06:58)
[2019-02-07] MEDS: AMOXICILLIN 500 MG CAP PO SCH ×3 (06:58→21:18)
[2019-02-07 07:00] VITALS: BP 153/67; PULSE 62; RESP 18
[2019-02-07] MEDS: DOCUSATE SODIUM 100 MG CAP PO SCH ×2 (09:00→21:17)
[2019-02-07] MEDS: BRIMONIDINE 0.2%-TIMOLOL 0.5% 5ML OPH LEFT EYE SCH ×2 (09:20→21:15)
[2019-02-07] MEDS: HYDROCODONE/APAP (5/325) TAB PO PRN (09:20)
[2019-02-07] MEDS: CHOLECALCIFEROL 1,000 UNIT TAB PO SCH (09:21)
[2019-02-07] MEDS: FERROUS SULFATE (EC) 325 MG TAB PO SCH (09:21)
[2019-02-07] MEDS: APIXABAN 5 MG TABLET PO SCH ×2 (09:21→21:17)
[2019-02-07] MEDS: ASCORBIC ACID 500 MG TAB PO SCH (09:21)
[2019-02-07] MEDS: METOPROLOL 50 MG TAB PO SCH ×2 (09:24→21:16)
[2019-02-07] MEDS: AMIODARONE 200 MG TAB PO SCH ×2 (09:24→21:17)
[2019-02-07] MEDS: PRESERVISION AREDS 2 FORMULA PO SCH (09:25)
[2019-02-07] MEDS: DOCOSANOL 2 GM CREAM TOP SCH ×5 (09:33→21:25)
[2019-02-07] MEDS: BETAMETHASONE/CLOTRIMAZOLE 15 GM CR TOP SCH ×2 (09:33→21:25)
--- NOTE | 2019-02-07 11:54 | PN ---
Date/Time of Note Date/Time of Note DATE: 02/07/19 TIME: 11:53 Subjective patient encouraged for activities Objective Vital Signs Date Temp Pulse Resp B/P (MAP) Pulse Ox O2 O2 Flow FiO2 Time Delivery Rate 02/07/19 98.6 62 18 153/67 94 Room Air 07:00 (95) Intake and Output 02/06/19 02/06/19 02/07/19 1414:59 22:59 06:59 IntakeIntake Total 800 ml 320 ml OutputOutput Total 600 ml 300 ml BalanceBalance 200 ml 20 ml Exam pulm-cta sba 80 feet Results/Medications Medications Current Medications Miscellaneous Information (Pending [facility] Order For Wound Care) This patient cheng... PRN PRN XX WOUND CARE; Start 01/26/19 at 17:30 Ascorbic Acid (Vitamin C) 1,000 mg DAILY PO Last administered on 02/07/19at 09:21; Admin Dose 1,000 MG; Start 01/27/19 at 09:00; Stop 02/26/19 at 08:59 Brimonidine/ Timolol (Combigan Oph) 1 drop BID LEFT EYE Last administered on 02/07/19at 09:20; Admin Dose 1 DROP; Start 01/26/19 at 21:00 Cholecalciferol (Vitamin D) 1,000 unit DAILY PO Last administered on 02/07/19at 09:21; Admin Dose 1,000 UNIT; Start 01/27/19 at 09:00 Ferrous Sulfate (Ferrous Sulfate (Ec)) 325 mg DAILY PO Last administered on 02/07/19at 09:21; Admin Dose 325 MG; Start 01/27/19 at 09:00; Stop 02/26/19 at 08:59 Pantoprazole (Protonix Tab) 40 mg DAILY@06 PO Last administered on 02/07/19at 06:58; Admin Dose 40 MG; Start 01/27/19 at 06:00 Ondansetron HCl (Zofran Inj) 4 mg Q4H PRN IV NAUSEA/VOMITING; Start 01/26/19 at 20:30 Simethicone (Mylicon) 80 mg TID PRN PO .GAS; Start 01/26/19 at 20:30 Senna/Docusate Sodium (Senokot-S) 2 tab BID PRN PO .CONSTIPATION Last administered on 4/2/19at 14:43; Admin Dose 2 TAB; Start 01/26/19 at 20:30 Magnesium Hydroxide (Milk Of Mag) 30 ml HS PRN PO .CONSTIPATION Last admini stered on 01/28/19 16:17; Admin Dose 30 ML; Start 01/26/19 at 20:30 Bisacodyl (Dulcolax Supp) 10 mg DAILY PRN [place] .CONSTIPATION; Start 01/26/19 at 20:30 Sodium Biphosphate/ Sodium Phosphate (Fleet Enema) 133 ml DAILY PRN [place] .CONSTIPATION; Start 01/26/19 at 20:30 Naloxone HCl (Narcan) 0.2 mg Q2M PRN IV .RESP RATE; Start 01/26/19 at 20:30 Trimethobenzamide HCl (Tigan) 200 mg Q6H PRN IM NAUSEA AND/OR VOMITING; Start 01/26/19 at 20:30 Amiodarone HCl (Cordarone) 200 mg BID PO Last administered on 02/07/19 09:24; Admin Dose 200 MG; Start 01/26/19 at 21:00 Acetaminophen (Tylenol Tab) 650 mg Q6H PRN PO MILD PAIN(1-3)OR ELEVATED TEMP [place] administered on 02/03/19 06:24; Admin Dose 650 MG; Start 01/26/19 at 20:30 Metoprolol Tartrate (Lopressor) 50 mg BID PO Last administered on 02/07/19 09:24; Admin Dose 50 MG; Start 01/26/19 at 21:00 Apixaban (Eliquis) 2.5 mg BID PO Last administered on 02/07/19 09:21; Admin Dose 2.5 MG; Start 01/26/19 at 21:00 Docusate Sodium (Colace) 100 mg BID PO Last administered on 02/05/19 20:59; Admin Dose 100 MG; Start 01/27/19 at 21:00 Patient Own Medication 1 ea DAILY PO Last administered on 02/07/19 09:25; Admin Dose 1 EA; Start 01/30/19 at 09:00 Gabapentin (Neurontin) 100 mg HS PO Last administered on 02/06/19 21:01; Admin Dose 100 MG; Start 01/30/19 at 21:00 Acetaminophen/ Hydrocodone Bitart ([place] (5/325)) 1 tab Q4H PRN PO MODERATE PAIN LEVEL 4-6 Last administered on 02/05/19at 23:49; Admin Dose 1 TAB; Start 01/30/19 at 11:00 Acetaminophen/ Hydrocodone Bitart ([place] (5/325)) 2 tab Q4H PRN PO SEVERE PAIN LEVEL 7-10 Last administered on 02/07/19 09:20; Admin Dose 2 TAB; Start 01/30/19 at 11:00 Amoxicillin (Amoxicillin) 500 mg Q8 PO Last administered on 02/07/19at 06:58; Admin Dose 500 MG; Start 02/02/19 at 14:00; Stop 02/09/19 at 13:59 Betamethasone/ Clotrimazole (Lotrisone Cr) 1 applic BID TOP Last administered on 02/07/19 09:33; Admin Dose 1 APPLIC; Start 02/04/19 at 21:00 Docosanol (Abreva) 1 applic 5 TIMES DAILY TOP Last administered on 02/07/19 09:33; Admin Dose 1 APPLIC; Start 02/05/19 at 12:30 Assessment/Plan Additional Assessment/Plan Rehab- Other neurologic disorder, possible postoperative TIA and encephalopathy;Status post right total knee arthroplasty Overall significantly improved, continue rehab Atrial fibrillation. Aortic stenosis. Carotid artery stenosis. NYA VALENTE MD Feb 07, 2019 11:54
[2019-02-07 14:00] VITALS: BP 130/63; PULSE 55; RESP 18
--- NOTE | 2019-02-07 14:12 | PN ---
Date/Time of Note Date/Time of Note DATE: 02/07/19 TIME: 14:12 Assessment/Plan VTE Prophylaxis Risk score (from Ns)>0 risk: 6 SCD applied (from Ns): Yes Pharmacological prophylaxis: apixaban Lines/Catheters IV [facility]from [facility] Saline Lock Urinary Cath still in place: No Assessment/Plan Hospital Course SUBJECTIVE: No acute distress. No acute distress OBJECTIVE: Vital signs-see below PHYSICAL EXAM: Constitutional: Elderly female, not in any apparent distress. Psych: nl mood/affect, no complaints Head: atraumatic, normocephalic Eyes: nl conjunctiva, nl sclera ENMT: mucosa pink and moist, nl external ears & nose Neck: non-tender, supple Respiratory: diminished bibasilar. normal air movement Cardiovascular: nl pulses, regular rate and rhythm Gastrointestinal: non-tender, soft, bowel sounds active in all 4 quadrants. Musculoskeletal/extremities: nl extremities to inspection, motor strength equal bilaterally, no focal deficit. Normal pulses,no cyanosis, no edema. Neurological: Alert oriented 3,nl speech, nl strength Skin: +ecchymosis. nl turgor ASSESSMENT/PLAN:assessment and plan: 88-year-old female status post right total knee arthroplasty for severe degenerative arthritis, right knee, avascular necrosis, as well as a previous open reduction and internal fixation in the right patella, who had a mary postoperative course complicated by atrial fibrillation with rapid ventricular response, hypertension and right-sided weakness/transient ischemic attack. 1. Osteoarthritis, Status post right total knee arthroplasty. -PT/Rehab -Patient on Eliquis already, no further prophylaxis indicated. 2. Paroxysmal atrial fibrillation -rate controlled -cont.amiodarone,BB,ATC Eliquis 3. History of bladder cancer - status post chemotherapy. 4. Status post transient ischemic attack. -monitor 5. Status post [id number] elevation myocardial infarction, likely related to atrial fibrillation. -no acute chest syndromes 6. Chronic emphysema. -monitor 7. Chronic anemia. -Stable H&H. Continue to monitor. DVT prophylaxis: Eliquis. Patient was seen in collaboration with . Exam/Review of Systems Exam Vitals Vital Signs Date Temp Pulse Resp B/P (MAP) Pulse Ox O2 O2 Flow FiO2 Time Delivery Rate 02/07/19 98.6 62 18 153/67 94 Room Air 07:00 (95) Intake and Output 02/06/19 02/06/19 02/07/19 1515:00 23:00 07:00 IntakeIntake Total 800 ml 320 ml OutputOutput Total 600 ml 300 ml BalanceBalance 200 ml 20 ml Medications Medication Current Medications Miscellaneous Information (Pending [facility] Order For Wound Care) This patient cheng... PRN PRN XX WOUND CARE; Start 01/26/19 at 17:30 Ascorbic Acid (Vitamin C) 1,000 mg DAILY PO Last administered on 02/07/19 09:21; Admin Dose 1,000 MG; Start 01/27/19 at 09:00; Stop 02/26/19 at 08:59 Brimonidine/ Timolol (Combigan Oph) 1 drop BID LEFT EYE Last administered on 02/07/19 09:20; Admin Dose 1 DROP; Start 01/26/19 at 21:00 Cholecalciferol (Vitamin D) 1,000 unit DAILY PO Last administered on 02/07/19 09:21; Admin Dose 1,000 UNIT; Start 01/27/19 at 09:00 Ferrous Sulfate (Ferrous Sulfate (Ec)) 325 mg DAILY PO Last administered on 02/07/19 09:21; Admin Dose 325 MG; Start 01/27/19 at 09:00; Stop 02/26/19 at 08:59 Pantoprazole (Protonix Tab) 40 mg DAILY@06 PO Last administered on 02/07/19 06:58; Admin Dose 40 MG; Start 01/27/19 at 06:00 Ondansetron HCl (Zofran Inj) 4 mg Q4H PRN IV NAUSEA/VOMITING; Start 01/26/19 at 20:30 Simethicone (Mylicon) 80 mg TID PRN PO .GAS; Start 01/26/19 at 20:30 Senna/Docusate Sodium (Senokot-S) 2 tab BID PRN PO .CONSTIPATION Last administered on 01/28/19 14:43; Admin Dose 2 TAB; Start 01/26/19 at 20:30 Magnesium Hydroxide (Milk Of Mag) 30 ml HS PRN PO .CONSTIPATION Last adm inistered on 01/28/19 16:17; Admin Dose 30 ML; Start 01/26/19 at 20:30 Bisacodyl (Dulcolax Supp) 10 mg DAILY PRN [place] .CONSTIPATION; Start 01/26/19 at 20:30 Sodium Biphosphate/ Sodium Phosphate (Fleet Enema) 133 ml DAILY PRN [place] .CONSTIPATION; Start 01/26/19 at 20:30 Naloxone HCl (Narcan) 0.2 mg Q2M PRN IV .RESP RATE; Start 01/26/19 at 20:30 Trimethobenzamide HCl (Tigan) 200 mg Q6H PRN IM NAUSEA AND/OR VOMITING; Start 01/26/19 at 20:30 Amiodarone HCl (Cordarone) 200 mg BID PO Last administered on 02/07/19 09:24; Admin Dose 200 MG; Start 01/26/19 at 21:00 Acetaminophen (Tylenol Tab) 650 mg Q6H PRN PO MILD PAIN(1-3)OR ELEVATED TEMP Last administered on 02/03/19 06:24; Admin Dose 650 MG; Start 01/26/19 at 20:30 Metoprolol Tartrate (Lopressor) 50 mg BID PO Last administered on 02/07/19 09:24; Admin Dose 50 MG; Start 01/26/19 at 21:00 Apixaban (Eliquis) 2.5 mg BID PO Last administered on 02/07/19 09:21; Admin Dose 2.5 MG; Start 01/26/19 at 21:00 Docusate Sodium (Colace) 100 mg BID PO Last administered on 02/05/19 20:59; Admin Dose 100 MG; Start 01/27/19 at 21:00 Patient Own Medication 1 ea DAILY PO Last administered on 02/07/19 09:25; Admin Dose 1 EA; Start 01/30/19 at 09:00 Gabapentin (Neurontin) 100 mg HS PO Last administered on 02/06/19 21:01; Admin Dose 100 MG; Start 01/30/19 at 21:00 Acetaminophen/ Hydrocodone Bitart ([place] (5/325)) 1 tab Q4H PRN PO MODERATE PAIN LEVEL 4-6 Last administered on 02/05/19 23:49; Admin Dose 1 TAB; Start 01/30/19 at 11:00 Acetaminophen/ Hydrocodone Bitart ([place] (5/325)) 2 tab Q4H PRN PO SEVERE PAIN LEVEL 7-10 Last administered on 02/07/19 09:20; Admin Dose 2 TAB; Start 01/30/19 at 11:00 Amoxicillin (Amoxicillin) 500 mg Q8 PO Last administered on 02/07/19 13:21; Admin Dose 500 MG; Start 02/02/19 at 14:00; Stop 02/09/19 at 13:59 Betamethasone/ Clotrimazole (Lotrisone Cr) 1 applic BID TOP Last administered on 02/07/19 09:33; Admin Dose 1 APPLIC; Start 02/04/19 at 21:00 Docosanol (Abreva) 1 applic 5 TIMES DAILY TOP Last administered on 02/07/19 09:33; Admin Dose 1 APPLIC; Start 02/05/19 at 12:30 EDEL MILLER NP Feb 07, 2019 14:12
[2019-02-07 20:12] VITALS: BP 140/63; PULSE 64; RESP 18
[2019-02-07] MEDS: GABAPENTIN 100 MG CAP PO SCH (21:16)
[2019-02-08 02:00] VITALS: BP 128/68; PULSE 61; RESP 18
[2019-02-08] MEDS: PANTOPRAZOLE (EC) 40 MG TAB PO SCH (06:32)
[2019-02-08] MEDS: AMOXICILLIN 500 MG CAP PO SCH ×3 (06:32→22:53)
[2019-02-08 07:54] VITALS: BP 150/61; PULSE 59; RESP 18
[2019-02-08] MEDS: PRESERVISION AREDS 2 FORMULA PO SCH (08:56)
[2019-02-08] MEDS: BRIMONIDINE 0.2%-TIMOLOL 0.5% 5ML OPH LEFT EYE SCH ×2 (08:56→20:59)
[2019-02-08] MEDS: FERROUS SULFATE (EC) 325 MG TAB PO SCH (08:57)
[2019-02-08] MEDS: APIXABAN 5 MG TABLET PO SCH ×2 (08:58→20:59)
[2019-02-08] MEDS: METOPROLOL 50 MG TAB PO SCH ×2 (08:58→21:01)
[2019-02-08] MEDS: CHOLECALCIFEROL 1,000 UNIT TAB PO SCH (08:59)
[2019-02-08] MEDS: ASCORBIC ACID 500 MG TAB PO SCH (08:59)
[2019-02-08] MEDS: AMIODARONE 200 MG TAB PO SCH ×2 (08:59→21:00)
[2019-02-08] MEDS: DOCUSATE SODIUM 100 MG CAP PO SCH ×2 (08:59→21:00)
[2019-02-08] MEDS: DOCOSANOL 2 GM CREAM TOP SCH ×5 (08:59→22:51)
[2019-02-08] MEDS: BETAMETHASONE/CLOTRIMAZOLE 15 GM CR TOP SCH ×2 (09:00→22:51)
--- NOTE | 2019-02-08 09:08 | PN ---
Date/Time of Note Date/Time of Note DATE: 02/08/19 TIME: 09:07 Assessment/Plan VTE Prophylaxis Risk score (from Ns)>0 risk: 6 SCD applied (from Ns): Yes Pharmacological prophylaxis: apixaban Lines/Catheters IV Catheter Type (from [place]): Saline Lock Urinary Cath still in place: No Assessment/Plan Hospital Course SUBJECTIVE: No acute distress. No acute distress OBJECTIVE: Vital signs-see below PHYSICAL EXAM: Constitutional: Elderly female, not in any apparent distress. Psych: nl mood/affect, no complaints Head: atraumatic, normocephalic Eyes: nl conjunctiva, nl sclera ENMT: mucosa pink and moist, nl external ears & nose Neck: non-tender, supple Respiratory: diminished bibasilar. normal air movement Cardiovascular: nl pulses, regular rate and rhythm Gastrointestinal: non-tender, soft, bowel sounds active in all 4 quadrants. Musculoskeletal/extremities: nl extremities to inspection, motor strength equal bilaterally, no focal deficit. Normal pulses,no cyanosis, no edema. Neurological: Alert oriented 3,nl speech, nl strength Skin: +ecchymosis. nl turgor ASSESSMENT/PLAN:assessment and plan: 88-year-old female status post right total knee arthroplasty for severe degenerative arthritis, right knee, avascular necrosis, as well as a previous open reduction and internal fixation in the right patella, who had a mary postoperative course complicated by atrial fibrillation with rapid ventricular response, hypertension and right-sided weakness/transient ischemic attack. 1. Osteoarthritis, Status post right total knee arthroplasty. -PT/Rehab -Patient on Eliquis already, no further prophylaxis indicated. 2. Paroxysmal atrial fibrillation -rate controlled -cont.amiodarone,BB,ATC Eliquis 3. History of bladder cancer - status post chemotherapy. 4. Status post transient ischemic attack. -monitor 5. Status post wyu-LI-enmhvsd elevation myocardial infarction, likely related to atrial fibrillation. -no acute chest syndromes 6. Chronic emphysema. -monitor 7. Chronic anemia. -Stable H&H. Continue to monitor. DVT prophylaxis: Eliquis. Patient was seen in collaboration with . Exam/Review of Systems Exam Vitals Vital Signs Date Temp Pulse Resp B/P (MAP) Pulse Ox O2 O2 Flow FiO2 Time Delivery Rate 02/08/19 98.3 59 18 150/61 94 07:54 (90) 02/08/19 Room Air 02:00 Intake and Output 02/07/19 02/07/19 02/08/19 1515:00 23:00 07:00 IntakeIntake Total 1200 ml 1000 ml OutputOutput Total 600 ml BalanceBalance 600 ml 1000 ml Medications Medication Current Medications Miscellaneous Information (Pending [facility] Order For Wound Care) This patient cheng... PRN PRN XX WOUND CARE; Start 01/26/19 at 17:30 Ascorbic Acid (Vitamin C) 1,000 mg DAILY PO Last administered on 02/08/19at 08:59; Admin Dose 1,000 MG; Start 01/27/19 at 09:00; Stop 02/26/19 at 08:59 Brimonidine/ Timolol (Combigan Oph) 1 drop BID LEFT EYE Last administered on 02/08/19at 08:56; Admin Dose 1 DROP; Start 01/26/19 at 21:00 Cholecalciferol (Vitamin D) 1,000 unit DAILY PO Last administered on 02/08/19at 08:59; Admin Dose 1,000 UNIT; Start 01/27/19 at 09:00 Ferrous Sulfate (Ferrous Sulfate (Ec)) 325 mg DAILY PO Last administered on 02/08/19 08:57; Admin Dose 325 MG; Start 01/27/19 at 09:00; Stop 02/26/19 at 08:59 Pantoprazole (Protonix Tab) 40 mg DAILY@06 PO Last administered on 02/08/19at 06:32; Admin Dose 40 MG; Start 01/27/19 at 06:00 Ondansetron HCl (Zofran Inj) 4 mg Q4H PRN IV NAUSEA/VOMITING; Start 01/26/19 at 20:30 Simethicone (Mylicon) 80 mg TID PRN PO .GAS; Start 01/26/19 at 20:30 Senna/Docusate Sodium (Senokot-S) 2 tab BID PRN PO .CONSTIPATION Last administered on 01/28/19 14:43; Admin Dose 2 TAB; Start 01/26/19 at 20:30 Magnesium Hydroxide (Milk Of Mag) 30 ml HS PRN PO .CONSTIPATION Last administered on 01/28/19 16:17; Admin Dose 30 ML; Start 01/26/19 at 20:30 Bisacodyl (Dulcolax Supp) 10 mg DAILY PRN [place] .CONSTIPATION; Start 01/26/19 at 20:30 Sodium Biphosphate/ Sodium Phosphate (Fleet Enema) 133 ml DAILY PRN [place] .CONST IPATION; Start 01/26/19 at 20:30 Naloxone HCl (Narcan) 0.2 mg Q2M PRN IV .RESP RATE; Start 01/26/19 at 20:30 Trimethobenzamide HCl (Tigan) 200 mg Q6H PRN IM NAUSEA AND/OR VOMITING; Start 01/26/19 at 20:30 Amiodarone HCl (Cordarone) 200 mg BID PO Last administered on 02/08/19 08:59; Admin Dose 200 MG; Start 01/26/19 at 21:00 Acetaminophen (Tylenol Tab) 650 mg Q6H PRN PO MILD PAIN(1-3)OR ELEVATED TEMP Last administered on 02/03/19 06:24; Admin Dose 650 MG; Start 01/26/19 at 20:30 Metoprolol Tartrate (Lopressor) 50 mg BID PO Last administered on 02/08/19 08:58; Admin Dose 50 MG; Start 01/26/19 at 21:00 Apixaban (Eliquis) 2.5 mg BID PO Last administered on 02/08/19 08:58; Admin Dose 2.5 MG; Start 01/26/19 at 21:00 Docusate Sodium (Colace) 100 mg BID PO Last administered on 02/07/19 21:17; Admin Dose 100 MG; Start 01/27/19 at 21:00 Patient Own Medication 1 ea DAILY PO Last administered on 02/08/19 08:56; Admin Dose 1 EA; Start 01/30/19 at 09:00 Gabapentin (Neurontin) 100 mg HS PO Last administered on 02/07/19 21:16; Admin Dose 100 MG; Start 01/30/19 at 21:00 Acetaminophen/ Hydrocodone Bitart ([place] (5/325)) 1 tab Q4H PRN PO MODERATE PAIN LEVEL 4-6 Last administered on 02/05/19 23:49; Admin Dose 1 TAB; Start 01/30/19 at 11:00 Acetaminophen/ Hydrocodone Bitart ([place] (5/325)) 2 tab Q4H PRN PO SEVERE PAIN LEVEL 7-10 Last administered on 4/12/19at 09:20; Admin Dose 2 TAB; Start 01/30/19 at 11:00 Amoxicillin (Amoxicillin) 500 mg Q8 PO Last administered on 02/08/19at 06:32; Admin Dose 500 MG; Start 02/02/19 at 14:00; Stop 02/09/19 at 13:59 Betamethasone/ Clotrimazole (Lotrisone Cr) 1 applic BID TOP Last administered on 02/08/19at 09:00; Admin Dose 1 APPLIC; Start 02/04/19 at 21:00 Docosanol (Abreva) 1 applic 5 TIMES DAILY TOP Last administered on 02/07/19at 21:25; Admin Dose 1 APPLIC; Start 02/05/19 at 12:30 EDEL MILLER V. [employer] Feb 08, 2019 09:08
--- NOTE | 2019-02-08 10:45 | PN ---
Date/Time of Note Date/Time of Note DATE: 02/08/19 TIME: 10:45 Subjective Agreeable to therapy activities Objective Vital Signs Date Temp Pulse Resp B/P (MAP) Pulse Ox O2 O2 Flow FiO2 Time Delivery Rate 02/08/19 98.3 59 18 150/61 94 07:54 (90) 02/08/19 Room Air 02:00 Intake and Output 02/07/19 02/07/19 02/08/19 1414:59 22:59 06:59 IntakeIntake Total 1200 ml 1000 ml OutputOutput Total 600 ml BalanceBalance 600 ml 1000 ml Exam pulm-cta cga ambulation Results/Medications Medications Current Medications Miscellaneous Information (Pending [facility] Order For Wound Care) This patient cheng... PRN PRN XX WOUND CARE; Start 01/26/19 at 17:30 Ascorbic Acid (Vitamin C) 1,000 mg DAILY PO Last administered on 02/08/19at 08:59; Admin Dose 1,000 MG; Start 01/27/19 at 09:00; Stop 02/26/19 at 08:59 Brimonidine/ Timolol (Combigan Oph) 1 drop BID LEFT EYE Last administered on 02/08/19at 08:56; Admin Dose 1 DROP; Start 01/26/19 at 21:00 Cholecalciferol (Vitamin D) 1,000 unit DAILY PO Last administered on 02/08/19at 08:59; Admin Dose 1,000 UNIT; Start 01/27/19 at 09:00 Ferrous Sulfate (Ferrous Sulfate (Ec)) 325 mg DAILY PO Last administered on 02/08/19at 08:57; Admin Dose 325 MG; Start 01/27/19 at 09:00; Stop 02/26/19 at 08:59 Pantoprazole (Protonix Tab) 40 mg DAILY@06 PO Last administered on 02/08/19at 06:32; Admin Dose 40 MG; Start 01/27/19 at 06:00 Ondansetron HCl (Zofran Inj) 4 mg Q4H PRN IV NAUSEA/VOMITING; Start 01/26/19 at 20:30 Simethicone (Mylicon) 80 mg TID PRN PO .GAS; Start 01/26/19 at 20:30 Senna/Docusate Sodium (Senokot-S) 2 tab BID PRN PO .CONSTIPATION Last administered on 01/28/19 14:43; Admin Dose 2 TAB; Start 01/26/19 at 20:30 Magnesium Hydroxide (Milk Of Mag) 30 ml HS PRN PO .CONSTIPATION Last administered on 01/28/19 16:17; Admin Dose 30 ML; Start 01/26/19 at 20:30 Bisacodyl (Dulcolax Supp) 10 mg DAILY PRN [place] .CONSTIPATION; Start 01/26/19 at 20:30 Sodium Biphosphate/ Sodium Phosphate (Fleet Enema) 133 ml DAILY PRN [place] .CONSTIP ATION; Start 01/26/19 at 20:30 Naloxone HCl (Narcan) 0.2 mg Q2M PRN IV .RESP RATE; Start 01/26/19 at 20:30 Trimethobenzamide HCl (Tigan) 200 mg Q6H PRN IM NAUSEA AND/OR VOMITING; Start 01/26/19 at 20:30 Amiodarone HCl (Cordarone) 200 mg BID PO Last administered on 02/08/19 08:59; Admin Dose 200 MG; Start 01/26/19 at 21:00 Acetaminophen (Tylenol Tab) 650 mg Q6H PRN PO MILD PAIN(1-3)OR ELEVATED TEMP Last administered on 02/03/19 06:24; Admin Dose 650 MG; Start 01/26/19 at 20:30 Metoprolol Tartrate (Lopressor) 50 mg BID PO Last administered on 02/08/19 08:58; Admin Dose 50 MG; Start 01/26/19 at 21:00 Apixaban (Eliquis) 2.5 mg BID PO Last administered on 02/08/19 08:58; Admin Dose 2.5 MG; Start 01/26/19 at 21:00 Docusate Sodium (Colace) 100 mg BID PO Last administered on 02/07/19 21:17; Admin Dose 100 MG; Start 01/27/19 at 21:00 Patient Own Medication 1 ea DAILY PO Last administered on 02/08/19 08:56; Admin Dose 1 EA; Start 01/30/19 at 09:00 Gabapentin (Neurontin) 100 mg HS PO Last administered on 02/07/19 21:16; Admin Dose 100 MG; Start 01/30/19 at 21:00 Acetaminophen/ Hydrocodone Bitart ([place] (5/325)) 1 tab Q4H PRN PO MODERATE PAIN LEVEL 4-6 Last administered on 02/05/19at 23:49; Admin Dose 1 TAB; Start 01/30/19 at 11:00 Acetaminophen/ Hydrocodone Bitart ([place] (5/325)) 2 tab Q4H PRN PO SEVERE PAIN LEVEL 7-10 Last administered on 02/07/19at 09:20; Admin Dose 2 TAB; Start 01/30/19 at 11:00 Amoxicillin (Amoxicillin) 500 mg Q8 PO Last administered on 02/08/19at 06:32; Admin Dose 500 MG; Start 02/02/19 at 14:00; Stop 02/09/19 at 13:59 Betamethasone/ Clotrimazole (Lotrisone Cr) 1 applic BID TOP Last administered on 02/08/19at 09:00; Admin Dose 1 APPLIC; Start 02/04/19 at 21:00 Docosanol (Abreva) 1 applic 5 TIMES DAILY TOP Last administered on 02/07/19at 21:25; Admin Dose 1 APPLIC; Start 02/05/19 at 12:30 Assessment/Plan Additional Assessment/Plan Rehab- Other neurologic disorder, possible postoperative TIA and encephalopathy;Status post right total knee arthroplasty Continue rehab activities with steady progress and encouragement Atrial fibrillation. Aortic stenosis. Carotid artery stenosis. NYA VALENTE MD Feb 08, 2019 10:45
[2019-02-08 14:00] VITALS: BP 123/52; PULSE 55; RESP 18
[2019-02-08 19:59] VITALS: BP 148/69; PULSE 62; PULSE 82; RESP 18
[2019-02-08] MEDS: GABAPENTIN 100 MG CAP PO SCH (21:00)
[2019-02-09 02:00] VITALS: BP 127/58; PULSE 62; RESP 18
[2019-02-09 07:00] VITALS: BP 173/77; PULSE 53; RESP 18
[2019-02-09] MEDS: PANTOPRAZOLE (EC) 40 MG TAB PO SCH (07:00)
[2019-02-09] MEDS: AMOXICILLIN 500 MG CAP PO SCH (07:03)
[2019-02-09] MEDS: BRIMONIDINE 0.2%-TIMOLOL 0.5% 5ML OPH LEFT EYE SCH ×2 (08:51→21:11)
[2019-02-09] MEDS: PRESERVISION AREDS 2 FORMULA PO SCH (08:52)
[2019-02-09] MEDS: DOCUSATE SODIUM 100 MG CAP PO SCH ×2 (08:52→21:11)
[2019-02-09 08:57] VITALS: BP 141/53; PULSE 57; RESP 16
[2019-02-09] MEDS: AMIODARONE 200 MG TAB PO SCH ×2 (08:57→21:12)
[2019-02-09] MEDS: APIXABAN 5 MG TABLET PO SCH ×2 (08:58→21:12)
[2019-02-09] MEDS: ASCORBIC ACID 500 MG TAB PO SCH (08:58)
[2019-02-09] MEDS: FERROUS SULFATE (EC) 325 MG TAB PO SCH (08:58)
[2019-02-09] MEDS: CHOLECALCIFEROL 1,000 UNIT TAB PO SCH (08:59)
[2019-02-09] MEDS: METOPROLOL 50 MG TAB PO SCH ×2 (09:00→21:13)
[2019-02-09] MEDS: DOCOSANOL 2 GM CREAM TOP SCH ×5 (09:00→21:18)
[2019-02-09] MEDS: BETAMETHASONE/CLOTRIMAZOLE 15 GM CR TOP SCH ×2 (09:00→21:18)
--- NOTE | 2019-02-09 13:17 | PN ---
Date/Time of Note Date/Time of Note DATE: 02/09/19 TIME: 13:09 Assessment/Plan VTE Prophylaxis Risk score (from Ns)>0 risk: 9 SCD applied (from Ns): Yes Pharmacological prophylaxis: apixaban Lines/Catheters IV Catheter Type (from [facility]): Saline Lock Urinary Cath still in place: No Assessment/Plan Hospital Course SUBJECTIVE: No acute distress. No acute distress OBJECTIVE: Vital signs-see below PHYSICAL EXAM: Constitutional: Elderly female, not in any apparent distress. Psych: nl mood/affect, no complaints Head: atraumatic, normocephalic Eyes: nl conjunctiva, nl sclera ENMT: mucosa pink and moist, nl external ears & nose Neck: non-tender, supple Respiratory: diminished bibasilar. normal air movement Cardiovascular: nl pulses, regular rate and rhythm Gastrointestinal: non-tender, soft, bowel sounds active in all 4 quadrants. Musculoskeletal/extremities: nl extremities to inspection, motor strength equal bilaterally, no focal deficit. Normal pulses,no cyanosis, no edema. Neurological: Alert oriented 3,nl speech, nl strength Skin: +ecchymosis. nl turgor ASSESSMENT/PLAN:assessment and plan: 88-year-old female status post right total knee arthroplasty for severe degenerative arthritis, right knee, avascular necrosis, as well as a previous open reduction and internal fixation in the right patella, who had a mary postoperative course complicated by atrial fibrillation with rapid ventricular response, hypertension and right-sided weakness/transient ischemic attack. 1. Osteoarthritis, Status post right total knee arthroplasty. -PT/Rehab -Patient on Eliquis already, no further prophylaxis indicated. 2. Paroxysmal atrial fibrillation -rate controlled -cont.amiodarone,BB,ATC Eliquis 3. History of bladder cancer - status post chemotherapy. 4. Status post transient ischemic attack. -monitor 5. Status post fij-MX-[id number] elevation myocardial infarction, likely related to atrial fibrillation. -no acute chest syndromes 6. Chronic emphysema. -monitor 7. Chronic anemia. -Stable H&H. Continue to monitor. 8. Essential hypertension. -Blood pressure slightly high this morning secondary to metoprolol held. Metoprolol has been held secondary to borderline bradycardia.Also on Amiodarone... At this time, I will reconsult senior solutions architect for evaluation. DVT prophylaxis: Eliquis. Patient was seen in collaboration with . Exam/Review of Systems Exam Vitals Vital Signs Date Temp Pulse Resp B/P (MAP) Pulse Ox O2 O2 Flow FiO2 Time Delivery Rate 02/09/19 57 16 141/53 Room Air 08:57 (82) 02/09/19 98.6 94 07:00 Intake and Output 02/08/19 02/08/19 02/09/19 1515:00 23:00 07:00 IntakeIntake Total 440 ml 320 ml 940 ml BalanceBalance 440 ml 320 ml 940 ml Medications Medication Current Medications Miscellaneous [facility] This patient cheng... PRN PRN XX WOUND CARE; Start 01/26/19 at 17:30 Ascorbic Acid (Vitamin C) 1,000 mg DAILY PO Last administered on 02/09/19 08:58; Admin Dose 1,000 MG; Start 01/27/19 at 09:00; Stop 02/26/19 at 08:59 Brimonidine/ Timolol (Combigan Oph) 1 drop BID LEFT EYE Last administered on 02/09/19 08:51; Admin Dose 1 DROP; Start 01/26/19 at 21:00 Cholecalciferol (Vitamin D) 1,000 unit DAILY PO Last administered on 02/09/19 08:59; Admin Dose 1,000 UNIT; Start 01/27/19 at 09:00 Ferrous Sulfate (Ferrous Sulfate (Ec)) 325 mg DAILY PO Last administered on 02/09/19 08:58; Admin Dose 325 MG; Start 01/27/19 at 09:00; Stop 02/26/19 at 08:59 Pantoprazole (Protonix Tab) 40 mg DAILY@06 PO Last administered on 02/09/19 07:00; Admin Dose 40 MG; Start 01/27/19 at 06:00 Ondansetron HCl (Zofran Inj) 4 mg Q4H PRN IV NAUSEA/VOMITING; Start 01/26/19 at 20:30 Simethicone (Mylicon) 80 mg TID PRN PO .GAS; Start 01/26/19 at 20:30 Senna/Docusate Sodium (Senokot-S) 2 tab BID PRN PO .CONSTIPATION Last administered on 01/28/19 14:43; Admin Dose 2 TAB; Start 01/26/19 at 20:30 Magnesium Hydroxide (Milk Of Mag) 30 ml HS PRN PO .CONSTIPATION Last admini stered on 01/28/19 16:17; Admin Dose 30 ML; Start 01/26/19 at 20:30 Bisacodyl (Dulcolax Supp) 10 mg DAILY PRN [place] .CONSTIPATION; Start 01/26/19 at 20:30 Sodium Biphosphate/ Sodium Phosphate (Fleet Enema) 133 ml DAILY PRN [place] .CONSTIPATION; Start 01/26/19 at 20:30 Naloxone HCl (Narcan) 0.2 mg Q2M PRN IV .RESP RATE; Start 01/26/19 at 20:30 Trimethobenzamide HCl (Tigan) 200 mg Q6H PRN IM NAUSEA AND/OR VOMITING; Start 01/26/19 at 20:30 Amiodarone HCl (Cordarone) 200 mg BID PO Last administered on 02/09/19 08:57; Admin Dose 200 MG; Start 01/26/19 at 21:00 Acetaminophen (Tylenol Tab) 650 mg Q6H PRN PO MILD PAIN(1-3)OR ELEVATED TEMP [place] administered on 02/03/19 06:24; Admin Dose 650 MG; Start 01/26/19 at 20:30 Metoprolol Tartrate (Lopressor) 50 mg BID PO Last administered on 02/08/19 21:01; Admin Dose 50 MG; Start 01/26/19 at 21:00 Apixaban (Eliquis) 2.5 mg BID PO Last administered on 02/09/19 08:58; Admin Dose 2.5 MG; Start 01/26/19 at 21:00 Docusate Sodium (Colace) 100 mg BID PO Last administered on 02/09/19 08:52; Admin Dose 100 MG; Start 01/27/19 at 21:00 Patient Own Medication 1 ea DAILY PO Last administered on 02/09/19 08:52; Admin Dose 1 EA; Start 01/30/19 at 09:00 Gabapentin (Neurontin) 100 mg HS PO Last administered on 02/08/19 21:00; Admin Dose 100 MG; Start 01/30/19 at 21:00 Acetaminophen/ Hydrocodone Bitart ([place] (5/325)) 1 tab Q4H PRN PO MODERATE PAIN LEVEL 4-6 Last administered on 02/05/19 23:49; Admin Dose 1 TAB; Start 01/30/19 at 11:00 Acetaminophen/ Hydrocodone Bitart ([place] (5/325)) 2 tab Q4H PRN PO SEVERE PAIN LEVEL 7-10 Last administered on 02/07/19 09:20; Admin Dose 2 TAB; Start 01/30/19 at 11:00 Amoxicillin (Amoxicillin) 500 mg Q8 PO Last administered on 02/09/19 07:03; Admin Dose 500 MG; Start 02/02/19 at 14:00; Stop 02/09/19 at 13:59 Betamethasone/ Clotrimazole (Lotrisone Cr) 1 applic BID TOP Last administered on 02/09/19 09:00; Admin Dose 1 APPLIC; Start 02/04/19 at 21:00 Docosanol (Abreva) 1 applic 5 TIMES DAILY TOP Last administered on 02/08/19at 22:51; Admin Dose 1 APPLIC; Start 02/05/19 at 12:30 EDEL MILLER NP Feb 09, 2019 13:17
[2019-02-09 14:00] VITALS: BP 116/82; PULSE 55; RESP 17
[2019-02-09 20:00] VITALS: BP 133/62; PULSE 57; RESP 18
[2019-02-09] MEDS: GABAPENTIN 100 MG CAP PO SCH (21:12)
[2019-02-10 02:18] VITALS: BP 130/63; PULSE 58; RESP 18
[2019-02-10] MEDS: PANTOPRAZOLE (EC) 40 MG TAB PO SCH (06:55)
[2019-02-10 07:00] VITALS: BP 140/63; PULSE 62; RESP 18
[2019-02-10] MEDS: PRESERVISION AREDS 2 FORMULA PO SCH (08:21)
[2019-02-10] MEDS: BRIMONIDINE 0.2%-TIMOLOL 0.5% 5ML OPH LEFT EYE SCH ×2 (08:21→21:17)
[2019-02-10] MEDS: FERROUS SULFATE (EC) 325 MG TAB PO SCH (08:22)
[2019-02-10] MEDS: DOCUSATE SODIUM 100 MG CAP PO SCH ×2 (08:22→21:17)
[2019-02-10] MEDS: APIXABAN 5 MG TABLET PO SCH ×2 (08:22→21:18)
[2019-02-10] MEDS: CHOLECALCIFEROL 1,000 UNIT TAB PO SCH (08:22)
[2019-02-10] MEDS: ASCORBIC ACID 500 MG TAB PO SCH (08:22)
[2019-02-10] MEDS: HYDROCODONE/APAP (5/325) TAB PO PRN (08:24)
[2019-02-10] MEDS: METOPROLOL 50 MG TAB PO SCH ×2 (08:24→21:00)
[2019-02-10] MEDS: DOCOSANOL 2 GM CREAM TOP SCH (08:25)
[2019-02-10] MEDS: AMIODARONE 200 MG TAB PO SCH ×2 (08:25→21:18)
[2019-02-10] MEDS: BETAMETHASONE/CLOTRIMAZOLE 15 GM CR TOP SCH ×2 (08:27→21:20)
--- NOTE | 2019-02-10 12:59 | PN ---
Date/Time of Note Date/Time of Note DATE: 02/10/19 TIME: 12:59 Objective Vital Signs Date Temp Pulse Resp B/P (MAP) Pulse Ox O2 O2 Flow FiO2 Time Delivery Rate 02/10/19 97.5 62 18 140/63 95 Room Air 07:00 (88) Intake and Output 02/09/19 02/09/19 02/10/19 1515:00 23:00 07:00 IntakeIntake Total 550 ml 220 ml BalanceBalance 550 ml 220 ml Exam INTERDISCIPLINARY TEAM CONFERENCE Attended by PT, OT, ST, Blaster Helper, Social Work, Rehabilitation Nursing, Material Analyst and Operations SupervisorTrack Helper Exam: Pulm- cta Abd-soft BOWEL- Cont BLADDER-Cont SKIN- intact OT- DRESSING- min BATHING-min TOILETING-min PT- BED MOBILITY-cga TRANSFERS-cga AMBULATION-cga 50 feet A/P- Interdisciplinary team conference held today. Please see interdisciplinary sheet. Working toward d.c. on 02/13 with post discharge follow up of physical therapy, occupational therapy. Results/Medications Medications Current Medications Miscellaneous Information (Pending [facility] Order For Wound Care) This patient cheng... PRN PRN XX WOUND CARE; Start 01/26/19 at 17:30 Ascorbic Acid (Vitamin C) 1,000 mg DAILY PO Last administered on 02/10/19at 08:22; Admin Dose 1,000 MG; Start 01/27/19 at 09:00; Stop 02/26/19 at 08:59 Brimonidine/ Timolol (Combigan Oph) 1 drop BID LEFT EYE Last administered on 02/10/19at 08:21; Admin Dose 1 DROP; Start 01/26/19 at 21:00 Cholecalciferol (Vitamin D) 1,000 unit DAILY PO Last administered on 02/10/19at 08:22; Admin Dose 1,000 UNIT; Start 01/27/19 at 09:00 Ferrous Sulfate (Ferrous Sulfate (Ec)) 325 mg DAILY PO Last administered on 02/10/19at 08:22; Admin Dose 325 MG; Start 01/27/19 at 09:00; Stop 02/26/19 at 08:59 Pantoprazole (Protonix Tab) 40 mg DAILY@06 PO Last administered on 02/10/19at 06:55; Admin Dose 40 MG; Start 01/27/19 at 06:00 Ondansetron HCl (Zofran Inj) 4 mg Q4H PRN IV NAUSEA/VOMITING; Start 01/26/19 at 20:30 Simethicone (Mylicon) 80 mg TID PRN PO .GAS; Start 01/26/19 at 20:30 Senna/Docusate Sodium (Senokot-S) 2 tab BID PRN PO .CONSTIPATION Last administered on 01/28/19 14:43; Admin Dose 2 TAB; Start 01/26/19 at 20:30 Magnesium Hydroxide (Milk Of Mag) 30 ml HS PRN PO .CONSTIPATION Last administered on 01/28/19 16:17; Admin Dose 30 ML; Start 01/26/19 at 20:30 Bisacodyl (Dulcolax Supp) 10 mg DAILY PRN [place] .CONSTIPATION; Start 01/26/19 at 20:30 Sodium Biphosphate/ Sodium Phosphate (Fleet Enema) 133 ml DAILY PRN [place] .CON STIPATION; Start 01/26/19 at 20:30 Naloxone HCl (Narcan) 0.2 mg Q2M PRN IV .RESP RATE; Start 01/26/19 at 20:30 Trimethobenzamide HCl (Tigan) 200 mg Q6H PRN IM NAUSEA AND/OR VOMITING; Start 01/26/19 at 20:30 Amiodarone HCl (Cordarone) 200 mg BID PO Last administered on 02/10/19 08:25; Admin Dose 200 MG; Start 01/26/19 at 21:00 Acetaminophen (Tylenol Tab) 650 mg Q6H PRN PO MILD PAIN(1-3)OR ELEVATED TEMP Last administered on 02/03/19 06:24; Admin Dose 650 MG; Start 01/26/19 at 20:30 Metoprolol Tartrate (Lopressor) 50 mg BID PO Last administered on 02/10/19 08:24; Admin Dose 50 MG; Start 01/26/19 at 21:00 Apixaban (Eliquis) 2.5 mg BID PO Last administered on 02/10/19 08:22; Admin Dose 2.5 MG; Start 01/26/19 at 21:00 Docusate Sodium (Colace) 100 mg BID PO Last administered on 02/10/19 08:22; Admin Dose 100 MG; Start 01/27/19 at 21:00 Patient Own Medication 1 ea DAILY PO Last administered on 02/10/19 08:21; Admin Dose 1 EA; Start 01/30/19 at 09:00 Gabapentin (Neurontin) 100 mg HS PO Last administered on 02/09/19 21:12; Admin Dose 100 MG; Start 01/30/19 at 21:00 Acetaminophen/ Hydrocodone Bitart ([place] (5/325)) 1 tab Q4H PRN PO MODERATE PAIN LEVEL 4-6 Last administered on 02/10/19 08:24; Admin Dose 1 TAB; Start 01/30/19 at 11:00 Acetaminophen/ Hydrocodone Bitart ([place] (5/325)) 2 tab Q4H PRN PO SEVERE PAIN LEVEL 7-10 Last administered on 02/07/19 09:20; Admin Dose 2 TAB; Start 01/30/19 at 11:00 Betamethasone/ Clotrimazole (Lotrisone Cr) 1 applic BID TOP Last administered on 02/10/19 08:27; Admin Dose 1 APPLIC; Start 02/04/19 at 21:00 NYA VALENTE MD Feb 10, 2019 12:59
--- NOTE | 2019-02-10 13:59 | PN ---
Date/Time of Note Date/Time of Note DATE: 02/10/19 TIME: 13:58 Assessment/Plan VTE Prophylaxis Risk score (from Ns)>0 risk: 9 SCD applied (from Ns): Yes Pharmacological prophylaxis: apixaban Lines/Catheters IV [facility]from [facility] Saline Lock Urinary Cath still in place: No Assessment/Plan Hospital Course SUBJECTIVE: No acute distress. OBJECTIVE: Vital signs-see below PHYSICAL EXAM: Constitutional: Elderly female, not in any apparent distress. Psych: nl mood/affect, no complaints Head: atraumatic, normocephalic Eyes: nl conjunctiva, nl sclera ENMT: mucosa pink and moist, nl external ears & nose Neck: non-tender, supple Respiratory: diminished bibasilar. normal air movement Cardiovascular: nl pulses, regular rate and rhythm Gastrointestinal: non-tender, soft, bowel sounds active in all 4 quadrants. Musculoskeletal/extremities: nl extremities to inspection, motor strength equal bilaterally, no focal deficit. Normal pulses,no cyanosis, no edema. Neurological: Alert oriented 3,nl speech, nl strength Skin: +ecchymosis. nl turgor ASSESSMENT/PLAN:assessment and plan: 88-year-old female status post right total knee arthroplasty for severe degenerative arthritis, right knee, avascular necrosis, as well as a previous open reduction and internal fixation in the right patella, who had a mary postoperative course complicated by atrial fibrillation with rapid ventricular response, hypertension and right-sided weakness/transient ischemic attack. 1. Osteoarthritis, Status post right total knee arthroplasty. -PT/Rehab -Patient on Eliquis already, no further prophylaxis indicated. 2. Paroxysmal atrial fibrillation -rate controlled -cont.amiodarone,BB,ATC Eliquis 3. History of bladder cancer - status post chemotherapy. 4. Status post transient ischemic attack. -monitor 5. Status post rab-[id number] elevation myocardial infarction, likely related to atrial fibrillation. -no acute chest syndromes 6. Chronic emphysema. -monitor 7. Chronic anemia. -Stable H&H. Continue to monitor. 8. Essential hypertension. -Now stable -Cont.current antihypertensive regimen as HR allows. DVT prophylaxis: Eliquis. Patient was seen in collaboration with . Exam/Review of Systems Exam Vitals Vital Signs Date Temp Pulse Resp B/P (MAP) Pulse Ox O2 O2 Flow FiO2 Time Delivery Rate 02/10/19 97.5 62 18 140/63 95 Room Air 07:00 (88) Intake and Output 02/09/19 02/09/19 02/10/19 1515:00 23:00 07:00 IntakeIntake Total 550 ml 220 ml BalanceBalance 550 ml 220 ml Medications Medication Current Medications Miscellaneous Information (Pending [facility] Order For Wound Care) This patient cheng... PRN PRN XX WOUND CARE; Start 01/26/19 at 17:30 Ascorbic Acid (Vitamin C) 1,000 mg DAILY PO Last administered on 02/10/19 08:22; Admin Dose 1,000 MG; Start 01/27/19 at 09:00; Stop 02/26/19 at 08:59 Brimonidine/ Timolol (Combigan Oph) 1 drop BID LEFT EYE Last administered on 02/10/19 08:21; Admin Dose 1 DROP; Start 01/26/19 at 21:00 Cholecalciferol (Vitamin D) 1,000 unit DAILY PO Last administered on 02/10/19 08:22; Admin Dose 1,000 UNIT; Start 01/27/19 at 09:00 Ferrous Sulfate (Ferrous Sulfate (Ec)) 325 mg DAILY PO Last administered on 02/10/19 08:22; Admin Dose 325 MG; Start 01/27/19 at 09:00; Stop 02/26/19 at 08:59 Pantoprazole (Protonix Tab) 40 mg DAILY@06 PO Last administered on 02/10/19at 06:55; Admin Dose 40 MG; Start 01/27/19 at 06:00 Ondansetron HCl (Zofran Inj) 4 mg Q4H PRN IV NAUSEA/VOMITING; Start 01/26/19 at 20:30 Simethicone (Mylicon) 80 mg TID PRN PO .GAS; Start 01/26/19 at 20:30 Senna/Docusate Sodium (Senokot-S) 2 tab BID PRN PO .CONSTIPATION Last administered on 01/28/19 14:43; Admin Dose 2 TAB; Start 01/26/19 at 20:30 Magnesium Hydroxide (Milk Of Mag) 30 ml HS PRN PO .CONSTIPATION Last administered on 01/28/19 16:17; Admin Dose 30 ML; Start 01/26/19 at 20:30 Bisacodyl (Dulcolax Supp) 10 mg DAILY PRN [place] .CONSTIPATION; Start 01/26/19 at 20:30 Sodium Biphosphate/ Sodium Phosphate (Fleet Enema) 133 ml DAILY PRN [place] .CONSTIPATION; Start 01/26/19 at 20:30 Naloxone HCl (Narcan) 0.2 mg Q2M PRN IV .RESP RATE; Start 01/26/19 at 20:30 Trimethobenzamide HCl (Tigan) 200 mg Q6H PRN IM NAUSEA AND/OR VOMITING; Start 01/26/19 at 20:30 Amiodarone HCl (Cordarone) 200 mg BID PO Last administered on 02/10/19 08:25; Admin Dose 200 MG; Start 01/26/19 at 21:00 Acetaminophen (Tylenol Tab) 650 mg Q6H PRN PO MILD PAIN(1-3)OR ELEVATED TEMP Last administered on 02/03/19 06:24; Admin Dose 650 MG; Start 01/26/19 at 20:30 Metoprolol Tartrate (Lopressor) 50 mg BID PO Last administered on 02/10/19 08:24; Admin Dose 50 MG; Start 01/26/19 at 21:00 Apixaban (Eliquis) 2.5 mg BID PO Last administered on 02/10/19 08:22; Admin Dose 2.5 MG; Start 01/26/19 at 21:00 Docusate Sodium (Colace) 100 mg BID PO Last administered on 02/10/19 08:22; Admin Dose 100 MG; Start 01/27/19 at 21:00 Patient Own Medication 1 ea DAILY PO Last administered on 02/10/19 08:21; Admin Dose 1 EA; Start 01/30/19 at 09:00 Gabapentin (Neurontin) 100 mg HS PO Last administered on 02/09/19 21:12; Admin Dose 100 MG; Start 01/30/19 at 21:00 Acetaminophen/ Hydrocodone Bitart ([place] (5/325)) 1 tab Q4H PRN PO MODERATE PAIN LEVEL 4-6 Last administered on 02/10/19 08:24; Admin Dose 1 TAB; Start 01/30/19 at 11:00 Acetaminophen/ Hydrocodone Bitart ([place] (5/325)) 2 tab Q4H PRN PO SEVERE PAIN LEVEL 7-10 Last administered on 4/12/19at 09:20; Admin Dose 2 TAB; Start 01/30/19 at 11:00 Betamethasone/ Clotrimazole (Lotrisone Cr) 1 applic BID TOP Last administered on 02/10/19at 08:27; Admin Dose 1 APPLIC; Start 02/04/19 at 21:00 EDEL MILLER NP Feb 10, 2019 13:59
[2019-02-10 14:00] VITALS: BP 127/60; PULSE 50; RESP 18
[2019-02-10 20:00] VITALS: BP 134/57; PULSE 59; RESP 18
[2019-02-10] MEDS: GABAPENTIN 100 MG CAP PO SCH (21:19)
[2019-02-11 02:00] VITALS: BP 124/64; PULSE 60; RESP 18
[2019-02-11] MEDS: PANTOPRAZOLE (EC) 40 MG TAB PO SCH (06:19)
[2019-02-11] MEDS: PRESERVISION AREDS 2 FORMULA PO SCH (08:30)
[2019-02-11] MEDS: BRIMONIDINE 0.2%-TIMOLOL 0.5% 5ML OPH LEFT EYE SCH ×2 (08:30→21:08)
[2019-02-11] MEDS: FERROUS SULFATE (EC) 325 MG TAB PO SCH (08:30)
[2019-02-11] MEDS: APIXABAN 5 MG TABLET PO SCH ×2 (08:30→21:08)
[2019-02-11] MEDS: DOCUSATE SODIUM 100 MG CAP PO SCH ×2 (08:30→21:07)
[2019-02-11] MEDS: AMIODARONE 200 MG TAB PO SCH (08:30)
[2019-02-11] MEDS: METOPROLOL 50 MG TAB PO SCH (08:31)
[2019-02-11] MEDS: ASCORBIC ACID 500 MG TAB PO SCH (08:31)
[2019-02-11] MEDS: CHOLECALCIFEROL 1,000 UNIT TAB PO SCH (08:31)
[2019-02-11] MEDS: BETAMETHASONE/CLOTRIMAZOLE 15 GM CR TOP SCH ×2 (08:31→21:13)
[2019-02-11] MEDS: MAGNESIUM HYDROXIDE 30ML CUP PO PRN (08:32)
[2019-02-11 09:04] VITALS: BP 165/76; PULSE 60; RESP 18
--- NOTE | 2019-02-11 10:54 | PN ---
Date/Time of Note Date/Time of Note DATE: 02/11/19 TIME: 10:54 Subjective no new complaints Objective Vital Signs Date Temp Pulse Resp B/P (MAP) Pulse Ox O2 O2 Flow FiO2 Time Delivery Rate 02/11/19 98.3 60 18 165/76 95 Room Air 09:04 (105) Intake and Output 02/10/19 02/10/19 02/11/19 1515:00 23:00 07:00 IntakeIntake Total 800 ml 1040 ml OutputOutput Total 600 ml BalanceBalance 200 ml 1040 ml Exam sba 60 feet [id number] Results/Medications Medications Current Medications Miscellaneous Information (Pending [facility] Order For Wound Care) This patient cheng... PRN PRN XX WOUND CARE; Start 01/26/19 at 17:30 Ascorbic Acid (Vitamin C) 1,000 mg DAILY PO Last administered on 02/11/19at 08 :31; Admin Dose 1,000 MG; Start 01/27/19 at 09:00; Stop 02/26/19 at 08:59 Brimonidine/ Timolol (Combigan Oph) 1 drop BID LEFT EYE Last administered on 02/11/19at 08:30; Admin Dose 1 DROP; Start 01/26/19 at 21:00 Cholecalciferol (Vitamin D) 1,000 unit DAILY PO Last administered on 02/11/19 08:31; Admin Dose 1,000 UNIT; Start 01/27/19 at 09:00 Ferrous Sulfate (Ferrous Sulfate (Ec)) 325 mg DAILY PO Last administered on 02/11/19 08:30; Admin Dose 325 MG; Start 01/27/19 at 09:00; Stop 02/26/19 at 08:59 Pantoprazole (Protonix Tab) 40 mg DAILY@06 PO Last administered on 02/11/19 06:19; Admin Dose 40 MG; Start 01/27/19 at 06:00 Ondansetron HCl (Zofran Inj) 4 mg Q4H PRN IV NAUSEA/VOMITING; Start 01/26/19 at 20:30 Simethicone (Mylicon) 80 mg TID PRN PO .GAS; Start 01/26/19 at 20:30 Senna/Docusate Sodium (Senokot-S) 2 tab BID PRN PO .CONSTIPATION Last administered on 01/28/19at 14:43; Admin Dose 2 TAB; Start 01/26/19 at 20:30 Magnesium Hydroxide (Milk Of Mag) 30 ml HS PRN PO .CONSTIPATION Last administered on 02/11/19 08:32; Admin Dose 30 ML; Start 01/26/19 at 20:30 Bisacodyl (Dulcolax Supp) 10 mg DAILY PRN [place] .CONSTIPATION; Start 01/26/19 at 20:30 Sodium Biphosphate/ Sodium Phosphate (Fleet Enema) 133 ml DAILY PRN [place] .CONSTIPATION; Start 01/26/19 at 20:30 Naloxone HCl (Narcan) 0.2 mg Q2M PRN IV .RESP RATE; Start 01/26/19 at 20:30 Trimethobenzamide HCl (Tigan) 200 mg Q6H PRN IM NAUSEA AND/OR VOMITING; Start 01/26/19 at 20:30 Amiodarone HCl (Cordarone) 200 mg BID PO Last administered on 02/11/19 08:30; Admin Dose 200 MG; Start 01/26/19 at 21:00 Acetaminophen (Tylenol Tab) 650 mg Q6H PRN PO MILD PAIN(1-3)OR ELEVATED TEMP Last administered on 02/03/19 06:24; Admin Dose 650 MG; Start 01/26/19 at 20:30 Metoprolol Tartrate (Lopressor) 50 mg BID PO Last administered on 02/11/19 08:31; Admin Dose 50 MG; Start 01/26/19 at 21:00 Apixaban (Eliquis) 2.5 mg BID PO Last administered on 02/11/19 08:30; Admin Dose 2.5 MG; Start 01/26/19 at 21:00 Docusate Sodium (Colace) 100 mg BID PO Last administered on 02/11/19 08:30; Admin Dose 100 MG; Start 01/27/19 at 21:00 Patient Own Medication 1 ea DAILY PO Last administered on 02/11/19 08:30; Admin Dose 1 EA; Start 01/30/19 at 09:00 Gabapentin (Neurontin) 100 mg HS PO Last administered on 02/10/19 21:19; Admin Dose 100 MG; Start 01/30/19 at 21:00 Acetaminophen/ Hydrocodone Bitart ([place] (5/325)) 1 tab Q4H PRN PO MODERATE PAIN LEVEL 4-6 Last administered on 02/10/19 08:24; Admin Dose 1 TAB; Start 01/30/19 at 11:00 Acetaminophen/ Hydrocodone Bitart ([place] (5/325)) 2 tab Q4H PRN PO SEVERE PAIN LEVEL 7-10 Last administered on 02/07/19 09:20; Admin Dose 2 TAB; Start 01/30/19 at 11:00 Betamethasone/ Clotrimazole (Lotrisone Cr) 1 applic BID TOP Last administered on 02/11/19 08:31; Admin Dose 1 APPLIC; Start 02/04/19 at 21:00 Assessment/Plan Additional Assessment/Plan Rehab- Other neurologic disorder, possible postoperative TIA and encephalopathy;Status post right total knee arthroplasty Continue rehab program Atrial fibrillation. Aortic stenosis. Carotid artery stenosis. NYA VALENTE MD Feb 11, 2019 10:54
[2019-02-11 14:00] VITALS: BP 134/61; PULSE 58; RESP 18
--- NOTE | 2019-02-11 14:11 | PN ---
Date/Time of Note Date/Time of Note DATE: 02/11/19 TIME: 14:10 Assessment/Plan VTE Prophylaxis Risk score (from Ns)>0 risk: 9 SCD applied (from Ns): Yes Pharmacological prophylaxis: apixaban Lines/Catheters IV [facility]ter Type (from [facility] Saline Lock Urinary Cath still in place: No Assessment/Plan Hospital Course SUBJECTIVE: No acute distress. OBJECTIVE: Vital signs-see below PHYSICAL EXAM: Constitutional: Elderly female, not in any apparent distress. Psych: nl mood/affect, no complaints Head: atraumatic, normocephalic Eyes: nl conjunctiva, nl sclera ENMT: mucosa pink and moist, nl external ears & nose Neck: non-tender, supple Respiratory: diminished bibasilar. normal air movement Cardiovascular: nl pulses, regular rate and rhythm Gastrointestinal: non-tender, soft, bowel sounds active in all 4 quadrants. Musculoskeletal/extremities: nl extremities to inspection, motor strength equal bilaterally, no focal deficit. Normal pulses,no cyanosis, no edema. Neurological: Alert oriented 3,nl speech, nl strength Skin: +ecchymosis. nl turgor ASSESSMENT/PLAN:assessment and plan: 88-year-old female status post right total knee arthroplasty for severe degenerative arthritis, right knee, avascular necrosis, as well as a previous open reduction and internal fixation in the right patella, who had a mary postoperative course complicated by atrial fibrillation with rapid ventricular response, hypertension and right-sided weakness/transient ischemic attack. 1. Osteoarthritis, Status post right total knee arthroplasty. -PT/Rehab -Patient on Eliquis already, no further prophylaxis indicated. 2. Paroxysmal atrial fibrillation -rate controlled -cont.amiodarone,BB,ATC Eliquis 3. History of bladder cancer - status post chemotherapy. 4. Status post transient ischemic attack. -monitor 5. Status post vpc-RD-cxibnlb elevation myocardial infarction, likely related to atrial fibrillation. -no acute chest syndromes 6. Chronic emphysema. -monitor 7. Chronic anemia. -Stable H&H. Continue to monitor. 8. Essential hypertension. -Now stable -Cont.current antihypertensive regimen as HR allows. DVT prophylaxis: Eliquis. Patient was seen in collaboration with . Exam/Review of Systems Exam Vitals Vital Signs Date Temp Pulse Resp B/P (MAP) Pulse Ox O2 O2 Flow FiO2 Time Delivery Rate 02/11/19 98.3 60 18 165/76 95 Room Air 09:04 (105) Intake and Output 02/10/19 02/10/19 02/11/19 1515:00 23:00 07:00 IntakeIntake Total 800 ml 1040 ml OutputOutput Total 600 ml BalanceBalance 200 ml 1040 ml Medications Medication Current Medications Miscellaneous Information (Pending [facility] Order For Wound Care) This patient cheng... PRN PRN XX WOUND CARE; Start 01/26/19 at 17:30 Ascorbic Acid (Vitamin C) 1,000 mg DAILY PO Last administered on 02/11/19 08:31; Admin Dose 1,000 MG; Start 01/27/19 at 09:00; Stop 02/26/19 at 08:59 Brimonidine/ Timolol (Combigan Oph) 1 drop BID LEFT EYE Last administered on 02/11/19 08:30; Admin Dose 1 DROP; Start 01/26/19 at 21:00 Cholecalciferol (Vitamin D) 1,000 unit DAILY PO Last administered on 02/11/19 08:31; Admin Dose 1,000 UNIT; Start 01/27/19 at 09:00 Ferrous Sulfate (Ferrous Sulfate (Ec)) 325 mg DAILY PO Last administered on 02/11/19 08:30; Admin Dose 325 MG; Start 01/27/19 at 09:00; Stop 02/26/19 at 08:59 Pantoprazole (Protonix Tab) 40 mg DAILY@06 PO Last administered on 02/11/19 06:19; Admin Dose 40 MG; Start 01/27/19 at 06:00 Ondansetron HCl (Zofran Inj) 4 mg Q4H PRN IV NAUSEA/VOMITING; Start 01/26/19 at 20:30 Simethicone (Mylicon) 80 mg TID PRN PO .GAS; Start 01/26/19 at 20:30 Senna/Docusate Sodium (Senokot-S) 2 tab BID PRN PO .CONSTIPATION Last administered on 01/28/19 14:43; Admin Dose 2 TAB; Start 01/26/19 at 20:30 Magnesium Hydroxide (Milk Of Mag) 30 ml HS PRN PO .CONSTIPATION Last administered on 02/11/19 08:32; Admin Dose 30 ML; Start 01/26/19 at 20:30 Bisacodyl (Dulcolax Supp) 10 mg DAILY PRN [place] .CONSTIPATION; Start 01/26/19 at 20:30 Sodium Biphosphate/ Sodium Phosphate (Fleet Enema) 133 ml DAILY PRN [place] .CONSTIPATION; Start 01/26/19 at 20:30 Naloxone HCl (Narcan) 0.2 mg Q2M PRN IV .RESP RATE; Start 01/26/19 at 20:30 Trimethobenzamide HCl (Tigan) 200 mg Q6H PRN IM NAUSEA AND/OR VOMITING; Start 01/26/19 at 20:30 Amiodarone HCl (Cordarone) 200 mg BID PO Last administered on 02/11/19 08:30; Admin Dose 200 MG; Start 01/26/19 at 21:00 Acetaminophen (Tylenol Tab) 650 mg Q6H PRN PO MILD PAIN(1-3)OR ELEVATED TEMP Last administered on 02/03/19 06:24; Admin Dose 650 MG; Start 01/26/19 at 20:30 Metoprolol Tartrate (Lopressor) 50 mg BID PO Last administered on 02/11/19 08:31; Admin Dose 50 MG; Start 01/26/19 at 21:00 Apixaban (Eliquis) 2.5 mg BID PO Last administered on 02/11/19 08:30; Admin Dose 2.5 MG; Start 01/26/19 at 21:00 Docusate Sodium (Colace) 100 mg BID PO Last administered on 02/11/19 08:30; Admin Dose 100 MG; Start 01/27/19 at 21:00 Patient Own Medication 1 ea DAILY PO Last administered on 02/11/19 08:30; Admin Dose 1 EA; Start 01/30/19 at 09:00 Gabapentin (Neurontin) 100 mg HS PO Last administered on 02/10/19 21:19; Admin Dose 100 MG; Start 01/30/19 at 21:00 Acetaminophen/ Hydrocodone Bitart ([place] (5/325)) 1 tab Q4H PRN PO MODERATE PAIN LEVEL 4-6 Last administered on 02/10/19 08:24; Admin Dose 1 TAB; Start 01/30/19 at 11:00 Acetaminophen/ Hydrocodone Bitart ([place] (5/325)) 2 tab Q4H PRN PO SEVERE PAIN LEVEL 7-10 Last administered on 02/07/19at 09:20; Admin Dose 2 TAB; Start 01/30/19 at 11:00 Betamethasone/ Clotrimazole (Lotrisone Cr) 1 applic BID TOP Last administered on 02/11/19at 08:31; Admin Dose 1 APPLIC; Start 02/04/19 at 21:00 EDEL MILLER NP Feb 11, 2019 14:10
--- NOTE | 2019-02-11 17:22 | CONS ---
Assessment/Plan Assessment/Plan Hospital Course (Demo Recall) 88 yo with paroxysmal atrial fibrillation, moderate aortic stenosis, and hypertension. Impression: Paroxysmal afib, clinically in nsr at present Hypertension, with fair control Moderate aortic stenosis, asymptomatic Bradycardia, due to amiodarone and metoprolol Recommendations: Will decrease amiodarone to 200 mg po daily Decrease metoprolol to 25 mg po bid Continue Eliquis 2.5 mg po bid, which is appropriate given her body size and age She does not need aspirin Consultation Date/Type/Reason Admit Date/Time Jan 26, 2019 at 16:35 Date of Consultation: Feb 11, 2019 Type of Consult Cardiology Reason for Consultation afib, bradycardia, hypertension Date/Time of Note DATE: 02/11/19 TIME: 17:15 Hx of Present Illness 88 yo who initially presented for elective orthopedic surgery and postoperatively had acute neurologic changes along with rapid atrial fibrillation. Troponin was elevated, and while in this chart is being referred to as a "NSTEMI", it is more a type 2 IL due to demand from the rapid afib and neurologic changes. Nonetheless, she has been in rehab for over 2 weeks, feels good, no chest pain, no dyspnea. Blood pressure has at times been elevated, and she has been bradycardic, leading to metoprolol being held, and then blood pressures subsequently elevated. Constitutional: no complaints Eyes: no complaints ENT: no complaints Respiratory: no complaints Cardiovascular: no complaints Gastrointestinal: no complaints Genitourinary: no complaints Musculoskeletal: no complaints Skin: no complaints Neurologic: no complaints Endocrine: no complaints Lymphatic: no complaints Psychological: no complaints Immunologic: no complaints Past Medical History Medical History: hypertension, other (aortic stenosis, paroxysmal afib) Home Meds Reported Medications Brimonidine/Timolol* (Combigan*) 5 Ml Drops, 1 DROP LEFT EYE BID, BOTTLE 01/21/19 Propylene Glycol/Peg 400 (SYSTANE GEL EYE DROPS) 10 Ml Drops.gel, 1 DROP BOTH EYES QID, #1 BOTTLE 01/21/19 Folic Acid/Multivits-Min/Lut (Centrum Silver Chewable Tablet) 1 Each Tab.chew, 1 EACH PO DAILY, TAB.CHEW 01/21/19 Cholecalciferol* (Vitamin D3*) 1,000 Unit Tablet, 1000 UNIT PO DAILY, TAB 01/21/19 Esomeprazole Mag Trihydrate (Nexium) 40 Mg Capsule.dr, 40 MG PO DAILY, #30 CAP 01/21/19 Ascorbic Acid* (Vitamin C*) 500 Mg Capsule.sa, 1000 MG PO DAILY, CAP 01/21/19 Ferrous Sulfate* (Ferrous Sulfate*) 325 Mg Tabec, 325 MG PO DAILY, TAB 01/21/19 [place]-3/Dha/Epa/Fish Oil (FISH OIL 1,000 MG SOFTGEL) 1 Each Capsule, 1 EACH PO DAILY, CAP 01/21/19 Vitamin E Acetate (Vitamin E) 1,000 Unit Capsule, 1000 UNIT PO DAILY, CAP 01/21/19 Beta-Carotene (Beta Carotene) 25,000 Unit Capsule, 88080 UNIT PO DAILY, CAP 01/21/19 Glucosamine Hcl/Chondr Lewis A Na (OSTEO BI-FLEX CAPLET) 1 Each Tablet, 1 EACH PO BID, TAB 01/21/19 Aspirin (Low Dose Aspirin) 81 Mg Tablet.dr, 81 MG PO DAILY, #30 TAB 01/21/19 Acetaminophen* (Acetaminophen*) 650 Mg Tablet, 650 MG PO TID PRN for PAIN AND OR ELEVATED TEMP, #30 TAB 01/21/19 Vit A/Vit C/Vit E/Zinc/Copper (PRESERVISION AREDS TABLET) 1 Each Tablet, 2 EACH PO DAILY, TAB 01/21/19 Simvastatin (Simvastatin) 40 Mg Tablet, 40 MG PO QHS, #30 TAB 01/21/19 Medications Current Medications Misc[facility] This patient cheng... PRN PRN XX WOUND CARE; Start 01/26/19 at 17:30 Ascorbic Acid (Vitamin C) 1,000 mg DAILY PO Last administered on 02/11/19at 08:31; Admin Dose 1,000 MG; Start 01/27/19 at 09:00; Stop 02/26/19 at 08:59 Brimonidine/ Timolol (Combigan Oph) 1 drop BID LEFT EYE Last administered on at 08:30; Admin Dose 1 DROP; Start 01/26/19 at 21:00 Cholecalciferol (Vitamin D) 1,000 unit DAILY PO Last administered on 02/11/19at 08:31; Admin Dose 1,000 UNIT; Start 01/27/19 at 09:00 Ferrous Sulfate (Ferrous Sulfate (Ec)) 325 mg DAILY PO Last administered on 02/11/19 08:30; Admin Dose 325 MG; Start 01/27/19 at 09:00; Stop 02/26/19 at 08:59 Pantoprazole (Protonix Tab) 40 mg DAILY@06 PO Last administered on 02/11/19 06:19; Admin Dose 40 MG; Start 01/27/19 at 06:00 Ondansetron HCl (Zofran Inj) 4 mg Q4H PRN IV NAUSEA/VOMITING; Start 01/26/19 at 20:30 Simethicone (Mylicon) 80 mg TID PRN PO .GAS; Start 01/26/19 at 20:30 Senna/Docusate Sodium (Senokot-S) 2 tab BID PRN PO .CONSTIPATION Last administered on 01/28/19 14:43; Admin Dose 2 TAB; Start 01/26/19 at 20:30 Magnesium Hydroxide (Milk Of Mag) 30 ml HS PRN PO .CONSTIPATION Last administered on 02/11/19 08:32; Admin Dose 30 ML; Start 01/26/19 at 20:30 Bisacodyl (Dulcolax Supp) 10 mg DAILY PRN [place] .CONSTIPATION; Start 01/26/19 at 20:30 Sodium Biphosphate/ Sodium Phosphate (Fleet Enema) 133 ml DAILY PRN [place] .CONSTIPATION; Start 01/26/19 at 20:30 Naloxone HCl (Narcan) 0.2 mg Q2M PRN IV .RESP RATE; Start 01/26/19 at 20:30 Trimethobenzamide HCl (Tigan) 200 mg Q6H PRN IM NAUSEA AND/OR VOMITING; Start 01/26/19 at 20:30 Amiodarone HCl (Cordarone) 200 mg BID PO Last administered on 02/11/19 08:30; Admin Dose 200 MG; Start 01/26/19 at 21:00 Acetaminophen (Tylenol Tab) 650 mg Q6H PRN PO MILD PAIN(1-3)OR ELEVATED TEMP Last administered on 02/03/19 06:24; Admin Dose 650 MG; Start 01/26/19 at 20:30 Metoprolol Tartrate (Lopressor) 50 mg BID PO Last administered on 02/11/19 08:31; Admin Dose 50 MG; Start 01/26/19 at 21:00 Apixaban (Eliquis) 2.5 mg BID PO Last administered on 02/11/19 08:30; Admin Dose 2.5 MG; Start 01/26/19 at 21:00 Docusate Sodium (Colace) 100 mg BID PO Last administered on 02/11/19 08:30; Admin Dose 100 MG; Start 01/27/19 at 21:00 Patient Own Medication 1 ea DAILY PO Last administered on 02/11/19 08:30; Admin Dose 1 EA; Start 01/30/19 at 09:00 Gabapentin (Neurontin) 100 mg HS PO Last administered on 02/10/19 21:19; Admin Dose 100 MG; Start 01/30/19 at 21:00 Acetaminophen/ Hydrocodone Bitart ([place] (5/325)) 1 tab Q4H PRN PO MODERATE PAIN LEVEL 4-6 Last administered on 02/10/19 08:24; Admin Dose 1 TAB; Start 01/30/19 at 11:00 Acetaminophen/ Hydrocodone Bitart ([place] (5/325)) 2 tab Q4H PRN PO SEVERE PAIN LEVEL 7-10 Last administered on 02/07/19 09:20; Admin Dose 2 TAB; Start 01/30/19 at 11:00 Betamethasone/ Clotrimazole (Lotrisone Cr) 1 applic BID TOP Last administered on 02/11/19 08:31; Admin Dose 1 APPLIC; Start 02/04/19 at 21:00 Allergies: Coded Allergies: latex (Verified Allergy, Severe, 01/21/19) ibuprofen (Verified Allergy, Mild, 01/21/19) Past Surgical History Past Surgical Hx: other (orthopedic surgery) Family History Significant Family History: no pertinent family hx Social History Smoking Status: Never smoker Exam/Review of Systems Vital Signs Vitals Vital Signs Date Temp Pulse Resp B/P (MAP) Pulse Ox O2 O2 Flow FiO2 Time Delivery Rate 02/11/19 98.2 58 18 134/61 93 Room Air 14:00 (85) Intake and Output 02/10/19 02/10/19 02/11/19 1515:00 23:00 07:00 IntakeIntake Total 800 ml 1040 ml OutputOutput Total 600 ml BalanceBalance 200 ml 1040 ml Exam Constitutional: alert, oriented, well developed Psych: nl mood/affect Head: normocephalic, atraumatic Eyes: nl conjunctiva, EOMI, nl lids, nl sclera ENMT: nl external ears & nose, nl lips & teeth, nl nasal mucosa & septum Neck: supple; No jvd, No bruits Respiratory: clear to auscultation, normal air movement Cardiovascular: regular rate and rhythm, nl pulses, murmurs/extra sounds (3/6 systolic murmur at the lsb radiating to carotids) Gastrointestinal: soft, nl liver, spleen, non-tender Musculoskeletal: nl extremities to inspection Extremities: normal pulses Neurological: nl mental status, nl speech Skin: nl turgor; No rash or lesions Medications Medications Current Medications Miscellaneous Information (Pending [facility] Order For Wound Care) This patient cheng... PRN PRN XX WOUND CARE; Start 01/26/19 at 17:30 Ascorbic Acid (Vitamin C) 1,000 mg DAILY PO Last administered on 02/11/19 08:31; Admin Dose 1,000 MG; Start 01/27/19 at 09:00; Stop 02/26/19 at 08:59 Brimonidine/ Timolol (Combigan Oph) 1 drop BID LEFT EYE Last administered on 02/11/19 08:30; Admin Dose 1 DROP; Start 01/26/19 at 21:00 Cholecalciferol (Vitamin D) 1,000 unit DAILY PO Last administered on 02/11/19 08:31; Admin Dose 1,000 UNIT; Start 01/27/19 at 09:00 Ferrous Sulfate (Ferrous Sulfate (Ec)) 325 mg DAILY PO Last administered on 02/11/19 08:30; Admin Dose 325 MG; Start 01/27/19 at 09:00; Stop 02/26/19 at 08:59 Pantoprazole (Protonix Tab) 40 mg DAILY@06 PO Last administered on 02/11/19 06:19; Admin Dose 40 MG; Start 01/27/19 at 06:00 Ondansetron HCl (Zofran Inj) 4 mg Q4H PRN IV NAUSEA/VOMITING; Start 01/26/19 at 20:30 Simethicone (Mylicon) 80 mg TID PRN PO .GAS; Start 01/26/19 at 20:30 Senna/Docusate Sodium (Senokot-S) 2 tab BID PRN PO .CONSTIPATION Last administered on 4/2/19at 14:43; Admin Dose 2 TAB; Start 01/26/19 at 20:30 Magnesium Hydroxide (Milk Of Mag) 30 ml HS PRN PO .CONSTIPATION Last administered on 02/11/19 08:32; Admin Dose 30 ML; Start 01/26/19 at 20:30 Bisacodyl (Dulcolax Supp) 10 mg DAILY PRN [place] .CONSTIPATION; Start 01/26/19 at 20:30 Sodium Biphosphate/ Sodium Phosphate (Fleet Enema) 133 ml DAILY PRN GA .CONSTI PATION; Start 01/26/19 at 20:30 Naloxone HCl (Narcan) 0.2 mg Q2M PRN IV .RESP RATE; Start 01/26/19 at 20:30 Trimethobenzamide HCl (Tigan) 200 mg Q6H PRN IM NAUSEA AND/OR VOMITING; Start 01/26/19 at 20:30 Amiodarone HCl (Cordarone) 200 mg BID PO Last administered on 02/11/19 08:30; Admin Dose 200 MG; Start 01/26/19 at 21:00 Acetaminophen (Tylenol Tab) 650 mg Q6H PRN PO MILD PAIN(1-3)OR ELEVATED TEMP Last administered on 02/03/19 06:24; Admin Dose 650 MG; Start 01/26/19 at 20:30 Metoprolol Tartrate (Lopressor) 50 mg BID PO Last administered on 02/11/19 08:31; Admin Dose 50 MG; Start 01/26/19 at 21:00 Apixaban (Eliquis) 2.5 mg BID PO Last administered on 02/11/19 08:30; Admin Dose 2.5 MG; Start 01/26/19 at 21:00 Docusate Sodium (Colace) 100 mg BID PO Last administered on 02/11/19 08:30; Admin Dose 100 MG; Start 01/27/19 at 21:00 Patient Own Medication 1 ea DAILY PO Last administered on 02/11/19 08:30; Admin Dose 1 EA; Start 01/30/19 at 09:00 Gabapentin (Neurontin) 100 mg HS PO Last administered on 02/10/19 21:19; Admin Dose 100 MG; Start 01/30/19 at 21:00 Acetaminophen/ Hydrocodone Bitart ([place] (5/325)) 1 tab Q4H PRN PO MODERATE PAIN LEVEL 4-6 Last administered on 02/10/19at 08:24; Admin Dose 1 TAB; Start 01/30/19 at 11:00 Acetaminophen/ Hydrocodone Bitart ([place] (5/325)) 2 tab Q4H PRN PO SEVERE PAIN LEVEL 7-10 Last administered on 02/07/19 09:20; Admin Dose 2 TAB; Start 01/30/19 at 11:00 Betamethasone/ Clotrimazole (Lotrisone Cr) 1 applic BID TOP Last administered on 02/11/19at 08:31; Admin Dose 1 APPLIC; Start 02/04/19 at 21:00 JAKOB KHAN Feb 11, 2019 17:22
[2019-02-11] MEDS: METOPROLOL 25 MG TAB PO SCH (21:00)
[2019-02-11] MEDS: GABAPENTIN 100 MG CAP PO SCH (21:12)
[2019-02-11 21:14] VITALS: BP 103/51; PULSE 55; RESP 18
[2019-02-12 04:21] VITALS: BP 105/54; PULSE 50; RESP 18
[2019-02-12] MEDS: PANTOPRAZOLE (EC) 40 MG TAB PO SCH (06:20)
[2019-02-12] MEDS: DOCUSATE SODIUM 100 MG CAP PO SCH ×2 (08:35→20:21)
[2019-02-12] MEDS: FERROUS SULFATE (EC) 325 MG TAB PO SCH (08:35)
[2019-02-12] MEDS: CHOLECALCIFEROL 1,000 UNIT TAB PO SCH (08:35)
[2019-02-12] MEDS: ASCORBIC ACID 500 MG TAB PO SCH (08:37)
[2019-02-12] MEDS: APIXABAN 5 MG TABLET PO SCH ×2 (08:37→20:21)
[2019-02-12] MEDS: BETAMETHASONE/CLOTRIMAZOLE 15 GM CR TOP SCH ×2 (08:38→20:28)
[2019-02-12] MEDS: BRIMONIDINE 0.2%-TIMOLOL 0.5% 5ML OPH LEFT EYE SCH ×2 (08:38→20:21)
[2019-02-12] MEDS: PRESERVISION AREDS 2 FORMULA PO SCH (08:38)
[2019-02-12] MEDS: METOPROLOL 25 MG TAB PO SCH ×2 (08:41→20:22)
[2019-02-12] MEDS ORDERED: AMIODARONE 200 MG TAB PO SCH (09:00)
[2019-02-12] MEDS: HYDROCODONE/APAP (5/325) TAB PO PRN (12:10)
--- NOTE | 2019-02-12 12:28 | PN ---
Date/Time of Note Date/Time of Note DATE: 02/12/19 TIME: 12:27 Subjective patient up for activities Objective Vital Signs Date Temp Pulse Resp B/P (MAP) Pulse Ox O2 O2 Flow FiO2 Time Delivery Rate 02/12/19 97.9 50 18 105/54 93 Room Air 04:21 (71) Intake and Output 02/11/19 02/11/19 02/12/19 1515:00 23:00 07:00 IntakeIntake Total 1200 ml 650 ml OutputOutput Total 600 ml BalanceBalance 600 ml 650 ml Exam sba abmulation pulm-cta Results/Medications Medications Current Medications Miscellaneous Information (Pending [facility] Order For Wound Care) This patient cheng... PRN PRN XX WOUND CARE; Start 01/26/19 at 17:30 Ascorbic Acid (Vitamin C) 1,000 mg DAILY PO Last administered on 02/12/19at 08:37; Admin Dose 1,000 MG; Start 01/27/19 at 09:00; Stop 02/26/19 at 08:59 Brimonidine/ Timolol (Combigan Oph) 1 drop BID LEFT EYE Last administered on 02/12/19at 08:38; Admin Dose 1 DROP; Start 01/26/19 at 21:00 Cholecalciferol (Vitamin D) 1,000 unit DAILY PO Last administered on 02/12/19at 08:35; Admin Dose 1,000 UNIT; Start 01/27/19 at 09:00 Ferrous Sulfate (Ferrous Sulfate (Ec)) 325 mg DAILY PO Last administered on 02/12/19at 08:35; Admin Dose 325 MG; Start 01/27/19 at 09:00; Stop 02/26/19 at 08:59 Pantoprazole (Protonix Tab) 40 mg DAILY@06 PO Last administered on 02/12/19at 06:20; Admin Dose 40 MG; Start 01/27/19 at 06:00 Ondansetron HCl (Zofran Inj) 4 mg Q4H PRN IV NAUSEA/VOMITING; Start 01/26/19 at 20:30 Simethicone (Mylicon) 80 mg TID PRN PO .GAS; Start 01/26/19 at 20:30 Senna/Docusate Sodium (Senokot-S) 2 tab BID PRN PO .CONSTIPATION Last administered on 01/28/19at 14:43; Admin Dose 2 TAB; Start 01/26/19 at 20:30 Magnesium Hydroxide (Milk Of Mag) 30 ml HS PRN PO .CONSTIPATION Last administered on 02/11/19 08:32; Admin Dose 30 ML; Start 01/26/19 at 20:30 Bisacodyl (Dulcolax Supp) 10 mg DAILY PRN [place] .CONSTIPATION; Start 01/26/19 at 20:30 Sodium Biphosphate/ Sodium Phosphate (Fleet Enema) 133 ml DAILY PRN RI .CONSTIPATION; Start 01/26/19 at 20:30 Naloxone HCl (Narcan) 0.2 mg Q2M PRN IV .RESP RATE; Start 01/26/19 at 20:30 Trimethobenzamide HCl (Tigan) 200 mg Q6H PRN IM NAUSEA AND/OR VOMITING; Start 01/26/19 at 20:30 Acetaminophen (Tylenol Tab) 650 mg Q6H PRN PO MILD PAIN(1-3)OR ELEVATED TEMP Last administered on 02/03/19 06:24; Admin Dose 650 MG; Start 01/26/19 at 20:30 Apixaban (Eliquis) 2.5 mg BID PO Last administered on 02/12/19 08:37; Admin Dose 2.5 MG; Start 01/26/19 at 21:00 Docusate Sodium (Colace) 100 mg BID PO Last administered on 02/12/19 08:35; Admin Dose 100 MG; Start 01/27/19 at 21:00 Patient Own Medication 1 ea DAILY PO Last administered on 02/12/19 08:38; Admin Dose 1 EA; Start 01/30/19 at 09:00 Gabapentin (Neurontin) 100 mg HS PO Last administered on 02/11/19 21:12; Admin Dose 100 MG; Start 01/30/19 at 21:00 Acetaminophen/ Hydrocodone Bitart ([place] (5/325)) 1 tab Q4H PRN PO MODERATE PAIN LEVEL 4-6 Last administered on 02/12/19 12:10; Admin Dose 1 TAB; Start 01/30/19 at 11:00 Acetaminophen/ Hydrocodone Bitart ([place] (5/325)) 2 tab Q4H PRN PO SEVERE PAIN LEVEL 7-10 Last administered on 02/07/19 09:20; Admin Dose 2 TAB; Start 01/30/19 at 11:00 Betamethasone/ Clotrimazole (Lotrisone Cr) 1 applic BID TOP Last administered on 02/12/19at 08:38; Admin Dose 1 APPLIC; Start 02/04/19 at 21:00 Amiodarone HCl (Cordarone) 200 mg DAILY PO ; Start 02/12/19 at 09:00 Metoprolol Tartrate (Lopressor) 25 mg BID PO ; Start 02/11/19 at 21:00 Assessment/Plan Additional Assessment/Plan Rehab- Other neurologic disorder, possible postoperative TIA and encephalopathy;Status post right total knee arthroplasty Continue rehab program, and caregiver training. DC planning in progress Atrial fibrillation. Aortic stenosis. Carotid artery stenosis. NYA VALENTE MD Feb 12, 2019 12:28
--- NOTE | 2019-02-12 14:55 | PN ---
Date/Time of Note Date/Time of Note DATE: 02/12/19 TIME: 14:55 Assessment/Plan VTE Prophylaxis Risk score (from Ns)>0 risk: 7 SCD applied (from Ns): Yes Pharmacological prophylaxis: apixaban Lines/Catheters IV Catheter Type (from [facility]): Saline Lock Urinary Cath still in place: No Assessment/Plan Hospital Course SUBJECTIVE: No acute distress. OBJECTIVE: Vital signs-see below PHYSICAL EXAM: Constitutional: Elderly female, not in any apparent distress. Psych: nl mood/affect, no complaints Head: atraumatic, normocephalic Eyes: nl conjunctiva, nl sclera ENMT: mucosa pink and moist, nl external ears & nose Neck: non-tender, supple Respiratory: diminished bibasilar. normal air movement Cardiovascular: nl pulses, regular rate and rhythm Gastrointestinal: non-tender, soft, bowel sounds active in all 4 quadrants. Musculoskeletal/extremities: nl extremities to inspection, motor strength equal bilaterally, no focal deficit. Normal pulses,no cyanosis, no edema. Neurological: Alert oriented 3,nl speech, nl strength Skin: +ecchymosis. nl turgor ASSESSMENT/PLAN:assessment and plan: 88-year-old female status post right total knee arthroplasty for severe degenerative arthritis, right knee, avascular necrosis, as well as a previous open reduction and internal fixation in the right patella, who had a mary postoperative course complicated by atrial fibrillation with rapid ventricular response, hypertension and right-sided weakness/transient ischemic attack. 1. Osteoarthritis, Status post right total knee arthroplasty. -PT/Rehab -Patient on Eliquis already, no further prophylaxis indicated. 2. Paroxysmal atrial fibrillation -rate controlled -cont.amiodarone,BB,ATC Eliquis 3. History of bladder cancer - status post chemotherapy. 4. Status post transient ischemic attack. -monitor 5. Status post irh-CI-ryzbhpn elevation myocardial infarction, likely related to atrial fibrillation. -no acute chest syndromes 6. Chronic emphysema. -monitor 7. Chronic anemia. -Stable H&H. Continue to monitor. 8. Essential hypertension. -Now stable -Cont.current antihypertensive regimen as HR allows. DVT prophylaxis: Eliquis. Patient was seen in collaboration with . Exam/Review of Systems Exam Vitals Vital Signs Date Temp Pulse Resp B/P (MAP) Pulse Ox O2 O2 Flow FiO2 Time Delivery Rate 02/12/19 97.9 50 18 105/54 93 Room Air 04:21 (71) Intake and Output 02/11/19 02/11/19 02/12/19 1515:00 23:00 07:00 IntakeIntake Total 1200 ml 650 ml OutputOutput Total 600 ml BalanceBalance 600 ml 650 ml Medications Medication Current Medications Miscellaneous Information (Pending Santyl Order For Wound Care) This patient cheng... PRN PRN XX WOUND CARE; Start 01/26/19 at 17:30 Ascorbic Acid (Vitamin C) 1,000 mg DAILY PO Last administered on 02/12/19at 08:37; Admin Dose 1,000 MG; Start 01/27/19 at 09:00; Stop 02/26/19 at 08:59 Brimonidine/ Timolol (Combigan Oph) 1 drop BID LEFT EYE Last administered on 02/12/19at 08:38; Admin Dose 1 DROP; Start 01/26/19 at 21:00 Cholecalciferol (Vitamin D) 1,000 unit DAILY PO Last administered on 02/12/19at 08:35; Admin Dose 1,000 UNIT; Start 01/27/19 at 09:00 Ferrous Sulfate (Ferrous Sulfate (Ec)) 325 mg DAILY PO Last administered on 02/12/19 08:35; Admin Dose 325 MG; Start 01/27/19 at 09:00; Stop 02/26/19 at 08:59 Pantoprazole (Protonix Tab) 40 mg DAILY@06 PO Last administered on 02/12/19at 06:20; Admin Dose 40 MG; Start 01/27/19 at 06:00 Ondansetron HCl (Zofran Inj) 4 mg Q4H PRN IV NAUSEA/VOMITING; Start 01/26/19 at 20:30 Simethicone (Mylicon) 80 mg TID PRN PO .GAS; Start 01/26/19 at 20:30 Senna/Docusate Sodium (Senokot-S) 2 tab BID PRN PO .CONSTIPATION Last administered on 01/28/19at 14:43; Admin Dose 2 TAB; Start 01/26/19 at 20:30 Magnesium Hydroxide (Milk Of Mag) 30 ml HS PRN PO .CONSTIPATION Last administered on 02/11/19at 08:32; Admin Dose 30 ML; Start 01/26/19 at 20:30 Bisacodyl (Dulcolax Supp) 10 mg DAILY PRN [place] .CONSTIPATION; Start 01/26/19 at 20:30 Sodium Biphosphate/ Sodium Phosphate (Fleet Enema) 133 ml DAILY PRN [place] .CONSTIPATION; Start 01/26/19 at 20:30 Naloxone HCl (Narcan) 0.2 mg Q2M PRN IV .RESP RATE; Start 01/26/19 at 20:30 Trimethobenzamide HCl (Tigan) 200 mg Q6H PRN IM NAUSEA AND/OR VOMITING; Start 01/26/19 at 20:30 Acetaminophen (Tylenol Tab) 650 mg Q6H PRN PO MILD PAIN(1-3)OR ELEVATED TEMP Last administered on 02/03/19 06:24; Admin Dose 650 MG; Start 01/26/19 at 20:30 Apixaban (Eliquis) 2.5 mg BID PO Last administered on 02/12/19 08:37; Admin Dose 2.5 MG; Start 01/26/19 at 21:00 Docusate Sodium (Colace) 100 mg BID PO Last administered on 02/12/19 08:35; Admin Dose 100 MG; Start 01/27/19 at 21:00 Patient Own Medication 1 ea DAILY PO Last administered on 02/12/19 08:38; Admin Dose 1 EA; Start 01/30/19 at 09:00 Gabapentin (Neurontin) 100 mg HS PO Last administered on 02/11/19 21:12; Admin Dose 100 MG; Start 01/30/19 at 21:00 Acetaminophen/ Hydrocodone Bitart ([place] (5/325)) 1 tab Q4H PRN PO MODERATE PAIN LEVEL 4-6 Last administered on 02/12/19at 12:10; Admin Dose 1 TAB; Start 01/30/19 at 11:00 Acetaminophen/ Hydrocodone Bitart ([place] (5/325)) 2 tab Q4H PRN PO SEVERE PAIN LEVEL 7-10 Last administered on 02/07/19 09:20; Admin Dose 2 TAB; Start 01/30/19 at 11:00 Betamethasone/ Clotrimazole (Lotrisone Cr) 1 applic BID TOP Last administered on 02/12/19 08:38; Admin Dose 1 APPLIC; Start 02/04/19 at 21:00 Amiodarone HCl (Cordarone) 200 mg DAILY PO ; Start 02/12/19 at 09:00 Metoprolol Tartrate (Lopressor) 25 mg BID PO ; Start 02/11/19 at 21:00 EDEL MILLER NP Feb 12, 2019 14:55
[2019-02-12 20:00] VITALS: BP 130/70; PULSE 61; RESP 18
[2019-02-12] MEDS: GABAPENTIN 100 MG CAP PO SCH (20:21)
[2019-02-13 02:00] VITALS: BP 118/65; PULSE 58; RESP 18
[2019-02-13] MEDS: PANTOPRAZOLE (EC) 40 MG TAB PO SCH (06:29)
[2019-02-13 07:00] VITALS: BP 181/76; PULSE 58; RESP 18
[2019-02-13] MEDS: BRIMONIDINE 0.2%-TIMOLOL 0.5% 5ML OPH LEFT EYE SCH (08:45)
[2019-02-13] MEDS: PRESERVISION AREDS 2 FORMULA PO SCH (08:46)
[2019-02-13] MEDS: ASCORBIC ACID 500 MG TAB PO SCH (08:46)
[2019-02-13] MEDS: DOCUSATE SODIUM 100 MG CAP PO SCH (08:46)
[2019-02-13] MEDS: CHOLECALCIFEROL 1,000 UNIT TAB PO SCH (08:46)
[2019-02-13] MEDS: APIXABAN 5 MG TABLET PO SCH (08:46)
[2019-02-13] MEDS: FERROUS SULFATE (EC) 325 MG TAB PO SCH (08:46)
[2019-02-13] MEDS: METOPROLOL 25 MG TAB PO SCH (08:47)
[2019-02-13] MEDS: BETAMETHASONE/CLOTRIMAZOLE 15 GM CR TOP SCH (08:48)
--- NOTE | 2019-02-13 12:06 | PN ---
Date/Time of Note Date/Time of Note DATE: 02/13/19 TIME: 12:05 Assessment/Plan VTE Prophylaxis Risk score (from Ns)>0 risk: 5 SCD applied (from Ns): Yes Pharmacological prophylaxis: apixaban Lines/Catheters IV Catheter Type (from Nrs): Saline Lock Urinary Cath still in place: No Assessment/Plan Hospital Course SUBJECTIVE: No acute distress.for dc today OBJECTIVE: Vital signs-see below PHYSICAL EXAM: Constitutional: Elderly female, not in any apparent distress. Psych: nl mood/affect, no complaints Head: atraumatic, normocephalic Eyes: nl conjunctiva, nl sclera ENMT: mucosa pink and moist, nl external ears & nose Neck: non-tender, supple Respiratory: diminished bibasilar. normal air movement Cardiovascular: nl pulses, regular rate and rhythm Gastrointestinal: non-tender, soft, bowel sounds active in all 4 quadrants. Musculoskeletal/extremities: nl extremities to inspection, motor strength equal bilaterally, no focal deficit. Normal pulses,no cyanosis, no edema. Neurological: Alert oriented 3,nl speech, nl strength Skin: +ecchymosis. nl turgor ASSESSMENT/PLAN:assessment and plan: 88-year-old female status post right total knee arthroplasty for severe degenerative arthritis, right knee, avascular necrosis, as well as a previous open reduction and internal fixation in the right patella, who had a mary postoperative course complicated by atrial fibrillation with rapid ventricular response, hypertension and right-sided weakness/transient ischemic attack. 1. Osteoarthritis, Status post right total knee arthroplasty. -PT/Rehab -Patient on Eliquis already, no further prophylaxis indicated. 2. Paroxysmal atrial fibrillation -rate controlled -cont.amiodarone,BB,ATC Eliquis 3. History of bladder cancer - status post chemotherapy. 4. Status post transient ischemic attack. -monitor 5. Status post aoe-QZ-hmcgzgv elevation myocardial infarction, likely related to atrial fibrillation. -no acute chest syndromes 6. Chronic emphysema. -monitor 7. Chronic anemia. -Stable H&H. Continue to monitor. 8. Essential hypertension. -Now stable -Cont.current antihypertensive regimen as HR allows. DVT prophylaxis: Eliquis. Patient was seen in collaboration with . Exam/Review of Systems Exam Vitals Vital Signs Date Temp Pulse Resp B/P (MAP) Pulse Ox O2 O2 Flow FiO2 Time Delivery Rate 02/13/19 98.2 58 18 181/76 96 Room Air 07:00 (111) Intake and Output 02/12/19 02/12/19 02/13/19 1515:00 23:00 07:00 IntakeIntake Total 700 ml 950 ml BalanceBalance 700 ml 950 ml Medications Medication Current Medications Miscellaneous Information (Pending Santyl Order For Wound Care) This patient cheng... PRN PRN XX WOUND CARE; Start 01/26/19 at 17:30 Ascorbic Acid (Vitamin C) 1,000 mg DAILY PO Last administered on 02/13/19 08:46; Admin Dose 1,000 MG; Start 01/27/19 at 09:00; Stop 02/26/19 at 08:59 Brimonidine/ Timolol (Combigan Oph) 1 drop BID LEFT EYE Last administered on 02/13/19 08:45; Admin Dose 1 DROP; Start 01/26/19 at 21:00 Cholecalciferol (Vitamin D) 1,000 unit DAILY PO Last administered on 02/13/19 08:46; Admin Dose 1,000 UNIT; Start 01/27/19 at 09:00 Ferrous Sulfate (Ferrous Sulfate (Ec)) 325 mg DAILY PO Last administered on 02/13/19 08:46; Admin Dose 325 MG; Start 01/27/19 at 09:00; Stop 02/26/19 at 08:59 Pantoprazole (Protonix Tab) 40 mg DAILY@06 PO Last administered on 02/13/19 06:29; Admin Dose 40 MG; Start 01/27/19 at 06:00 Ondansetron HCl (Zofran Inj) 4 mg Q4H PRN IV NAUSEA/VOMITING; Start 01/26/19 at 20:30 Simethicone (Mylicon) 80 mg TID PRN PO .GAS; Start 01/26/19 at 20:30 Senna/Docusate Sodium (Senokot-S) 2 tab BID PRN PO .CONSTIPATION Last administered on 01/28/19 14:43; Admin Dose 2 TAB; Start 01/26/19 at 20:30 Magnesium Hydroxide (Milk Of Mag) 30 ml HS PRN PO .CONSTIPATION Last administered on 02/11/19 08:32; Admin Dose 30 ML; Start 01/26/19 at 20:30 Bisacodyl (Dulcolax Supp) 10 mg DAILY PRN [place] .CONSTIPATION; Start 01/26/19 at 20:30 Sodium Biphosphate/ Sodium Phosphate (Fleet Enema) 133 ml DAILY PRN [place] .CONSTIPATION; Start 01/26/19 at 20:30 Naloxone HCl (Narcan) 0.2 mg Q2M PRN IV .RESP RATE; Start 01/26/19 at 20:30 Trimethobenzamide HCl (Tigan) 200 mg Q6H PRN IM NAUSEA AND/OR VOMITING; Start 01/26/19 at 20:30 Acetaminophen (Tylenol Tab) 650 mg Q6H PRN PO MILD PAIN(1-3)OR ELEVATED TEMP Last administered on 02/03/19 06:24; Admin Dose 650 MG; Start 01/26/19 at 20:30 Apixaban (Eliquis) 2.5 mg BID PO Last administered on 02/13/19 08:46; Admin Dose 2.5 MG; Start 01/26/19 at 21:00 Docusate Sodium (Colace) 100 mg BID PO Last administered on 02/13/19 08:46; Admin Dose 100 MG; Start 01/27/19 at 21:00 Patient Own Medication 1 ea DAILY PO Last administered on 02/13/19 08:46; Admin Dose 1 EA; Start 01/30/19 at 09:00 Gabapentin (Neurontin) 100 mg HS PO Last administered on 02/12/19 20:21; Admin Dose 100 MG; Start 01/30/19 at 21:00 Acetaminophen/ Hydrocodone Bitart ([place] (5/325)) 1 tab Q4H PRN PO MODERATE PAIN LEVEL 4-6 Last administered on 02/12/19 12:10; Admin Dose 1 TAB; Start 01/30/19 at 11:00 Acetaminophen/ Hydrocodone Bitart ([place] (5/325)) 2 tab Q4H PRN PO SEVERE PAIN LEVEL 7-10 Last administered on 02/07/19 09:20; Admin Dose 2 TAB; Start 01/30/19 at 11:00 Betamethasone/ Clotrimazole (Lotrisone Cr) 1 applic BID TOP Last administered on 02/13/19 08:48; Admin Dose 1 APPLIC; Start 02/04/19 at 21:00 Metoprolol Tartrate (Lopressor) 25 mg BID PO Last administered on 02/13/19at 08:47; Admin Dose 25 MG; Start 02/11/19 at 21:00 EDEL MILLER NP Feb 13, 2019 12:06
--- NOTE | 2019-02-13 13:18 | DS ---
Date/Time of Note Date/Time of Note DATE: 02/13/19 TIME: 13:17 Discharge Summary Admission/Discharge Info Admit Date/Time Jan 26, 2019 at 16:35 Discharge Date/Time Discharge Diagnosis 1. Other neurologic disorder, possible postoperative TIA and encephalopathy. 2. Status post right total knee arthroplasty. 3. Atrial fibrillation. 4. Aortic stenosis. 5. Carotid artery stenosis. 6. Improvements in self-care and mobility and mild cognition. Patient Condition: Good Hospital Course The patient was admitted for comprehensive interdisciplinary rehabilitation and made steady functional gains from a Max level to a SBA level for self care tasks and mobility including ambulating over 100 feet with the use of a FWW. Caregiver was safely trained in assistance. Patient is being discharged home with the recommendation of home health PT, OT and RN follow up. The DC meds are per the medication reconciliation sheet. The discharge equipment recommendations include: FWW, BSC, shower chair. The patient will follow up with PMD upon DC. Home Meds Reported Medications Brimonidine/Timolol* (Combigan*) 5 Ml Drops, 1 DROP LEFT EYE BID, BOTTLE 01/21/19 Propylene Glycol/Peg 400 (SYSTANE GEL EYE DROPS) 10 Ml Drops.gel, 1 DROP BOTH EYES QID, #1 BOTTLE 01/21/19 Folic Acid/Multivits-Min/Lut (Centrum Silver Chewable Tablet) 1 Each Tab.chew, 1 EACH PO DAILY, TAB.CHEW 01/21/19 Cholecalciferol* (Vitamin D3*) 1,000 Unit Tablet, 1000 UNIT PO DAILY, TAB 01/21/19 Esomeprazole Mag Trihydrate (Nexium) 40 Mg Capsule.dr, 40 MG PO DAILY, #30 CAP 01/21/19 Ascorbic Acid* (Vitamin C*) 500 Mg Capsule.sa, 1000 MG PO DAILY, CAP 01/21/19 Ferrous Sulfate* (Ferrous Sulfate*) 325 Mg Tabec, 325 MG PO DAILY, TAB 01/21/19 [place]-3/Dha/Epa/Fish Oil (FISH OIL 1,000 MG SOFTGEL) 1 Each Capsule, 1 EACH PO DAILY, CAP 01/21/19 Vitamin E Acetate (Vitamin E) 1,000 Unit Capsule, 1000 UNIT PO DAILY, CAP 01/21/19 Beta-Carotene (Beta Carotene) 25,000 Unit Capsule, 23050 UNIT PO DAILY, CAP 01/21/19 Glucosamine Hcl/Chondr Lewis A Na (OSTEO BI-FLEX CAPLET) 1 Each Tablet, 1 EACH PO BID, TAB 01/21/19 Aspirin (Low Dose Aspirin) 81 Mg Tablet.dr, 81 MG PO DAILY, #30 TAB 01/21/19 Acetaminophen* (Acetaminophen*) 650 Mg Tablet, 650 MG PO TID PRN for PAIN AND OR ELEVATED TEMP, #30 TAB 01/21/19 Vit A/Vit C/Vit E/Zinc/Copper (PRESERVISION AREDS TABLET) 1 Each Tablet, 2 EACH PO DAILY, TAB 01/21/19 Simvastatin (Simvastatin) 40 Mg Tablet, 40 MG PO QHS, #30 TAB 01/21/19 Primary Care Provider Not On Staff Doctor NYA VALENTE MD Feb 13, 2019 13:18
== END 2019-02-13 12:30 | disposition home health service (06) | DRG 309 ==
LOC: VRC 16:35
PROVIDERS: ADMIT Physical Medicine & Rehabilitation; ATTEND Internal Medicine Pulmonary Disease
PROC: F07Z5ZZ Bed Mobility Treatment (ICD-10-PCS; principal; 2019-01-26)
PROC: F08Z0ZZ Bathing/Showering Techniques Treatment (ICD-10-PCS; 2019-01-26)
DX: I48.0 Paroxysmal atrial fibrillation (principal); G45.8 Other transient cerebral ischemic attacks and related syndromes; G93.40 Encephalopathy, unspecified; Z96.651 Presence of right artificial knee joint; D64.9 Anemia, unspecified; R53.81 Other malaise; J43.9 Emphysema, unspecified; I25.10 Atherosclerotic heart disease of native coronary artery without angina pectoris; I35.0 Nonrheumatic aortic (valve) stenosis; Z85.51 Personal history of malignant neoplasm of bladder; Z92.21 Personal history of antineoplastic chemotherapy; Z86.74 Personal history of sudden cardiac arrest; E78.00 Pure hypercholesterolemia, unspecified; R29.818 Other symptoms and signs involving the nervous system; I10 Essential (primary) hypertension; R00.1 Bradycardia, unspecified; I25.2 Old myocardial infarction; F06.31 Mood disorder due to known physiological condition with depressive features; M19.90 Unspecified osteoarthritis, unspecified site; Z79.82 Long term (current) use of aspirin
CPT/HCPCS: 71045; 80048; 80053; 81003; 82270; 83540; 83735; 85025; 87081; 87086; 92507; 92523; 97110; 97112; 97116; 97150; 97163; 97167; 97530; 97535; 97542; J1940

== ENCOUNTER → 2019-03-03 | Outpatient (CLI) | payer MEDICARE, OTHER ==
--- NOTE | 2019-03-03 15:26 | CONS ---
Consult Date/Type/Reason Admit Date/Time Initial Consult Date Date/Time of Note DATE: 03/03/19 TIME: 15:24 Subjective DOS: 01/21/2019 Procedure: Right TKA 6 weeks s/p right TKA who returns today for follow up. The patient is doing well overall. Pain is none. Denies F/C. Denies N/T. Denies any drainage from the incision. Narcotic Pain medication: None Gait Aids: Walker for balance only. Patient has history of falls. Pain better than before surgery: Yes. Only pain she has now is from lower back. Pleased with outcome. Objective Vitals Weight: 100 pounds Height: 5 foot Temperature: 97.6 Heart Rate: 67 Blood Pressure: 152/70 Respiratory Rate: 14 Exam General: Alert, oriented x3. No Acute Distress. Heart: Regular rate and rhythm. Lungs: No respiratory distress. No accessory muscle use. Right lower Extremity: Incision healed. No skin breakdown, no surrounding erythema. Sensation intact to light touch in a sural, saphenous, deep peroneal, superficial peroneal, medial and lateral plantar nerve distribution. Motor is intact, patient able to dorsiflex and plantarflex ankle and extend and flex great toe. Dorsalis Pedis pulse +2, Brisk capillary refill. Compartments are soft. ROM: Extension: 3 Flexion: 120 Varus/ Valgus Stability: Stable in extension, flexion, and throughout range of motion A/P Stability: Stable Gait: Moderate pace. Non-antalgic. Walker gait aid. Walks with back and significant kyphosis. Results/Medications Home Meds Reported Medications Brimonidine/Timolol* (Combigan*) 5 Ml Drops, 1 DROP LEFT EYE BID, BOTTLE 01/21/19 Propylene Glycol/Peg 400 (SYSTANE GEL EYE DROPS) 10 Ml Drops.gel, 1 DROP BOTH EYES QID, #1 BOTTLE 01/21/19 Folic Acid/Multivits-Min/Lut (Centrum Silver Chewable Tablet) 1 Each Tab.chew, 1 EACH PO DAILY, TAB.CHEW 01/21/19 Cholecalciferol* (Vitamin D3*) 1,000 Unit Tablet, 1000 UNIT PO DAILY, TAB 01/21/19 Esomeprazole Mag Trihydrate (Nexium) 40 Mg Capsule.dr, 40 MG PO DAILY, #30 CAP 01/21/19 Ascorbic Acid* (Vitamin C*) 500 Mg Capsule.sa, 1000 MG PO DAILY, CAP 01/21/19 Ferrous Sulfate* (Ferrous Sulfate*) 325 Mg Tabec, 325 MG PO DAILY, TAB 01/21/19 [place]-3/Dha/Epa/Fish Oil (FISH OIL 1,000 MG SOFTGEL) 1 Each Capsule, 1 EACH PO DAILY, CAP 01/21/19 Vitamin E Acetate (Vitamin E) 1,000 Unit Capsule, 1000 UNIT PO DAILY, CAP 01/21/19 Beta-Carotene (Beta Carotene) 25,000 Unit Capsule, 03839 UNIT PO DAILY, CAP 01/21/19 Glucosamine Hcl/Chondr Lewis A Na (OSTEO BI-FLEX CAPLET) 1 Each Tablet, 1 EACH PO BID, TAB 01/21/19 Aspirin (Low Dose Aspirin) 81 Mg Tablet.dr, 81 MG PO DAILY, #30 TAB 01/21/19 Acetaminophen* (Acetaminophen*) 650 Mg Tablet, 650 MG PO TID PRN for PAIN AND OR ELEVATED TEMP, #30 TAB 01/21/19 Vit A/Vit C/Vit E/Zinc/Copper (PRESERVISION AREDS TABLET) 1 Each Tablet, 2 EACH PO DAILY, TAB 01/21/19 Simvastatin (Simvastatin) 40 Mg Tablet, 40 MG PO QHS, #30 TAB 01/21/19 Imaging Xrays obtained in clinic today and personally reviewed by myself: Bilateral AP and merchant views and a dedicated lateral of the right knee demonstrates [] knee s/p TKA. Components in good position and alignment. No signs of wear, osteolysis, loosening, component failure, or fracture. No acute complications. Assessment/Plan Hospital Course (Demo Recall) 89-year-old female doing well 6 weeks s/p right TKA - DVT Prophylaxis: Discontinue - FU 6 weeks for repeat clinical and radiographic exam - Antibiotic dental prophylaxis for any cleaning or procedure PHYLICIA ULLOA MD March 03, 2019 15:26
--- NOTE | 2019-03-05 03:32 | RADRPT ---
PROCEDURE: Bilateral knee series CLINICAL INDICATION: Pain TECHNIQUE: AP weightbearing, lateral weightbearing, and sunrise views were obtained of the right le ft knees. COMPARISON: Bilateral knee study 02/03/2019 FINDINGS: There is a total right knee prosthesis in place without dislocation or loosening. Interval removal of anterior midline surgical staple line. Moderate degenerate joint disease of the left knee without ac [place] fracture dislocation. Again noted is a left knee chondrocalcinosis again noted is chondrocalcinos is involving the left knee. No evidence of a left knee joint effusion. Moderate right knee joint effu gaby. Soft tissues are otherwise unremarkable. IMPRESSION: 1. Unremarkable right knee prosthesis. Moderate right knee joint effusion. 2. Moderate degenerate joint disease left knee with chondrocalcinosis. No acute fracture dislocation or joint effusion. RPTAT:AAJJ Physician Dante Date Time Electronically viewed and signed by Physician Dante on 03/05/2019 03:30 BM/
== END | disposition home or self-care (01) ==
LOC: HKI 13:15
PROVIDERS: ATTEND Orthopaedic Surgery Adult Reconstructive Orthopaedic Surgery
DX: Z47.1 Aftercare following joint replacement surgery (principal); Z96.651 Presence of right artificial knee joint

== ENCOUNTER → 2019-04-14 | Outpatient (CLI) | payer MEDICARE, OTHER ==
--- NOTE | 2019-04-14 14:39 | CONS ---
Consult Date/Type/Reason Admit Date/Time Initial Consult Date Date/Time of Note DATE: 04/14/19 TIME: 14:33 Subjective DOS: 01/21/2019 Procedure: Right TKA 3 months s/p right TKA who returns today for follow up. The patient is doing well overall. Pain is none. Denies F/C. Denies N/T. Denies any drainage from the incision. Narcotic Pain medication: None Gait Aids: Walker to prevent falls Pain better than before surgery: Yes Pleased with outcome. Objective Exam General: Alert, oriented x3. No Acute Distress. Heart: Regular rate and rhythm. Lungs: No respiratory distress. No accessory muscle use. Right lower Extremity: Incision well-healed. No skin breakdown, no surrounding erythema. Sensation intact to light touch in a sural, saphenous, deep peroneal, superficial peroneal, medial and lateral plantar nerve distribution. Motor is intact, patient able to dorsiflex and plantarflex ankle and extend and flex great toe. Dorsalis Pedis pulse +2, Brisk capillary refill. Compartments are soft. ROM: Extension: 3 Flexion: 120 Varus/ Valgus Stability: Stable in extension, flexion, and throughout range of motion A/P Stability: [] Gait: Moderate pace. 9 antalgic. Walker for gait aid. Ambulates with thoracic spine and kyphosis Results/Medications Home Meds Reported Medications Brimonidine/Timolol* (Combigan*) 5 Ml Drops, 1 DROP LEFT EYE BID, BOTTLE 01/21/19 Propylene Glycol/Peg 400 (SYSTANE GEL EYE DROPS) 10 Ml Drops.gel, 1 DROP BOTH EYES QID, #1 BOTTLE 01/21/19 Folic Acid/Multivits-Min/Lut (Centrum Silver Chewable Tablet) 1 Each Tab.chew, 1 EACH PO DAILY, TAB.CHEW 01/21/19 Cholecalciferol* (Vitamin D3*) 1,000 Unit Tablet, 1000 UNIT PO DAILY, TAB 01/21/19 Esomeprazole Mag Trihydrate (Nexium) 40 Mg Capsule.dr, 40 MG PO DAILY, #30 CAP 01/21/19 Ascorbic Acid* (Vitamin C*) 500 Mg Capsule.sa, 1000 MG PO DAILY, CAP 01/21/19 Ferrous Sulfate* (Ferrous Sulfate*) 325 Mg Tabec, 325 MG PO DAILY, TAB 3/26/19 [place]-3/Dha/Epa/Fish Oil (FISH OIL 1,000 MG SOFTGEL) 1 Each Capsule, 1 EACH PO DAILY, CAP 01/21/19 Vitamin E Acetate (Vitamin E) 1,000 Unit Capsule, 1000 UNIT PO DAILY, CAP 01/21/19 Beta-Carotene (Beta Carotene) 25,000 Unit Capsule, 19416 UNIT PO DAILY, CAP 01/21/19 Glucosamine Hcl/Chondr Lewis A Na (OSTEO BI-FLEX CAPLET) 1 Each Tablet, 1 EACH PO BID, TAB 01/21/19 Aspirin (Low Dose Aspirin) 81 Mg Tablet.dr, 81 MG PO DAILY, #30 TAB 01/21/19 Acetaminophen* (Acetaminophen*) 650 Mg Tablet, 650 MG PO TID PRN for PAIN AND OR ELEVATED TEMP, #30 TAB 01/21/19 Vit A/Vit C/Vit E/Zinc/Copper (PRESERVISION AREDS TABLET) 1 Each Tablet, 2 EACH PO DAILY, TAB 01/21/19 Simvastatin (Simvastatin) 40 Mg Tablet, 40 MG PO QHS, #30 TAB 01/21/19 Imaging Xrays obtained in clinic today and personally reviewed by myself: Bilateral AP and merchant views and a dedicated lateral of the right knee demonstrates right knee s/p TKA with tibial stem. Components in good position and alignment. No signs of wear, osteolysis, loosening, component failure, or fracture. No acute complications. Assessment/Plan Hospital Course (Demo Recall) 89-year-old female doing well 3 months s/p right TKA. The patient has no pain. She continues to use a walker to prevent falls. I think this is a good idea. - FU 9 months for annual surveillance for repeat clinical and radiographic exam - Antibiotic dental prophylaxis for any cleaning or procedure PHYLICIA ULLOA MD Apr 14, 2019 14:39
--- NOTE | 2019-04-15 17:01 | RADRPT ---
PROCEDURE: XR Knees. CLINICAL INDICATION: Bilateral knee pain. TECHNIQUE: Total of six views. Frontal, oblique, and lateral views of both knees. COMPARISON: 03/03/2019. FINDINGS: On the right side, there is a total knee arthroplasty which appears satisfactory with no fracture, di slocation, or loosening. There is a moderate-sized right knee joint effusion. On the left side, there is moderate degenerative change with joint space narrowing and osteophytes in volving all 3 joint compartments. There is chondrocalcinosis. Vascular calcifications are present con sistent with atherosclerosis. There is no fracture or dislocation. There is no lytic or blastic lesion. IMPRESSION: 1. Satisfactory postoperative appearance of the right knee. 2. Moderate right knee joint effusion. 3. Moderate degenerative changes of the left knee. RPTAT: QQ .Zac Guzman MD, MD Date Time Electronically viewed and signed by .Zac Guzman MD, MD on 04/15/2019 16:43 .R/
== END | disposition home or self-care (01) ==
LOC: HKI 13:19
PROVIDERS: ATTEND Orthopaedic Surgery Adult Reconstructive Orthopaedic Surgery
DX: Z47.1 Aftercare following joint replacement surgery (principal); Z96.651 Presence of right artificial knee joint